=== PATIENT | male | born 1965 | race Two or more races ===

== ENCOUNTER 2020-06-02 21:41 | Emergency (ER) | payer OTHER, SELFPAY ==
[2020-06-02 22:48] VITALS: PULSE 91; RESP 20; TEMP 37.2; O2SAT 95; BMI 34.9
--- NOTE | 2020-06-02 23:38 | ED_ITS ---
HPI - Back Pain/Injury General Chief Complaint: Back Pain/Injury Stated Complaint: BACK PAIN Time Seen by Provider: 06/02/20 23:07 Source: patient Mode of arrival: ambulatory Limitations: no limitations History of Present Illness HPI Narrative: This is a 55-year-old male who presents with right lumbar back discomfort that radiates into the posterior lower extremity and he states that this started on Monday. This is not been associated with any bowel or bladder dysfunction, or urinary pain /burning / frequency. In addition, there are no associated fevers, chills, nausea, or vomiting. Patient states that he has suffered from this before and feels it is related to his job. Related Data Previous Rx's Medication Instructions Recorded cyclobenzaprine 10 mg PO BEDTIME PRN #5 tab 06/02/20 ketorolac 10 mg PO Q6H PRN 5 Days #20 tab 06/02/20 Allergies Allergy/AdvReac Type Severity Reaction Status Date / Time No Known Allergies Allergy Verified 06/02/20 23:38 Review of Systems Review of Systems: Pertinent positives and negatives as stated in the HPI. GEN: no fevers, chills, fatigue HEENT: no nasal congestion, sore throat, ear pain NEURO: no headache, dizziness, focal weakness PULM: no cough, shortness of breath CV: no chest pain, palpitations, LE edema ABD: no abdominal pain, nausea, vomiting, diarrhea : no dysuria, urgency, frequency SKIN: no rash ROS otherwise negative x 10 PMFSH Past Medical History Source: nursing notes reviewed Medical History Diabetes Hypertension Kidney stones Sciatica Social History Social History Smoking Status: Current every day smoker Use of substances other than those prescribed or required for medical reasons: No Advance Directives: No Advance Directives Information Provided: No Physical Exam Vital Signs and I&O and Narrative: Vital Signs and I&O: Vital Signs Temp 98.9 F 06/02/20 22:48 Pulse 97 06/03/20 00:19 Resp 16 06/03/20 00:19 BP 142/85 H 06/03/20 00:19 Pulse Ox 97 06/03/20 00:19 Intake & Output 06/02/20 06/02/20 06/03/20 06:59 18:59 06:59 Weight 101.151 kg Body Mass Index 34.9 VITAL SIGNS: Reviewed. GENERAL: Well developed, well nourished, in no acute distress. HEAD: Normocephalic/atraumatic, EYES: PERRLA, EOMI intact without pain, no nystagmus/pallor/icterus noted EARS: Ext canals without abnormality, TMs non-bulging and non-erythematous NOSE: Nares patent bilateral OROPHARYNX: no oral lesions noted, posterior pharynx clear and non-erythematous without noted tonsillar enlargement/erythema/exudates NECK: Supple, no adenopathy LUNGS: Normal breath sounds. No adventitious sounds or accessory muscle use. SpO2<97%> CARDIOVASCULAR: Regular rate and rhythm without noted murmurs, no JVD or lower extremity edema. ABDOMEN: Soft, non-tender, non-distended with bowel sounds. No rigidity. No guarding. No palpable masses or hernias noted BACK: no CVA tenderness and noted muscle spasm to right, lower lumbar area MUSCULOSKELETAL: No tenderness, deformities, or effusions noted on gross inspection. EXTREMITIES: No cyanosis, clubbing or edema and neurovascularly intact distally.. SKIN: Inspection of the skin reveals no rashes, ulcerations, jaundice, pallor, or petechiae. NEUROLOGIC: Alert and oriented x 4. Strength and sensation to light touch were grossly intact x 4. Course Course Course Narrative: This is a 55-year-old male with history and clinical presentation most consistent with sciatica and doubt any evidence to support pyelonephritis, UTI, renal colic. Patient was provided with a combination analgesics to include a Lidoderm patch with significant improvement in his di scomfort on re-evaluation. He was discharged to home with an analgesics combination regimen. Discharge Plan Discharge Clinical Impression: Sciatica Qualifiers: Laterality: right Qualified Code(s): M54.31 - Sciatica, right side Patient Disposition: Home, Self-Care Instructions: Sciatica (ED), Lumbar Radiculopathy (ED), Lower Back Exercises (ED) Additional Instructions: 1. Tylenol 1000 mg, orally, every 6 hours as needed for pain control. Do not exceed 4000 mg within 24 hours. 2. continue with lidocaine patches apply to area of maximal tenderness as directed on the outside packaging. 3. review the information for back exercises. 4. please follow-up with your primary care provider for further outpatient management and treatment. The patient and/or family acknowledge understanding of results (as applicable), diagnosis, treatment plan, need for follow up, and symptoms that should prompt a return to the emergency room. Prescriptions: New ketorolac 10 mg tablet 10 mg PO Q6H PRN (Reason: pain) 5 Days Qty: 20 RF: 0 cyclobenzaprine 10 mg tablet 10 mg PO BEDTIME PRN (Reason: muscle spasm) Qty: 5 RF: 0 Referrals: Fred Gonsales PA-C [Primary Care Provider] - 2 days ( for further management of your sciatica) Stand Alone Forms: Work/School Release Interventions: ED Discharge Assessment Last Done: 06/03/20 00:26 Discharge Date/Time: 06/03/20 00:27
[2020-06-03] MEDS: Ketorolac Tromethamine 15 MG/ML VIAL IM (00:14)
[2020-06-03] MEDS: Acetaminophen 325 MG TABLET 975 MG PO (00:14)
[2020-06-03] MEDS: Lidocaine 4 % Patch ADH..PATCH 1 PATCH TRANSDERMA (00:15)
[2020-06-03 00:19] VITALS: BP 142/85; PULSE 97; RESP 16; O2SAT 97
--- NOTE | 2020-06-03 00:25 | PC.NURSE ---
Pt medicated per EMAR, pt reporting 5/10 pain to lower back. VSS. Pt requesting a work note. Pt provided with DC paperwork.
== END 2020-06-03 00:27 | disposition home or self-care (01) ==
PROVIDERS: Emergency Provider Student in an Organized Health Care Education/Training Program; PCP Physician Assistant
DX: M54.41 Lumbago with sciatica, right side (principal); I10 Essential (primary) hypertension; E11.9 Type 2 diabetes mellitus without complications; F17.200 Nicotine dependence, unspecified, uncomplicated; Z71.6 Tobacco abuse counseling; Z79.899 Other long term (current) drug therapy
CPT/HCPCS: 96372; 99284; J1885

== ENCOUNTER 2020-06-06 08:56 | Outpatient (REF) | payer OTHER, SELFPAY ==
[2020-06-06 10:59] LABS: MANUAL DIFF FLAG NO
[2020-06-06 11:06] LABS: Basophils Percent Auto 0.4 % (0-2); Eosinophils Absolute Auto 0.3 X10*3/uL (0.0-0.4); Eosinophils Percent Auto 2.7 % (0-4); Hematocrit 44.4 % (42-52); Hemoglobin 14.8 g/dl (14.0-18.0); Imm Gran Abs Auto 0.04 X10*3/uL (0.00-0.03); Imm Gran Pct Auto 0.4 % (0.0-0.4); Lymphocytes Absolute Auto 3.3 X10*3/uL (1.2-4.9); Lymphocytes Percent Auto 30.7 % (20-40); Mean Corpuscular HGB Conc 33.3 g/dl (31.0-36.0); Mean Corpuscular Hemoglobin 29.8 pg (27.0-33.0); Mean Corpuscular Volume 89.5 fL (80-98); Mean Platelet Volume 11.1 fL (9.4-12.4); Monocytes Percent Auto 8.9 % (2-11); Neutrophils Absolute Auto 6.1 X10*3/uL (2.0-8.3); Neutrophils Percent Auto 56.9 % (45-73); Platelet Count 218 X10*3/uL (160-400); Red Blood Count 4.96 X10*6/uL (4.60-5.80); Red Cell Distribution Width 12.8 % (11.0-16.0); White Blood Count 10.7 X10*3/uL (4.8-10.8)
[2020-06-06 11:18] LABS: Estimated Average Glucose 137 mg/dL; Hemoglobin A1c % 6.4 %
[2020-06-06 11:35] LABS: Alanine Aminotransferase 20 U/L (0-40); Albumin Level 4.2 g/dL (3.5-5.0); Alkaline Phosphatase 91 U/L (39-117); Anion Gap 12 (12-20); Aspartate Amino Transferase 22 U/L (5-37); Bilirubin Total 0.8 mg/dL (0.0-1.0); Blood Urea Nitrogen 13 mg/dL (9-16); Calcium 9.1 mg/dL (8.4-10.2); Carbon Dioxide 27 mmol/L (22-29); Chloride 103 mmol/L (96-108); Cholesterol 203 mg/dL; Estimated Glomerular Filt Rate > 60; Glucose Fasting 110 mg/dL (60-99); HDL Cholesterol 43 mg/dL; LDL Cholesterol Calculated 137 mg/dl; Potassium 4.4 mmol/l (3.3-5.1); Sodium 138 mmol/L (135-145); Total Protein 7.4 g/dL (6.5-8.0); Triglycerides 118 mg/dL
[2020-06-06 11:44] LABS: Creatinine Urine 164.19 mg/dL; Microalbum/Creatinine Ratio Ur 58.4 ug/mg cr
[2020-06-06 11:58] LABS: Thyroid Stimulating Hormone 0.91 mIU/mL (0.32-4.0)
== END 2020-06-06 08:57 | disposition home or self-care (01) ==
LOC: HO.LAB 08:56
PROVIDERS: PCP Physician Assistant; Visit Provider Physician Assistant
DX: I10 Essential (primary) hypertension (principal); E11.9 Type 2 diabetes mellitus without complications
CPT/HCPCS: 36415; 80053; 80061; 82043; 83036; 84443; 85025

== ENCOUNTER 2020-06-20 14:53 | Emergency (ER) | payer OTHER, SELFPAY ==
--- NOTE | 2020-06-20 16:07 | ED_ITS ---
HPI - General Adult General Chief complaint: General Medical Stated complaint: RIGHT SIDE PAIN Time Seen by Provider: 06/20/20 16:07 Source: patient Mode of arrival: ambulatory Limitations: no limitations History of Present Illness Onset (ago): day(s) (7) Location: abdomen Radiation: non-radiation Severity: moderate Quality: aching Pain Consistency: constant Relieving factors: none Exacerbating factors: movement Associated symptoms: fever/chills, loss of appetite and nausea/vomiting Treatments prior to arrival: none Related Data Previous Rx's Medication Instructions Recorded cyclobenzaprine 10 mg PO BEDTIME PRN #5 tab 06/02/20 ketorolac 10 mg PO Q6H PRN 5 Days #20 tab 06/02/20 oxycodone 5 mg PO Q6H PRN #14 tab 06/20/20 Allergies Allergy/AdvReac Type Severity Reaction Status Date / Time No Known Allergies Allergy Verified 06/02/20 23:38 Review of Systems Review of Systems: Constitutional : No Weight loss, No Fever, No Chills ENT/Mouth : No sore throat, No Rhinorrhea Eyes: No Swelling, No Redness Cardiovascular : No Chest Pain, No SOB, NoEdema Respiratory : No Cough, No Sputum, No Wheezing Gastrointestinal : Positive Nausea, no Vomiting, no Diarrhea, positive abdominal Pain, No Hematochezia, No Melena Genitourinary : No Dysuria, No Urinary Frequency, No Hematuria, No Urgency Musculoskeletal : No joint pain, No Myalgias, No Joint Swelling Skin : No Skin Lesions, No rash Neuro : No Weakness, No Numbness, No Dizziness, No Headache Psych : No Anxiety/Panic, No Depression Heme/Lymph: No Bruising, No Lymphadenopathy Endocrine : No Polyuria, No Polydipsia All other systems reviewed and are negative. [facility] Past Medical History Attestation statement: The following information was validated with the patient. Medical History (Updated 06/20/20 @ 18:57 by Lyubov Osborn DO) Diabetes Hypertension Kidney stones Sciatica Surgical History (Updated 06/20/20 @ 16:09 by Lyubov Osborn DO) Hx of cholecystectomy Social History Social History Alcohol intake: unknown Smoking Status: Current some day smoker Use of substances other than those prescribed or required for medical reasons: No Advance Directives: No Advance Directives Information Provided: Yes Physical Exam Vital Signs: Vital Signs: Vital Signs Temp Pulse Resp BP Pulse Ox 06/20/20 16:38 19 06/20/20 16:27 98.6 F 75 17 149/91 H 95 Appearance: Alert. Oriented X3. No acute distress. Eyes: Pupils equal, round and reactive to light. ENT: Pharynx normal. Neck: Normal inspection. Neck supple. CVS: Normal heart rate and rhythm. Pulses normal. Respiratory: No respiratory distress. Breath sounds normal. Abdomen: Soft and moderate ttp, R sided abdominal pain Skin: Skin warm and dry. Normal skin color. Normal skin turgor. Extremities: No lower extremity edema. No calf ttp Neuro: Oriented X 3. No motor deficit. No sensory deficit. Course Course Course Narrative: given results of CXR added on CT chest to evaluate mass patient aware of findings of CT scan - will DC home with referral to oncology Medical Decision Making [facility] Narrative Medical decision making narrative: 55 yo male with sweats, R sided abdominal pa in for several days c/o some nausea, recently treated for back pain at this time will need labs, CXR for pneumonia, CT scan for appendicitis/mass, IV morphine for pain, dispo per results and findings. Lab Data Result diagrams: 06/20/20 16:21 06/20/20 16:22 Labs: Lab Results 06/20/20 06/20/20 06/20/20 Range/Units 16:21 16:22 16:22 WBC 10.7 (4.8-10.8) X10*3/uL RBC 5.11 (4.60-5.80) X10*6/uL Hgb 15.2 (14.0-18.0) g/dl Hct 45.4 (42-52) % MCV 88.8 (80-98) fL MCH 29.7 (27.0-33.0) pg MCHC 33.5 (31.0-36.0) g/dl RDW 12.7 (11.0-16.0) % Plt Count 207 (160-400) X10*3/uL MPV 11.0 (9.4-12.4) fL Immature Gran % (Auto) 0.4 (0.0-0.4) % Neut % (Auto) 55.0 (45-73) % Lymph % (Auto) 31.3 (20-40) % Sheridan % (Auto) 10.0 (2-11) % Eos % (Auto) 2.8 (0-4) % Baso % (Auto) 0.5 (0-2) % Lymph # (Auto) 3.3 (1.2-4.9) X10*3/uL Sheridan # (Auto) 1.1 (0.1-1.2) X10*3/uL Eos # (Auto) 0.3 (0.0-0.4) X10*3/uL Baso # (Auto) 0.1 (0.0-0.2) X10*3/uL Abs Immat Gran (auto) 0.04 H (0.00-0.03) X10*3/uL Absolute Neuts (auto) 5.9 (2.0-8.3) X10*3/uL Absolute Nucleated RBC 0.000 (0.0-0.012) X10*3/uL Nucleated RBC % (auto) 0.0 (0.0-0.2) /100WBC Hold Blue Top SEE NOTE Sodium 137 (135-145) mmol/L Potassium 4.3 (3.3-5.1) mmol/l Chloride 104 (96-108) mmol/L Carbon Dioxide 23 (22-29) mmol/L Anion Gap 14 (12-20) BUN 12 (9-16) mg/dL Creatinine 0.69 (0.5-1.4) mg/dL Estim Creat Clear Calc TNP Estimated GFR > 60 Random Glucose 117 H (60-115) mg/dL Calcium 8.9 (8.4-10.2) mg/dL Magnesium 2.1 (1.6-2.6) mg/dL Total Bilirubin 0.3 (0.0-1.0) mg/dL Direct Bilirubin 0.2 (0.0-0.5) mg/dL AST 26 (5-37) U/L ALT 23 (0-40) U/L Alkaline Phosphatase 97 (39-117) U/L Troponin I High Sens (<3.5-35.0) ng/L Total Protein 7.6 (6.5-8.0) g/dL Albumin 4.1 (3.5-5.0) g/dL Lipase 6 L (8-78) U/L Urine Color Urine Appearance Urine pH (5.0-8.0) Ur Specific Vaughn (1.005-1.025) Urine Protein (NEG-TRACE) MG/DL Urine Glucose (UA) (NEG) MG/DL Urine Ketones (NEG) MG/DL Urine Blood (NEG) Urine Nitrite (NEG) Ur Leukocyte Esterase (NEG) Urine RBC (0) /HPF Urine WBC (0-4) /HPF Ur Squamous Epith Cells /LPF Urine Bacteria /LPF Urine Mucus /LPF 06/20/20 06/20/20 Range/Units 16:22 16:25 WBC (4.8-10.8) X10*3/uL RBC (4.60-5.80) X10*6/uL Hgb (14.0-18.0) g/dl Hct (42-52) % MCV (80-98) fL MCH (27.0-33.0) pg MCHC (31.0-36.0) g/dl RDW (11.0-16.0) % Plt Count (160-400) X10*3/uL MPV (9.4-12.4) fL Immature Gran % (Auto) (0.0-0.4) % Neut % (Auto) (45-73) % Lymph % (Auto) (20-40) % Sheridan % (Auto) (2-11) % Eos % (Auto) (0-4) % Baso % (Auto) (0-2) % Lymph # (Auto) (1.2-4.9) X10*3/uL Sheridan # (Auto) (0.1-1.2) X10*3/uL Eos # (Auto) (0.0-0.4) X10*3/uL Baso # (Auto) (0.0-0.2) X10*3/uL Abs Immat Gran (auto) (0.00-0.03) X10*3/uL Absolute Neuts (auto) (2.0-8.3) X10*3/uL Absolute Nucleated RBC (0.0-0.012) X10*3/uL Nucleated RBC % (auto) (0.0-0.2) /100WBC Hold Blue Top Sodium (135-145) mmol/L Potassium (3.3-5.1) mmol/l Chloride (96-108) mmol/L Carbon Dioxide (22-29) mmol/L Anion Gap (12-20) BUN (9-16) mg/dL Creatinine (0.5-1.4) mg/dL Estim Creat Clear Calc Estimated GFR Random Glucose (60-115) mg/dL Calcium (8.4-10.2) mg/dL Magnesium (1.6-2.6) mg/dL Total Bilirubin (0.0-1.0) mg/dL Direct Bilirubin (0.0-0.5) mg/dL AST (5-37) U/L ALT (0-40) U/L Alkaline Phosphatase (39-117) U/L Troponin I High Sens 4.5 (<3.5-35.0) ng/L Total Protein (6.5-8.0) g/dL Albumin (3.5-5.0) g/dL Lipase (8-78) U/L Urine Color YELLOW Urine Appearance CLEAR Urine pH 5.5 (5.0-8.0) Ur Specific Vaughn >= 1.030 H (1.005-1.025) Urine Protein TRACE (NEG-TRACE) MG/DL Urine Glucose (UA) NEG (NEG) MG/DL Urine Ketones NEG (NEG) MG/DL Urine Blood NEG (NEG) Urine Nitrite NEG (NEG) Ur Leukocyte Esterase NEG (NEG) Urine RBC 0-2 (0) /HPF Urine WBC 0 (0-4) /HPF Ur Squamous Epith Cells TRACE /LPF Urine Bacteria NONE /LPF Urine Mucus 2+ /LPF ECG Data Attestation: I personally reviewed and interpreted this ECG as follows: Interpretation: Rate: 77 Rhythm: NSR Enid: left Normal P waves. Normal ASCENCION. Normal QRS complex. ST T wave : normal qTC: normal prior studies: no acute ischemia The study has been interpreted contemporaneously by me. . Discharge Plan Discharge Clinical Impression: Acute flank pain, Lung mass Patient Disposition: Home, Self-Care Instructions: Flank Pain (ED) Prescriptions: New oxycodone 5 mg tablet 5 mg PO Q6H PRN (Reason: pain) Qty: 14 RF: 0 No Action ketorolac 10 mg tablet 10 mg PO Q6H PRN (Reason: pain) 5 Days Qty: 20 RF: 0 cyclobenzaprine 10 mg tablet 10 mg PO BEDTIME PRN (Reason: muscle spasm) Qty: 5 RF: 0 Referrals: Fred Gonsales PA-C [Primary Care Provider] - 1 day Javier Isidro MD [Physician] - 2 days Stand Alone Forms: Work/School Release
--- NOTE | 2020-06-20 16:07 | CT_ITS ---
EXAMINATION: CT ABDOMEN AND PELVIS WITH CONTRAST CLINICAL INFORMATION: Right-sided pain COMPARISON: None TECHNIQUE: Multidetector volumetric images were obtained from the superior aspect of the liver through the pubic symphysis following administration 85 mL of Omnipaque 350 intravenous contrast. Sagittal and coronal reformatted images were obtained on the technologist's workstation. Oral contrast: No This CT examination was performed using dose optimization techniques as appropriate, variously including the following: *Automated exposure control *Adjustment of mA and/or kV according to patient size (this includes techniques or standardized protocols for targeted exams where dose is matched to indication/reason for exam; i.e. 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 This will be reported upon separately LUNG BASES: No suspicious abnormality in the visualized lower chest. The remainder of the chest will be reported separately LIVER, GALLBLADDER, AND BILIARY TREE: There is no suspicious focal liver lesion. Liver contour is minimally irregular. No intrahepatic ductal dilation. There are surgical clips in the expected region of the gallbladder. No significant biliary dilation. PANCREAS: No suspicious abnormality. SPLEEN: The spleen is not enlarged. No suspicious abnormality ADRENAL GLANDS: No adrenal mass demonstrated KIDNEYS AND URETERS: There are low attenuating structures in the central aspect of each kidney. No convincing dilation of the renal pelvis or ureter on either side. This is of uncertain significance. There is a probable small cyst in the mid left kidney. The nephrograms are symmetric. BLADDER: The bladder is not well-distended. No suspicious abnormality. GASTROINTESTINAL TRACT: No localized colonic wall thickening or pericolonic fat stranding. The appendix is normal. No suspicious abnormality the stomach. ABDOMINAL WALL: No significant hernia is appreciated. LYMPH NODES: There are mildly prominent periportal and peripancreatic lymph nodes. There is a probable lymph node between the colon and pancreatic head which measures 1.1 cm (series 8, image 37). There are some celiac region lymph nodes as well. These are prominent. VASCULAR: There is no abdominal aortic aneurysm. The portal vein enhances. There is no free peritoneal fluid PELVIC VISCERA: Unremarkable. OSSEOUS STRUCTURES: There are extensive hypertrophic changes in the spine including dorsal osteophytes and ossification of the posterior longitudinal ligament which encroach upon the spinal canal. There is some foraminal narrowing bilaterally greatest at L5/S1. CT/CT abdomen pelvis w con IMPRESSION: There is no evidence of hepatic or adrenal metastasis. Slight irregularity of the liver and some nonspecific upper abdominal lymph nodes. In abnormality in the right upper lung will be reported upon separately. If there is subsequent diagnosis of malignancy further evaluation may be warranted for the upper abdominal lymph nodes. This could be related to chronic liver disease. The appendix is normal. There is no obstructing urinary calculus on the right. Previous cholecystectomy.
--- NOTE | 2020-06-20 16:07 | ECG_ITS ---
Test Reason : FLANK PAIN Blood Pressure : / mmHG Vent. Rate : 077 BPM Atrial Rate : 077 BPM P-R Int : 142 ms QRS Dur : 086 ms QT Int : 392 ms P-R-T Axes : 013 -01 016 degrees QTc Int : 443 ms Normal sinus rhythm Voltage criteria for left ventricular hypertrophy RSR' or QR pattern in V1 suggests right ventricular conduction delay Abnormal ECG No previous ECGs available Referred By: Lyubov Osborn Electronically Signed By:CHERRY HERNANDEZ MD
--- NOTE | 2020-06-20 16:08 | XR_ITS ---
EXAMINATION: XR chest 1V CLINICAL INFORMATION: Reason for Exam R sided pain COMPARISON: No prior chest x-ray available in our system for comparison at the time of this dictation. TECHNIQUE: Portable chest x-ray Lungs and Kaylee: There is age forming rounded opacity concerning for a mass in the right upper lobe 3.8 cm, concerning for lung mass. Left lung is clear. Pleura: Normal. Costophrenic angles are sharp. No pneumothorax. Heart: The heart is normal in size. Mediastinum: The mediastinum is within normal limits.. Bones: Skeletal structures included are normal for patient's age. XR/XR chest 1V IMPRESSION: Edge forming oval opacity projecting over the right upper lobe concerning for a lung mass pathologic lesion. Further investigation warranted. Consider correlation with follow-up contrast enhanced CT can. (Referring physician staff is being called, to be alerted of the above findings and recommendations.) MS
[2020-06-20 16:27] VITALS: BP 149/91; PULSE 75; RESP 17; TEMP 37; O2SAT 95
[2020-06-20 16:31] LABS: MANUAL DIFF FLAG NO
[2020-06-20 16:34] LABS: Basophils Absolute Auto 0.1 X10*3/uL (0.0-0.2); Basophils Percent Auto 0.5 % (0-2); Eosinophils Absolute Auto 0.3 X10*3/uL (0.0-0.4); Eosinophils Percent Auto 2.8 % (0-4); Hematocrit 45.4 % (42-52); Hemoglobin 15.2 g/dl (14.0-18.0); Imm Gran Abs Auto 0.04 X10*3/uL (0.00-0.03); Imm Gran Pct Auto 0.4 % (0.0-0.4); Lymphocytes Absolute Auto 3.3 X10*3/uL (1.2-4.9); Lymphocytes Percent Auto 31.3 % (20-40); Mean Corpuscular HGB Conc 33.5 g/dl (31.0-36.0); Mean Corpuscular Hemoglobin 29.7 pg (27.0-33.0); Mean Corpuscular Volume 88.8 fL (80-98); Monocytes Absolute Auto 1.1 X10*3/uL (0.1-1.2); Neutrophils Absolute Auto 5.9 X10*3/uL (2.0-8.3); Platelet Count 207 X10*3/uL (160-400); Red Blood Count 5.11 X10*6/uL (4.60-5.80); Red Cell Distribution Width 12.7 % (11.0-16.0); White Blood Count 10.7 X10*3/uL (4.8-10.8)
[2020-06-20 16:36] LABS: Glucose Urine UA NEG (NEG); Leukocyte Esterase Urine NEG (NEG); Nitrite Urine NEG (NEG); PH 5.5 (5.0-8.0); Specific Gravity - Urine >= 1.030 (1.005-1.025); Urine Blood NEG (NEG); Urine Ketones NEG (NEG); Urine Protein TRACE MG/DL (NEG-TRACE)
[2020-06-20 16:38] VITALS: RESP 19
[2020-06-20 16:38] LABS: Appearance Urine CLEAR; Color Urine YELLOW
[2020-06-20] MEDS: ondansetron HCL 4 MG/2 ML VIAL IVPUSH (16:38)
[2020-06-20] MEDS: Morphine Sulfate 4 MG/ML CARTRIDGE IVPUSH (16:38)
--- NOTE | 2020-06-20 16:52 | CT_ITS ---
EXAMINATION: CT CHEST WITH CONTRAST CLINICAL INFORMATION: Lung mass COMPARISON: None TECHNIQUE: Multidetector volumetric CT imaging of the chest was obtained after the administration of 85 mL of Omnipaque 350 intravenous contrast without immediate adverse reactions. Axial MIP volume rendering provided. Sagittal and coronal reformatted images were obtained. This CT examination was performed using dose optimization techniques as appropriate, variously including the following: *Automated exposure control *Adjustment of mA and/or kV according to patient size (this includes techniques or standardized protocols for targeted exams where dose is matched to indication/reason for exam; i.e. 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 There are surgical clips in the right upper quadrant. There are osteophytes in the spine. The cardiac silhouette appears prominent. LUNGS: There is a heterogeneous irregular 4.1 x 3.3 x 3.1 cm peripheral mass in the apical right upper lobe. There is a broad common surface with the parietal pleura. There is no convincing underlying bone destruction. There is no convincing evidence of chest wall invasion although this is by no means excluded. The mass has acute and obtuse margins with the chest wall. There is a suggestion of some adjacent pleural reaction. There is no central calcification or cavitation. There are a few nonspecific juxtapleural reticular opacities. There is no evidence of significant emphysema or honeycomb formation. MEDIASTINUM: There is mediastinal and right hilar adenopathy highly suspicious for metastatic disease. Retrocaval paratracheal lymph node 06/20/20, series 6, image 140-2.7 cm Right paratracheal lymphadenopathy 06/20/20, series 6, image 103-1.3 cm Prevascular lymph node at the groove between the SVC and aorta 06/20/20, series 6, image 139-1.0 cm Right hilar adenopathy which may be partially necrotic 06/20/20, series 6, image 165-1.3 cm Nonspecific lymph nodes on the left side of the mediastinum between the maryuri and left pulmonary artery and in the aorticopulmonary window. These are not definitely pathologic. No abnormality of the esophagus. PLEURA: As described the mass abuts the pleura and chest wall. No significant pleural fluid. AXILLA: There are some bilateral axillary lymph nodes which are nonspecific. UPPER ABDOMEN: The abdomen is reported separately. OSSEOUS STRUCTURES: No convincing direct invasion into the adjacent ribs in the right upper chest. Hypertrophic changes in the spine with some narrowing of the canal. Flowing osteophytes or syndesmophytes. CT/CT chest w con IMPRESSION: There is a 4.1 cm peripheral irregular mass in the apical right upper lobe with a broad common surface with the parietal pleura/chest wall highly suspicious for non-small cell carcinoma. Highly suspicious adenopathy in the right hilum and mediastinum No significant pleural fluid. Technique appropriate action
[2020-06-20 16:57] LABS: Alanine Aminotransferase 23 U/L (0-40); Albumin Level 4.1 g/dL (3.5-5.0); Alkaline Phosphatase 97 U/L (39-117); Anion Gap 14 (12-20); Aspartate Amino Transferase 26 U/L (5-37); Bilirubin Direct 0.2 mg/dL (0.0-0.5); Bilirubin Total 0.3 mg/dL (0.0-1.0); Blood Urea Nitrogen 12 mg/dL (9-16); Calcium 8.9 mg/dL (8.4-10.2); Carbon Dioxide 23 mmol/L (22-29); Chloride 104 mmol/L (96-108); Estimated Glomerular Filt Rate > 60; Glucose Random 117 mg/dL (60-115); Lipase 6 U/L (8-78); Magnesium 2.1 mg/dL (1.6-2.6); Potassium 4.3 mmol/l (3.3-5.1); Sodium 137 mmol/L (135-145); Total Protein 7.6 g/dL (6.5-8.0)
[2020-06-20 17:00] LABS: Troponin-I High Sensitivity 4.5 ng/L (<3.5-35.0)
[2020-06-20 17:25] LABS: Mucus Urine 2+ /LPF; RBC Urine 0-2 /HPF (0); Squamous Epithelial Cell Urine TRACE /LPF; WBC Urine 0 /HPF (0-4)
[2020-06-20] MEDS: iohexoL 350 MG/ML 100 ML INFUS..BTL IV (17:25)
[2020-06-20 19:17] VITALS: BP 156/95; PULSE 70; RESP 17; TEMP 37; O2SAT 96
== END 2020-06-20 19:26 | disposition home or self-care (01) ==
PROVIDERS: Emergency Provider Emergency Medicine; PCP Physician Assistant
DX: R10.9 Unspecified abdominal pain (principal); R91.8 Other nonspecific abnormal finding of lung field; I10 Essential (primary) hypertension; F17.200 Nicotine dependence, unspecified, uncomplicated; Z71.6 Tobacco abuse counseling; Z79.899 Other long term (current) drug therapy
CPT/HCPCS: 36415; 71045; 71260; 74177; 80048; 80076; 81001; 81003; 83690; 83735; 84484; 85025; 93005; 99284; J2270; J2405

== ENCOUNTER 2020-07-02 14:54 | Outpatient (REF) | payer OTHER, SELFPAY ==
--- NOTE | 2020-07-02 14:53 | MR_ITS ---
EXAMINATION: MR BRAIN WITHOUT AND WITH CONTRAST CLINICAL INFORMATION: Balance problems. Lung mass. COMPARISON: None. TECHNIQUE: Multiplanar, multisequence MRI of the brain was obtained before and after the intravenous administration of 10 mL Gadavist. FINDINGS: No diffusion abnormalities are identified to suggest an acute or subacute infarct. No mass effect or midline shift is seen. The ventricles and sulci are commensurately prominent consistent with mild diffuse volume loss. There are scattered areas of increased T2 and FLAIR signal in the periventricular and subcortical white matter, most consistent with chronic microvascular ischemic changes. No extra-axial fluid collections are seen. The brainstem and cerebellum are normal. On postcontrast imaging, there is no abnormal parenchymal or leptomeningeal enhancement. No pathologic magnetic susceptibility artifact is identified on the gradient refocused acquisition. The craniovertebral junction, marrow signal, and midline structures are normal. The major intracranial flow-voids at the level of the [place] are preserved. The dural venous sinus flow-voids are maintained. There is trace fluid in the left mastoid air cells. The paranasal sinuses are well aerated. MR/MR head/brain wo/w con IMPRESSION: 1. There are no acute bleeds or territorial infarcts. No masses are demonstrated. There is no abnormal enhancement. 2. There are chronic microvascular ischemic changes and there is diffuse volume loss.
== END 2020-07-02 14:55 | disposition home or self-care (01) ==
LOC: HO.MRI 14:54
PROVIDERS: Visit Provider Internal Medicine
DX: R26.81 Unsteadiness on feet (principal); R91.8 Other nonspecific abnormal finding of lung field
CPT/HCPCS: 70553; A9585

== ENCOUNTER → 2020-07-03 09:43 | Outpatient (BNVA) | payer OTHER, SELFPAY | PROVIDERS: PCP Physician Assistant; Referring Provider Physician Assistant; Visit Provider Surgery | DX: Z76.89 Persons encountering health services in other specified circumstances (principal) ==

== ENCOUNTER 2020-07-09 07:46 | Day surgery (SDC) | payer OTHER, SELFPAY ==
--- NOTE | 2020-07-08 09:51 | HO.ANESPROP2 ---
Documented by User: Alexia Kaur 07/08/20 09:55 HPI - Anesthesia Eval Consult details Narrative: 55yo M for EBUS, possible CME RUL mass found at ED visit with R flank pain PMFSH Past Medical History Medical History Diabetes Hypertension Kidney stones Sciatica Family History Family History Father Heart attack Maternal Aunt Diabetes Paternal Uncle Diabetes Surgical History Surgical History Hx of cholecystectomy Social History Social History Alcohol intake: former Smoking Status: Former smoker Tobacco Type: Cigarette Packs Per Day: 0.5 Years Smoked: 38 Smoked in Last 30 Days: Yes Smoking Quit Date: 06/28/20 Use of substances other than those prescribed or required for medical reasons: No Advance Directives: No Meds Allergies Allergy/AdvReac Type Severity Reaction Status Date / Time No Known Allergies Allergy Verified 06/23/20 10:24 Home Medications Medication Instructions Recorded Confirmed Type blood sugar diagnostic #10 ea 06/23/20 07/03/20 History metformin 500 mg tablet,extended 500 mg PO DAILY 06/23/20 07/03/20 History release 24 hr metoprolol succinate 1 tab PO DAILY 06/29/20 07/03/20 History flu vac qs 2019(4 yr up)CD(PF) ml IM 07/03/20 07/03/20 History Exam Exam Date and Time: July 08, 2020 0951 Pertinent Lab Results Pertinent Lab Results: Laboratory Tests 06/20/20 06/20/20 16:21 16:22 WBC 10.7 Hgb 15.2 Hct 45.4 Plt Count 207 Sodium 137 Potassium 4.3 Chloride 104 BUN 12 Creatinine 0.69 Narrative Narrative: EKG 05/2020: Normal sinus rhythm Voltage criteria for left ventricular hypertrophy RSR' or QR pattern in V1 suggests right ventricular conduction delay Assessment and Plan Assessment Anesthesia Assessment: Chart Reviewed Documented by User: Harman Ford MD 07/09/20 15:21 PMFSH Past Medical History Medical History Diabetes Hypertension Kidney stones Sciatica Family History Family History Father Heart attack Maternal Aunt Diabetes Paternal Uncle Diabetes Surgical History Surgical History Hx of cholecystectomy Social History Social History Alcohol intake: former Smoking Status: Former smoker Tobacco Type: Cigarette Packs Per Day: 0.5 Years Smoked: 38 Smoked in Last 30 Days: Yes Smoking Quit Date: 06/28/20 Use of substances other than those prescribed or required for medical reasons: No Advance Directives: No Meds Allergies Allergy/AdvReac Type Severity Reaction Status Date / Time No Known Allergies Allergy Verified 06/23/20 10:24 Home Medications Medication Instructions Recorded Confirmed Type blood sugar diagnostic #10 ea 06/23/20 07/03/20 History metformin 500 mg tablet,extended 500 mg PO DAILY 06/23/20 07/03/20 History release 24 hr metoprolol succinate 1 tab PO DAILY 06/29/20 07/03/20 History flu vac qs 2020(4 yr up)CD(PF) ml IM 07/03/20 07/03/20 History Exam Airway Mallampati Class: II TM Dist: >3cm Neck ROM: Full Loose/Missing/Broken Teeth: No Heart: rrr Lungs: nl Other: ao Assessment and Plan Assessment Anesthesia Assessment: Anesthesia Plan Discussed and Chart Reviewed Final Anesthetic Review NPO: Yes ASA Class: III Final Preanesthetic Review: No Changes in Pt Med Stat, Meds/Allgs Chart Reviewed and Anes Risks/Benef Reviewed Patient Risk: Intermediate Procedure Risk: Intermediate Anesthetic Plan Anesthetic Plan: GA Disposition: Standard PACU
[2020-07-09] VITALS (7 sets, daily range): BP systolic 122–148; BP diastolic 73–84; PULSE 65–85; RESP 16–18; TEMP 36.2–37; O2SAT 97–100; BMI 36.5
[2020-07-09 13:04] LABS: Glucose, Whole Blood 105 mg/dL (60-115)
[2020-07-09] MEDS: Lactated Ringers 1,000 ML 100 ML IVCONT (13:20)
--- NOTE | 2020-07-09 15:24 | MHC.SHP ---
Pre-Procedural Eval Section B Chief Complaint: lung mass Allergies: Allergies Allergy/AdvReac Type Severity Reaction Status Date / Time No Known Allergies Allergy Verified 06/23/20 10:24 Plan Patient has been examined and remains a candidate for the planned procedure
--- NOTE | 2020-07-09 17:06 | PM.OP ---
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
--- NOTE | 2020-07-09 19:39 | OP_ITS ---
SURGEON: Nehemias London MD PREOPERATIVE DIAGNOSIS: Right upper lobe lung mass and mediastinal lymphadenopathy. POSTOPERATIVE DIAGNOSIS: Lung cancer, right upper lobe metastatic to mediastinal lymph nodes. PROCEDURE PERFORMED: Endobronchial ultrasound with biopsy of multiple lymph node stations. ESTIMATED BLOOD LOSS: Minimal. COMPLICATIONS: ANESTHESIA: General. ASSISTANTS: SPECIMENS: R4 lymph nodes x2. Subcarinal lymph nodes and L4 lymph nodes. INDICATIONS FOR OPERATION: This is a 55-year-old gentleman, long-time smoker, who presents to the emergency department with some right-sided flank/chest pain, who ultimately had a CT scan of the chest showing a relatively large lung mass in the right upper lobe spiculated base suspicious for lung cancer and bulky mediastinal lymphadenopathy. Given these findings, I arranged for him to get a brain MRI and a PET scan. PET scan is still pending for diagnostic and staging purposes. We discussed endobronchial ultrasound, possible mediastinoscopy for again diagnostic and staging purposes. He understood the risks, benefits, alternatives, and agreed to proceed. OPERATION IN DETAIL: On the day of operation, the patient was brought to the operating room, placed supine on operating table. Anesthesia monitoring devices were placed. The patient was intubated without difficulty. A time-out was performed confirming the correct patient, site, and procedure. The Olympus endobronchial ultrasound scope was then inserted through the endotracheal tube, and the airways were visualized out to the segmental level without any endobronchial lesions and no secretions. We then switched on the endobronchial ultrasound load and the scanning endobronchial ultrasound. There was a bulky right paratracheal lymphadenopathy, right hilar lymphadenopathy, and subcarinal lymphadenopathy, and the lymph node in the L4 area that was accessible, was not enlarged, but did appear abnormal. We then positioned ourselves over the first right paratracheal lymph node which again was quite enlarged more than 2 cm with an amorphous-type appearance. We then using a 19-gauge Olympus endobronchial ultrasound needle, did 3 passes in this lymph node. On-site pathology showed 2/3 passes malignant cells. We then accessed a separate right paratracheal lymph node, which also had malignant cells, and the remainder of our passes were placed in for cell block. Three passes were done on this 2nd right paratracheal lymph node. We then did 3 passes with a new needle in the subcarinal lymph node and finally 3 passes on an L4 lymph node. Hemostasis was quite good. The patient tolerated the procedure well, was extubated in the operating room, brought to recovery room in stable condition. MD SARA Aguilar/JOEL / [id number]
[2020-08-11 17:58] LABS: PD-L1 CB Primary Site NOT GIVEN
== END 2020-07-09 18:00 | disposition home or self-care (01) ==
PROVIDERS: PCP Physician Assistant; Visit Provider Surgery
PROC: (CPT 31653; principal; 2020-07-09 14:30)
DX: C34.11 Malignant neoplasm of upper lobe, right bronchus or lung (principal); C77.1 Secondary and unspecified malignant neoplasm of intrathoracic lymph nodes; J41.0 Simple chronic bronchitis; R59.0 Localized enlarged lymph nodes; R51.9 Headache, unspecified; R27.9 Unspecified lack of coordination; F17.210 Nicotine dependence, cigarettes, uncomplicated; I10 Essential (primary) hypertension; E11.9 Type 2 diabetes mellitus without complications; M54.30 Sciatica, unspecified side; Z79.84 Long term (current) use of oral hypoglycemic drugs; Z79.899 Other long term (current) drug therapy; Z87.442 Personal history of urinary calculi; Z90.49 Acquired absence of other specified parts of digestive tract
CPT/HCPCS: 31653; 82947; 88172; 88173; 88177; 88305; 88341; 88342; 88360; J0690; J1100; J2250; J2405; J3010

== ENCOUNTER 2020-07-28 12:16 | Outpatient (REF) | payer OTHER, SELFPAY ==
--- NOTE | 2020-07-28 08:00 | PE_ITS ---
EXAMINATION: Fluorine-18 FDG PET/CT Scan CLINICAL INDICATION: Initial treatment management. Squamous cell right lung cancer. PROCEDURE: 59 minutes following the intravenous administration of 16.4 mCi of fluorine 18 FDG, images from the base of the skull to the mid thighs were obtained using a combined PET/CT scanner with CT scan based attenuation correction. No oral contrast was administered. No intravenous contrast was administered. Transverse, coronal, sagittal, and volume reconstruction projections were obtained. The patient's blood glucose as determined by a finger stick, was 128 mg/dl immediately prior to injection. Total CT exam dose-length product 1111.65 mGy-cm COMPARISON: No previous PET/CT scan is available for comparison. The diagnostic CT scan of the chest, abdomen, and pelvis, dated 06/20/2020, is available for comparison. FINDINGS: (Slice numbers described in this report are numbered superiorly to inferiorly with slice #1 in the head) NECK AND VISUALIZED HEAD: No foci of abnormal FDG activity are noted. The distribution of FDG activity is physiological. There is no cervical lymphadenopathy. THORAX: There is an intensely FDG avid lateral pleural-based pulmonary mass which is intensely FDG avid. This shows SUVmax 16.6, slice 71/267 and measures 3.8 x 3.3 cm in largest transverse dimensions, and approximately 3.6 cm cephalocaudad. There is an intensely FDG avid lower right paratracheal lymph node, SUVmax 14.5, slice 80/267. This measures 4.3 x 3.0 cm in largest transverse dimensions. There is an additional FDG avid proximal right peribronchial lymph node that shows SUVmax 6.8, slice 81/267. There are 2 subcentimeter right supraclavicular lymph nodes present, the more medial showing SUVmax 5.1 and lateral and superior to this showing SUVmax 4.0. No additional foci of abnormal FDG activity are present in the chest. There is a 0.4 cm posterior left upper lobe pulmonary nodule, slice 73/267, too small to be characterized on the FDG PET images. No additional pulmonary nodules are present. There is no additional mediastinal, supraclavicular, or axillary lymphadenopathy. There is no pleural or pericardial fluid, or pneumothorax. ABDOMEN AND PELVIS: No foci of abnormal FDG activity are present in the abdomen or pelvis. There is mild FDG activity throughout the gastrointestinal tract without a suspicious focal component, likely physiological. There is diverticulosis without evidence of diverticulitis. The hollow viscera are otherwise unremarkable. The liver and spleen are unremarkable. The gallbladder has been resected and there are metallic surgical clips in the gallbladder bed. There is a hypodense cyst laterally in the upper pole of the left kidney, better delineated on the recent diagnostic CT scan dated 06/20/2020, and there is also a hyperdense focus measuring 1.6 x 0.9 cm in the upper pole of the right kidney 06/20/2020 CT scan was performed with intravenous contrast. The kidneys are otherwise, not visualized on the 06/20/2020 CT scan which was performed with intravenous contrast, and an additional hypodense focus on that CT scan slightly inferior in the mid right kidney is not delineated on these CT images performed without intravenous contrast. No foci of suspiciously increased FDG activity are present in the kidneys. The adrenal glands and pancreas are unremarkable. There is no retroperitoneal, mesenteric, pelvic or inguinal lymphadenopathy. A lymph node lying between the right colon and pancreatic head visualized on the 06/20/2020 CT scan is again visualized, measuring 0.9 x 0.[address] images and showing no abnormal FDG activity. MUSCULOSKELETAL: No foci of abnormal FDG activity are present in the osseous structures. There are diffuse degenerative changes in the spine, most severely in the lumbar spine, but there are no suspicious sclerotic or lytic lesions present. VASCULAR: No significant abnormalities are present. PET/PET CT fusion skull to thigh IMPRESSION: 1. An intensely FDG avid right upper lobe pulmonary mass is present, consistent with the known diagnosis of squamous cell carcinoma. 2. Intensely FDG avid right lower paratracheal lymphadenopathy and additional FDG avid proximal right peribronchial and small right subcentimeter supraclavicular lymph nodes are likely metastatic lesions. 3. No additional abnormalities suspicious for other metastatic or malignant lesions are noted.
== END 2020-07-28 12:17 | disposition home or self-care (01) ==
LOC: HO.PET 12:16
PROVIDERS: Visit Provider Internal Medicine
DX: Z13.89 Encounter for screening for other disorder (principal)

== ENCOUNTER → 2020-07-31 11:00 | Outpatient (BNVA) | payer OTHER, SELFPAY | PROVIDERS: PCP Physician Assistant; Visit Provider Surgery | DX: C34.90 Malignant neoplasm of unspecified part of unspecified bronchus or lung (principal); R59.0 Localized enlarged lymph nodes | CPT/HCPCS: 99213 ==

== ENCOUNTER 2020-10-09 13:38 | Emergency (ER) | payer OTHER, SELFPAY ==
--- NOTE | ~2020-10-09 | XR_ITS ---
EXAMINATION: XR CHEST CLINICAL INFORMATION: Cough COMPARISON: Previous chest x-ray May 2020 TECHNIQUE: Frontal view of the chest was obtained. FINDINGS: The cardiac silhouette does not appear enlarged. There may be increased right suprahilar lung markings. There is interval decrease in the peripheral right upper lobe from May 2020. This measures approximately 2 cm compared to approximately 4 cm on previous exam. There is adjacent pleural thickening. The lungs are otherwise clear. There is no pleural effusion or pneumothorax. There are degenerative changes of the spine. XR/XR chest 1V IMPRESSION: Interval decrease in right upper lobe nodule from May 2020. There is a adjacent right pleural thickening. Increased suprahilar markings in the right upper lung. This may represent airways disease. Post radiation change also be considered.
--- NOTE | ~2020-10-09 | CT_ITS ---
EXAMINATION: CT ANGIOGRAM OF THE CHEST WITH AND WITHOUT CONTRAST (CT PULMONARY ANGIOGRAM FOR PE) CLINICAL INFORMATION: Reason for Exam tachycardia, lung cancer, SOB COMPARISON: Previous chest x-ray from earlier the same day and chest CT May 2020 TECHNIQUE: Prior to contrast administration, noncontrast localization images were obtained. Subsequently, multidetector volumetric imaging was performed from the thoracic inlet to below the diaphragms following the administration of 65 mL Omnipaque 350 intravenous contrast. No contrast reaction reported Sagittal, coronal, and MIP oblique sagittal reformatted images were obtained on the CT workstation, uploaded to PACS, and reviewed. This CT examination was performed using dose optimization techniques as appropriate, variously including the following: *Automated exposure control *Adjustment of mA and/or kV according to patient size (this includes techniques or standardized protocols for targeted exams where dose is matched to indication/reason for exam; i.e. extremities or head) *Use of iterative reconstruction technique Total exam dose-length product 334 mGy-cm FINDINGS: QUALITY OF STUDY/CONTRAST BOLUS: Satisfactory. PULMONARY ARTERIES: No central or segmental pulmonary emboli. THORACIC AORTA: No aneurysm or dissection. LUNG: There is a 2.4 x 2.3 cm cavitary peripheral right upper lobe nodule this appears decreased in size from approximately 3.8 x 2.7 cm on May 2020 exam and areas of cavitation are new. There is new central right upper lobe volume loss and some consolidation and bronchiectasis. Appearances questionable for post radiation change. There is a new air collection in the medial right upper lobe measuring 1 x 2 x 2 cm. This may communicate with a bronchus. There is a 4 mm calcified left upper lobe nodule that is stable. PLEURA: No pleural effusion or pneumothorax. MEDIASTINUM: There are enlarged mediastinal lymph nodes. Largest lymph node is a right paratracheal lymph node that measures 2 x 2.7 cm axial image 19 series 5. This does not appear appreciably changed from previous exam. There is an enlarged 1 x 1.5 cm subcarinal lymph node. This appears unchanged. There are other smaller mediastinal lymph nodes that are unchanged. There are are small right hilar lymph nodes. The heart does not appear enlarged. There is no pericardial effusion. The thoracic aorta is normal in caliber. CHEST WALL/AXILLA: No axillary or internal mammary lymphadenopathy. OSSEOUS STRUCTURES: No acute or suspicious osseous abnormality. UPPER ABDOMEN: The gallbladder has been removed. There is a small lymph node adjacent to the pancreatic head measuring 8 mm axial image 65 series 5. No reflux of contrast into the hepatic veins to suggest elevated right heart pressures. CT/CT angio chest PE protocol IMPRESSION: No evidence of pulmonary embolism. Interval decrease in size in the peripheral right upper lobe nodule. There is new cavity formation. New central or suprahilar right upper lobe consolidation and bronchiectasis or cavity formation. This may represent post radiation change. Infectious process should be considered. Stable enlarged mediastinal lymph nodes. VTE: negative
[2020-10-09 13:53] VITALS: BP 119/81; PULSE 104; RESP 18; TEMP 37.3; O2SAT 98; BMI 31.3
--- NOTE | 2020-10-09 13:59 | ED.GENADULT ---
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 He denies fever, chills, N/V, abdominal pain, myalgias. He admits to intermittent headaches as well as RODRIGUEZ which has been present since he started treatment in July. He just finished radiation 2 days ago. He has been receiving weekly paclitaxel/carboplatin from Dr. Jack. Tumor volume has decreased and his cough has improved over his treatment course per Oncology notes. MD complaint: COVID symptoms Onset (ago): day(s) (4) Location: chest Radiation: non-radiation Severity: moderate Quality: burning (pain to right upper chest 2/2 radiation burn) Pain Consistency: constant Relieving factors: medication and rest Exacerbating factors: movement Associated symptoms: chest pain, cough, headaches and shortness of breath Treatments prior to arrival: none Related Data Home Medications Medication Instructions Recorded Confirmed blood sugar diagnostic #10 ea 06/23/20 10/02/20 metformin 500 mg tablet,extended 500 mg PO DAILY 06/23/20 10/02/20 release 24 hr Previous Rx's Medication Instructions Recorded ketorolac 10 mg PO Q6H PRN 5 Days #20 tab 06/02/20 oxycodone 5 mg PO Q6H PRN #14 tab 06/20/20 alprazolam [Xanax] 0.25 mg PO BEDTIME PRN #30 tab 08/04/20 escitalopram oxalate [Lexapro] 5 mg PO DAILY #30 tab 08/04/20 codeine 10 mg-guaifenesin 100 mg/5 5 ml PO Q6H #200 ml 08/25/20 mL oral liquid lisinopril 20 mg tablet 20 mg PO DAILY 90 Days #90 tab 08/25/20 sennosides-docusate sodium [Senna 1 tab-cap PO BEDTIME #30 tab 09/04/20 with Docusate Sodium] hydrocodone-homatropine [Hycodan] 5 ml PO Q4-6H PRN #60 ml 10/09/20 Allergies Allergy/AdvReac Type Severity Reaction Status Date / Time No Known Allergies Allergy Verified 08/25/20 17:19 Review of Systems Review of Systems: Constitutional: No Fever, No Chills, ENT/Mouth: + sore throat (hx esophagitis related to XRT), No Rhinorrhea, No Swallowing Difficulty, +Painful swallowing Cardiovascular: + Chest Pain, + SOB, No Orthopnea, No Edema Respiratory: + Cough, No Sputum, No Wheezing, + dyspnea Gastrointestinal: No Nausea, No Vomiting, No Diarrhea, No abdominal Pain, No Hematochezia, No Melena Genitourinary: No Dysuria, No Urinary Frequency, No Hematuria Musculoskeletal: No joint pain, No Myalgias Skin: + Skin Lesions (right upper chest), No rash Neuro: No Weakness, No Numbness, No Dizziness, + Headache Psych: No Anxiety/Panic, No Depression Heme/Lymph: No Bruising, No Lymphadenopathy Endocrine: No Polyuria, No Polydipsia PMFSH Past Medical History Attestation statement: The following information was validated with the patient. Medical History Diabetes Hypertension Kidney stones Lung cancer Sciatica Surgical History Hx of cholecystectomy Family History Family History Father Heart attack Maternal Aunt Diabetes Paternal Uncle Diabetes Mother No problems noted. Social History Social History Alcohol intake: never Smoking Status: Former smoker Tobacco Type: Cigarette Packs Per Day: 0.5 Years Smoked: 38 Smoked in Last 30 Days: No Use of substances other than those prescribed or required for medical reasons: No Advance Directives: No Advance Directives Information Provided: No Physical Exam Vital Signs: Vital Signs: Last Vital Signs Temp 99.1 F 10/09/20 13:53 Pulse 102 H 10/09/20 17:20 Resp 16 10/09/20 17:20 BP 102/72 10/09/20 17:20 Pulse Ox 96 10/09/20 17:20 Body Mass Index 31.3 Appearance: Alert. Oriented X3. No acute distress. Eyes: Pupils equal, round and reactive to light. ENT: Pharynx normal. Neck: Normal inspection. Neck supple. CVS: tachycardic, regular rhythm. Pulses normal. Respiratory: No respiratory distress. Breath sounds normal. Abdomen: Soft and nontender. +BS x4 Skin: Skin warm and dry. Normal skin color. Normal skin turgor. right upper chest wall with 6cm 2nd degree burn, tender to touch Extremities: No lower extremity edema. Negative Jessica's sign Neuro: Oriented X 3. No motor deficit. No sensory deficit. Course Course Course Narrative: 55 y/o male with hx lung cancer on chemo, just finished XRT who presents with COVID symptoms of loss of sense of taste and smell. He is tachycardic, admits to RODRIGUEZ and chest pain. Concern for PE - will get COVID workup and CTA chest to further evaluate. He is hemodynamically stable and afebrile, low suspicion for sepsis. Reevaluation(s) Reevaluation #1: Labs show pancytopenia which is slightly worse than baseline. No neutropenia. No signs of bleeding. Likely chemotherapy related. CTA is negative for PE. There are new post-radiation changes. Procalcitonin is low, doubt infection. His COVID is negative. HR 104. He is in no distress. SpO2 98%. Results were discussed with the patient. Comfortable with discharge. Patient will follow up with Dr. Jack in 1 week. Medical Decision Making Lab Data Result diagrams: 10/09/20 15:12 10/09/20 15:12 Labs: Lab Results 10/09/20 10/09/20 10/09/20 Range/Units 15:12 15:12 15:12 WBC 3.1 L (4.8-10.8) X10*3/uL RBC 3.20 L (4.60-5.80) X10*6/uL Hgb 9.5 L (14.0-18.0) g/dl Hct 28.8 L (42-52) % MCV 90.0 (80-98) fL MCH 29.7 (27.0-33.0) pg MCHC 33.0 (31.0-36.0) g/dl RDW 15.1 (11.0-16.0) % Plt Count 130 L (160-400) X10*3/uL MPV 9.6 (9.4-12.4) fL Immature Gran % (Auto) 1.3 H (0.0-0.4) % Neut % (Auto) 73.8 H (45-73) % Lymph % (Auto) 12.8 L (20-40) % [place] % (Auto) 11.2 H (2-11) % Eos % (Auto) 0.6 (0-4) % Baso % (Auto) 0.3 (0-2) % Lymph # (Auto) 0.4 L (1.2-4.9) X10*3/uL [place] # (Auto) 0.4 (0.1-1.2) X10*3/uL Eos # (Auto) 0.0 (0.0-0.4) X10*3/uL Baso # (Auto) 0.0 (0.0-0.2) X10*3/uL Abs Immat Gran (auto) 0.04 H (0.00-0.03) X10*3/uL Absolute Neuts (auto) 2.3 (2.0-8.3) X10*3/uL Absolute Nucleated RBC 0.000 (0.0-0.012) X10*3/uL Nucleated RBC % (auto) 0.0 (0.0-0.2) /100WBC Smear Tech's Comments VERIFIED Hold Blue Top Sodium 142 (135-145) mmol/L Potassium 4.4 (3.3-5.1) mmol/L Chloride 107 (96-108) mmol/L Carbon Dioxide 30 H (22-29) mmol/L Anion Gap 9 L (12-20) BUN 14 (9-16) mg/dL Creatinine 0.63 (0.5-1.4) mg/dL Estim Creat Clear Calc 138.9 Estimated GFR > 60 Random Glucose 107 (60-115) mg/dL Calcium 8.5 (8.4-10.2) mg/dL Magnesium 1.8 (1.6-2.6) mg/dL Total Bilirubin 0.4 (0.0-1.0) mg/dL Direct Bilirubin 0.2 (0.0-0.5) mg/dL AST 24 (5-37) U/L ALT 21 (0-40) U/L Alkaline Phosphatase 88 (39-117) U/L C-Reactive Protein 3.43 H (< or = 0.50) mg/dL Total Protein 6.4 L (6.5-8.0) g/dL Albumin 3.6 (3.5-5.0) g/dL Procalcitonin ng/mL Coronavirus (PCR) NEGATIVE (Negative) Influenza Type A (PCR) NEGATIVE (Negative) Influenza Type B (PCR) NEGATIVE (Negative) RSV RNA Qual (PCR) NEGATIVE (Negative) 10/09/20 10/09/20 Range/Units 15:12 15:12 WBC (4.8-10.8) X10*3/uL RBC (4.60-5.80) X10*6/uL Hgb (14.0-18.0) g/dl Hct (42-52) % MCV (80-98) fL MCH (27.0-33.0) pg MCHC (31.0-36.0) g/dl RDW (11.0-16.0) % Plt Count (160-400) X10*3/uL MPV (9.4-12.4) fL Immature Gran % (Auto) (0.0-0.4) % Neut % (Auto) (45-73) % Lymph % (Auto) (20-40) % [place] % (Auto) (2-11) % Eos % (Auto) (0-4) % Baso % (Auto) (0-2) % Lymph # (Auto) (1.2-4.9) X10*3/uL [place] # (Auto) (0.1-1.2) X10*3/uL Eos # (Auto) (0.0-0.4) X10*3/uL Baso # (Auto) (0.0-0.2) X10*3/uL Abs Immat Gran (auto) (0.00-0.03) X10*3/uL Absolute Neuts (auto) (2.0-8.3) X10*3/uL Absolute Nucleated RBC (0.0-0.012) X10*3/uL Nucleated RBC % (auto) (0.0-0.2) /100WBC Smear Tech's Comments Hold Blue Top SEE NOTE Sodium (135-145) mmol/L Potassium (3.3-5.1) mmol/L Chloride (96-108) mmol/L Carbon Dioxide (22-29) mmol/L Anion Gap (12-20) BUN (9-16) mg/dL Creatinine (0.5-1.4) mg/dL Estim Creat Clear Calc Estimated GFR Random Glucose (60-115) mg/dL Calcium (8.4-10.2) mg/dL Magnesium (1.6-2.6) mg/dL Total Bilirubin (0.0-1.0) mg/dL Direct Bilirubin (0.0-0.5) mg/dL AST (5-37) U/L ALT (0-40) U/L Alkaline Phosphatase (39-117) U/L C-Reactive Protein (< or = 0.50) mg/dL Total Protein (6.5-8.0) g/dL Albumin (3.5-5.0) g/dL Procalcitonin 0.02 ng/mL Coronavirus (PCR) (Negative) Influenza Type A (PCR) (Negative) Influenza Type B (PCR) (Negative) RSV RNA Qual (PCR) (Negative) Scores [place] PE Heart rate > 100 p/min: 1.5 Malignancy: 1 Score: 2.5 2-tier Risk: likely risk (17-53%) Critical Care Time Critical Care Time Critical Care Time: No Discharge Plan Discharge Clinical Impression: Cough, Esophagitis Patient Disposition: Home, Self-Care Instructions: Esophagitis (ED), Non-Small Cell Lung Cancer (ED) Additional Instructions: Your COVID test was negative today. If you loss of sense of taste persists, you may want to get another COVID test done in a few days to re-evaluate. Follow up with Dr. Jack as scheduled. Recommend continuing omeprazole, miracle mouthwash, carafate for your esophagitis. Recommend trial of Maalox which can be found over the counter. Recommend using Bacitracin on your radiation burn on your chest. Keep covered. If you develop worsening shortness of breath or difficultly breathing come back to the ER for further evaluation. Prescriptions: New hydrocodone-homatropine [Hycodan] 5-1.5 mg/5 mL (5 mL) syrup 5 ml PO Q4-6H PRN (Reason: cough) Qty: 60 RF: 0 No Action ketorolac 10 mg tablet 10 mg PO Q6H PRN (Reason: pain) 5 Days Qty: 20 RF: 0 oxycodone 5 mg tablet 5 mg PO Q6H PRN (Reason: pain) Qty: 14 RF: 0 alprazolam [Xanax] 0.25 mg Tablet 0.25 mg PO BEDTIME PRN (Reason: Insomnia) Qty: 30 RF: 0 escitalopram oxalate [Lexapro] 5 mg Tablet 5 mg PO DAILY Qty: 30 RF: 3 sennosides-docusate sodium [Senna with Docusate Sodium] 8.6-50 mg Tablet 1 tab-cap PO BEDTIME Qty: 30 RF: 0 codeine-guaifenesin [Virtussin AC] 10-100 mg/5 mL liquid 5 ml PO Q6H Qty: 200 RF: 1 lisinopril 20 mg tablet 20 mg PO DAILY 90 Days Qty: 90 RF: 1 (DME) blood sugar diagnostic Strip See Rx Instructions strip .ROUTE .MEDSUPPLY Qty: 10 RF: 0 metformin 500 mg tablet extended release 24 hr 500 mg PO DAILY RF: 0 Referrals: Chana Jack MD [Physician] - 1 week
[2020-10-09 15:29] LABS: Basophils Percent Auto 0.3 % (0-2); Eosinophils Percent Auto 0.6 % (0-4); Hematocrit 28.8 % (42-52); Hemoglobin 9.5 g/dl (14.0-18.0); Imm Gran Abs Auto 0.04 X10*3/uL (0.00-0.03); Imm Gran Pct Auto 1.3 % (0.0-0.4); Lymphocytes Absolute Auto 0.4 X10*3/uL (1.2-4.9); Lymphocytes Percent Auto 12.8 % (20-40); MANUAL DIFF FLAG SCAN; Mean Corpuscular Hemoglobin 29.7 pg (27.0-33.0); Mean Platelet Volume 9.6 fL (9.4-12.4); Monocytes Absolute Auto 0.4 X10*3/uL (0.1-1.2); Monocytes Percent Auto 11.2 % (2-11); Neutrophils Absolute Auto 2.3 X10*3/uL (2.0-8.3); Neutrophils Percent Auto 73.8 % (45-73); Platelet Count 130 X10*3/uL (160-400); Red Cell Distribution Width 15.1 % (11.0-16.0); SCAN SMEAR FLAG 1; White Blood Count 3.1 X10*3/uL (4.8-10.8)
[2020-10-09 15:45] LABS: SLIDE REVIEW VERIFIED
[2020-10-09 15:53] LABS: Alanine Aminotransferase 21 U/L (0-40); Albumin Level 3.6 g/dL (3.5-5.0); Alkaline Phosphatase 88 U/L (39-117); Anion Gap 9 (12-20); Aspartate Amino Transferase 24 U/L (5-37); Bilirubin Direct 0.2 mg/dL (0.0-0.5); Bilirubin Total 0.4 mg/dL (0.0-1.0); Blood Urea Nitrogen 14 mg/dL (9-16); C Reactive Protein 3.43 mg/dL (< or = 0.50); Calcium 8.5 mg/dL (8.4-10.2); Carbon Dioxide 30 mmol/L (22-29); Chloride 107 mmol/L (96-108); Creatinine Clr Calc Pharmacy 138.9; Estimated Glomerular Filt Rate > 60; Glucose Random 107 mg/dL (60-115); Magnesium 1.8 mg/dL (1.6-2.6); Potassium 4.4 mmol/L (3.3-5.1); Sodium 142 mmol/L (135-145); Total Protein 6.4 g/dL (6.5-8.0)
[2020-10-09 16:00] LABS: Influenza A PCR NEGATIVE (Negative); Influenza B PCR NEGATIVE (Negative); Resp Syncy Virus RNA Qual PCR NEGATIVE (Negative); SARS COV2 PCR INHOUSE NEGATIVE (Negative)
[2020-10-09 16:10] LABS: Procalcitonin 0.02 ng/mL
[2020-10-09] MEDS: iohexoL 350 MG/ML 100 ML INFUS..BTL 65 ML IV (16:26)
[2020-10-09 17:20] VITALS: BP 102/72; PULSE 102; RESP 16; O2SAT 96
== END 2020-10-09 17:51 | disposition home or self-care (01) ==
PROVIDERS: Physician Assistant; Emergency Provider Emergency Medicine Emergency Medical Services; PCP Physician Assistant
DX: R05 Cough (principal); Z20.822 Contact with and (suspected) exposure to COVID-19; K20.90 Esophagitis, unspecified without bleeding; D61.810 Antineoplastic chemotherapy induced pancytopenia; C34.90 Malignant neoplasm of unspecified part of unspecified bronchus or lung; E11.9 Type 2 diabetes mellitus without complications; I10 Essential (primary) hypertension; Z87.442 Personal history of urinary calculi; Z87.891 Personal history of nicotine dependence; Z92.21 Personal history of antineoplastic chemotherapy
CPT/HCPCS: 0241U; 36415; 71045; 71275; 80048; 80076; 83735; 84145; 85025; 86140; 99284; Q9967

== ENCOUNTER 2020-10-29 09:04 | Inpatient (IN) | payer OTHER, SELFPAY ==
[2020-10-29] VITALS (10 sets, daily range): BP systolic 90–120; BP diastolic 56–77; PULSE 76–108; RESP 12–25; TEMP 36–37.5; O2SAT 85–97; BMI 29.7
--- NOTE | ~2020-10-29 | XR_ITS ---
EXAMINATION: XR CHEST CLINICAL INFORMATION: Cough. History squamous cell cancer right lung. COMPARISON: Chest radiographs 10/09/2020, 06/20/2020, CTA chest 10/09/2020 TECHNIQUE: Portable upright AP view of the chest was obtained. FINDINGS: There is interval scattered airspace opacity upper and mid right hemithorax is prior study 10/09/2020. The left lung is clear. The costophrenic sulci are well-defined. Mild right paratracheal soft tissue thickening again seen. There is some rightward bowing of the tracheal air column on current study which may suggest interval scarring right medial apex with mild volume loss. There is no acute bony abnormality. Heart is within limits of normal size. XR/XR chest 1V IMPRESSION: Interval scattered airspace opacity right upper and mid zone when compared with prior chest 10/09/2020. No effusion. No definite airspace opacity on left.
--- NOTE | ~2020-10-29 | CT_ITS ---
EXAMINATION: CT ANGIOGRAM OF THE CHEST WITH AND WITHOUT CONTRAST (CT PULMONARY ANGIOGRAM FOR PE) CLINICAL INFORMATION: Reason for Exam dyspnea hx of cancer, hypoxia 85% COMPARISON: Chest x-ray 11/08/2020 TECHNIQUE: Prior to contrast administration, noncontrast localization images were obtained. Subsequently, multidetector volumetric imaging was performed from the thoracic inlet to below the diaphragms following the administration of 70 mL Omnipaque 350 intravenous contrast. No contrast reaction reported Sagittal, coronal, and MIP oblique sagittal reformatted images were obtained on the CT workstation, uploaded to PACS, and reviewed. This CT examination was performed using dose optimization techniques as appropriate, variously including the following: *Automated exposure control *Adjustment of mA and/or kV according to patient size (this includes techniques or standardized protocols for targeted exams where dose is matched to indication/reason for exam; i.e. extremities or head) *Use of iterative reconstruction technique Total exam dose-length product 374 mGy-cm FINDINGS: QUALITY OF STUDY/CONTRAST BOLUS: Satisfactory. PULMONARY ARTERIES: No central or segmental pulmonary emboli. THORACIC AORTA: No aneurysm or dissection. LUNG: The lungs are expanded with extensive groundglass attenuation seen involving the entire right upper lobe, right middle lobe and right lobe and scattered involvement involving left upper lobe likely 1 9 inflammatory infectious etiology. No focal consolidation or mass identified. PLEURA: No pleural effusion or pneumothorax. MEDIASTINUM: The heart size is normal. No pericardial effusion seen. There is small infracarinal lymph nodes. The largest lymph node measuring 2.1 cm on axial image 27/6. Reactive abnormal lymph nodes are seen in the aortic window and right paratracheal space. No evidence of septal bowing or right heart strain. CHEST WALL/AXILLA: No axillary or internal mammary lymphadenopathy. OSSEOUS STRUCTURES: There is no lytic or sclerotic process seen. There is mild ventral spondylosis and calcification of anterior longitudinal ligament. UPPER ABDOMEN: Visualized liver, spleen, pancreas and bilateral adrenal glands are unremarkable. The gallbladder has been surgically removed. No reflux of contrast into the hepatic veins to suggest elevated right heart pressures. CT/CT angio chest PE protocol IMPRESSION: No evidence of the aortic aneurysm. Extensive groundglass attenuation right lung and left upper lobe consistent with pneumonitis. No consolidation seen. There are reactive abnormal lymph nodes in the mediastinum. No pleural effusion or thickening seen. VTE: negative
--- NOTE | ~2020-10-29 | XR_ITS ---
EXAMINATION: XR CHEST CLINICAL INFORMATION: Dyspnea COMPARISON: 10/31/2020 TECHNIQUE: 2 views of the chest were obtained. FINDINGS: Elevated right hemidiaphragm, similar to prior. Increased hazy opacity of the right lung. Bronchial wall thickening. No pneumothorax. No pleural effusion. The cardiomediastinal silhouette is unchanged. XR/XR chest 2V IMPRESSION: Increased opacity throughout the right lung with associated bronchial wall thickening, likely infectious or inflammatory.
--- NOTE | ~2020-10-29 | XR_ITS ---
EXAMINATION: XR CHEST CLINICAL INFORMATION: Hypoxia. COMPARISON: Chest radiographs and chest CT angiogram dated 10/09/2020 and 10/29/2020. TECHNIQUE: 2 views of the chest were obtained. FINDINGS: Bilateral patchy infiltrates are seen most pronounced in the right upper lobe without significant change. There are no pleural effusions. The heart and mediastinal structures are unremarkable. XR/XR chest 2V IMPRESSION: Bilateral patchy infiltrates, right greater than left without significant change consistent with an infectious/inflammatory process.
--- NOTE | 2020-10-29 09:08 | ED.WEAKNESS ---
HPI - Weakness General Chief complaint: Dyspnea Stated complaint: NOT FEELING WELL - ON CHEMO Time Seen by Provider: 10/29/20 09:05 Source: patient and old records reviewed Mode of arrival: ambulatory Limitations: no limitations History of Present Illness HPI Narrative: 55 yo male with HTN, DM, NSLC s/p radiation and weekly chemo (last chemo 3 weeks ago) comes in with c/o overall weakness as well as he cannot walk for any distance even to the bathroom without dyspnea, worsening cough - RA sat 85% on arrival MD Complaint: generalized weakness, lack of energy and difficulty walking Onset (ago): week(s) (1) Duration: intermittent Location: generalized Migration: none Severity: severe Quality: dull Relieving factors: movement and exertion Exacerbating factors: rest Context: recent illness Associated symptoms: chest pain, loss of appetite and shortness of breath Related Data Home Medications Medication Instructions Recorded Confirmed blood sugar diagnostic #10 ea 06/23/20 10/27/20 azithromycin 1 mg PO DAILY 10/29/20 10/29/20 omeprazole 40 mg PO DAILY 10/29/20 10/29/20 silver sulfadiazine 1 appl TOPICAL BID 10/29/20 10/29/20 sucralfate 10 ml PO QID 10/29/20 10/29/20 Previous Rx's Medication Instructions Recorded albuterol sulfate 90 mcg/actuation 2 puff INHALATION Q6H PRN 30 Days 10/27/20 aerosol inhaler #8.5 g metformin 500 mg tablet,extended 500 mg PO DAILY 90 Days #90 tab 10/27/20 release 24 hr Allergies Allergy/AdvReac Type Severity Reaction Status Date / Time No Known Allergies Allergy Verified 10/27/20 13:50 Review of Systems Review of Systems: Constitutional : No Fever, pos Chills ENT/Mouth : No sore throat, No Rhinorrhea, No Swallowing Difficulty Eyes: No Eye Pain, No Swelling, No Redness Cardiovascular : No Chest Pain, positive SOB, No Orthopnea, no Edema Respiratory : pos Cough, pos Sputum, No Wheezing, positive dyspnea Gastrointestinal : No Nausea, No Vomiting, No Diarrhea, No abdominal Pain, No Hematochezia, No Melena Genitourinary : No Dysuria, No Urinary Frequency, No Hematuria Musculoskeletal : No joint pain, No Myalgias Skin : No Skin Lesions, No rash Neuro : No Weakness, No Numbness, No Dizziness, No Headache Psych : No Anxiety/Panic, No Depression Heme/Lymph: No Bruising, No Lymphadenopathy Endocrine : No Polyuria, No Polydipsia All other systems reviewed and are negative [facility] Past Medical History Attestation statement: The following information was validated with the patient. Medical History Diabetes Hypertension Kidney stones Lung cancer Sciatica Surgical History Hx of cholecystectomy Family History Family History Father Heart attack Maternal Aunt Diabetes Paternal Uncle Diabetes Mother No problems noted. Social History Social History Alcohol intake: never Smoking Status: Former smoker Tobacco Type: Cigarette Packs Per Day: 0.5 Years Smoked: 38 Use of substances other than those prescribed or required for medical reasons: No Advance Directives: No Advance Directives Information Provided: No Physical Exam Vital Signs: Vital Signs: Last Vital Signs Temp 99.4 F 10/29/20 13:22 Pulse 89 10/29/20 13:22 Resp 24 H 10/29/20 13:22 BP 120/71 10/29/20 13:22 Pulse Ox 95 10/29/20 13:22 Body Mass Index 29.7 Appearance: Alert. Oriented X3. No acute distress. Eyes: Pupils equal, round and reactive to light. ENT: Pharynx normal. Neck: Normal inspection. Neck supple. CVS: Normal heart rate and rhythm. Pulses normal. Respiratory: No respiratory distress. Breath sounds decreased throughout, notably short of breath on exertion Abdomen: Soft and non-tender. Skin: Skin warm and dry. Normal skin color. Normal skin turgor. Extremities: No lower extremity edema. No calf ttp Neuro: Oriented X 3. No motor deficit. No sensory deficit. Course Course Course Narrative: plan is to admit, doing well 95% on 2L NC added on dexamethasone for possible pneumonitis MDM - Weakness MDM Narrative Medical decision making narrative: 55 yo male with HTN, DM, NSLC s/p radiation and weekly chemo (last chemo 3 weeks ago) comes in with worsening cough, dyspnea on exertion, fatigue he does note he is eating better - at this time given low O2 sats concern for PE, COVID, post obstructive pneumonia - labs, COVID swab, cultures, IV zosyn, CTA:PE, responding well to 2L NC supplementation, planned admit at this time. Lab Data Result diagrams: 10/29/20 09:45 10/29/20 09:45 Labs: Lab Results 10/29/20 10/29/20 10/29/20 Range/Units 09:45 09:45 09:45 WBC 8.3 (4.8-10.8) X10*3/uL RBC 3.42 L (4.60-5.80) X10*6/uL Hgb 10.3 L (14.0-18.0) g/dl Hct 31.5 L (42-52) % MCV 92.1 (80-98) fL MCH 30.1 (27.0-33.0) pg MCHC 32.7 (31.0-36.0) g/dl RDW 16.7 H (11.0-16.0) % Plt Count 307 D (160-400) X10*3/uL MPV 9.5 (9.4-12.4) fL Immature Gran % (Auto) 1.0 H (0.0-0.4) % Neut % (Auto) 84.4 H (45-73) % Lymph % (Auto) 8.2 L (20-40) % Nuckolls % (Auto) 5.2 (2-11) % Eos % (Auto) 1.1 (0-4) % Baso % (Auto) 0.1 (0-2) % Lymph # (Auto) 0.7 L (1.2-4.9) X10*3/uL Nuckolls # (Auto) 0.4 (0.1-1.2) X10*3/uL Eos # (Auto) 0.1 (0.0-0.4) X10*3/uL Baso # (Auto) 0.0 (0.0-0.2) X10*3/uL Abs Immat Gran (auto) 0.08 H (0.00-0.03) X10*3/uL Absolute Neuts (auto) 7.0 (2.0-8.3) X10*3/uL Absolute Nucleated RBC 0.000 (0.0-0.012) X10*3/uL Nucleated RBC % (auto) 0.0 (0.0-0.2) /100WBC Smear Tech's Comments VERIFIED PT 17.7 H D (10.8-13.0) SEC INR 1.5 H (0.9-1.1) APTT 34.0 (24.1-38.0) SEC D-Dimer 893 NG/ML Sodium 136 (135-145) mmol/L Potassium 3.7 (3.3-5.1) mmol/L Chloride 103 (96-108) mmol/L Carbon Dioxide 24 (22-29) mmol/L Anion Gap 13 (12-20) BUN 14 (9-16) mg/dL Creatinine 0.60 (0.5-1.4) mg/dL Estim Creat Clear Calc 142.4 Estimated GFR > 60 Random Glucose 169 H D (60-115) mg/dL Lactic Acid (0.5-2.0) mmol/L Calcium 8.0 L (8.4-10.2) mg/dL Magnesium 1.8 (1.6-2.6) mg/dL Ferritin 1453 H (20-250) ng/mL Total Bilirubin 0.8 (0.0-1.0) mg/dL Direct Bilirubin 0.5 (0.0-0.5) mg/dL AST 51 H (5-37) U/L ALT 30 (0-40) U/L Alkaline Phosphatase 141 H D (39-117) U/L Lactate Dehydrogenase 304 H (118-273) U/L Troponin I High Sens (<3.5-35.0) ng/L B-Natriuretic Peptide (<100) pg/mL Total Protein 6.3 L (6.5-8.0) g/dL Albumin 2.9 L (3.5-5.0) g/dL Lipase < 4 L (8-78) U/L Procalcitonin ng/mL Coronavirus (PCR) (Negative) Influenza Type A (PCR) (Negative) Influenza Type B (PCR) (Negative) RSV RNA Qual (PCR) (Negative) 10/29/20 10/29/20 10/29/20 Range/Units 09:45 09:45 09:45 WBC (4.8-10.8) X10*3/uL RBC (4.60-5.80) X10*6/uL Hgb (14.0-18.0) g/dl Hct (42-52) % MCV (80-98) fL MCH (27.0-33.0) pg MCHC (31.0-36.0) g/dl RDW (11.0-16.0) % Plt Count (160-400) X10*3/uL MPV (9.4-12.4) fL Immature Gran % (Auto) (0.0-0.4) % Neut % (Auto) (45-73) % Lymph % (Auto) (20-40) % Nuckolls % (Auto) (2-11) % Eos % (Auto) (0-4) % Baso % (Auto) (0-2) % Lymph # (Auto) (1.2-4.9) X10*3/uL Nuckolls # (Auto) (0.1-1.2) X10*3/uL Eos # (Auto) (0.0-0.4) X10*3/uL Baso # (Auto) (0.0-0.2) X10*3/uL Abs Immat Gran (auto) (0.00-0.03) X10*3/uL Absolute Neuts (auto) (2.0-8.3) X10*3/uL Absolute Nucleated RBC (0.0-0.012) X10*3/uL Nucleated RBC % (auto) (0.0-0.2) /100WBC Smear Tech's Comments PT (10.8-13.0) SEC INR (0.9-1.1) APTT (24.1-38.0) SEC D-Dimer NG/ML Sodium (135-145) mmol/L Potassium (3.3-5.1) mmol/L Chloride (96-108) mmol/L Carbon Dioxide (22-29) mmol/L Anion Gap (12-20) BUN (9-16) mg/dL Creatinine (0.5-1.4) mg/dL Estim Creat Clear Calc Estimated GFR Random Glucose (60-115) mg/dL Lactic Acid 2.0 (0.5-2.0) mmol/L Calcium (8.4-10.2) mg/dL Magnesium (1.6-2.6) mg/dL Ferritin (20-250) ng/mL Total Bilirubin (0.0-1.0) mg/dL Direct Bilirubin (0.0-0.5) mg/dL AST (5-37) U/L ALT (0-40) U/L Alkaline Phosphatase (39-117) U/L Lactate Dehydrogenase (118-273) U/L Troponin I High Sens 13.9 D (<3.5-35.0) ng/L B-Natriuretic Peptide < 10 (<100) pg/mL Total Protein (6.5-8.0) g/dL Albumin (3.5-5.0) g/dL Lipase (8-78) U/L Procalcitonin 0.12 ng/mL Coronavirus (PCR) (Negative) Influenza Type A (PCR) (Negative) Influenza Type B (PCR) (Negative) RSV RNA Qual (PCR) (Negative) 10/29/20 10/29/20 Range/Units 09:45 09:45 WBC (4.8-10.8) X10*3/uL RBC (4.60-5.80) X10*6/uL Hgb (14.0-18.0) g/dl Hct (42-52) % MCV (80-98) fL MCH (27.0-33.0) pg MCHC (31.0-36.0) g/dl RDW (11.0-16.0) % Plt Count (160-400) X10*3/uL MPV (9.4-12.4) fL Immature Gran % (Auto) (0.0-0.4) % Neut % (Auto) (45-73) % Lymph % (Auto) (20-40) % Nuckolls % (Auto) (2-11) % Eos % (Auto) (0-4) % Baso % (Auto) (0-2) % Lymph # (Auto) (1.2-4.9) X10*3/uL Nuckolls # (Auto) (0.1-1.2) X10*3/uL Eos # (Auto) (0.0-0.4) X10*3/uL Baso # (Auto) (0.0-0.2) X10*3/uL Abs Immat Gran (auto) (0.00-0.03) X10*3/uL Absolute Neuts (auto) (2.0-8.3) X10*3/uL Absolute Nucleated RBC (0.0-0.012) X10*3/uL Nucleated RBC % (auto) (0.0-0.2) /100WBC Smear Tech's Comments PT (10.8-13.0) SEC INR (0.9-1.1) APTT (24.1-38.0) SEC D-Dimer NG/ML Sodium (135-145) mmol/L Potassium (3.3-5.1) mmol/L Chloride (96-108) mmol/L Carbon Dioxide (22-29) mmol/L Anion Gap (12-20) BUN (9-16) mg/dL Creatinine (0.5-1.4) mg/dL Estim Creat Clear Calc Estimated GFR Random Glucose (60-115) mg/dL Lactic Acid (0.5-2.0) mmol/L Calcium (8.4-10.2) mg/dL Magnesium (1.6-2.6) mg/dL Ferritin (20-250) ng/mL Total Bilirubin (0.0-1.0) mg/dL Direct Bilirubin (0.0-0.5) mg/dL AST (5-37) U/L ALT (0-40) U/L Alkaline Phosphatase (39-117) U/L Lactate Dehydrogenase (118-273) U/L Troponin I High Sens (<3.5-35.0) ng/L B-Natriuretic Peptide Cancelled (<100) pg/mL Total Protein (6.5-8.0) g/dL Albumin (3.5-5.0) g/dL Lipase (8-78) U/L Procalcitonin ng/mL Coronavirus (PCR) NEGATIVE (Negative) Influenza Type A (PCR) NEGATIVE (Negative) Influenza Type B (PCR) NEGATIVE (Negative) RSV RNA Qual (PCR) NEGATIVE (Negative) ECG Data Attestation: I personally reviewed and interpreted this ECG as follows: ECG interpretation date: 10/29/20 ECG interpretation time: 10:03 Interpretation: Rate: 98 Rhythm: NSR Dewitt: left, LVH Normal P waves. Normal ASCENCION. Normal QRS complex. ST T wave : normal ,no BRIGETTE qTC: normal prior studies: no acute ischemia The study has been interpreted contemporaneously by me. . Discharge Plan Discharge Clinical Impression: Hypoxia, Pneumonitis Patient Disposition: Admitted As Inpatient
--- NOTE | 2020-10-29 09:45 | ECG_ITS ---
Test Reason : SOB Blood Pressure : / mmHG Vent. Rate : 098 BPM Atrial Rate : 098 BPM P-R Int : 142 ms QRS Dur : 090 ms QT Int : 374 ms P-R-T Axes : 039 007 022 degrees QTc Int : 477 ms Normal sinus rhythm Voltage criteria for left ventricular hypertrophy Abnormal ECG When compared with ECG of 07-OCT-2020 12:59, Premature atrial complexes are no longer Present Referred By: Lyubov Osborn Electronically Signed By:SONY MCALLISTER
[2020-10-29] MEDS: Piperacillin Sodium/Tazobactam 3.375 GM in 0.9 % Sodium Chloride 50 ML IV (09:49)
[2020-10-29 09:57] LABS: Basophils Percent Auto 0.1 % (0-2); Eosinophils Absolute Auto 0.1 X10*3/uL (0.0-0.4); Eosinophils Percent Auto 1.1 % (0-4); Hematocrit 31.5 % (42-52); Hemoglobin 10.3 g/dl (14.0-18.0); Imm Gran Abs Auto 0.08 X10*3/uL (0.00-0.03); Lymphocytes Absolute Auto 0.7 X10*3/uL (1.2-4.9); Lymphocytes Percent Auto 8.2 % (20-40); MANUAL DIFF FLAG SCAN; Mean Corpuscular HGB Conc 32.7 g/dl (31.0-36.0); Mean Corpuscular Hemoglobin 30.1 pg (27.0-33.0); Mean Corpuscular Volume 92.1 fL (80-98); Mean Platelet Volume 9.5 fL (9.4-12.4); Monocytes Absolute Auto 0.4 X10*3/uL (0.1-1.2); Monocytes Percent Auto 5.2 % (2-11); Neutrophils Percent Auto 84.4 % (45-73); Platelet Count 307 X10*3/uL (160-400); Red Blood Count 3.42 X10*6/uL (4.60-5.80); Red Cell Distribution Width 16.7 % (11.0-16.0); SCAN SMEAR FLAG 1; White Blood Count 8.3 X10*3/uL (4.8-10.8)
[2020-10-29 10:04] LABS: INTERNATIONAL NORM RATIO 1.5 (0.9-1.1); Prothrombin Time 17.7 SEC (10.8-13.0)
[2020-10-29 10:16] LABS: D Dimer 893 NG/ML; SLIDE REVIEW VERIFIED
[2020-10-29 10:34] LABS: B Type Natriuretic Peptide < 10 pg/mL (<100); Troponin-I High Sensitivity 13.9 ng/L (<3.5-35.0)
[2020-10-29 10:42] LABS: Alanine Aminotransferase 30 U/L (0-40); Albumin Level 2.9 g/dL (3.5-5.0); Alkaline Phosphatase 141 U/L (39-117); Anion Gap 13 (12-20); Aspartate Amino Transferase 51 U/L (5-37); Bilirubin Direct 0.5 mg/dL (0.0-0.5); Bilirubin Total 0.8 mg/dL (0.0-1.0); Blood Urea Nitrogen 14 mg/dL (9-16); Carbon Dioxide 24 mmol/L (22-29); Chloride 103 mmol/L (96-108); Creatinine Clr Calc Pharmacy 142.4; Estimated Glomerular Filt Rate > 60; Glucose Random 169 mg/dL (60-115); Lactate Dehydrogenase 304 U/L (118-273); Lipase < 4 U/L (8-78); Magnesium 1.8 mg/dL (1.6-2.6); Potassium 3.7 mmol/L (3.3-5.1); Sodium 136 mmol/L (135-145); Total Protein 6.3 g/dL (6.5-8.0)
[2020-10-29] MEDS: 0.9 % Sodium Chloride 500 ML IV (10:44)
[2020-10-29 10:50] LABS: Ferritin 1453 ng/mL (20-250); Influenza A PCR NEGATIVE (Negative); Influenza B PCR NEGATIVE (Negative); Resp Syncy Virus RNA Qual PCR NEGATIVE (Negative); SARS COV2 PCR INHOUSE NEGATIVE (Negative)
[2020-10-29] MEDS: iohexoL 350 MG/ML 75 ML INFUS..BTL IV (11:28)
[2020-10-29] MEDS: dexAMETHasone sod phosphate 4 MG/ML VIAL 6 MG IVPUSH (11:53)
[2020-10-29 12:02] LABS: Procalcitonin 0.12 ng/mL
[2020-10-29] MEDS: Doxycycline Hyclate 100 MG in 0.9 % Sodium Chloride 250 ML 166.67 MG IV (13:25)
--- NOTE | 2020-10-29 14:43 | HP_ITS ---
DATE OF SERVICE: 10/29/2020 ONCOLOGIST: Dr. Chana Jack. HISTORY OF PRESENTING ILLNESS: This is a 55-year-old gentleman, who was diagnosed to have non-small cell lung carcinoma in July of 2020. The patient finished radiation therapy 3 to 4 weeks ago at [facility]. He presented to [facility] with 3 weeks history of shortness of breath associated with dry cough that has been going for several weeks. The patient also complaining of associated chills. He also complained of nausea with coughing. He denies any chest discomfort other than chest pain with coughing. He denies any sick contacts. No recent history of travel. The patient has been using cough medication with no significant improvement. The patient was seen by his primary care physician couple of days ago with similar symptoms and was placed on azithromycin and p.r.n. albuterol. The patient developed diarrhea likely due to use of azithromycin, but since his symptoms persisted, he came to the emergency room for further evaluation and treatment. In the ER, the patient tested negative for COVID. A CTA chest showed extensive ground glass attenuation right lung and left upper lobe consistent with pneumonitis. No consolidation was seen. There were reactive abnormal lymph nodes seen in the mediastinum with no pleural effusion or thickening. LABORATORY DATA: Showed a normal WBC count. Two set of blood cultures are sent. The patient on arrival was noted to be hypoxic with finger oximetry 85% on room air. He is tachypneic with respiratory rate between 20 to 25. The patient is now being admitted to [facility] with acute hypoxic respiratory failure with associated tachypnea and bilateral pneumonitis. PAST MEDICAL HISTORY: Significant for: 1. Type 2 diabetes mellitus. 2. History of hypertension. 3. Recently diagnosed non-small cell lung carcinoma, status post radiation. 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 4. History of kidney stones. 5. History of right sciatica. PAST SURGICAL HISTORY: The patient is status post cholecystectomy. FAMILY HISTORY: The patient's parents are . There is a history of esophageal carcinoma in paternal grandmother. No history of premature coronary artery disease. SOCIAL HISTORY: The patient quit smoking soon after diagnosis of cancer. No history of alcohol abuse. The patient lives at home with his girlfriend. 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 No dizziness. CVS: Chest pain with coughing. GASTROINTESTINAL: Complains of nausea with cough, also 2 loose stools in the last couple of days. : No urinary symptoms of urgency or frequency. Rest of all other systems are reviewed and are negative. PHYSICAL EXAMINATION: GENERAL: The patient is resting comfortably, does not appear to be in acute distress. NECK: Supple. No increased JVD. HEART: Regular rate and rhythm. No added sound noted. LUNGS: No respiratory distress noted. Diminished breath sounds bilaterally. No rhonchi or wheeze appreciated. ABDOMEN: Soft, nontender. Bowel sounds are audible. SKIN: Warm and dry. Discoloration of skin at the upper back and in the supraclavicular region. EXTREMITIES: Without clubbing, cyanosis, or edema. NEURO EXAMINATION: Nonfocal. Speech is clear. LABORATORY DATA: Two sets of blood cultures are pending. WBC 8.3, hematocrit 31.5, hemoglobin 10.3, platelet of 307. Sodium 136, potassium 3.7, chloride 103, bicarb of 24, blood glucose 169, magnesium 1.8, elevated ferritin 1453, alkaline phosphatase 141, LDH 304, albumin low at 2.9. Daily PCR is negative. ASSESSMENT AND PLAN: This is a 55-year-old gentleman with past medical history of hypertension, diabetes, non-small cell lung cancer, status post radiation treatment that ended roughly 3 to 4 weeks ago, currently receiving chemotherapy, came into [facility] due to symptoms of shortness of breath, worse with exertion and cough associated with chills, but no fever. The patient is now being admitted due to acute hypoxic respiratory failure. 1. Acute hypoxic respiratory failure due to bilateral pneumonitis. Likely related to radiation pneumonitis, cannot rule out infection. The patient will be treated with IV steroids, doxycycline empirically to cover infection. Continue supportive care with inhalers, cough medication, and oxygen. The patient is not on home O2, which gradually wean oxygen. We will obtain a pulmonary consultation. 2. Diabetes mellitus. The patient at home takes metformin that will be held. The patient will be placed on insulin sliding scale. Follow blood sugar q.i.d. and a.c. 3. History of recent radiation esophagitis. We will continue omeprazole and sucralfate. 4. History of radiation dermatitis, seems to have improved with Silvadene. 5. History of hypertension. The patient currently is not on antihypertensive medication. Blood pressure is stable. We will continue to follow. 6. Deep venous thrombosis prophylaxis. The patient will be placed on Lovenox. MD MOOSE De Souza/JOEL / [phone]
[2020-10-29] MEDS: Enoxaparin Sodium 40 MG/0.4 ML SYRINGE SUBCUT (15:02)
[2020-10-29] MEDS: guaiFENesin DM 200/20/10 ML 10 ML SYRUP PO ×2 (15:02→21:02)
[2020-10-29 16:18] LABS: Glucose, Whole Blood 189 mg/dL (60-115)
[2020-10-29] MEDS: Sucralfate Oral Suspension 1 GM/10 ML ORAL.SUSP PO ×2 (16:28→21:02)
[2020-10-29 20:20] LABS: Glucose, Whole Blood 180 mg/dL (60-115)
[2020-10-29] MEDS: Insulin Lispro 100 UNIT/ML 3 ML VIAL SUBCUT (21:04)
[2020-10-30] MEDS: Doxycycline Hyclate 100 MG in 0.9 % Sodium Chloride 250 ML 166.67 MG IV ×2 (01:26→14:02)
[2020-10-30 04:00] VITALS: BP 99/79; PULSE 73; RESP 18; TEMP 36; O2SAT 93
[2020-10-30 07:13] VITALS: BP 106/73; PULSE 81; RESP 17; TEMP 36.4; O2SAT 93
[2020-10-30 07:18] LABS: Glucose, Whole Blood 190 mg/dL (60-115)
[2020-10-30] MEDS: Omeprazole 40 MG CAPSULE.DR PO (07:53)
[2020-10-30] MEDS: guaiFENesin DM 200/20/10 ML 10 ML SYRUP PO ×3 (07:53→21:10)
[2020-10-30] MEDS: Sucralfate Oral Suspension 1 GM/10 ML ORAL.SUSP PO ×4 (07:53→21:10)
[2020-10-30] MEDS: Insulin Lispro 100 UNIT/ML 3 ML VIAL SUBCUT ×4 (07:54→21:10)
--- NOTE | 2020-10-30 10:50 | MHC.CM.PN ---
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 HE REPORTED THAT HE IS INDEPENDENT IN AL ADLS AND MBILITY WITH OUT THE USE OF ANY DEVICE, HE HAS NO VNA ,NO DME SERVICES IN THE HOME. DISCHARGE PLAN HOME WITH NO SERVICES VS HOME WITH [facility] FOR NURSING DIAGNOSIS ASSESSMENT,M SIGN SYMPTOM MANAGEMENT, DETAILED ACTION PLAN, MEDICATION REINFORCEMENT TEACHING AND MEDICATION RECONCILATION. PCP TESSA NOVOA ONCOLOGIST DR ALEJANDRO TRANSP FAMILY (HIS SON MAGYORTS HIM FOR HIS CHEMO HERE AT THE [facility] [place]
[2020-10-30 11:08] LABS: Erythrocyte Sedimentation Rate 102 MM/HR (0-15)
[2020-10-30 11:43] VITALS: BP 103/68; PULSE 89; RESP 16; TEMP 36.3; O2SAT 94
[2020-10-30 11:51] LABS: Glucose, Whole Blood 224 mg/dL (60-115)
[2020-10-30] MEDS: Acetaminophen 325 MG TABLET 650 MG PO (12:10)
--- NOTE | 2020-10-30 12:20 | CONS_ITS ---
DATE OF SERVICE: 10/30/2020 INDICATION: Shortness of breath. HISTORY OF PRESENT ILLNESS: Mr. Lewis is a 55-year-old gentleman with known history of right upper lobe squamous cell carcinoma diagnosed back in June 2020, subsequently completed radiation therapy 3 to [address] [facility]. He has been on paclitaxel concomitant radiotherapy. Apparently, he was in his usual state of health until about 3 weeks ago when he started developing worsening shortness of breath and nonproductive cough. Also, complained of chills and the workup he was tested for COVID-19 which was negative. Subsequently, followed up his primary care doctor, placed on antibiotics without any significant relief. However, developed diarrhea. He could not tolerate the symptoms any longer, decided to come into the ER for further evaluation. Upon arrival to the ER, he was found to be hypoxic down to 85% on room air. CT scan of the chest demonstrated extensive ground-glass opacities and airspace disease bilaterally, right more than left, patchy diffuse. Therefore, the patient was admitted to the hospital. He was started on Solu-Medrol and oxygen. Currently, feeling a little better. Although, he went to the bathroom, took off his oxygen and started feeling significantly worse. PAST MEDICAL HISTORY: Type 2 diabetes, hypertension, history of squamous cell carcinoma, status post radiation and concomitant chemotherapy with paclitaxel complicated by esophagitis and radiation dermatitis, history of kidney stones, sciatica. PAST SURGICAL HISTORY: Cholecystectomy. FAMILY HISTORY: Positive for esophageal carcinoma. SOCIAL HISTORY: He is a former smoker. Lives with his girlfriend. REVIEW OF SYSTEMS: Ten systems reviewed. 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 Denies any HEENT symptoms. Complains of GI symptoms as stated above. Complains of the respiratory symptoms as stated above. Denies any cardiac symptoms. Complains of the GI symptoms as stated above. Denies any symptoms. Denies any musculoskeletal symptoms. Did have a rash from the radiation. The rest of the 10-organ system is negative. ALLERGIES: NO KNOWN DRUG ALLERGIES. MEDICATIONS: Please refer to the [facility] for the full list of his medications. Albuterol p.r.n., doxycycline, Lovenox, guaifenesin DM, lispro, sucralfate, Solu-Medrol 60 mg b.i.d., omeprazole 40. PHYSICAL EXAMINATION: VITAL SIGNS: Stable. Saturating 92% on 2 L. GENERAL: Pleasant gentleman, in no acute distress. HEENT: Pupils are equal and reactive to light. OROPHARYNX: Clear. NECK: Supple. LUNGS: With some crackles, right more than left. ABDOMEN: Positive bowel sounds. Soft. CARDIAC: Regular rhythm, regular rate. EXTREMITIES: No clubbing or cyanosis. No edema. LABORATORY DATA: His white count is increased to 8.3 from 3.1, hemoglobin 10.3 and platelet count of 307. Serology negative for influenza and COVID. D-dimer 893. IMAGING STUDIES: Perceived by me. CT scan of the chest, PE protocol and also compared to his previous CAT scan from October 09, 2020 demonstrating extensive airspace disease, ground-glass opacities, patchy diffuse right more than left. The cavitary mass is also appreciated in the right upper lobe, although less visible based on the ground-glass opacities. ASSESSMENT: Mr. Ramesh Lewis is a 55-year-old gentleman with a known history of squamous cell carcinoma stage IIIB, currently on concomitant chemoradiation and Thoracic Surgery has been following, now with worsening respiratory status. IMPRESSION: Acute hypoxic respiratory failure secondary to pneumonitis due to the concomitant radiation and chemotherapy. He is only 3 to 4 weeks from his radiation, so typically the radiation pneumonitis occurs later on, but with concomitant paclitaxel medication, which is infamous for pulmonary toxicity. The combination likely has precipitated more overwhelming inflammatory process. The patient has not received immune therapy as of yet. In addition to the possibility of pneumonitis from his cancer therapy, also the risk of smoldering infections is also in differential. The patient is at risk for PCP. Therefore, first treat the patient with steroids for the weekend. If the patient is no better, additional testing will be necessary. RECOMMENDATIONS: 1. Continue Solu-Medrol. We will increase to q.8. 2. Continue with oxygen supplementation to maintain a pulse ox above 90%. 3. We will assess with x-rays over the weekend and Monday. If the patient is no better, consider bronchoscopy for further evaluation for opportunistic infections. In the meantime, blood work will be requested. Further recommendations based on forthcoming data. MD VIKASH Swain/JOEL / [phone]
[2020-10-30 13:43] VITALS: BMI 29.7
--- NOTE | 2020-10-30 13:46 | MHC.CLN ---
RE: CONSULT PT WITH SIG WT LOSS X 30DAYS R/T RAD/CHEMO TX RECOMMEND ADDING GLUCERNA TID TO INCREASE KCALS MONITOR WT CLOSELY FOLLOWING
--- NOTE | 2020-10-30 14:00 | HO.PM.IMPN ---
Subjective Subjective Date of Service: 10/30/20 Interval History: Patient feels better this morning with less shortness of breath and cough, no acute issues overnight, no fever, no chills. 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 CVS no chest pain, no palpitation GI no nausea ,no vomiting ,no diarrhea Skin no rash Physical Exam Vital Signs: Vital Signs: Last Vital Signs Temp 97.4 F 10/30/20 11:43 Pulse 89 10/30/20 11:43 Resp 16 10/30/20 11:43 BP 103/68 10/30/20 11:43 Pulse Ox 94 10/30/20 11:43 Body Mass Index 29.7 Objective Data Current Medications Generic Name Dose Route Start Last Admin Trade Name Freq PRN Reason Stop Dose Admin Acetaminophen 650 mg 10/29/20 13:09 10/30/20 12:10 Acetaminophen 325 Mg Tablet PO 650 mg Q6H PRN Administration PAIN Albuterol Sulfate 2 puff 10/29/20 13:09 Albuterol Sulfate 90 Mcg 8 Gm Inhaler INHALE Q6H PRN shortness of breath or wheezing Enoxaparin Sodium 40 mg 10/29/20 13:15 10/29/20 15:02 Enoxaparin Sodium 40 Mg/0.4 Ml Syringe SUBCUT 40 mg Q24H FLORIDALMA Administration Guaifenesin/Dextromethorphan 10 ml 10/29/20 15:00 10/30/20 07:53 Guaifenesin Dm 200/20/10 Ml 10 Ml Syrup PO 10 ml TID FLORIDALMA Administration Doxycycline Hyclate 100 mg/ 250 mls @ 166.67 mls/hr 10/29/20 13:15 10/30/20 03:05 Sodium Chloride IV Infused Q12H FLORIDALMA Infusion Insulin Human Lispro 0 unit 10/29/20 16:30 10/30/20 12:07 Insulin Lispro 100 Unit/Ml 3 Ml Vial SUBCUT 6 unit QIDACHS FLORIDALMA Administration Protocol Methylprednisolone Sodium Succinate 60 mg 10/29/20 21:00 10/30/20 07:53 Methylprednisolone Sod Succ/Pf 40 Mg/Ml Vial IVPUSH 60 mg BID FLORIDALMA Administration Omeprazole 40 mg 10/30/20 09:00 10/30/20 07:53 Omeprazole 40 Mg Capsule.Dr PO 40 mg DAILY FLORIDALMA Administration Ondansetron HCl 4 mg 10/29/20 13:09 Ondansetron Hcl 4 Mg/2 Ml Vial IVPUSH Q8H PRN Nausea Pharmacy Consult 1 each 10/29/20 09:17 Consult Rx Perform Med Rec MISCELLANE ONCE PRN Consult order Sucralfate 1 gm 10/29/20 17:00 10/30/20 12:07 Sucralfate Oral Suspension 1 Gm/10 Ml Oral.Susp PO 1 gm QID FLORIDALMA Administration Labs CBC & Chem 7: 10/29/20 09:45 10/29/20 09:45 Microbiology Microbiology Results: Microbiology 10/29/20 09:49 Blood - Venous Blood Culture - Preliminary No growth after 24 hours. 10/29/20 09:45 Blood - Venous Blood Culture - Preliminary No growth after 24 hours. Assessment and Plan (1) Hypoxia: Status: Acute (2) Pneumonitis: Status: Acute (3) DMII (diabetes mellitus, type 2): Status: Acute (4) HTN (hypertension): Status: Acute (5) Squamous cell lung cancer: Status: Acute (6) Cough: Status: Acute Assessment and Plan: 55-year-old gentleman with past medical history of hypertension,diabetes, non-small cell lung cancer, status post radiation treatment thatended roughly 3 to 4 weeks ago, currently receiving chemotherapy, came [facility] due to symptoms of shortness of breath, worse with exertionand cough associated with chills, but no fever. The patient is now being admitted due to acute hypoxic respiratory failure. 1. Acute hypoxic respiratory failure due to bilateral pneumonitis. Symptoms of shortness of breath and cough are improving, no fever, chills, requiring 2 L of oxygen with finger oximetry 94% not on home oxygen. Patient seen by Dr. Ibarra from pulmonology he agrees with the diagnosis of pneumonitis, but feels it is related to a combination of radiation and concomitant use of paclitaxel, but cannot rule out infection. Will continue IV steroids, continue IV doxycycline follow clinical course if patient shows no improvement will need further testing as per pulmonology, with repeat x-rays and blood work Will gradually wean oxygen continue cough medication, and incentive spirometry 2. Diabetes mellitus. Elevated blood sugars likely due to steroids, patient at home takes metformin that is held. Continue insulin sliding scale. Follow blood sugar q.i.d.and a.c. 3. History of recent radiation esophagitis. will continue omeprazole and sucralfate. 4. History of radiation dermatitis, seems to have improved with Silvadene. 5. History of hypertension. not on antihypertensive BP soft follow BP closely . 6. Deep venous thrombosis prophylaxis. on Lovenox.
[2020-10-30] MEDS: Enoxaparin Sodium 40 MG/0.4 ML SYRINGE SUBCUT (14:02)
[2020-10-30 15:14] VITALS: BP 95/62; PULSE 84; RESP 15; TEMP 36.9; O2SAT 97
[2020-10-30 16:38] LABS: Glucose, Whole Blood 182 mg/dL (60-115)
[2020-10-30 19:45] VITALS: BP 100/61; PULSE 83; RESP 14; TEMP 36.3; O2SAT 98
[2020-10-30 20:44] LABS: Glucose, Whole Blood 198 mg/dL (60-115)
[2020-10-30 23:36] VITALS: BP 108/74; PULSE 74; RESP 16; TEMP 36; O2SAT 94
[2020-10-31] MEDS: Doxycycline Hyclate 100 MG in 0.9 % Sodium Chloride 250 ML 166.67 MG IV ×2 (00:27→12:20)
[2020-10-31 04:00] VITALS: BP 116/73; PULSE 86; RESP 16; TEMP 35.8; O2SAT 94
[2020-10-31 07:23] VITALS: BP 115/62; PULSE 98; RESP 18; TEMP 36.2; O2SAT 93
[2020-10-31 07:46] LABS: Immunoglobulin E 561 kU/L (<OR=114)
[2020-10-31 08:12] LABS: Glucose, Whole Blood 221 mg/dL (60-115)
[2020-10-31] MEDS: Sucralfate Oral Suspension 1 GM/10 ML ORAL.SUSP PO ×4 (08:18→20:05)
[2020-10-31] MEDS: guaiFENesin DM 200/20/10 ML 10 ML SYRUP PO ×3 (08:18→20:05)
[2020-10-31] MEDS: Insulin Lispro 100 UNIT/ML 3 ML VIAL SUBCUT ×4 (08:19→20:51)
[2020-10-31] MEDS: Omeprazole 40 MG CAPSULE.DR PO (08:19)
[2020-10-31 11:23] VITALS: BP 111/68; PULSE 87; RESP 18; TEMP 36.3; O2SAT 96
[2020-10-31 11:51] LABS: Glucose, Whole Blood 236 mg/dL (60-115)
[2020-10-31] MEDS: Enoxaparin Sodium 40 MG/0.4 ML SYRINGE SUBCUT (12:13)
--- NOTE | 2020-10-31 12:42 | HO.PM.IMPN ---
Subjective Subjective Date of Service: 10/31/20 Interval History: seen and examined this AM still feels the same reports RODRIGUEZ with exertion to bathroom ROS General - no fevers or chills Cardiovascular - no chest pain Respiratory - no shortness of breath or cough Abdominal- no abdominal pain, nausea, vomiting, diarrhea Physical Exam Vital Signs: Vital Signs: Last Vital Signs Temp 97.3 F 10/31/20 11:23 Pulse 87 10/31/20 11:23 Resp 18 10/31/20 11:23 BP 111/68 10/31/20 11:23 Pulse Ox 96 10/31/20 11:23 Body Mass Index 29.7 Const: Other: General - no acute distress, appears comfortable Cardiovascular - regular rate and rhythm, S1-S2 Lungs - dim, sats 96 with 2L Abdomen - soft, nontender, no rebound or guarding Extremities - no edema bilaterally Neuro - awake and alert, no focal deficits Objective Data Current Medications Generic Name Dose Route Start Last Admin Trade Name Freq PRN Reason Stop Dose Admin Acetaminophen 650 mg 10/29/20 13:09 10/30/20 12:10 Acetaminophen 325 Mg Tablet PO 650 mg Q6H PRN Administration PAIN Albuterol Sulfate 2 puff 10/29/20 13:09 Albuterol Sulfate 90 Mcg 8 Gm Inhaler INHALE Q6H PRN shortness of breath or wheezing Enoxaparin Sodium 40 mg 10/29/20 13:15 10/31/20 12:13 Enoxaparin Sodium 40 Mg/0.4 Ml Syringe SUBCUT 40 mg Q24H FLORIDALMA Administration Guaifenesin/Dextromethorphan 10 ml 10/29/20 15:00 10/31/20 08:18 Guaifenesin Dm 200/20/10 Ml 10 Ml Syrup PO 10 ml TID FLORIDALMA Administration Doxycycline Hyclate 100 mg/ 250 mls @ 166.67 mls/hr 10/29/20 13:15 10/31/20 12:20 Sodium Chloride IV 166.67 mls/hr Q12H FLORIDALMA Administration Insulin Human Lispro 0 unit 10/29/20 16:30 10/31/20 12:13 Insulin Lispro 100 Unit/Ml 3 Ml Vial SUBCUT 6 unit QIDACHS FLORIDALMA Administration Protocol Methylprednisolone Sodium Succinate 60 mg 10/29/20 21:00 10/31/20 08:19 Methylprednisolone Sod Succ/Pf 40 Mg/Ml Vial IVPUSH 60 mg BID FLORIDALMA Administration Omeprazole 40 mg 10/30/20 09:00 10/31/20 08:19 Omeprazole 40 Mg Capsule. PO 40 mg DAILY FLORIDALMA Administration Ondansetron HCl 4 mg 10/29/20 13:09 Ondansetron Hcl 4 Mg/2 Ml Vial IVPUSH Q8H PRN Nausea Pharmacy Consult 1 each 10/29/20 09:17 Consult Rx Perform Med Rec MISCELLANE ONCE PRN Consult order Sucralfate 1 gm 10/29/20 17:00 10/31/20 12:13 Sucralfate Oral Suspension 1 Gm/10 Ml Oral.Susp PO 1 gm QID FLORIDALMA Administration Labs CBC & Chem 7: 10/29/20 09:45 10/29/20 09:45 Microbiology Microbiology Results: Microbiology 10/29/20 09:49 Blood - Venous Blood Culture - Preliminary No growth after 48 hours. 10/29/20 09:45 Blood - Venous Blood Culture - Preliminary No growth after 48 hours. Assessment and Plan (1) Hypoxia: Status: Acute (2) Pneumonitis: Status: Acute (3) DMII (diabetes mellitus, type 2): Status: Acute (4) HTN (hypertension): Status: Acute (5) Squamous cell lung cancer: Status: Acute (6) Cough: Status: Acute Assessment and Plan: 55-year-old gentleman with past medical history of hypertension,diabetes, non-small cell lung cancer, status post radiation treatment thatended roughly 3 to 4 weeks ago, currently receiving chemotherapy, came [facility] due to symptoms of shortness of breath, worse with exertionand cough associated with chills, but no fever. The patient is now being admitted due to acute hypoxic respiratory failure. 1. Acute hypoxic respiratory failure due to bilateral pneumonitis. slow to improve, still with RODRIGUEZ with minimal exertion continue high dose steriods continue empiric IV antibiotics Pulmonary on board -- may need bronchscopic evaluation if does not improve Still on 2LPM -- wean to RA as tolerated 2. Uncontrolled DM hyperglycemia likely worsened by steroids home metformin on hold continue sliding scale + diabetic diet 3. History of recent radiation Esophagitis PPI + carafate 4. History of radiation dermatitis seems to have improved with Silvadene. 5. History of hypertension ? not on any antihypertesnives currently bp soft, continue to monitor . Full Code DVT pptx, Lovenox
--- NOTE | 2020-10-31 14:05 | PM.PNPUL ---
Subjective Subjective Date of Service: 10/31/20 Interval history: Patient was seen on exam. He is feeling a little better. Still getting shortness of breath when he takes off his oxygen and walks to the bathroom. Moderate severity. He knows that he is not supposed to take his oxygen off. His sedimentation rate was greater than 100 which is concerning. I will increase Solu-Medrol. His oxygen requirements have decreased which is reassuring. Again we will continue the cortical steroid therapy. If the patient is no better consider bronchoscopy to rule out infectious processes such as PCP. Objective Data Labs CBC & Chem 7: 10/29/20 09:45 10/29/20 09:45 Labs: Laboratory Results - last 24 hr 10/30/20 10/30/20 10/30/20 15:07 16:34 20:26 POC Glucose 182 H 198 H IgE 561 H 10/31/20 10/31/20 08:07 11:22 POC Glucose 221 H 236 H IgE Microbiology Microbiology Results: Microbiology 10/29/20 09:49 Blood - Venous Blood Culture - Preliminary No growth after 48 hours. 10/29/20 09:45 Blood - Venous Blood Culture - Preliminary No growth after 48 hours. Review of Systems Constitutional: Denies night sweats Denies change in voice, Denies lip swelling, Denies mouth pain, Reports nasal congestion, Reports nasal discharge and Denies tongue swelling Cardiovascular: Denies chest pain and Reports dyspnea on exertion Respiratory: Reports cough and Reports dyspnea on exertion Gastrointestinal: Denies abdominal pain Musculoskeletal: Denies no additional musculoskeletal complaints Denies Neuro-related abnormal movements Psychiatric: Denies no additional psychiatric complaints Hematologic/Lymphatic: Denies easy bleeding and Denies lymphadenopathy Allergic/Immunologic: Denies lip swelling and Denies tongue swelling Physical Exam Vital Signs: Vital Signs: Last Vital Signs Temp 97.3 F 10/31/20 11:23 Pulse 87 10/31/20 11:23 Resp 18 10/31/20 11:23 BP 111/68 10/31/20 11:23 Pulse Ox 96 10/31/20 11:23 Body Mass Index 29.7 Const: General: alert HENMT: General nose exam: Abnormal external nose present and Nasal discharge present Neck: Neck: Yes normal visual inspection, Yes full ROM and Yes no lymphadenopathy Chest: Chest palpation & inspection: normal inspection of the chest Resp: Auscultation: crackles and diminished lung sounds Cardio: Rate: regular rate Rhythm: regular rhythm Heart sounds: S1 normal heart sound present and S2 normal heart sound present GI: Palpation (GI): Soft to palpation and nontender Auscultation: normal bowel sounds : General: Yes no CVA tenderness Back/Spine/Pelvis: Back: no CVA tenderness Skin: General skin exam: rashes and/or lesions noted Procedures Date of Service Date of Service: 10/31/20 Assessment and Plan Assessment and plan (1) Pneumonitis: Status: Acute (2) Squamous cell lung cancer: Status: Acute (3) Acute respiratory failure with hypoxemia: Status: Acute Assessment and Plan: Increase Solumedrol 60mg TID Continue oxygen supplementation Repeat CXR Monday If no better, consider bronchoscopy Time Spent With Patient Time: Total time spent is greater than 50% in coordination of care (as documented) at patient's floor/unit and/or counseling patient: Time with patient: 15 - 24 minutes
[2020-10-31] MEDS: methylPREDNISolone Sod Succ/PF 125 MG/2 ML VIAL 60 MG IVPUSH ×2 (15:46→20:06)
[2020-10-31 15:50] VITALS: BP 108/70; PULSE 91; RESP 18; TEMP 36.1; O2SAT 88
[2020-10-31 16:29] LABS: Glucose, Whole Blood 204 mg/dL (60-115)
[2020-10-31 19:16] VITALS: BP 107/63; PULSE 83; RESP 20; TEMP 36.1; O2SAT 95
[2020-10-31 20:43] LABS: Glucose, Whole Blood 249 mg/dL (60-115)
[2020-10-31 23:19] VITALS: BP 112/75; PULSE 78; RESP 18; TEMP 36; O2SAT 96
[2020-11-01] VITALS (8 sets, daily range): BP systolic 105–128; BP diastolic 63–79; PULSE 70–98; RESP 16–18; TEMP 35.6–36.1; O2SAT 90–97
[2020-11-01] MEDS: Doxycycline Hyclate 100 MG in 0.9 % Sodium Chloride 250 ML 166.67 MG IV ×2 (00:28→13:38)
[2020-11-01 07:32] LABS: Glucose, Whole Blood 174 mg/dL (60-115)
[2020-11-01] MEDS: Insulin Lispro 100 UNIT/ML 3 ML VIAL SUBCUT ×4 (07:41→20:40)
[2020-11-01] MEDS: methylPREDNISolone Sod Succ/PF 125 MG/2 ML VIAL 60 MG IVPUSH ×3 (07:42→19:54)
[2020-11-01] MEDS: Omeprazole 40 MG CAPSULE.DR PO (07:42)
[2020-11-01] MEDS: Sucralfate Oral Suspension 1 GM/10 ML ORAL.SUSP PO ×4 (07:42→19:53)
[2020-11-01] MEDS: guaiFENesin DM 200/20/10 ML 10 ML SYRUP PO ×3 (07:42→19:53)
[2020-11-01 11:36] LABS: Glucose, Whole Blood 238 mg/dL (60-115)
--- NOTE | 2020-11-01 12:46 | HO.PM.IMPN ---
Subjective Subjective Date of Service: 11/01/20 Interval History: seen and examined this PM feeling better compared to yesterday able to walk to the bathroom with less RODRIGUEZ ROS General - no fevers or chills Cardiovascular - no chest pain Respiratory - no shortness of breath or cough Abdominal- no abdominal pain, nausea, vomiting, diarrhea Physical Exam Vital Signs: Vital Signs: Last Vital Signs Temp 96.7 F L 11/01/20 11:29 Pulse 80 11/01/20 11:29 Resp 18 11/01/20 11:29 BP 106/63 11/01/20 11:29 Pulse Ox 93 11/01/20 11:29 Body Mass Index 29.7 Const: Other: General - no acute distress, appears comfortable Cardiovascular - regular rate and rhythm, S1-S2 Lungs - improving air entry Abdomen - soft, nontender, no rebound or guarding Extremities - no edema bilaterally Neuro - awake and alert, no focal deficits Objective Data Current Medications Generic Name Dose Route Start Last Admin Trade Name Freq PRN Reason Stop Dose Admin Acetaminophen 650 mg 10/29/20 13:09 10/30/20 12:10 Acetaminophen 325 Mg Tablet PO 650 mg Q6H PRN Administration PAIN Albuterol Sulfate 2 puff 10/29/20 13:09 Albuterol Sulfate 90 Mcg 8 Gm Inhaler INHALE Q6H PRN shortness of breath or wheezing Enoxaparin Sodium 40 mg 10/29/20 13:15 10/31/20 12:13 Enoxaparin Sodium 40 Mg/0.4 Ml Syringe SUBCUT 40 mg Q24H FLORIDALMA Administration Guaifenesin/Dextromethorphan 10 ml 10/29/20 15:00 11/01/20 07:42 Guaifenesin Dm 200/20/10 Ml 10 Ml Syrup PO 10 ml TID FLORIDALMA Administration Doxycycline Hyclate 100 mg/ 250 mls @ 166.67 mls/hr 10/29/20 13:15 11/01/20 02:10 Sodium Chloride IV Infused Q12H FLORIDALMA Infusion Insulin Human Lispro 0 unit 10/29/20 16:30 11/01/20 11:47 Insulin Lispro 100 Unit/Ml 3 Ml Vial SUBCUT 6 unit QIDACHS FLORIDALMA Administration Protocol Methylprednisolone Sodium Succinate 60 mg 10/31/20 15:00 11/01/20 07:42 Methylprednisolone Sod Succ/Pf 125 Mg/2 Ml Vial IVPUSH 60 mg TID FLORIDALMA Administration Omeprazole 40 mg 10/30/20 09:00 11/01/20 07:42 Omeprazole 40 Mg Capsule. PO 40 mg DAILY FLORIDALMA Administration Ondansetron HCl 4 mg 10/29/20 13:09 Ondansetron Hcl 4 Mg/2 Ml Vial IVPUSH Q8H PRN Nausea Pharmacy Consult 1 each 10/29/20 09:17 Consult Rx Perform Med Rec MISCELLANE ONCE PRN Consult order Sucralfate 1 gm 10/29/20 17:00 11/01/20 07:42 Sucralfate Oral Suspension 1 Gm/10 Ml Oral.Susp PO 1 gm QID FLORIDALMA Administration Labs CBC & Chem 7: 10/29/20 09:45 10/29/20 09:45 Microbiology Microbiology Results: Microbiology 10/29/20 09:49 Blood - Venous Blood Culture - Preliminary No growth after 48 hours. 10/29/20 09:45 Blood - Venous Blood Culture - Preliminary No growth after 48 hours. Assessment and Plan (1) Hypoxia: Status: Acute (2) Pneumonitis: Status: Acute (3) DMII (diabetes mellitus, type 2): Status: Acute (4) HTN (hypertension): Status: Acute (5) Squamous cell lung cancer: Status: Acute (6) Cough: Status: Acute Assessment and Plan: 55-year-old gentleman with past medical history of hypertension,diabetes, non-small cell lung cancer, status post radiation treatment thatended roughly 3 to 4 weeks ago, currently receiving chemotherapy, came [facility] due to symptoms of shortness of breath, worse with exertionand cough associated with chills, but no fever. The patient is now being admitted due to acute hypoxic respiratory failure. 1. Acute hypoxic respiratory failure due to bilateral pneumonitis. slowly improving on high dose IV solu-medrol will continue the same for an additional 24 hours tolerating RA at rest currently, but does desaturate -- will observe off oxygen for 24 hours and reassess the need for home o2 testing continue IV doxy - day 3, change to PO if stable tomorrow Pulmonary on board -- may need bronchscopic evaluation if does not improve 2. Uncontrolled DM hyperglycemia likely worsened by steroids home metformin on hold continue sliding scale + diabetic diet 3. History of recent radiation Esophagitis PPI + carafate 4. History of radiation dermatitis seems to have improved with Silvadene. 5. History of hypertension ? not on any antihypertesnives currently bp soft, continue to monitor . Full Code DVT pptx, Lovenox dispo: home next 24-48 hours if O2 requirements stable stable.
[2020-11-01] MEDS: Enoxaparin Sodium 40 MG/0.4 ML SYRINGE SUBCUT (13:38)
[2020-11-01 16:29] LABS: Glucose, Whole Blood 203 mg/dL (60-115)
[2020-11-01 20:28] LABS: Glucose, Whole Blood 210 mg/dL (60-115)
[2020-11-02] MEDS: Doxycycline Hyclate 100 MG in 0.9 % Sodium Chloride 250 ML 166.67 MG IV (01:12)
[2020-11-02 04:00] VITALS: BP 121/80; PULSE 70; RESP 16; TEMP 36.9; O2SAT 98
[2020-11-02 07:28] VITALS: BP 120/74; PULSE 80; RESP 19; TEMP 36.1; O2SAT 92
[2020-11-02 07:46] LABS: Glucose, Whole Blood 171 mg/dL (60-115)
[2020-11-02] MEDS: Insulin Lispro 100 UNIT/ML 3 ML VIAL SUBCUT ×2 (07:46→12:03)
[2020-11-02] MEDS: guaiFENesin DM 200/20/10 ML 10 ML SYRUP PO (09:17)
[2020-11-02] MEDS: Sucralfate Oral Suspension 1 GM/10 ML ORAL.SUSP PO ×2 (09:17→13:07)
[2020-11-02] MEDS: methylPREDNISolone Sod Succ/PF 125 MG/2 ML VIAL 60 MG IVPUSH (09:17)
[2020-11-02] MEDS: Omeprazole 40 MG CAPSULE.DR PO (09:17)
[2020-11-02 11:19] VITALS: BP 132/88; PULSE 75; RESP 19; TEMP 36.3; O2SAT 92
--- NOTE | 2020-11-02 11:46 | MHC.CM.PN ---
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 DISCUSSED WITH HOSPITLAIST AND NO VNA ORDERED.DISCHARGE PLAN HOME WITH HIS TRANSPORTATION FAMILY PCP TESSA CLEMENT SELF RESUMPTION OF HIS CHEMOTHEARPY WITH [facility] ONCLOGY DR ALEJANDRO
[2020-11-02 11:53] LABS: Glucose, Whole Blood 209 mg/dL (60-115)
[2020-11-02] MEDS: Enoxaparin Sodium 40 MG/0.4 ML SYRINGE SUBCUT (13:07)
[2020-11-02] MEDS: Doxycycline Hyclate 100 MG in 0.9 % Sodium Chloride 250 ML 166.7 MG IV (13:07)
[2020-11-02 14:27] VITALS: PULSE 114; PULSE 120; PULSE 84; PULSE 85; PULSE 94; O2SAT 86; O2SAT 88; O2SAT 92; O2SAT 94; O2SAT 95
--- NOTE | 2020-11-02 15:12 | PM.DS ---
DS: Providers Provider Date of Service: 11/02/20 Date of admission: 10/29/20 13:09 Primary care physician: Fred Gonsales PA-C Consults: 10/29/20 13:10 Consult to Pulmonology Routine Consulting Provider: Rainer Ibarra Reason for consultation: Bilateral pneumonitis DS: Diagnosis Discharge Diagnosis (1) Pneumonitis: Status: Acute (2) DMII (diabetes mellitus, type 2): Status: Acute (3) HTN (hypertension): Status: Acute (4) Squamous cell lung cancer: Status: Acute (5) Cough: Status: Acute (6) Acute respiratory failure with hypoxemia: Status: Acute DS: Medications Discharge Medications Home Medications: Home Medications Medication Instructions Recorded Confirmed blood sugar diagnostic #10 ea 06/23/20 10/27/20 omeprazole 40 mg PO DAILY 10/29/20 10/29/20 silver sulfadiazine 1 appl TOPICAL BID 10/29/20 10/29/20 sucralfate 10 ml PO QID 10/29/20 10/29/20 Previous Rx's Medication Instructions Recorded albuterol sulfate 90 mcg/actuation 2 puff INHALATION Q6H PRN 30 Days 10/27/20 aerosol inhaler #8.5 g metformin 500 mg tablet,extended 500 mg PO DAILY 90 Days #90 tab 10/27/20 release 24 hr dextromethorphan-guaifenesin 10 ml PO TID 7 Days #210 ml 11/02/20 doxycycline monohydrate 100 mg PO BID #14 cap 11/02/20 prednisone 40 mg PO DAILY #30 tab 11/02/20 DS: Summary Hospital Course Hospital Course: Admission note HPI This is a 55-year-old gentleman, who was diagnosed to have non-small cell lung carcinoma in July of 2020. The patient finished radiation therapy 3 to 4 weeks ago at [facility]. He presented to [facility] with 3 weeks history of shortness of breath associated with dry cough that has been going for several weeks. The patient also complaining of associated chills. He also complained of nausea with coughing. He denies any chest discomfort other than chest pain with coughing. He denies any sick contacts. No recent history of travel. The patient has been using cough medication with no significant improvement. The patient was seen by his primary care physician couple of days ago with similar symptoms and was placed on azithromycin and p.r.n. albuterol. The patient developed diarrhea likely due to use of azithromycin, but since his symptoms persisted, he came to the emergency room for further evaluation and treatment. In the ER, the patient tested negative for COVID. A CTA chest showed extensive ground glass attenuation right lung and left upper lobe consistent with pneumonitis. No consolidation was seen. There were reactive abnormal lymph nodes seen in the mediastinum with no pleural effusion or thickening. Hospital course The patient was admitted to the hospital for treatment of acute hypoxic respiratory failure secondary to pneumonitis after receiving radiation therapy for the esophagus area recently. CTA of the chest consistent with extensive ground-glass consolidation is in in lower lobes bilaterally suggestive of pneumonitis. He was evaluated by pulmonology and treated with IV steroids and doxycycline with oxygen supplement. His oxygen requirement decreased and he was weaned off the oxygen to room air. He was noticed to drop his oxygen level to 80s with ambulation and he was evaluated for home oxygen. Blood cultures remain negative. IgE came back elevated. 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 next week Time Spent with Patient Time attestation: Total time spent providing and/or coordinating discharge services: Discharge coordination time: Greater than 30 minutes Physical Exam Vital Signs: Vital Signs: Last Vital Signs Temp 97.3 F 11/02/20 11:19 Pulse 75 11/02/20 11:19 Resp 19 11/02/20 11:19 BP 132/88 11/02/20 11:19 Pulse Ox 92 11/02/20 11:19 Body Mass Index 29.7 Const: Other: Constitutional : Alert, oriented, not in distress Neck : Normal inspection, Supple Cardiovascular : RRR, S1 S2, no lower extremity edema Respiratory : Good bilateral air entry, no crackles, wheezes or rhonchi, on room air Gastrointestinal: soft, lax, Normal bowel sounds, Non tender Skin : Warm/Dry, No rash Neurological : Alert & oriented x3, No focal deficit DS: Data Data Completed and Pending Labs on day of discharge: Laboratory Results - last 24 hr 11/01/20 11/01/20 11/02/20 16:21 20:18 07:27 POC Glucose 203 H 210 H 171 H 11/02/20 11:20 POC Glucose 209 H Preliminary micro results at discharge 10/29/20 09:49 Blood Culture - Preliminary Blood - Venous No growth after 48 hours. 10/29/20 09:45 Blood Culture - Preliminary Blood - Venous No growth after 48 hours. Discharge Plan Discharge Patient Disposition: Home, Self-Care Referrals: Balbina Faust, BUS ANALYST [Nurse Practitioner] - 1 Week (Balbina Faust 11/06/2020 11:30) Discharge Medications: New dextromethorphan-guaifenesin 10-100 mg/5 mL Syrup 10 ml PO TID 7 Days Qty: 210 RF: 1 prednisone 20 mg tablet 40 mg PO DAILY Qty: 30 RF: 0 doxycycline monohydrate 100 mg capsule 100 mg PO BID Qty: 14 RF: 0 Continued silver sulfadiazine 1 % Cream 1 appl TOPICAL BID RF: 0 sucralfate 100 mg/mL Suspension 10 ml PO QID RF: 0 omeprazole 40 mg Capsule,Delayed Release(Dr/Ec) 40 mg PO DAILY RF: 0 metformin 500 mg tablet extended release 24 hr 500 mg PO DAILY 90 Days Qty: 90 RF: 1 albuterol sulfate 90 mcg/actuation HFA aerosol inhaler 2 puff inhalation Q6H PRN (Reason: shortness of breath or wheezing) 30 Days Qty: 8.5 RF: 1 (DME) blood sugar diagnostic Strip See Rx Instructions strip .ROUTE .MEDSUPPLY Qty: 10 RF: 0 Discontinued azithromycin 250 mg tablet 1 mg PO DAILY RF: 0 Discharge Orders: Discharge Order (Routine); Ordered 11/02/20 Ordered By: Paola Lux Diet: advance to usual diet Activity on Discharge: As tolerated Stand Alone Forms: Patient Portal Discharge page Care Plan Goals: Read below Health Concerns: Read below Plan of Treatment: You were admitted to the hospital for evaluation of shortness of breath and worsening cough. Noticed to have low oxygen level with ambulation. Images were concerning for inflammatory reaction in the lungs. Treated with IV steroids and antibiotic after having any evaluation by well service pump equipment operator with good response over the course of hospital stay as you were weaned off the oxygen. You were noticed to require oxygen on exertion. Continue prednisone 40 mg daily until you see your well service pump equipment operator Continue doxycycline for 1 more week To follow-up with well service pump equipment operator Dr. Morgan naidu in the office next week MondayNovember 10 on 15:00 Oxygen concentrator will be delivered to your place
--- NOTE | 2020-11-02 16:13 | PC.NURSE ---
Home o2 arranged by RT for activity. pt verbalizes understanding to call company when arrives at home. Denies pain.
== END 2020-11-02 16:13 | disposition home or self-care (01) | DRG 143 ==
LOC: HO.ED 11:52 → HO.EDOVER 13:20 → HO.S3 13:22
PROVIDERS: Family Medicine; Hospitalist; Admitting Provider Hospitalist; Emergency Provider Emergency Medicine; PCP Physician Assistant; Visit Provider Student in an Organized Health Care Education/Training Program
DX: J70.0 Acute pulmonary manifestations due to radiation (principal); J96.01 Acute respiratory failure with hypoxia; C34.90 Malignant neoplasm of unspecified part of unspecified bronchus or lung; L59.8 Other specified disorders of the skin and subcutaneous tissue related to radiation; K20.80 Other esophagitis without bleeding; Z20.822 Contact with and (suspected) exposure to COVID-19; E11.65 Type 2 diabetes mellitus with hyperglycemia; I10 Essential (primary) hypertension; Z87.891 Personal history of nicotine dependence; Z79.52 Long term (current) use of systemic steroids; Z79.899 Other long term (current) drug therapy
CPT/HCPCS: 0241U; 36415; 71045; 71046; 71275; 80048; 80076; 82728; 82785; 82947; 83605; 83615; 83690; 83735; 83880; 84145; 84484; 85025; 85379; 85610; 85652; 85730; 87040; 93005; 96365; 96375; 99285; J1100; J1650; J2543; J2920; J2930; Q9967

== ENCOUNTER → 2020-11-10 14:34 | Outpatient (BNVA) | payer OTHER, SELFPAY | PROVIDERS: PCP Physician Assistant; Visit Provider Internal Medicine | DX: C34.11 Malignant neoplasm of upper lobe, right bronchus or lung (principal); J18.9 Pneumonia, unspecified organism; R06.02 Shortness of breath; Z87.891 Personal history of nicotine dependence | CPT/HCPCS: 99212 ==

== ENCOUNTER 2020-11-30 14:39 | Inpatient (IN) | payer OTHER, SELFPAY ==
[2020-11-30] VITALS (7 sets, daily range): BP systolic 94–135; BP diastolic 7–86; PULSE 94–137; RESP 13–26; TEMP 36.6–38.3; O2SAT 96–98; BMI 31.8
--- NOTE | ~2020-11-30 | XR_ITS ---
EXAMINATION: XR CHEST CLINICAL INFORMATION: Pneumonitis, follow-up COMPARISON: Chest radiographs 11/30/2020, 11/02/2020, 10/31/2020; CTA chest 10/29/2020 TECHNIQUE: 2 views of the chest were obtained. FINDINGS: There are stable airspace opacities similar severity and distribution to prior exam 11/30/2020. Involvement is greatest right upper lobe with some lesser subtle opacities bibasilar regions. Mild elevation right diaphragm is chronic. There is no visible effusion. The vascularity is normal. The cardiac and hilar and mediastinal contours and bony structures are similar to prior studies. XR/XR chest 2V IMPRESSION: Stable airspace opacities when compared with prior study 11/30/2020, involvement greatest right upper lobe. No effusion.
--- NOTE | ~2020-11-30 | XR_ITS ---
EXAMINATION: XR CHEST CLINICAL INFORMATION: Shortness of breath COMPARISON: Chest x-ray 11/02/2020 TECHNIQUE: Frontal view of the chest was obtained. FINDINGS: Cardiac silhouette is normal in size. The lungs are adequately aerated. Similar asymmetrical elevation right hemidiaphragm. Persistent right upper lobe patchy opacity with mildly improved aeration of the right lower lung. No pleural effusion or pneumothorax. XR/XR chest 1V IMPRESSION: Persistent right upper lobe patchy opacity with mildly improved aeration of the right lower lung.
--- NOTE | 2020-11-30 19:10 | ED_ITS ---
HPI - SOB/Dyspnea General Chief Complaint: Dyspnea Stated Complaint: diff breathing Time Seen by Provider: 11/30/20 19:10 Source: patient Mode of arrival: ambulatory Limitations: no limitations History of Present Illness HPI Narrative: Patient with history of squamous cell carcinoma right lung status post radiation treatment was admitted here on 10/29 for hypoxia secondary to radiation pneumonitis treated with steroids and doxycycline which he finished 2 weeks ago since then mom started complaining of increased shortness of breath now requiring 3 L of oxygen most of the time increasing cough chills subjective fever on arrival patient temperature was 100.6 degrees. Patient denies any chest pain no leg pain or leg swelling Related Data Home Medications Medication Instructions Recorded Confirmed blood sugar diagnostic #10 ea 06/23/20 10/27/20 lisinopril 1 tab PO DAILY 11/30/20 11/30/20 omeprazole 1 cap PO DAILY 11/30/20 11/30/20 Previous Rx's Medication Instructions Recorded albuterol sulfate 90 mcg/actuation 2 puff INHALATION Q6H PRN 30 Days 10/27/20 aerosol inhaler #8.5 g metformin 500 mg tablet,extended 500 mg PO DAILY 90 Days #90 tab 10/27/20 release 24 hr Allergies Allergy/AdvReac Type Severity Reaction Status Date / Time No Known Allergies Allergy Verified 11/30/20 14:42 Review of Systems Review of Systems: Constitutional : No Weight loss, No Fever, No Chills ENT/Mouth : No sore throat, No Rhinorrhea Eyes: No Eye Pain, No Swelling Cardiovascular : No Chest Pain, no palpitations Respiratory : ++ Cough, No Sputum, ++ shortness of breath Gastrointestinal : no Nausea, No Vomiting, No Diarrhea, No abdominal Pain, no black stools Genitourinary : No Dysuria, No Urinary Frequency Musculoskeletal : No joint pain, No Myalgias, No Joint Swelling Skin : No Skin Lesions, No rash Neuro : No Weakness, No Numbness, No Dizziness, No Headache Psych : No Anxiety/Panic, No Depression Heme/Lymph: No Bruising, No Lymphadenopathy Endocrine : No Polyuria, No Polydipsia All other systems reviewed and are negative [facility] Past Medical History Medical History Diabetes DMII (diabetes mellitus, type 2) Ex-smoker Exercise hypoxemia Hospital discharge follow-up HTN (hypertension) Hypertension Hypoxia Kidney stones Lung cancer Pneumonitis Sciatica 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 Social History Social History Household Members: Spouse Housing: House Alcohol intake: never Smoking Status: Former smoker Tobacco Type: Cigarette Packs Per Day: 0.5 Years Smoked: 38 Use of substances other than those prescribed or required for medical reasons: No Advance Directives: No Advance Directives Information Provided: Yes service: No Current occupational status: employed Physical Exam Vital Signs: Vital Signs: Last Vital Signs Temp 99.8 F 11/30/20 21:11 Pulse 117 H 11/30/20 20:43 Resp 13 11/30/20 20:43 BP 96/66 11/30/20 20:43 Pulse Ox 97 11/30/20 20:43 Body Mass Index 31.8 Appearance: Alert. Oriented X3. In mild distress. On 3 L of oxygen saturating 96% temperature 100.7 degrees Eyes: Pupils equal, round and reactive to light. ENT: Pharynx normal. Neck: Normal inspection. Neck supple. CVS: Normal heart rate and rhythm. Pulses normal. Respiratory: Moderate respiratory distress. Decreased air entry right lower lobe expiratory wheezing ++ rales ++ crackles Abdomen: Soft and nontender. Bowel sounds are present, no mass palpable, no CVA tenderness Skin: Skin warm and dry. Normal skin color. Normal skin turgor. Extremities: No lower extremity edema. No calf tenderness Neuro: Oriented X 3. No motor deficit. No sensory deficit. MDM - SOB/Dyspnea Differential Diagnosis Differential diagnosis: Likely pneumonia and pleural effusion Medical Records Attestation: I reviewed the patient's medical records. Lab Data Attestation: I reviewed the patient's lab results. Result diagrams: 11/30/20 19:53 11/30/20 19:53 Labs: Lab Results 11/30/20 11/30/20 11/30/20 Range/Units 19:53 19:53 19:53 WBC 8.9 (4.8-10.8) X10*3/uL RBC 4.20 L (4.60-5.80) X10*6/uL Hgb 13.0 L (14.0-18.0) g/dl Hct 40.8 L (42-52) % MCV 97.1 (80-98) fL MCH 31.0 (27.0-33.0) pg MCHC 31.9 (31.0-36.0) g/dl RDW 16.5 H (11.0-16.0) % Plt Count 110 L D (160-400) X10*3/uL MPV 9.8 (9.4-12.4) fL Immature Gran % (Auto) 1.7 H (0.0-0.4) % Neut % (Auto) 66.6 (45-73) % Lymph % (Auto) 19.8 L (20-40) % [place] % (Auto) 10.6 (2-11) % Eos % (Auto) 1.1 (0-4) % Baso % (Auto) 0.2 (0-2) % Lymph # (Auto) 1.8 (1.2-4.9) X10*3/uL [place] # (Auto) 0.9 (0.1-1.2) X10*3/uL Eos # (Auto) 0.1 (0.0-0.4) X10*3/uL Baso # (Auto) 0.0 (0.0-0.2) X10*3/uL Abs Immat Gran (auto) 0.15 H (0.00-0.03) X10*3/uL Absolute Neuts (auto) 5.9 (2.0-8.3) X10*3/uL Absolute Nucleated RBC 0.000 (0.0-0.012) X10*3/uL Nucleated RBC % (auto) 0.0 (0.0-0.2) /100WBC Smear Tech's Comments VERIFIED PT 13.7 H D (10.8-13.0) SEC INR 1.2 H (0.9-1.1) APTT 32.8 (24.1-38.0) SEC Sodium 137 (135-145) mmol/L Potassium 4.3 (3.3-5.1) mmol/L Chloride 101 (96-108) mmol/L Carbon Dioxide 26 (22-29) mmol/L Anion Gap 14 (12-20) BUN 12 (9-16) mg/dL Creatinine 0.66 (0.5-1.4) mg/dL Estim Creat Clear Calc 133.6 Estimated GFR > 60 POC Glucose (60-115) mg/dL Random Glucose 118 H (60-115) mg/dL Lactic Acid (0.5-2.0) mmol/L Calcium 8.3 L D (8.4-10.2) mg/dL Total Bilirubin 1.0 (0.0-1.0) mg/dL Direct Bilirubin 0.5 (0.0-0.5) mg/dL AST 34 (5-37) U/L ALT 45 H (0-40) U/L Alkaline Phosphatase 99 (39-117) U/L Troponin I High Sens (<3.5-35.0) ng/L B-Natriuretic Peptide (<100) pg/mL Total Protein 6.5 (6.5-8.0) g/dL Albumin 3.8 (3.5-5.0) g/dL Coronavirus (PCR) (Negative) Influenza Type A (PCR) (Negative) Influenza Type B (PCR) (Negative) RSV RNA Qual (PCR) (Negative) 11/30/20 11/30/20 11/30/20 Range/Units 19:53 19:53 19:53 WBC (4.8-10.8) X10*3/uL RBC (4.60-5.80) X10*6/uL Hgb (14.0-18.0) g/dl Hct (42-52) % MCV (80-98) fL MCH (27.0-33.0) pg MCHC (31.0-36.0) g/dl RDW (11.0-16.0) % Plt Count (160-400) X10*3/uL MPV (9.4-12.4) fL Immature Gran % (Auto) (0.0-0.4) % Neut % (Auto) (45-73) % Lymph % (Auto) (20-40) % [place] % (Auto) (2-11) % Eos % (Auto) (0-4) % Baso % (Auto) (0-2) % Lymph # (Auto) (1.2-4.9) X10*3/uL [place] # (Auto) (0.1-1.2) X10*3/uL Eos # (Auto) (0.0-0.4) X10*3/uL Baso # (Auto) (0.0-0.2) X10*3/uL Abs Immat Gran (auto) (0.00-0.03) X10*3/uL Absolute Neuts (auto) (2.0-8.3) X10*3/uL Absolute Nucleated RBC (0.0-0.012) X10*3/uL Nucleated RBC % (auto) (0.0-0.2) /100WBC Smear Tech's Comments PT (10.8-13.0) SEC INR (0.9-1.1) APTT (24.1-38.0) SEC Sodium (135-145) mmol/L Potassium (3.3-5.1) mmol/L Chloride (96-108) mmol/L Carbon Dioxide (22-29) mmol/L Anion Gap (12-20) BUN (9-16) mg/dL Creatinine (0.5-1.4) mg/dL Estim Creat Clear Calc Estimated GFR POC Glucose (60-115) mg/dL Random Glucose (60-115) mg/dL Lactic Acid 2.4 H* (0.5-2.0) mmol/L Calcium (8.4-10.2) mg/dL Total Bilirubin (0.0-1.0) mg/dL Direct Bilirubin (0.0-0.5) mg/dL AST (5-37) U/L ALT (0-40) U/L Alkaline Phosphatase (39-117) U/L Troponin I High Sens 9.6 (<3.5-35.0) ng/L B-Natriuretic Peptide < 10 (<100) pg/mL Total Protein (6.5-8.0) g/dL Albumin (3.5-5.0) g/dL Coronavirus (PCR) NEGATIVE (Negative) Influenza Type A (PCR) NEGATIVE (Negative) Influenza Type B (PCR) NEGATIVE (Negative) RSV RNA Qual (PCR) NEGATIVE (Negative) 11/30/20 Range/Units 20:19 WBC (4.8-10.8) X10*3/uL RBC (4.60-5.80) X10*6/uL Hgb (14.0-18.0) g/dl Hct (42-52) % MCV (80-98) fL MCH (27.0-33.0) pg MCHC (31.0-36.0) g/dl RDW (11.0-16.0) % Plt Count (160-400) X10*3/uL MPV (9.4-12.4) fL Immature Gran % (Auto) (0.0-0.4) % Neut % (Auto) (45-73) % Lymph % (Auto) (20-40) % [place] % (Auto) (2-11) % Eos % (Auto) (0-4) % Baso % (Auto) (0-2) % Lymph # (Auto) (1.2-4.9) X10*3/uL [place] # (Auto) (0.1-1.2) X10*3/uL Eos # (Auto) (0.0-0.4) X10*3/uL Baso # (Auto) (0.0-0.2) X10*3/uL Abs Immat Gran (auto) (0.00-0.03) X10*3/uL Absolute Neuts (auto) (2.0-8.3) X10*3/uL Absolute Nucleated RBC (0.0-0.012) X10*3/uL Nucleated RBC % (auto) (0.0-0.2) /100WBC Smear Tech's Comments PT (10.8-13.0) SEC INR (0.9-1.1) APTT (24.1-38.0) SEC Sodium (135-145) mmol/L Potassium (3.3-5.1) mmol/L Chloride (96-108) mmol/L Carbon Dioxide (22-29) mmol/L Anion Gap (12-20) BUN (9-16) mg/dL Creatinine (0.5-1.4) mg/dL Estim Creat Clear Calc Estimated GFR POC Glucose 129 H (60-115) mg/dL Random Glucose (60-115) mg/dL Lactic Acid (0.5-2.0) mmol/L Calcium (8.4-10.2) mg/dL Total Bilirubin (0.0-1.0) mg/dL Direct Bilirubin (0.0-0.5) mg/dL AST (5-37) U/L ALT (0-40) U/L Alkaline Phosphatase (39-117) U/L Troponin I High Sens (<3.5-35.0) ng/L B-Natriuretic Peptide (<100) pg/mL Total Protein (6.5-8.0) g/dL Albumin (3.5-5.0) g/dL Coronavirus (PCR) (Negative) Influenza Type A (PCR) (Negative) Influenza Type B (PCR) (Negative) RSV RNA Qual (PCR) (Negative) ECG Data Attestation: I personally reviewed and interpreted this ECG as follows: Interpretation: Sinus tachycardia with heart rate 118 beats per minute left ventricular hypertrophy no acute ST T wave changes no acute ischemia Discharge Plan Discharge Prescriptions: No Action lisinopril 20 mg tablet 1 tab PO DAILY RF: 0 omeprazole 40 mg capsule,delayed release(DR/EC) 1 cap PO DAILY RF: 0 metformin 500 mg tablet extended release 24 hr 500 mg PO DAILY 90 Days Qty: 90 RF: 1 albuterol sulfate 90 mcg/actuation HFA aerosol inhaler 2 puff inhalation Q6H PRN (Reason: shortness of breath or wheezing) 30 Days Qty: 8.5 RF: 1 (DME) blood sugar diagnostic Strip See Rx Instructions strip .ROUTE .MEDSUPPLY Qty: 10 RF: 0
--- NOTE | 2020-11-30 19:19 | ECG_ITS ---
Test Reason : SOB Blood Pressure : / mmHG Vent. Rate : 118 BPM Atrial Rate : 118 BPM P-R Int : 138 ms QRS Dur : 078 ms QT Int : 318 ms P-R-T Axes : 037 015 026 degrees QTc Int : 445 ms Sinus tachycardia Possible Left atrial enlargement Left ventricular hypertrophy Nonspecific T wave abnormality Abnormal ECG When compared with ECG of 29-OCT-2020 09:58, No significant change was found Referred By: Miguelito Osuna Electronically Signed By:ELLIE MAHER MD
[2020-11-30] MEDS: 0.9 % Sodium Chloride 1,000 ML 999 ML IVCONT (19:57)
[2020-11-30 20:09] LABS: Basophils Percent Auto 0.2 % (0-2); Eosinophils Absolute Auto 0.1 X10*3/uL (0.0-0.4); Eosinophils Percent Auto 1.1 % (0-4); Imm Gran Abs Auto 0.15 X10*3/uL (0.00-0.03); Imm Gran Pct Auto 1.7 % (0.0-0.4); MANUAL DIFF FLAG SCAN; PLT CLUMP 1; SCAN SMEAR FLAG 1
[2020-11-30 20:11] LABS: Hematocrit 40.8 % (42-52); Lymphocytes Absolute Auto 1.8 X10*3/uL (1.2-4.9); Lymphocytes Percent Auto 19.8 % (20-40); Mean Corpuscular HGB Conc 31.9 g/dl (31.0-36.0); Mean Corpuscular Volume 97.1 fL (80-98); Mean Platelet Volume 9.8 fL (9.4-12.4); Monocytes Absolute Auto 0.9 X10*3/uL (0.1-1.2); Monocytes Percent Auto 10.6 % (2-11); Neutrophils Absolute Auto 5.9 X10*3/uL (2.0-8.3); Neutrophils Percent Auto 66.6 % (45-73); Red Cell Distribution Width 16.5 % (11.0-16.0); White Blood Count 8.9 X10*3/uL (4.8-10.8)
[2020-11-30] MEDS: Albuterol/Iprat 2.5/0.5MG 3 ML AMPUL.NEB INHALE (20:16)
[2020-11-30 20:25] LABS: INTERNATIONAL NORM RATIO 1.2 (0.9-1.1); Prothrombin Time 13.7 SEC (10.8-13.0)
[2020-11-30 20:25] LABS: Glucose, Whole Blood 129 mg/dL (60-115)
[2020-11-30 20:28] LABS: Partial Thromboplastin Time 32.8 SEC (24.1-38.0)
[2020-11-30 20:38] LABS: Platelet Count 110 X10*3/uL (160-400)
[2020-11-30 20:39] LABS: Lactic Acid 2.4 mmol/L (0.5-2.0); SLIDE REVIEW VERIFIED
[2020-11-30] MEDS: Acetaminophen 325 MG TABLET 650 MG PO (20:40)
[2020-11-30 20:41] LABS: Alanine Aminotransferase 45 U/L (0-40); Albumin Level 3.8 g/dL (3.5-5.0); Alkaline Phosphatase 99 U/L (39-117); Anion Gap 14 (12-20); Aspartate Amino Transferase 34 U/L (5-37); Bilirubin Direct 0.5 mg/dL (0.0-0.5); Blood Urea Nitrogen 12 mg/dL (9-16); Calcium 8.3 mg/dL (8.4-10.2); Carbon Dioxide 26 mmol/L (22-29); Chloride 101 mmol/L (96-108); Creatinine Clr Calc Pharmacy 133.6; Estimated Glomerular Filt Rate > 60; Glucose Random 118 mg/dL (60-115); Potassium 4.3 mmol/L (3.3-5.1); Sodium 137 mmol/L (135-145); Total Protein 6.5 g/dL (6.5-8.0)
[2020-11-30] MEDS: dexAMETHasone sod phosphate 4 MG/ML VIAL 6 MG IVPUSH (20:41)
[2020-11-30 20:43] LABS: B Type Natriuretic Peptide < 10 pg/mL (<100); Troponin-I High Sensitivity 9.6 ng/L (<3.5-35.0)
[2020-11-30 20:50] LABS: Influenza A PCR NEGATIVE (Negative); Influenza B PCR NEGATIVE (Negative); Resp Syncy Virus RNA Qual PCR NEGATIVE (Negative); SARS COV2 PCR INHOUSE NEGATIVE (Negative)
[2020-11-30 22:05] LABS: Reflex Lactate? Lactic Acid Added
[2020-11-30] MEDS: Piperacillin Sodium/Tazobactam 3.375 GM in 0.9 % Sodium Chloride 50 ML IV (22:16)
--- NOTE | 2020-11-30 23:02 | PM.IMHP ---
History of Present Illness Date of Service: 11/30/20 Chief Complaint: SOB, cough Past medical history of diabetes, hypertension, squamous cell lung cancer, radiation induced pneumonitis who presents to the hospital with complaints of worsening shortness of breath, cough, and sputum production. Patient was hospitalized in October secondary to radiation induced pneumonitis and at that time was treated with doxycycline and course of steroids and sent home. Patient reports that on going home he was feeling better but about a 1-2 weeks ago started feeling progressively worsening shortness of breath. He was never on oxygen but now is on stable 3 L of oxygen. He reports that he has shortness of breath with minimal activity, he denies fever, no chills, no abdominal pain nausea or vomiting, no chest pain, no urinary symptoms, no lower extremity edema. She no headache or change in vision. On arrival to the ED vitals are significant for a temp of a 100.7?, heart rate of 137, respiratory rate of 26, blood pressure of 135/86, satting 96% on 3 L. On discharge from the hospital 8th patient was weaned off oxygen completely at rest. But was found to need oxygen on ambulation but patient currently reports that he uses oxygen at rest and even while sleeping because he is short of breath all the time. Labs were found to be significant for WBC count of 5.2, hemoglobin of 12, platelet count of 101, PT of 13.7, INR of 1.2, sodium of 137, potassium 4.3, lactic acid of 2.4 which resolved, COVID negative, RSV and influenza negative, Chest x-ray shows persistent right upper lobe patchy opacity with mildly improved aeration of the right lower lung. 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 Surgical History Hx of cholecystectomy Social History Household Members: Significant Other Housing: House Do you presently have visiting nurse or other home services: No Alcohol intake: never Smoking Status: Former smoker Tobacco Type: Cigarette Packs Per Day: 0.5 Years Smoked: 38 Smoked in Last 30 Days: No Smoking Quit Date: 06/28/20 Patient Interested in Nicotine Replacement: No Use of substances other than those prescribed or required for medical reasons: No Have you been hit, kicked, punched, or otherwise hurt by someone within the past year? If so, by whom?: No Do you feel safe in your current relationship?: No Is there a partner from a previous relationship who is making you feel unsafe now?: No [employer] Healthcare Practices: taoism Advance Directives: No Advance Directives Information Provided: Yes Do you have thoughts of harming others: None Do you have a plan to hurt others: No Plan Recently lost weight without trying: Yes service: No Current occupational status: employed Meds Allergies Allergy/AdvReac Type Severity Reaction Status Date / Time No Known Allergies Allergy Verified 11/30/20 14:42 Home Medications Medication Instructions Recorded Confirmed Last Taken Type blood sugar diagnostic #10 ea 06/23/20 10/27/20 Unknown History lisinopril 1 tab PO DAILY 11/30/20 11/30/20 Unknown History omeprazole 1 cap PO DAILY 11/30/20 11/30/20 Unknown History Physical Exam Vital Signs and Narrative: Vital Signs: Last Vital Signs Temp 99 F 11/30/20 22:00 Pulse 109 H 11/30/20 22:00 Resp 25 H 11/30/20 22:00 BP 94/61 11/30/20 22:00 Pulse Ox 97 11/30/20 22:00 Body Mass Index 31.8 Const: General: cooperative and no acute distress Orientation/consciousness: patient oriented x3 Eyes: General: appearance normal, both eyes and all related structures Resp: Effort & Inspection: normal respiratory effort and able to speak in complete sentences Auscultation: clear to auscultation bilaterally Cardio: Rate: regular rate Rhythm: regular rhythm GI: Palpation (GI): Soft to palpation Auscultation: normal bowel sounds Skin: General skin exam: no rashes or lesions noted Neuro: General: patient oriented x3 Cognition (Neuro): normal cognition Extrem: General: Yes normal to inspection and Yes no pedal edema Results Labs CBC and Chem 7: 12/01/20 04:13 12/01/20 04:13 Labs: Laboratory Results - last 24 hr 11/30/20 11/30/20 11/30/20 19:53 19:53 19:53 MCV 97.1 MCH 31.0 MCHC 31.9 RDW 16.5 H Plt Count 110 L D MPV 9.8 Immature Gran % (Auto) 1.7 H Neut % (Auto) 66.6 Lymph % (Auto) 19.8 L [place] % (Auto) 10.6 Eos % (Auto) 1.1 Baso % (Auto) 0.2 Lymph # (Auto) 1.8 [place] # (Auto) 0.9 Eos # (Auto) 0.1 Baso # (Auto) 0.0 Abs Immat Gran (auto) 0.15 H Absolute Neuts (auto) 5.9 Absolute Nucleated RBC 0.000 Nucleated RBC % (auto) 0.0 Smear Tech's Comments VERIFIED PT 13.7 H D INR 1.2 H APTT 32.8 Anion Gap 14 Estim Creat Clear Calc 133.6 Estimated GFR > 60 POC Glucose Random Glucose 118 H Lactic Acid Calcium 8.3 L D Total Bilirubin 1.0 Direct Bilirubin 0.5 AST 34 ALT 45 H Alkaline Phosphatase 99 Troponin I High Sens B-Natriuretic Peptide Total Protein 6.5 Albumin 3.8 Coronavirus (PCR) Influenza Type A (PCR) Influenza Type B (PCR) RSV RNA Qual (PCR) 11/30/20 11/30/20 11/30/20 19:53 19:53 19:53 MCV MCH MCHC RDW Plt Count MPV Immature Gran % (Auto) Neut % (Auto) Lymph % (Auto) [place] % (Auto) Eos % (Auto) Baso % (Auto) Lymph # (Auto) [place] # (Auto) Eos # (Auto) Baso # (Auto) Abs Immat Gran (auto) Absolute Neuts (auto) Absolute Nucleated RBC Nucleated RBC % (auto) Smear Tech's Comments PT INR APTT Anion Gap Estim Creat Clear Calc Estimated GFR POC Glucose Random Glucose Lactic Acid 2.4 H* Calcium Total Bilirubin Direct Bilirubin AST ALT Alkaline Phosphatase Troponin I High Sens 9.6 B-Natriuretic Peptide < 10 Total Protein Albumin Coronavirus (PCR) NEGATIVE Influenza Type A (PCR) NEGATIVE Influenza Type B (PCR) NEGATIVE RSV RNA Qual (PCR) NEGATIVE 11/30/20 20:19 MCV MCH MCHC RDW Plt Count MPV Immature Gran % (Auto) Neut % (Auto) Lymph % (Auto) [place] % (Auto) Eos % (Auto) Baso % (Auto) Lymph # (Auto) [place] # (Auto) Eos # (Auto) Baso # (Auto) Abs Immat Gran (auto) Absolute Neuts (auto) Absolute Nucleated RBC Nucleated RBC % (auto) Smear Tech's Comments PT INR APTT Anion Gap Estim Creat Clear Calc Estimated GFR POC Glucose 129 H Random Glucose Lactic Acid Calcium Total Bilirubin Direct Bilirubin AST ALT Alkaline Phosphatase Troponin I High Sens B-Natriuretic Peptide Total Protein Albumin Coronavirus (PCR) Influenza Type A (PCR) Influenza Type B (PCR) RSV RNA Qual (PCR) Imaging Radiologist's Impressions: Impressions Chest X-Ray 11/30/20 19:19 IMPRESSION: Persistent right upper lobe patchy opacity with mildly improved aeration of the right lower lung. Assessment and Plan (1) Pneumonia: Qualifiers: Laterality: right Lung location: upper lobe of lung Pneumonia type: due to unspecified organism Qualified Code(s): J18.9 - Pneumonia, unspecified organism Status: Acute (2) Sepsis with acute hypoxic respiratory failure: Status: Acute (3) Lung cancer: Qualifiers: Laterality: right Lung location: upper lobe of lung Qualified Code(s): C34.11 - Malignant neoplasm of upper lobe, right bronchus or lung Status: Acute This is a 55-year-old male who was diagnosed with squamous lung cancer in , developing radiation pneumonitis in early October presents to the hospital with complaints of persistent and worsening shortness of breath. # sepsis with acute hypoxic respiratory failure - when discharge in the beginning of October patient was weaned off oxygen at rest but currently uses 3 L of oxygen - most likely secondary to persistent pneumonitis/pneumonia - has an infiltrate on chest x-ray that is persistent from previous - was treated with steroids as well as antibiotics on previous admission - has tachycardia, fever meeting sepsis criteria Plan: - continue antibiotics with ceftriaxone and doxycycline - blood culture - steroids - consult pulmonology # pneumonia - pneumonitis versus community-acquired pneumonia - will start patient on doxycycline and ceftriaxone - follow cultures - pulmonology consult # lung cancer - follow-up with Hematology-Oncology of patient # diabetes mellitus - hold metformin - start low-dose sliding scale insulin - diabetic diet # HTN - continue lisinopril DVT prophylaxis: Heparin subQ
[2020-12-01] VITALS (8 sets, daily range): BP systolic 92–127; BP diastolic 52–90; PULSE 78–100; RESP 14–20; TEMP 36–36.4; O2SAT 90–98; BMI 31.8
[2020-12-01] MEDS: cefTRIAXone sodium 1 GM in 0.9 % Sodium Chloride 50 ML IV ×2 (00:04→23:34)
[2020-12-01] MEDS: Heparin Sodium,Porcine 5,000 UNIT/ML VIAL 5000 UNIT SUBCUT ×3 (00:04→23:34)
[2020-12-01] MEDS: 0.9 % Sodium Chloride Flush 3 ML SYRINGE IVFLUSH ×3 (00:05→15:51)
[2020-12-01 00:06] LABS: ~Lactic Acid-LAB USE ONLY 1.5 mmol/L (0.5-2.0)
[2020-12-01] MEDS: Doxycycline Hyclate 100 MG in 0.9 % Sodium Chloride 250 ML 166.67 MG IV ×2 (00:55→12:41)
[2020-12-01 01:12] LABS: Glucose, Whole Blood 262 mg/dL (60-115)
[2020-12-01 04:20] LABS: Basophils Percent Auto 0.2 % (0-2); Imm Gran Abs Auto 0.06 X10*3/uL (0.00-0.03); Imm Gran Pct Auto 1.2 % (0.0-0.4); Lymphocytes Absolute Auto 0.7 X10*3/uL (1.2-4.9); Neutrophils Percent Auto 82.2 % (45-73); PLT CLUMP 1; Red Blood Count 3.88 X10*6/uL (4.60-5.80); SCAN SMEAR FLAG 1
[2020-12-01 04:22] LABS: Lymphocytes Percent Auto 13.7 % (20-40); Mean Corpuscular HGB Conc 32.4 g/dl (31.0-36.0); Mean Corpuscular Hemoglobin 30.9 pg (27.0-33.0); Mean Corpuscular Volume 95.4 fL (80-98); Monocytes Absolute Auto 0.1 X10*3/uL (0.1-1.2); Monocytes Percent Auto 2.7 % (2-11); Neutrophils Absolute Auto 4.3 X10*3/uL (2.0-8.3); Platelet Count 101 X10*3/uL (160-400); White Blood Count 5.2 X10*3/uL (4.8-10.8)
[2020-12-01 04:30] LABS: MANUAL DIFF FLAG NO
[2020-12-01 04:58] LABS: Anion Gap 12 (12-20); Blood Urea Nitrogen 12 mg/dL (9-16); Calcium 8.2 mg/dL (8.4-10.2); Carbon Dioxide 24 mmol/L (22-29); Chloride 104 mmol/L (96-108); Creatinine Clr Calc Pharmacy 129.6; Estimated Glomerular Filt Rate > 60; Glucose Random 332 mg/dL (60-115); Potassium 4.4 mmol/L (3.3-5.1); Sodium 136 mmol/L (135-145)
[2020-12-01 07:11] LABS: Glucose, Whole Blood 249 mg/dL (60-115)
[2020-12-01] MEDS: predniSONE 20 MG TABLET 40 MG PO (08:08)
[2020-12-01] MEDS: lisinopriL 20 MG TABLET PO (08:08)
[2020-12-01] MEDS: Omeprazole 40 MG CAPSULE.DR PO (08:08)
[2020-12-01] MEDS: Insulin Lispro 100 UNIT/ML 3 ML VIAL SUBCUT ×4 (08:11→20:59)
[2020-12-01 11:14] LABS: Glucose, Whole Blood 283 mg/dL (60-115)
--- NOTE | 2020-12-01 11:46 | MHC.CM.PN ---
CM met with patient at the bedside who reports he is independent, lives with S.O./HCP Liana Simpson [phone] CM helped patient with completing a HCP, copy is on file. Discussed discharge plan, home no services. S.oSandra Gaines will provide transportation. CM will continue to follow patient for discharge needs.
--- NOTE | 2020-12-01 13:47 | MHC.CLN ---
RE: CONSULT PT CURRENTLY NOT TRIGGERING FOR SIGNIFICANT WT LOSS WT DOWN 8# X 90DAYS, 4% LOSS, HOWEVER WT UP 11# X 30 DAYS OVERALL. NO EDEMA NOTED DIET RX: 1800-RECOMMEND INCREASING DIET TO 2200DM TO MEET NEEDS MONITOR PO INTAKE CLOSELY SEE CLINICAL NUTRITION ASSESSMENT FOR PREVIOUS WT HX
--- NOTE | 2020-12-01 15:37 | PC.NURSE ---
Dr Terry notified of low BP at noon and now. Noon 95/57 (lying down and asymptomatic) and now 92/52 taken manually and also asymptomatic. Patient awake, alert and very chatty. will continue to monitor. Suggested maybe holding am lisinopril
[2020-12-01 16:32] LABS: Glucose, Whole Blood 269 mg/dL (60-115)
--- NOTE | 2020-12-01 17:06 | PM.EVENT ---
Event Note Date of Service: 12/01/20 Event Note: THIS 55 YEARS OLD GENTLEMAN IS KNOWN FROM BEFORE. I HAVE SEEN HIM FOR PULMONARY CONSULT THIS MORNING. COMPLETE NOTE IS DICTATED. A: CASE OF SQUAMOUS CELL CARCINOMA RIGHT UPPER LOBE DIAGNOSED IN JUNE 2020. HAS RECEIVED RADIATION THERAPY TO RIGHT UPPER LOBE, AND DEVELOPED TO RADIATION PNEUMONITIS. PATCHY PNEUMONITIS RIGHT UPPER LOBE, MOST LIKELY RESIDUAL RADIATION PNEUMONITIS. SUPER ADDED ACUTE BACTERIAL PNEUMONIA CANNOT BE RULED OUT, BUT LESS LIKELY. P: CONTINUE PREDNISONE 40 MG DAILY. TREATMENT WITH THE ANTIBIOTICS,( DOXY AND ROCEPHIN) OXYGEN SUPPLEMENTATION NEEDED TO KEEP O2 SAT ABOVE 90%.
--- NOTE | 2020-12-01 17:21 | HO.PM.IMPN ---
Subjective Subjective Date of Service: 12/01/20 Interval History: f/u on sob, pna, radiation pneumonitis. He feels better, BP on lower side but assymtpomatic. Review of Systems Gen: no fever Resp: no sob, no cough CV: no chest, no RODRIGUEZ, no leg edema GI: No n/v, no abd pain Neuro: No confusion Physical Exam Vital Signs: Vital Signs: Last Vital Signs Temp 97.0 F 12/01/20 15:27 Pulse 100 12/01/20 15:27 Resp 14 12/01/20 15:27 BP 92/52 L 12/01/20 15:27 Pulse Ox 96 12/01/20 15:27 Body Mass Index 31.8 General: AO X 3, no acute distress Resp: Rhonchi willow, no wheezes, normal resp effort, CVS: S1,S2,RRR GI: +BS, NT, no distention Skin: No rash Neuro: motor grossly intact Psych: appropriate affect Objective Data Current Medications Generic Name Dose Route Start Last Admin Trade Name Bryanq PRN Reason Stop Dose Admin Acetaminophen 650 mg 11/30/20 23:08 Acetaminophen 325 Mg Tablet PO Q6H PRN Pain, Mild (Pain Scale 1-3) Albuterol Sulfate 2 puff 11/30/20 23:08 Albuterol Sulfate 90 Mcg 8 Gm Inhaler INHALE Q6H PRN shortness of breath or wheezing Docusate Sodium 100 mg 11/30/20 23:08 Docusate Sodium 100 Mg Capsule PO DAILY PRN Constipation Heparin Sodium (Porcine) 5,000 unit 11/30/20 23:08 12/01/20 12:30 Heparin Sodium,Porcine 5,000 Unit/Ml Vial SUBCUT 5,000 unit Q12H FLORIDALMA Administration Ceftriaxone Sodium 1 gm/ 50 mls @ 100 mls/hr 11/30/20 23:30 12/01/20 00:35 Sodium Chloride IV Infused Q24H FLORIDALMA Infusion Doxycycline Hyclate 100 mg/ 250 mls @ 166.67 mls/hr 12/01/20 00:00 12/01/20 15:52 Sodium Chloride IV Infused Q12H FLORIDALMA Infusion Insulin Human Lispro 0 unit 12/01/20 07:30 12/01/20 16:49 Insulin Lispro 100 Unit/Ml 3 Ml Vial SUBCUT 6 unit QIDACHS FLORIDALMA Administration Protocol Lisinopril 20 mg 12/01/20 09:00 12/01/20 08:08 Lisinopril 20 Mg Tablet PO 20 mg DAILY FLORIDALMA Administration Protocol Omeprazole 40 mg 12/01/20 09:00 12/01/20 08:08 Omeprazole 40 Mg Capsule. PO 40 mg DAILY FLORIDALMA Administration Ondansetron HCl 4 mg 11/30/20 23:08 Ondansetron Hcl 4 Mg/2 Ml Vial IVPUSH Q8H PRN Nausea and Vomiting Prednisone 40 mg 12/01/20 09:00 12/01/20 08:08 Prednisone 20 Mg Tablet PO 40 mg DAILY FLORIDALMA Administration Sodium Chloride 3 ml 12/01/20 00:00 12/01/20 15:51 0.9 % Sodium Chloride Flush 3 Ml Syringe IVFLUSH 3 ml QSHIFT FLORIDALMA Administration Labs CBC & Chem 7: 12/01/20 04:13 12/01/20 04:13 Assessment and Plan (1) Pneumonia: Status: Acute (2) Sepsis with acute hypoxic respiratory failure: Status: Acute (3) Lung cancer: Status: Acute Assessment and Plan: 55-year-old male who was diagnosed with squamous lung cancer in -07/2020, developing radiation pneumonitis in early October presents to the hospital with complaints of persistent and worsening shortness of breath and is being treated for sepsis d/t PNA with underlying immunocompromise satate # sepsis d/t PNA with acute hypoxic respiratory failure--sepsis resolved # pneumonia--clincally feels better per his report -continue Doxy and Ceftriaxone. -continue Prednisone for underlying radiation pneumonitis # lung cancer - follow-up with Hematology-Oncology of patient # diabetes mellitus - hold metformin SSI - diabetic diet # HTN--BP borderline, so hold now DVT prophylaxis: Heparin subQ
[2020-12-01 20:29] LABS: Glucose, Whole Blood 194 mg/dL (60-115)
[2020-12-02] VITALS (7 sets, daily range): BP systolic 90–123; BP diastolic 55–77; PULSE 79–92; RESP 18–20; TEMP 36.1–37.1; O2SAT 92–97
[2020-12-02] MEDS: Doxycycline Hyclate 100 MG in 0.9 % Sodium Chloride 250 ML 166.67 MG IV (00:42)
[2020-12-02 07:13] LABS: Glucose, Whole Blood 173 mg/dL (60-115)
[2020-12-02] MEDS: Insulin Lispro 100 UNIT/ML 3 ML VIAL SUBCUT ×4 (08:20→21:13)
[2020-12-02] MEDS: 0.9 % Sodium Chloride Flush 3 ML SYRINGE IVFLUSH ×2 (10:03→17:01)
[2020-12-02] MEDS: predniSONE 20 MG TABLET 40 MG PO (10:06)
[2020-12-02] MEDS: Omeprazole 40 MG CAPSULE.DR PO (10:07)
[2020-12-02 11:18] LABS: Glucose, Whole Blood 286 mg/dL (60-115)
[2020-12-02] MEDS: Heparin Sodium,Porcine 5,000 UNIT/ML VIAL 5000 UNIT SUBCUT (12:45)
[2020-12-02] MEDS: Doxycycline Hyclate 100 MG in 0.9 % Sodium Chloride 250 ML 166.7 MG IV (12:46)
--- NOTE | 2020-12-02 14:03 | HO.PM.IMPN ---
Subjective Subjective Date of Service: 12/02/20 Interval History: f/u on sob, pna, radiation pneumonitis. He is coughing a lot and still sob with activity Review of Systems Gen: no fever Resp: no sob, no cough CV: no chest, no RODRIGUEZ, no leg edema GI: No n/v, no abd pain Neuro: No confusion Physical Exam Vital Signs: Vital Signs: Last Vital Signs Temp 97.3 F 12/02/20 11:50 Pulse 87 12/02/20 11:50 Resp 20 12/02/20 11:50 BP 102/61 12/02/20 11:50 Pulse Ox 95 12/02/20 11:50 Body Mass Index 31.8 General: AO X 3, no acute distress Resp: Jose Carlos rhonchi CVS: S1,S2,RRR GI: +BS, NT, no distention Skin: No rash Neuro: motor grossly intact Psych: appropriate affect Objective Data Current Medications Generic Name Dose Route Start Last Admin Trade Name Freq PRN Reason Stop Dose Admin Acetaminophen 650 mg 11/30/20 23:08 Acetaminophen 325 Mg Tablet PO Q6H PRN Pain, Mild (Pain Scale 1-3) Albuterol Sulfate 2 puff 11/30/20 23:08 Albuterol Sulfate 90 Mcg 8 Gm Inhaler INHALE Q6H PRN shortness of breath or wheezing Docusate Sodium 100 mg 11/30/20 23:08 Docusate Sodium 100 Mg Capsule PO DAILY PRN Constipation Heparin Sodium (Porcine) 5,000 unit 11/30/20 23:08 12/02/20 12:45 Heparin Sodium,Porcine 5,000 Unit/Ml Vial SUBCUT 5,000 unit Q12H FLORIDALMA Administration Ceftriaxone Sodium 1 gm/ 50 mls @ 100 mls/hr 11/30/20 23:30 12/02/20 00:52 Sodium Chloride IV Infused Q24H FLORIDALMA Infusion Doxycycline Hyclate 100 mg/ 250 mls @ 166.67 mls/hr 12/01/20 00:00 12/02/20 12:46 Sodium Chloride IV 166.7 mls/hr Q12H FLORIDALMA Administration Insulin Human Lispro 0 unit 12/01/20 07:30 12/02/20 12:30 Insulin Lispro 100 Unit/Ml 3 Ml Vial SUBCUT 6 unit QIDACHS FLORIDALMA Administration Protocol Lisinopril 20 mg 12/01/20 09:00 12/02/20 10:06 Lisinopril 20 Mg Tablet PO Not Given DAILY [facility] Protocol Omeprazole 40 mg 12/01/20 09:00 12/02/20 10:07 Omeprazole 40 Mg Capsule. PO 40 mg DAILY FLORIDALMA Administration Ondansetron HCl 4 mg 11/30/20 23:08 Ondansetron Hcl 4 Mg/2 Ml Vial IVPUSH Q8H PRN Nausea and Vomiting Prednisone 40 mg 12/01/20 09:00 12/02/20 10:06 Prednisone 20 Mg Tablet PO 40 mg DAILY FLORIDALMA Administration Sodium Chloride 3 ml 12/01/20 00:00 12/02/20 10:03 0.9 % Sodium Chloride Flush 3 Ml Syringe IVFLUSH 3 ml QSHIFT FLORIDALMA Administration Labs CBC & Chem 7: 12/01/20 04:13 12/01/20 04:13 Microbiology Microbiology Results: Microbiology 11/30/20 19:53 Blood - Venous Blood Culture - Preliminary No growth after 24 hours. 11/30/20 19:53 Blood - Venous Blood Culture - Preliminary No growth after 24 hours. Assessment and Plan (1) Pneumonia: Status: Acute (2) Sepsis with acute hypoxic respiratory failure: Status: Acute (3) Lung cancer: Status: Acute Assessment and Plan: 55-year-old male who was diagnosed with squamous lung cancer in -07/2020, developing radiation pneumonitis in early October presents to the hospital with complaints of persistent and worsening shortness of breath and is being treated for sepsis d/t PNA with underlying immunocompromise satate # sepsis d/t PNA with acute hypoxic respiratory failure--sepsis resolved # pneumonia--clincally feels better per his report -continue Doxy and Ceftriaxone.--Change to Ceftin and Doxy tomorrow -continue Prednisone for underlying radiation pneumonitis -He is on home O2 at 3 l # lung cancer - follow-up with Hematology-Oncology of patient # diabetes mellitus - hold metformin SSI - diabetic diet # HTN--BP borderline, so hold now DVT prophylaxis: Heparin subQ
--- NOTE | 2020-12-02 14:11 | MHC.CM.PN ---
Patient is requiring 3 liters O2 via NC. Patient is also on IV Ceftriaxone and IV Doxycycline for PNA. Discharge plan is home no services. CM will continue to follow patient for discharge needs.
--- NOTE | 2020-12-02 14:56 | P.PNPL_ITS ---
Subjective Subjective Date of Service: 12/02/20 Principal diagnosis: Pneumonitis Rt lung Interval history: This 55 years old gentleman feels a little bit better today, Denies chest pain fever or chills. Has very little cough or expectoration. Still needs oxygen supplementation at 2-3 L/minute. In general remains somewhat weak. Objective Data Labs CBC & Chem 7: 12/01/20 04:13 12/01/20 04:13 Labs: Laboratory Results - last 24 hr 12/01/20 12/01/20 12/02/20 16:28 20:25 07:09 POC Glucose 269 H 194 H 173 H 12/02/20 11:14 POC Glucose 286 H Microbiology Microbiology Results: Microbiology 11/30/20 19:53 Blood - Venous Blood Culture - Preliminary No growth after 24 hours. 11/30/20 19:53 Blood - Venous Blood Culture - Preliminary No growth after 24 hours. Review of Systems Review of Systems Yes all other systems are reviewed and are negative Constitutional: Denies fever(s) and Reports weakness Denies nasal congestion and Denies nasal discharge Cardiovascular: Denies chest pain, Denies irregular heart rhythm, Denies leg edema and Denies dyspnea Respiratory: Reports cough (mild), Denies dyspnea and Denies wheezing Gastrointestinal: Reports no additional gastrointestinal complaints Musculoskeletal: Reports no additional musculoskeletal complaints Reports system reviewed and no additional complaints, except as documented, Re ports Abnormal speech present and Reports weakness Endocrine: Reports no additional endocrine complaints Allergic/Immunologic: Denies wheezing Physical Exam Vital Signs: Vital Signs: Last Vital Signs Temp 97.3 F 12/02/20 11:50 Pulse 87 12/02/20 11:50 Resp 20 12/02/20 11:50 BP 102/61 12/02/20 11:50 Pulse Ox 95 12/02/20 11:50 Body Mass Index 31.8 Const: General: comfortable, no acute distress, alert and awake Orientation/consciousness: patient oriented x3 HENMT: Head: Yes normal to inspection General nose exam: No nasal polyps present and No nasal discharge present Face and sinus: Yes sinuses nontender Mouth: oropharynx normal Throat: Yes posterior oropharynx normal Eyes: General: appearance normal, both eyes and all related structures Neck: Neck: Yes normal visual inspection, Yes no lymphadenopathy, Yes trachea midline and Yes no JVD Thyroid: Thyroid normal Chest: Chest palpation & inspection: normal inspection of the chest and normal palpation of entire chest wall Resp: Effort & Inspection: normal respiratory effort Auscultation: no crackles and no wheezes Cardio: Palpation: normal PMI Rate: regular rate Rhythm: regular rhythm Heart sounds: no gallops and no murmurs GI: Palpation (GI): Soft to palpation, nontender, No hepatosplenomegaly present and no masses Auscultation: normal bowel sounds Back/Spine/Pelvis: Thoracic/Lumbar Spine: thoracic and lumbar spine normal to inspection Skin: General skin exam: no rashes or lesions noted Neuro: General: patient oriented x3 and no focal motor deficits Speech: Abnormal speech present Extrem: General: Yes normal to inspection, Yes no clubbing, cyanosis or edema, Yes no calf tenderness and Yes venous stasis dermatitis Psych: Appearance: grossly normal and well kempt Speech and movement: Normal speech and movement present Assessment and Plan Assessment and plan (1) Hypoxia: Problem details: Hypoxemia is related to pneumonitis, and V-Q abnormalities. He would probably continue to need oxygen supplementation. May try to wean down to 1 or 2 liters/minute, as long as his O2 sat remains above 90% Status: Acute (2) Lung cancer: Problem details: Case of squamous cell carcinoma right upper lobe, diagnosed in July 2020. Status post treatment with full dose radiation therapy Status: Acute (3) Pneumonitis: Problem details: Post radiation pneumonitis, had improved with use of prednisone. Now he has relapse of pneumonitis in right upper lobe, due to abrupt stoppage of prednisone last week. He is placed back on prednisone 40 mg a day and he may need this to be continued for several weeks. Status: Acute Time Spent With Patient Time: Total time spent is greater than 50% in coordination of care (as documented) at patient's floor/unit and/or counseling patient: Time with patient: 15 - 24 minutes
--- NOTE | 2020-12-02 16:04 | CONS_ITS ---
DATE OF SERVICE: 12/01/2020 HISTORY OF PRESENT ILLNESS: This 55-year-old gentleman is admitted because of increased shortness of breath and cough. 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 He has been treated with radiation therapy and now to be considered for adjuvant chemotherapy. The patient ended up in the hospital in mid October with acute respiratory distress, and the findings showed that he had extensive pneumonitis in the whole right lung, but the left upper lobe mass had decreased in size. The patient at that time was treated with IV Solu-Medrol followed by prednisone 40 mg daily. At that time, he had required oxygen and he was sent home on oxygen supplement. Subsequently, he felt better and did not use oxygen except for once in a while. He was seen by me in the office on 11/10/2020. Lungs were fairly clear at that time. He just had mild intermittent cough. He was advised to continue using prednisone 40 mg daily and use ProAir 2 puffs q.4 to 6 hours only p.r.n. Currently, this patient complains of increased shortness of breath and is requiring to use oxygen most of the time. He also developed low-grade fever up to 100.6. The patient denied any chest pain. Cough, mostly dry. He had no swelling of the feet or legs. The patient is admitted for further care. REVIEW OF SYSTEMS: Has been mainly indicative of his shortness of breath and need for oxygen with low-grade fever. PAST MEDICAL HISTORY: Well documented in his medical records. PHYSICAL EXAMINATION: GENERAL: A 55-year-old gentleman, alert and orientated, and currently he looks quite stable. VITAL SIGNS: His temperature is 97 degrees Fahrenheit, heart rate 100, respiratory rate 14. He is on oxygen 3 L/minute. EARS, NOSE, THROAT: Is not remarkable. NECK: No jugular venous distention. Trachea in midline. CHEST: Percussion note is resonant. Breath sounds are equal on both sides. Has few crepitations over the right upper lobe, especially in the back. No wheezes. CARDIAC EXAMINATION: Within normal limits. EXTREMITIES: No edema or varicosities. Peripheral pulses are normal. DIAGNOSTIC DATA: Chest x-ray; this patient does have patchy opacity in the right upper lobe. The right middle and lower lobes are relatively clear, but he has tenting of the right diaphragm may be due to fibrotic changes. LABORATORY DATA: White cell count 5.2, hemoglobin 12. CLINICAL IMPRESSION: Patchy pneumonitis, right upper lobe. Most likely residual from radiation pneumonitis, but superadded bacterial infection cannot be ruled out. Respiratory distress secondary to VQ abnormalities resulting from radiation therapy. History of squamous cell carcinoma, diagnosed in July 2020, status post radiation therapy. RECOMMENDATIONS: Continue prednisone 40 mg daily. Oxygen supplements to keep O2 saturation above 90% to 92%. Continue treatment with doxycycline and Rocephin for possibility of bacterial pneumonitis. Thank you very much for asking me to see this patient. MD MATTI Pozo/JOEL / [phone]
[2020-12-02 16:15] LABS: Glucose, Whole Blood 185 mg/dL (60-115)
[2020-12-02 20:47] LABS: Glucose, Whole Blood 249 mg/dL (60-115)
[2020-12-03] MEDS: cefTRIAXone sodium 1 GM in 0.9 % Sodium Chloride 50 ML IV ×2 (00:09→22:11)
[2020-12-03] MEDS: Doxycycline Hyclate 100 MG in 0.9 % Sodium Chloride 250 ML 166.7 MG IV ×2 (00:09→11:53)
[2020-12-03] MEDS: Heparin Sodium,Porcine 5,000 UNIT/ML VIAL 5000 UNIT SUBCUT ×3 (00:10→22:10)
[2020-12-03 03:43] VITALS: BP 146/92; PULSE 84; RESP 18; TEMP 36.9; O2SAT 96
[2020-12-03 07:17] LABS: Glucose, Whole Blood 118 mg/dL (60-115)
[2020-12-03 07:33] VITALS: BP 134/80; PULSE 80; RESP 18; TEMP 36.7; O2SAT 92
[2020-12-03 07:48] VITALS: BP 124/68
[2020-12-03] MEDS: lisinopriL 20 MG TABLET PO (07:48)
[2020-12-03] MEDS: Omeprazole 40 MG CAPSULE.DR PO (07:48)
[2020-12-03] MEDS: 0.9 % Sodium Chloride Flush 3 ML SYRINGE IVFLUSH ×2 (07:50→16:13)
[2020-12-03] MEDS: predniSONE 20 MG TABLET 40 MG PO (07:51)
--- NOTE | 2020-12-03 10:26 | P.PNPL_ITS ---
Subjective Subjective Date of Service: 12/03/20 Principal diagnosis: Pneumonitis Rt lung Interval history: Patient feels better, no cough or expectoration, no chest p ain,. Stays on oxygen but down to 2 L/minute, shows no distress. Has been afebrile. Objective Data Labs CBC & Chem 7: 12/01/20 04:13 12/01/20 04:13 Labs: Laboratory Results - last 24 hr 12/02/20 12/02/20 12/02/20 11:14 16:09 20:42 POC Glucose 286 H 185 H 249 H 12/03/20 07:10 POC Glucose 118 H Microbiology Microbiology Results: Microbiology 11/30/20 19:53 Blood - Venous Blood Culture - Preliminary No growth after 48 hours. 11/30/20 19:53 Blood - Venous Blood Culture - Preliminary No growth after 48 hours. Review of Systems Review of Systems Yes all other systems are reviewed and are negative Denies nasal congestion and Denies sore throat Cardiovascular: Reports no additional cardiovascular complaints Respiratory: Reports as per HPI Gastrointestinal: Reports no additional gastrointestinal complaints Musculoskeletal: Reports no additional musculoskeletal complaints Reports system reviewed and no additional complaints, except as documented and Reports Abnormal speech present Physical Exam Vital Signs: Vital Signs: Last Vital Signs Temp 98.0 F 12/03/20 07:33 Pulse 80 12/03/20 07:33 Resp 18 12/03/20 07:33 BP 124/68 12/03/20 07:48 Pulse Ox 92 12/03/20 07:33 Body Mass Index 31.8 Const: General: healthy appearing, comfortable, no acute distress, alert and awake Orientation/consciousness: patient oriented x3 HENMT: Head: Yes normal to inspection General nose exam: No nasal polyps present and No nasal discharge present Face and sinus: Yes sinuses nontender Mouth: oropharynx normal Throat: Yes posterior oropharynx normal Eyes: General: appearance normal, both eyes and all related structures Neck: Neck: Yes normal visual inspection, Yes no lymphadenopathy, Yes trachea midline and Yes no JVD Thyroid: Thyroid normal Chest: Chest palpation & inspection: normal inspection of the chest and normal palpation of entire chest wall Resp: Other: Percussion note is resonant Has good breath sounds on both sides. Only a few inspiratory crackles over the right upper lobe in the back area Cardio: Palpation: normal PMI Rate: regular rate Rhythm: regular rhythm Heart sounds: Gallop heart sound present and Murmur heart sound present Peripheral pulses: Peripheral pulses 2+ throughout GI: Palpation (GI): Soft to palpation, Tenderness to palpation present (GI), No hepatosplenomegaly present and Palpable mass present Auscultation: normal bowel sounds Back/Spine/Pelvis: Thoracic/Lumbar Spine: thoracic and lumbar spine normal to inspection Skin: General skin exam: no rashes or lesions noted Neuro: General: patient oriented x3 and no focal motor deficits Cranial nerves: Yes CN's II-XII intact bilaterally Speech: Abnormal speech present Extrem: General: Yes normal to inspection, Yes no clubbing, cyanosis or edema, Yes no calf tenderness and Yes venous stasis dermatitis Psych: Speech and movement: Normal speech and movement present Assessment and Plan Assessment and plan (1) Pneumonitis: Problem details: Post radiation pneumonitis, had improved with use of prednisone. Now he has relapse of pneumonitis in right upper lobe, due to abrupt stoppage of prednisone last week. He is placed back on prednisone 40 mg a day and he may need this to be continued for several weeks. I THINK WE CAN DC THE ANTIBIOTICS AT THIS TIME. CHEST X-RAY ORDERED FOR TODAY, IF THE PNEUMONITIS IS IMPROVED, HE MAY BE DISCHARGED HOME. Status: Acute (2) Hypoxia: Problem details: Hypoxemia is related to pneumonitis, and V-Q abnormalities. He would probably continue to need oxygen supplementation. May try to wean down to 1 or 2 liters/minute, as long as his O2 sat remains above 90% Status: Acute (3) Squamous cell carcinoma of bronchus in right upper lobe: Problem details: STATUS POST RADIATION THERAPY,, MASS RIGHT UPPER LOBE RESOLVED. Status: Acute Time Spent With Patient Time: Total time spent is greater than 50% in coordination of care (as documented) at patient's floor/unit and/or counseling patient: Time with patient: 15 - 24 minutes
--- NOTE | 2020-12-03 10:42 | MHC.CLN ---
F/U PT WITH GOOD PO INTAKE DIET RX: 2200DM-APPROPRIATE MONITOR PO CLOSELY FOLLOWING
[2020-12-03 11:38] VITALS: BP 120/75; PULSE 83; RESP 18; TEMP 36.2; O2SAT 96
[2020-12-03 11:44] LABS: Glucose, Whole Blood 235 mg/dL (60-115)
[2020-12-03] MEDS: Benzonatate 100 MG CAPSULE PO ×3 (11:52→20:47)
[2020-12-03] MEDS: Insulin Lispro 100 UNIT/ML 3 ML VIAL SUBCUT ×3 (11:53→20:47)
[2020-12-03 15:07] VITALS: BP 109/69; PULSE 85; RESP 20; TEMP 36.2; O2SAT 96
--- NOTE | 2020-12-03 15:56 | HO.PM.IMPN ---
Subjective Subjective Date of Service: 12/04/20 Interval History: Patient complaining of persistent shortness of breath, dry cough , feeling cold and chilly has a headache this morning use 2-3 L of oxygen at home General no headache no dizziness no fever chills. CVS no chest pain, no palpitation. Respiratory dry cough and shortness of breath worse with activity. Gastrointestinal no nausea no vomiting, no abdominal pain Physical Exam Vital Signs: Vital Signs: Last Vital Signs Temp 97.1 F 12/03/20 15:07 Pulse 85 12/03/20 15:07 Resp 20 12/03/20 15:07 BP 109/69 12/03/20 15:07 Pulse Ox 96 12/03/20 15:07 Body Mass Index 31.8 General patient resting comfortably no acute distress, afebrile. Neck supple no JVD. CVS regular rate rhythm, Respiratory lungs fine crackles right base,no respiratory distress, no use of accessory muscles Gastrointestinal abdomen soft, nontender, bowel sounds audible, no guarding , no rigidity. Extremities no clubbing cyanosis or edema. Neuro nonfocal , speech clear. Skin no rash Objective Data Current Medications Generic Name Dose Route Start Last Admin Trade Name Freq PRN Reason Stop Dose Admin Acetaminophen 650 mg 11/30/20 23:08 Acetaminophen 325 Mg Tablet PO Q6H PRN Pain, Mild (Pain Scale 1-3) Albuterol Sulfate 2 puff 11/30/20 23:08 Albuterol Sulfate 90 Mcg 8 Gm Inhaler INHALE Q6H PRN shortness of breath or wheezing Benzonatate 100 mg 12/03/20 10:00 12/03/20 11:52 Benzonatate 100 Mg Capsule PO 100 mg TID FLORIDALMA Administration Docusate Sodium 100 mg 11/30/20 23:08 Docusate Sodium 100 Mg Capsule PO DAILY PRN Constipation Heparin Sodium (Porcine) 5,000 unit 11/30/20 23:08 12/03/20 11:52 Heparin Sodium,Porcine 5,000 Unit/Ml Vial SUBCUT 5,000 unit Q12H FLORIDALMA Administration Ceftriaxone Sodium 1 gm/ 50 mls @ 100 mls/hr 11/30/20 23:30 12/03/20 00:41 Sodium Chloride IV Infused Q24H FLORIDALMA Infusion Doxycycline Hyclate 100 mg/ 250 mls @ 166.67 mls/hr 12/01/20 00:00 12/03/20 13:25 Sodium Chloride IV Infused Q12H FLORIDALMA Infusion Insulin Human Lispro 0 unit 12/01/20 07:30 12/03/20 11:53 Insulin Lispro 100 Unit/Ml 3 Ml Vial SUBCUT 4 unit QIDACHS FLORIDALMA Administration Protocol Lisinopril 20 mg 12/01/20 09:00 12/03/20 07:48 Lisinopril 20 Mg Tablet PO 20 mg DAILY FLORIDALMA Administration Protocol Omeprazole 40 mg 12/01/20 09:00 12/03/20 07:48 Omeprazole 40 Mg Capsule. PO 40 mg DAILY FLORIDALMA Administration Ondansetron HCl 4 mg 11/30/20 23:08 Ondansetron Hcl 4 Mg/2 Ml Vial IVPUSH Q8H PRN Nausea and Vomiting Prednisone 40 mg 12/01/20 09:00 12/03/20 07:51 Prednisone 20 Mg Tablet PO 40 mg DAILY FLORIDALMA Administration Sodium Chloride 3 ml 12/01/20 00:00 12/03/20 07:50 0.9 % Sodium Chloride Flush 3 Ml Syringe IVFLUSH 3 ml QSHIFT [facility] Administration Labs CBC & Chem 7: 12/01/20 04:13 12/01/20 04:13 Microbiology Microbiology Results: Microbiology 11/30/20 19:53 Blood - Venous Blood Culture - Preliminary No growth after 48 hours. 11/30/20 19:53 Blood - Venous Blood Culture - Preliminary No growth after 48 hours. Assessment and Plan (1) Sepsis with acute hypoxic respiratory failure: Status: Acute (2) Pneumonitis: Status: Acute (3) Lung cancer: Status: Acute Assessment and Plan: 55-year-old male who was diagnosed with squamous lung cancer in /radiation pneumonitis in early October presents to the hospital with complaints of persistent and worsening shortness of breath and is being treated for sepsis d/t PNA with underlying immunocompromise state # sepsis d/t PNA with acute hypoxic respiratory failure--sepsis resolved, will gradually wean oxygen on IV ceftriaxone and doxycycline day [address] Mora and he feels symptoms related to radiation pneumonitis, and due to abruptly stopping prednisone repeat chest x-ray is pending if it shows improvement and patient oxygenation remains stable he will be discharged home on prednisone 40 mg daily with recommendation for outpatient pulmonary follow will discontinue antibiotic after 2 more days to cover for super added bacterial infection # lung cancer - follow-up with Hematology-Oncology of patient # diabetes mellitus bs - blood sugars elevated likely due to steroid, continue SSI and diabetic diet, will resume metformin # HTN--BP is stable continue lisinopril 20 mg daily DVT prophylaxis: Heparin subQ
[2020-12-03 16:05] LABS: Glucose, Whole Blood 171 mg/dL (60-115)
[2020-12-03 19:23] VITALS: BP 123/72; PULSE 89; RESP 20; TEMP 36.8; O2SAT 95
[2020-12-03 20:06] LABS: Glucose, Whole Blood 186 mg/dL (60-115)
[2020-12-04] VITALS: BP 127/77; PULSE 93; RESP 18; TEMP 36.6; O2SAT 93
[2020-12-04] MEDS: 0.9 % Sodium Chloride Flush 3 ML SYRINGE IVFLUSH ×3 (00:59→15:18)
[2020-12-04] MEDS: Doxycycline Hyclate 100 MG in 0.9 % Sodium Chloride 250 ML 166.67 MG IV ×2 (00:59→12:27)
[2020-12-04 03:57] VITALS: BP 136/79; PULSE 75; RESP 18; TEMP 36.4; O2SAT 95
[2020-12-04 07:01] VITALS: BP 145/79; PULSE 93; RESP 18; TEMP 36.6; O2SAT 91
[2020-12-04 07:19] LABS: Glucose, Whole Blood 86 mg/dL (60-115)
[2020-12-04] MEDS: Omeprazole 40 MG CAPSULE.DR PO (08:18)
[2020-12-04] MEDS: lisinopriL 20 MG TABLET PO (08:18)
[2020-12-04] MEDS: Benzonatate 100 MG CAPSULE PO ×3 (08:19→20:31)
[2020-12-04] MEDS: predniSONE 20 MG TABLET 40 MG PO (08:19)
[2020-12-04 10:53] VITALS: BP 133/89; PULSE 83; RESP 20; TEMP 36.6; O2SAT 97
[2020-12-04] MEDS: Heparin Sodium,Porcine 5,000 UNIT/ML VIAL 5000 UNIT SUBCUT ×2 (11:03→22:36)
[2020-12-04 11:20] LABS: Glucose, Whole Blood 170 mg/dL (60-115)
--- NOTE | 2020-12-04 11:47 | HO.PM.IMPN ---
Subjective Subjective Date of Service: 12/05/20 Interval History: Patient complaining of persistent cough and shortness of breath worse with ambulation, currently on 3 L around 97% but noted to have significant drop in oxygenation and tachycardia with ambulation. ROS General no headache no dizziness no fever chills. CVS no chest pain, no palpitation. Respiratory dry cough and shortness of breath worse with activity. Gastrointestinal no nausea no vomiting, no abdominal pain Physical Exam Vital Signs: Vital Signs: Last Vital Signs Temp 97.8 F 12/04/20 10:53 Pulse 83 12/04/20 10:53 Resp 20 12/04/20 10:53 BP 133/89 12/04/20 10:53 Pulse Ox 97 12/04/20 10:53 Body Mass Index 31.8 General patient resting comfortably no acute distress, afebrile. Neck supple no JVD. CVS regular rate rhythm, Respiratory lungs clear to auscultation but diminished,no respiratory distress, no use of accessory muscles Gastrointestinal abdomen soft, nontender, bowel sounds audible, no guarding , no rigidity. Extremities no clubbing cyanosis or edema. Neuro nonfocal , speech clear. Skin no rash Objective Data Current Medications Generic Name Dose Route Start Last Admin Trade Name Freq PRN Reason Stop Dose Admin Acetaminophen 650 mg 11/30/20 23:08 Acetaminophen 325 Mg Tablet PO Q6H PRN Pain, Mild (Pain Scale 1-3) Albuterol Sulfate 2 puff 11/30/20 23:08 Albuterol Sulfate 90 Mcg 8 Gm Inhaler INHALE Q6H PRN shortness of breath or wheezing Benzonatate 100 mg 12/03/20 10:00 12/04/20 08:19 Benzonatate 100 Mg Capsule PO 100 mg TID FLORIDALMA Administration Docusate Sodium 100 mg 11/30/20 23:08 Docusate Sodium 100 Mg Capsule PO DAILY PRN Constipation Heparin Sodium (Porcine) 5,000 unit 11/30/20 23:08 12/04/20 11:03 Heparin Sodium,Porcine 5,000 Unit/Ml Vial SUBCUT 5,000 unit Q12H FLORIDALMA Administration Ceftriaxone Sodium 1 gm/ 50 mls @ 100 mls/hr 11/30/20 23:30 12/03/20 22:45 Sodium Chloride IV Infused Q24H FLORIDALMA Infusion Doxycycline Hyclate 100 mg/ 250 mls @ 166.67 mls/hr 12/01/20 00:00 12/04/20 03:30 Sodium Chloride IV Infused Q12H FLORIDALMA Infusion Insulin Human Lispro 0 unit 12/01/20 07:30 12/04/20 08:20 Insulin Lispro 100 Unit/Ml 3 Ml Vial SUBCUT Not Given QIDACHS [facility] Protocol Lisinopril 20 mg 12/01/20 09:00 12/04/20 08:18 Lisinopril 20 Mg Tablet PO 20 mg DAILY FLORIDALMA Administration Protocol Omeprazole 40 mg 12/01/20 09:00 12/04/20 08:18 Omeprazole 40 Mg Capsule. PO 40 mg DAILY FLORIDALMA Administration Ondansetron HCl 4 mg 11/30/20 23:08 Ondansetron Hcl 4 Mg/2 Ml Vial IVPUSH Q8H PRN Nausea and Vomiting Prednisone 40 mg 12/01/20 09:00 12/04/20 08:19 Prednisone 20 Mg Tablet PO 40 mg DAILY FLORIDALMA Administration Sodium Chloride 3 ml 12/01/20 00:00 12/04/20 08:19 0.9 % Sodium Chloride Flush 3 Ml Syringe IVFLUSH 3 ml QSHIFT FLORIDALMA Administration Labs CBC & Chem 7: 12/01/20 04:13 12/01/20 04:13 Microbiology Microbiology Results: Microbiology 11/30/20 19:53 Blood - Venous Blood Culture - Preliminary No growth after 48 hours. 11/30/20 19:53 Blood - Venous Blood Culture - Preliminary No growth after 48 hours. Assessment and Plan (1) Pneumonitis: Status: Acute (2) Pneumonia: Status: Acute (3) Sepsis with acute hypoxic respiratory failure: Status: Acute (4) Lung cancer: Status: Acute (5) Hypertension: Status: Acute (6) Diabetes: Problem details: NIDDM Status: Acute Assessment and Plan: 55-year-old male who was diagnosed with squamous lung cancer in -07/2020 /radiation pneumonitis in early October presents to the hospital with complaints of persistent and worsening shortness of breath and is being treated for sepsis d/t PNA with underlying immunocompromise state # sepsis d/t PNA with acute hypoxic respiratory failure--sepsis resolved, on IV ceftriaxone and doxycycline day 04 repeat chest x-ray showed stable right upper lung opacity Patient noted to have significant hypoxia finger oximetry dropped down to 75% and heart rate went up to 130 with ambulation, will give IV steroid today, case discussed with he recommend high-dose prednisone 40 mg daily for several weeks for treatment of radiation pneumonitis. Will obtain home O2 evaluation to increase oxygen with ambulation. will continue antibiotic to cover for super added bacterial infection. # lung cancer - follow-up with Hematology-Oncology # diabetes mellitus bs - blood sugars elevated likely due to steroid, continue SSI and diabetic diet, will resume metformin # HTN--BP is stable continue lisinopril 20 mg daily DVT prophylaxis: Heparin subQ
--- NOTE | 2020-12-04 11:59 | MHC.CM.PN ---
Patient is now on room air. Also on IV Ceftriaxone and IV Doxycycline for PNA. On PO prednisone for pneumonitis. Discharge plan is home no services. [facility] will provide transportation. CM will continue to follow patient for discharge needs.
[2020-12-04] MEDS: Insulin Lispro 100 UNIT/ML 3 ML VIAL SUBCUT ×3 (12:26→20:31)
[2020-12-04] MEDS: methylPREDNISolone Sod Succ 40 MG/ML VIAL IVPUSH ×2 (12:32→20:31)
--- NOTE | 2020-12-04 15:19 | PC.NURSE ---
on ambulation on room air, patient desat to 75%, placed on 2l, o2 sat 93% at rest
[2020-12-04 15:41] VITALS: BP 127/80; PULSE 82; RESP 20; TEMP 36.6; O2SAT 98
[2020-12-04 16:03] LABS: Glucose, Whole Blood 283 mg/dL (60-115)
[2020-12-04 19:18] VITALS: BP 127/74; PULSE 92; RESP 18; TEMP 36.6; O2SAT 97
[2020-12-04 19:39] LABS: Glucose, Whole Blood 289 mg/dL (60-115)
[2020-12-04] MEDS: cefTRIAXone sodium 1 GM in 0.9 % Sodium Chloride 50 ML IV (22:36)
[2020-12-05] VITALS: BP 149/89; PULSE 67; RESP 16; TEMP 36.8; O2SAT 91
[2020-12-05] MEDS: Doxycycline Hyclate 100 MG in 0.9 % Sodium Chloride 250 ML 166.67 MG IV ×2 (01:00→11:33)
[2020-12-05] MEDS: 0.9 % Sodium Chloride Flush 3 ML SYRINGE IVFLUSH ×2 (01:01→08:12)
[2020-12-05 03:19] VITALS: BP 133/90; PULSE 76; RESP 16; TEMP 36.3; O2SAT 97
[2020-12-05] MEDS: methylPREDNISolone Sod Succ 40 MG/ML VIAL IVPUSH ×2 (04:34→11:34)
[2020-12-05 07:04] VITALS: BP 148/96; PULSE 73; RESP 20; TEMP 36.6; O2SAT 95
[2020-12-05 07:09] LABS: Glucose, Whole Blood 205 mg/dL (60-115)
[2020-12-05 08:12] VITALS: BP 148/96; PULSE 73
[2020-12-05] MEDS: Omeprazole 40 MG CAPSULE.DR PO (08:12)
[2020-12-05] MEDS: Benzonatate 100 MG CAPSULE PO (08:12)
[2020-12-05] MEDS: Insulin Lispro 100 UNIT/ML 3 ML VIAL SUBCUT ×2 (08:12→11:33)
[2020-12-05] MEDS: lisinopriL 20 MG TABLET PO (08:12)
[2020-12-05 10:56] VITALS: BP 136/70; PULSE 96; RESP 18; TEMP 36.4; O2SAT 95
[2020-12-05 11:12] LABS: Glucose, Whole Blood 377 mg/dL (60-115)
[2020-12-05] MEDS: Heparin Sodium,Porcine 5,000 UNIT/ML VIAL 5000 UNIT SUBCUT (11:33)
--- NOTE | 2020-12-05 13:25 | PM.DS ---
DS: Providers Provider Date of Service: 12/05/20 Date of admission: 11/30/20 22:54 Primary care physician: Fred Gonsales PA-C Consults: 11/30/20 23:08 Consult to Pulmonology Routine Consulting Provider: Chaitanya Mora Reason for consultation: pneumonia, hx of radiation Has provider been notified: No DS: Diagnosis Discharge Diagnosis (1) Pneumonitis: Status: Acute (2) Pneumonia: Status: Acute (3) Sepsis with acute hypoxic respiratory failure: Status: Acute (4) Lung cancer: Status: Acute (5) Hypertension: Status: Acute (6) Diabetes: Status: Acute Problem details: NIDDM DS: Medications Discharge Medications Home Medications: Home Medications Medication Instructions Recorded Confirmed blood sugar diagnostic #10 ea 06/23/20 10/27/20 lisinopril 1 tab PO DAILY 11/30/20 11/30/20 omeprazole 1 cap PO DAILY 11/30/20 11/30/20 Previous Rx's Medication Instructions Recorded albuterol sulfate 90 mcg/actuation 2 puff INHALATION Q6H PRN 30 Days 10/27/20 aerosol inhaler #8.5 g metformin 500 mg tablet,extended 500 mg PO DAILY 90 Days #90 tab 10/27/20 release 24 hr benzonatate 100 mg PO TID #21 cap 12/05/20 prednisone 40 mg PO DAILY #60 tab 12/05/20 DS: Summary Hospital Course Hospital Course: History of presenting illness Chief Complaint: SOB, cough Past medical history of diabetes, hypertension, squamous cell lung cancer, radiation induced pneumonitis who presents to the hospital with complaints of worsening shortness of breath, cough, and sputum production. Patient was hospitalized in October secondary to radiation induced pneumonitis and at that time was treated with doxycycline and course of steroids and sent home. Patient reports that on going home he was feeling better but about a 1-2 weeks ago started feeling progressively worsening shortness of breath. He was never on oxygen but now is on stable 3 L of oxygen. He reports that he has shortness of breath with minimal activity, he denies fever, no chills, no abdominal pain nausea or vomiting, no chest pain, no urinary symptoms, no lower extremity edema. She no headache or change in vision. On arrival to the ED vitals are significant for a temp of a 100.7?, heart rate of 137, respiratory rate of 26, blood pressure of 135/86, satting 96% on 3 L. On discharge from the hospital 8th patient was weaned off oxygen completely at rest. But was found to need oxygen on ambulation but patient currently reports that he uses oxygen at rest and even while sleeping because he is short of breath all the time. Labs were found to be significant for WBC count of 5.2, hemoglobin of 12, platelet count of 101, PT of 13.7, INR of 1.2, sodium of 137, potassium 4.3, lactic acid of 2.4 which resolved, COVID negative, RSV and influenza negative, Chest x-ray shows persistent right upper lobe patchy opacity with mildly improved aeration of the right lower lung. Hospital course 55-year-old male who was diagnosed with squamous lung cancer in -07/2020 /radiation pneumonitis in early October presents to the hospital with complaints of persistent and worsening shortness of breath and is being treated for sepsis d/t PNA with underlying immunocompromise state # sepsis d/t PNA with acute hypoxic respiratory failure--sepsis resolved, patient treated with IV ceftriaxone and doxycycline and has finished 5 day course of antibiotic, repeat chest x-ray showed stable right upper lung opacity, patient seen by Dr. Mora from pulmonology he feels patient has component of radiation pneumonitis therefore he recommend 40 mg of prednisone daily for next several weeks, patient was on prednisone 40 mg before but he stopped it to soon, patient is on home oxygen 2-3 L with ambulation he noted to have drop in oxygenation therefore recommend to use 4 L of oxygen with ambulation, he he has been recommended to follow up with Dr. Mora in next 1-2 weeks # lung cancer recommend to follow-up with Hematology-Oncology # diabetes mellitus bs blood sugars elevated likely due to steroid, recommend to continue home medication and follow diabetic diet # HTN--BP is stable continue lisinopril 20 mg daily. Time Spent with Patient Time attestation: Total time spent providing and/or coordinating discharge services: Discharge coordination time: Greater than 30 minutes Physical Exam Vital Signs: Vital Signs: Last Vital Signs Temp 97.6 F 12/05/20 10:56 Pulse 96 12/05/20 10:56 Resp 18 12/05/20 10:56 BP 136/70 12/05/20 10:56 Pulse Ox 95 12/05/20 10:56 Body Mass Index 31.8 General patient resting comfortably no acute distress, afebrile. Neck supple no JVD. CVS regular rate rhythm, Respiratory lungs clear to auscultation but diminished,no respiratory distress, no use of accessory muscles Gastrointestinal abdomen soft, nontender, bowel sounds audible, no guarding , no rigidity. Extremities no clubbing cyanosis or edema. Neuro nonfocal , speech clear. Skin no rash DS: Data Data Completed and Pending Labs on day of discharge: Laboratory Results - last 24 hr 12/04/20 12/04/20 12/05/20 15:57 19:36 07:04 POC Glucose 283 H 289 H 205 H 12/05/20 10:56 POC Glucose 377 H* Preliminary micro results at discharge 11/30/20 19:53 Blood Culture - Preliminary Blood - Venous No growth after 48 hours. 11/30/20 19:53 Blood Culture - Preliminary Blood - Venous No growth after 48 hours. Discharge Plan Discharge Patient Disposition: Home, Self-Care Referrals: Rod Sal MD [Physician] - 1 Week (12/14/2020 8) Discharge Medications: New prednisone 20 mg tablet 40 mg PO DAILY Qty: 60 RF: 0 benzonatate 100 mg Capsule 100 mg PO TID Qty: 21 RF: 0 Continued lisinopril 20 mg tablet 1 tab PO DAILY RF: 0 omeprazole 40 mg capsule,delayed release(DR/EC) 1 cap PO DAILY RF: 0 metformin 500 mg tablet extended release 24 hr 500 mg PO DAILY 90 Days Qty: 90 RF: 1 albuterol sulfate 90 mcg/actuation HFA aerosol inhaler 2 puff inhalation Q6H PRN (Reason: shortness of breath or wheezing) 30 Days Qty: 8.5 RF: 1 No Action (DME) blood sugar diagnostic Strip See Rx Instructions strip .ROUTE .MEDSUPPLY Qty: 10 RF: 0 Discharge Orders: Discharge Order (Routine); Ordered 12/05/20 Ordered By: Siva Machuca Diet: diabetic diet Activity on Discharge: As tolerated Stand Alone Forms: Patient Portal Discharge page Care Plan Goals: As above Health Concerns: Pneumonia/radiation pneumonitis recommend to continue prednisone 40 mg daily and outpatient follow-up with Dr. Mora in next 2 weeks, use oxygen 2 L at rest and increased to 4 L with ambulation, use cough medication as needed. You finished course of antibiotic. Plan of Treatment: Outpatient follow-up with primary care physician and Dr. Mora Assessment: See discharge summary
--- NOTE | 2020-12-05 13:39 | MHC.CM.PN ---
PT CLEARED TO [facility] TODAY WITH NO NEW SERVICES. PTS W/O TO TRANSPORT
== END 2020-12-05 15:15 | disposition home or self-care (01) | DRG 720 ==
LOC: HO.ED 21:54 → HO.EDOVER 23:00 → HO.IMC 12-01 02:18
PROVIDERS: Internal Medicine; Admitting Provider Internal Medicine; Emergency Provider Internal Medicine; PCP Physician Assistant; Visit Provider Hospitalist
DX: A41.9 Sepsis, unspecified organism (principal); J96.01 Acute respiratory failure with hypoxia; J70.4 Drug-induced interstitial lung disorders, unspecified; R65.20 Severe sepsis without septic shock; C34.11 Malignant neoplasm of upper lobe, right bronchus or lung; T50.8X5A Adverse effect of diagnostic agents, initial encounter; Y92.9 Unspecified place or not applicable; Z20.822 Contact with and (suspected) exposure to COVID-19; E11.65 Type 2 diabetes mellitus with hyperglycemia; I10 Essential (primary) hypertension; Z87.891 Personal history of nicotine dependence; Z79.899 Other long term (current) drug therapy
CPT/HCPCS: 0241U; 36415; 71045; 71046; 80048; 80076; 82947; 83605; 83880; 84484; 85025; 85610; 85730; 87040; 93005; 94640; 96365; 99285; J0696; J1100; J2543; J2920

== ENCOUNTER 2020-12-10 13:34 | Outpatient (REF) | payer OTHER, SELFPAY ==
--- NOTE | 2020-12-10 16:57 | PFT_ITS ---
INDICATION: Lung cancer. SPIROMETRY: The FEV1 to FVC of 80% with an FEV1 of 1.85 L, which is 56% predicted, and an FVC of 2.33 L, which is 54% predicted. No significant response to bronchodilators noted. Maximum voluntary ventilation 72% predicted. LUNG VOLUMES: Total lung capacity 52% predicted. DIFFUSION CAPACITY: DLCO 42% predicted. COMPARISONS: None. INTERPRETATION: No obstructive ventilatory defect. No significant response to bronchodilators noted. However, the patient does have a moderate restrictive ventilatory defect consistent with restrictive lung disease. In addition to that, the patient does have a moderate to severe diffusion impairment. Clinical correlation warranted. MD VIKASH Swain/MODRolando / [id number]
== END 2020-12-10 13:35 | disposition home or self-care (01) ==
LOC: HO.RESP 13:34
PROVIDERS: PCP Physician Assistant; Visit Provider Internal Medicine
DX: C34.11 Malignant neoplasm of upper lobe, right bronchus or lung (principal); J70.0 Acute pulmonary manifestations due to radiation; R09.02 Hypoxemia; Z79.52 Long term (current) use of systemic steroids; Z99.81 Dependence on supplemental oxygen; Z92.3 Personal history of irradiation
CPT/HCPCS: 94060; 94727; 94729; 99212

== ENCOUNTER 2021-01-12 15:45 | Outpatient (REF) | payer OTHER, SELFPAY ==
--- NOTE | ~2021-01-12 | XR_ITS ---
EXAMINATION: XR CHEST CLINICAL INFORMATION: Acute pulmonary manifestations. COMPARISON: Chest 12/03/2020 TECHNIQUE: 2 views of the chest were obtained. FINDINGS: There is loss of right lung volume with dense airspace opacity in the right upper lobe unchanged to 12/03/2020 likely chronic. Visualized rest the right and left lung there is expanded and clear. Heart size and pulmonary vascularity is normal. No gross bony abnormality seen. XR/XR chest 2V IMPRESSION: Right upper lobe airspace opacity is stable. Loss of right lung volume with elevated right hemidiaphragm is stable.
== END 2021-01-12 15:46 | disposition home or self-care (01) ==
LOC: HO.XRAY 15:45
PROVIDERS: PCP Physician Assistant; Visit Provider Internal Medicine
DX: J70.0 Acute pulmonary manifestations due to radiation (principal); R09.02 Hypoxemia; C34.11 Malignant neoplasm of upper lobe, right bronchus or lung; E11.9 Type 2 diabetes mellitus without complications; I10 Essential (primary) hypertension; R05 Cough; R06.00 Dyspnea, unspecified; M62.81 Muscle weakness (generalized); R58 Hemorrhage, not elsewhere classified; Z87.891 Personal history of nicotine dependence; Z92.3 Personal history of irradiation; Z79.84 Long term (current) use of oral hypoglycemic drugs; Z79.52 Long term (current) use of systemic steroids; Z79.899 Other long term (current) drug therapy
CPT/HCPCS: 71046; 99212

== ENCOUNTER 2021-02-09 13:43 | Outpatient (REF) | payer OTHER, SELFPAY ==
--- NOTE | ~2021-02-09 | PE_ITS ---
EXAMINATION: PET/CT FUSION SKULL TO THIGH CLINICAL INFORMATION: Right lung cancer for restaging. COMPARISON: Chest x-ray 01/12/2021. CT chest 10/29/2020. PET/CT fusion skull to thigh 07/28/2020. TECHNIQUE: Following intravenous administration of 17.3 mCi of F-18 FDG in the left antecubital vein, a whole-body PET emission scan was obtained from the skull base to the proximal thighs approximately 60 minutes post injection. 3.[address] transmission scan was obtained for correlative imaging without oral or IV contrast. Baseline glucose is 126 mg/dL. DLP: 801.49 mGy-cm FINDINGS: SKULL BASE AND NECK: There is no abnormal metabolic activity seen in the skull base, visualized brain parenchyma or the neck. Normal metabolic activity is seen along the anterior mylohyoid muscles. On CT imaging, there is no abnormality seen in the visualized intracranial brain parenchyma. Bilateral submandibular and parotid glands are symmetric and normal. No abnormal-sized neck mass or lymphadenopathy is seen. There are dental amalgam-related artifacts. The paranasal sinuses and right mastoid sinus are clear. CHEST: There is significant metabolic activity seen in the right upper lobe consolidation/atelectasis/post radiation changes. SUV measurement is 8.75. On CT, there is a solid round mass centrally located within this right upper lobe airspace consolidation/radiation changes measuring 3.0 x 3.2 cm on axial image 193/2. There is a focal metabolic activity seen medially within this right upper lobe with an SUV measurement of 7.8, likely an additional nodule measuring 1.3 x 1.3 cm on axial image 187/2. There are 2 metabolically active lymph nodes in the right mediastinum. The larger lymph node with an SUV of 6.53 is in the right pretracheal space and measures approximately 1.4 x 1.6 cm on axial image 190/2. A slightly smaller lymph node anteriorly measures 1.11 x 1.11 and SUV of 6.7 on axial image 189/2. No additional metabolic lymph nodes are seen which are metabolically active. On CT, there is a right upper lobe airspace consolidation with a well-described, round mass laterally in this segment. A left upper lobe calcified nodule on axial image 192/2 is not metabolically active. No additional lung nodules or mass is seen. There is small to moderate right pleural effusion. Heart size is normal. ABDOMEN AND PELVIS: No abnormal metabolic activity is seen in the liver, spleen, pancreas and adrenal glands. Normal metabolic activity is seen in the kidneys and the bladder. The gallbladder has been removed surgically. There is extensive abnormal metabolic activity seen in the colon with an SUV measurement corresponding to 5.6. On CT, there is no mural thickening or pericolic fat stranding seen. There are scattered diverticula seen throughout the colon. The small bowel loops are normal caliber. The urinary bladder is mildly thickened but nondistended. No abnormal retroperitoneal, mesenteric or pelvic lymph nodes are seen. MUSCULOSKELETAL: No abnormal metabolic activity is seen. Mild degenerative disc changes and spondylosis are seen in the mid and lower cervical, dorsal spine and lower lumbar spine. No lytic process or fracture is visualized. There are degenerative disc changes at the L5-S1 disc level. PET/PET CT fusion skull to thigh IMPRESSION: Moderate metabolically active nodule in the right upper lobe where there is airspace consolidation and postradiation changes. There is a second nodule more medially placed toward the mediastinum, much smaller. There are additional pulmonary nodules which are not metabolically active as described above. 2 abnormal metabolically active right mediastinal lymph nodes as described above. No additional metabolic activity is seen in the skull base, chest, neck, abdomen or pelvis. There is a small right pleural effusion. There is a calcified 5 mm nodule in the left upper lobe. Diffuse metabolically active colon, likely inflammatory colitis. However, there is no CT evidence of mural thickening or pericolic fat stranding. There are diffuse colonic diverticula which appear normal.
== END 2021-02-09 13:44 | disposition home or self-care (01) ==
LOC: HO.PET 13:43
PROVIDERS: Visit Provider Internal Medicine
DX: Z13.89 Encounter for screening for other disorder (principal)

== ENCOUNTER → 2021-02-15 13:36 | Outpatient (BNVA) | payer OTHER, SELFPAY | PROVIDERS: PCP Physician Assistant; Visit Provider Hospitalist | DX: C34.11 Malignant neoplasm of upper lobe, right bronchus or lung (principal); J18.9 Pneumonia, unspecified organism; R59.0 Localized enlarged lymph nodes; R05 Cough | CPT/HCPCS: 99212 ==

== ENCOUNTER → 2021-03-08 15:47 | Outpatient (BNVA) | payer OTHER, SELFPAY | PROVIDERS: PCP Physician Assistant; Visit Provider Internal Medicine | DX: R05 Cough (principal); C34.11 Malignant neoplasm of upper lobe, right bronchus or lung; J70.0 Acute pulmonary manifestations due to radiation; Z87.891 Personal history of nicotine dependence; Z79.84 Long term (current) use of oral hypoglycemic drugs; Z79.52 Long term (current) use of systemic steroids; Z79.899 Other long term (current) drug therapy | CPT/HCPCS: 99212 ==

== ENCOUNTER 2021-03-22 10:21 | Emergency (ER) | payer OTHER, SELFPAY ==
--- NOTE | ~2021-03-22 | CT_ITS ---
EXAMINATION: CT CHEST WITH CONTRAST CLINICAL INFORMATION: Right upper lobe mass and consolidation with history of lung cancer. Cough. COMPARISON: Previous chest CTA October 2020 and PET/CT scan January 2021 TECHNIQUE: Multidetector volumetric CT imaging of the chest was obtained after the administration of 65 mL of Omnipaque 350 intravenous contrast without immediate adverse reactions. Axial MIP volume rendering provided. Sagittal and coronal reformatted images were obtained. This CT examination was performed using dose optimization techniques as appropriate, variously including the following: *Automated exposure control *Adjustment of mA and/or kV according to patient size (this includes techniques or standardized protocols for targeted exams where dose is matched to indication/reason for exam; i.e. extremities or head) *Use of iterative reconstruction technique DLP: 346 mGy-cm FINDINGS: LUNGS: There is right apical pleural thickening. There is airspace disease/consolidation and cicatrization bronchiectasis in the right upper lobe and superior segment of the right lower lobe likely representing post radiation change. This is increased from October 2020 and similar to January 2021. There is question of airspace disease with necrosis versus necrotic mass in the right upper lobe. This measures 3.4 x 3.9 cm axial image 15 series 2 compared to 2.6 x 3 cm axial image 193 series [address] scan January 2021. There is a small 2 x 4 mm calcified left upper lobe nodule axial image 18 series 2 that is stable. The lungs are otherwise clear. MEDIASTINUM: There are enlarged mediastinal lymph nodes. Largest lymph node is a right pretracheal and paratracheal lymph node measuring 1.8 x 3.4 cm axial image 18 series 2. These appear unchanged from most recent PET/CT scan January 2021 the heart is slightly enlarged. There is a small pericardial effusion that is increased from previous exams. PLEURA: There is right apical pleural thickening. There is a small right pleural effusion. This is decreased from January 2021 PET/CT scan. There is no left pleural effusion. AXILLA: No lymphadenopathy. UPPER ABDOMEN: There is question of mild cirrhotic changes of the liver with hypertrophy of the left lobe and caudate lobe and slightly irregular contour. No focal liver lesion is seen. The gallbladder has been removed. OSSEOUS STRUCTURES: There are degenerative changes of the spine. No fracture or bone lesion is seen. CT/CT chest w con IMPRESSION: Airspace disease/consolidation and cicatrization bronchiectasis in the right upper lobe and superior segment of the right lower lobe likely representing post radiation change. There is a peripheral rounded low-attenuation area in the right upper lobe questionable necrotic airspace disease versus a mass measuring 3.4 x 3.9 cm. This is increased in size from previous exams. Stable mediastinal lymphadenopathy. Increasing small pericardial effusion. Right apical pleural thickening and small right pleural effusion.
--- NOTE | ~2021-03-22 | XR_ITS ---
EXAMINATION: XR CHEST CLINICAL INFORMATION: Cough. History of lung cancer. COMPARISON: Previous chest x-ray December 2020 and PET/CT scan January 2021 TECHNIQUE: 2 views of the chest were obtained. FINDINGS: There is volume loss to the right hemithorax with shift of the central mediastinal structures to the right and elevation of the right hemidiaphragm. There is consolidation and air bronchograms seen in the right upper lobe. This is increased from previous chest x-ray December 2020 and similar to PET CT scan January 2021. The lungs are otherwise clear. There is no pleural effusion or pneumothorax. The cardiac and mediastinal contours are stable. There are degenerative changes of the spine. XR/XR chest 2V IMPRESSION: Volume loss to the right hemithorax. Right apical pleural thickening and right upper lobe consolidation with central air bronchograms similar to previous PET/CT scan January 2021.
[2021-03-22 10:47] VITALS: BP 131/86; PULSE 102; RESP 18; TEMP 36.6; O2SAT 99; BMI 33.6
[2021-03-22 11:36] VITALS: BP 137/88; PULSE 98; RESP 18; TEMP 36.8; O2SAT 95
--- NOTE | 2021-03-22 11:37 | ED_ITS ---
HPI - URI/Sore Throat General Chief Complaint: Upper Respiratory Symptoms Stated Complaint: cough Time Seen by Provider: 03/22/21 11:37 Source: patient Mode of arrival: ambulatory Limitations: no limitations History of Present Illness HPI Narrative: coughing for the past 4 days. Patient is fully vaccinated had his 2 vaccines. No history of lung problems. Patient used to be a smoker and has wheezed in the past. Denies fever. Patient has active lung cancer. He has developed pneumonitis from radiation. MD elicited complaint: cough Onset (ago): day(s) Consistency: intermittent Severity: mild Able to tolerate fluids by mouth: Yes Exacerbating factors: nothing Relieving factors: nothing Associated symptoms: denies other symptoms Related Data Home Medications Medication Instructions Recorded Confirmed blood sugar diagnostic #10 ea 06/23/20 03/09/21 Previous Rx's Medication Instructions Recorded metformin 500 mg tablet,extended 1,000 mg PO BID 30 Days #120 tab 01/04/21 release 24 hr terbinafine HCl 1 % topical cream 1 appl TOPICAL BID 15 Days #30 g 01/04/21 prednisone 5 mg tablet 5 mg PO BID 15 Days #30 tab 02/05/21 triamcinolone acetonide 0.1 % 1 appl TOPICAL BID #453.6 g 02/05/21 topical cream azithromycin 250 mg tablet 250 mg PO 3XW 28 Days #12 tab 02/15/21 benzonatate 200 mg capsule 200 mg PO BID PRN 30 Days #60 cap 02/15/21 budesonide 0.5 mg/2 mL suspension 0.5 mg INHALATION BID 30 Days #120 02/15/21 for nebulization ml ipratropium 0.5 mg-albuterol 3 mg 3 ml INHALATION QID 30 Days #360 ml 02/15/21 (2.5 mg base)/3 mL nebulization soln cetirizine-pseudoephedrine 1 tab PO Q12H #60 tab 03/08/21 [Zyrtec-D] losartan 100 mg tablet 100 mg PO DAILY 30 Days #30 tab 03/08/21 prednisone 5 mg tablet 15 mg PO DAILY 30 Days #90 tab MDD 03/08/21 PNEUMONITIS codeine 10 mg-guaifenesin 200 mg/5 5 ml PO Q6H PRN 15 Days #473 ml 03/09/21 mL oral liquid benzonatate [Tessalon Perles] 100 mg PO BID PRN #20 cap 03/22/21 prednisone 20 mg PO DAILY #30 tab 03/22/21 Allergies Allergy/AdvReac Type Severity Reaction Status Date / Time No Known Allergies Allergy Verified 03/09/21 11:35 Review of Systems Constitutional: Constitutional: Reports no additional constitutional complaints Eyes: Eyes: Reports no additional eye complaints ENT: Denies dizziness Cardiovascular: Cardiovascular: Reports no additional cardiovascular complaints Respiratory: Respiratory: Reports as per HPI Gastrointestinal: Gastrointestinal: Reports no additional gastrointestinal complaints Musculoskeletal: Musculoskeletal: Reports no additional musculoskeletal complaints Integumentary/Breasts: Skin/Breast: Denies rash Neurologic: Reports system reviewed and no additional complaints, except as documented, Denies dizziness and Denies Sensory deficit (Neuro) Psychiatric: Psychiatric: Denies anxiety PMFSH Past Medical History Medical History Diabetes DMII (diabetes mellitus, type 2) Ex-smoker Exercise hypoxemia Hospital discharge follow-up HTN (hypertension) Hypertension Hypoxia Kidney stones Lung cancer Pneumonitis Pneumonitis Radiation pneumonitis Sciatica 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 Social History Social History Household Members: Significant Other Housing: House Are you a primary multi care technician to a significant other at home: No Do you presently have visiting nurse or other home services: No Alcohol intake: never Patient Tobacco Use Status: Former Tobacco user Tobacco use type: Cigarette Years Smoked: 38 Second Hand Smoke Exposure: Yes Use of substances other than those prescribed or required for medical reasons: No Advance Directives: Yes Advance Directives on File: Yes Advance Directives Date on File: 12/07/20 service: No Current occupational status: employed Physical Exam Vital Signs: Vital Signs: Last Vital Signs Temp 98.2 F 03/22/21 11:36 Pulse 98 03/22/21 11:36 Resp 18 03/22/21 11:36 BP 137/88 03/22/21 11:36 Pulse Ox 95 03/22/21 11:36 Oxygen Flow Rate 3 03/22/21 10:47 Body Mass Index 33.6 Const: General: healthy appearing Nutritional Appearance: average body habitus Orientation/consciousness: oriented to person and patient oriented x3 Limitations: no limitations HENMT: Head: Yes normal to inspection Ears: external ears normal General nose exam: Normal external nose present Mouth: Normal oral and palatal mucosa present and oropharynx normal Throat: Yes posterior oropharynx normal Eyes: General: appearance normal, both eyes and all related structures Neck: Other: supple Neck: Yes normal visual inspection Chest: Chest palpation & inspection: normal inspection of the chest Resp: Other: wheezing on right Cardio: Jugular venous distension: no JVD Rate: regular rate Rhythm: r egular rhythm Heart sounds: S1 normal heart sound present and S2 normal heart sound present GI: Inspection: Yes normal to inspection Palpation (GI): Soft to palpation, nontender and No hepatosplenomegaly present Auscultation: normal bowel sounds : General: Yes no CVA tenderness Back/Spine/Pelvis: Back: no CVA tenderness Skin: General skin exam: no rashes or lesions noted Neuro: General: oriented to person and patient oriented x3 Cranial nerves: Yes CN's II-XII intact bilaterally Motor exam (neuro): 5/5 motor strength present throughout Sensory Exam: No Sensory deficit (Neuro) Extrem: General: Yes normal to inspection Psych: Appearance: grossly normal Course Reevaluation(s) Reevaluation #1: Patient appearing stable, vitals remain normal, CT scan showed chronic radiation changes no pneumonia, discussed with Dr. Miramontes. She would like me to increase his prednisone to 20mg daily and I will start tessalon pearles for his cough. He will be discharged home Time: 15:33 MDM - URI/Sore Throat Lab Data Result diagrams: 03/22/21 12:04 03/22/21 12:04 Labs: Lab Results 03/22/21 03/22/21 Range/Units 12:04 12:04 WBC 9.1 (4.8-10.8) X10*3/uL RBC 4.01 L (4.60-5.80) X10*6/uL Hgb 12.4 L (14.0-18.0) g/dl Hct 36.8 L (42-52) % MCV 91.8 (80-98) fL MCH 30.9 (27.0-33.0) pg MCHC 33.7 (31.0-36.0) g/dl RDW 12.8 (11.0-16.0) % Plt Count 159 L (160-400) X10*3/uL MPV 9.9 (9.4-12.4) fL Immature Gran % (Auto) 1.1 H (0.0-0.4) % Neut % (Auto) 70.9 (45-73) % Lymph % (Auto) 16.7 L (20-40) % Bartholomew % (Auto) 9.7 (2-11) % Eos % (Auto) 1.4 (0-4) % Baso % (Auto) 0.2 (0-2) % Lymph # (Auto) 1.5 (1.2-4.9) X10*3/uL Bartholomew # (Auto) 0.9 (0.1-1.2) X10*3/uL Eos # (Auto) 0.1 (0.0-0.4) X10*3/uL Baso # (Auto) 0.0 (0.0-0.2) X10*3/uL Abs Immat Gran (auto) 0.10 H (0.00-0.03) X10*3/uL Absolute Neuts (auto) 6.4 (2.0-8.3) X10*3/uL Absolute Nucleated RBC 0.000 (0.0-0.012) X10*3/uL Nucleated RBC % (auto) 0.0 (0.0-0.2) /100WBC Sodium 139 (135-145) mmol/L Potassium 3.5 (3.3-5.1) mmol/L Chloride 103 (96-108) mmol/L Carbon Dioxide 28 (22-29) mmol/L Anion Gap 12 (12-20) BUN 14 (9-16) mg/dL Creatinine 0.58 (0.5-1.4) mg/dL Estim Creat Clear Calc 154.4 Estimated GFR > 60 Random Glucose 119 H D (60-115) mg/dL Calcium 9.0 (8.4-10.2) mg/dL Discharge Plan Discharge Clinical Impression: Lung mass, Radiation pneumonitis Lung cancer Qualifiers: Laterality: right Lung location: upper lobe of lung Qualified Code(s): C34.11 - Malignant neoplasm of upper lobe, right bronchus or lung Patient Disposition: Home, Self-Care Instructions: Pneumonitis (ED), Lung Cancer (DC) Prescriptions: New prednisone 20 mg tablet 20 mg PO DAILY Qty: 30 RF: 0 benzonatate [Tessalon Perles] 100 mg capsule 100 mg PO BID PRN (Reason: cough) Qty: 20 RF: 0 No Action prednisone 5 mg tablet 5 mg PO BID 15 Days Qty: 30 RF: 1 cetirizine-pseudoephedrine [Zyrtec-D] 5-120 mg Tablet Extended Release 12 Hr 1 tab PO Q12H Qty: 60 RF: 0 (DME) blood sugar diagnostic Strip See Rx Instructions strip .ROUTE .MEDSUPPLY Qty: 10 RF: 0 codeine-guaifenesin 10-200 mg/5 mL liquid 5 ml PO Q6H PRN (Reason: cough) 15 Days Qty: 473 RF: 0 metformin 500 mg tablet extended release 24 hr 1,000 mg PO BID 30 Days Qty: 120 RF: 2 terbinafine HCl [Athlete's Foot (terbinafine)] 1 % cream 1 appl topical BID 15 Days Qty: 30 RF: 1 triamcinolone acetonide 0.1 % cream 1 appl topical BID Qty: 453.6 RF: 0 prednisone 5 mg tablet 15 mg PO DAILY MDD PNEUMONITIS 30 Days Qty: 90 RF: 2 losartan 100 mg tablet 100 mg PO DAILY 30 Days Qty: 30 RF: 3 azithromycin 250 mg tablet 250 mg PO 3XW 28 Days Qty: 12 RF: 6 budesonide 0.5 mg/2 mL suspension for nebulization 0.5 mg inhalation BID 30 Days Qty: 120 RF: 11 ipratropium-albuterol 0.5 mg-3 mg(2.5 mg base)/3 mL solution for nebulization 3 ml inhalation QID 30 Days Qty: 360 RF: 11 benzonatate 200 mg capsule 200 mg PO BID PRN (Reason: cough) 30 Days Qty: 60 RF: 11 Referrals: Fred Gonsales PA-C [Primary Care Provider] - 1 week Chana Jack MD [Physician] - 2 days
--- NOTE | 2021-03-22 11:45 | PC.NURSE ---
pt to xray for ct scan
[2021-03-22 12:10] LABS: MANUAL DIFF FLAG NO
[2021-03-22 12:12] LABS: Basophils Percent Auto 0.2 % (0-2); Eosinophils Absolute Auto 0.1 X10*3/uL (0.0-0.4); Eosinophils Percent Auto 1.4 % (0-4); Hematocrit 36.8 % (42-52); Hemoglobin 12.4 g/dl (14.0-18.0); Imm Gran Pct Auto 1.1 % (0.0-0.4); Lymphocytes Absolute Auto 1.5 X10*3/uL (1.2-4.9); Lymphocytes Percent Auto 16.7 % (20-40); Mean Corpuscular HGB Conc 33.7 g/dl (31.0-36.0); Mean Corpuscular Hemoglobin 30.9 pg (27.0-33.0); Mean Corpuscular Volume 91.8 fL (80-98); Mean Platelet Volume 9.9 fL (9.4-12.4); Monocytes Absolute Auto 0.9 X10*3/uL (0.1-1.2); Monocytes Percent Auto 9.7 % (2-11); Neutrophils Absolute Auto 6.4 X10*3/uL (2.0-8.3); Neutrophils Percent Auto 70.9 % (45-73); Platelet Count 159 X10*3/uL (160-400); Red Blood Count 4.01 X10*6/uL (4.60-5.80); Red Cell Distribution Width 12.8 % (11.0-16.0); White Blood Count 9.1 X10*3/uL (4.8-10.8)
--- NOTE | 2021-03-22 12:17 | PC.NURSE ---
iv inserted, labs drawn, vss, will continue to monitor.
[2021-03-22 12:35] LABS: Anion Gap 12 (12-20); Blood Urea Nitrogen 14 mg/dL (9-16); Carbon Dioxide 28 mmol/L (22-29); Chloride 103 mmol/L (96-108); Creatinine Clr Calc Pharmacy 154.4; Estimated Glomerular Filt Rate > 60; Glucose Random 119 mg/dL (60-115); Potassium 3.5 mmol/L (3.3-5.1); Sodium 139 mmol/L (135-145)
[2021-03-22] MEDS: iohexoL 350 MG/ML 100 ML INFUS..BTL IV (12:54)
--- NOTE | 2021-03-22 13:45 | PC.NURSE ---
pt moved to family room, awaiting results
[2021-03-22 15:56] VITALS: BP 128/88; PULSE 96; RESP 18; TEMP 36.7; O2SAT 98
== END 2021-03-22 16:01 | disposition home or self-care (01) ==
PROVIDERS: Emergency Provider Emergency Medicine; PCP Physician Assistant
DX: J70.0 Acute pulmonary manifestations due to radiation (principal); C34.11 Malignant neoplasm of upper lobe, right bronchus or lung; E11.9 Type 2 diabetes mellitus without complications; I10 Essential (primary) hypertension; R91.8 Other nonspecific abnormal finding of lung field; R59.0 Localized enlarged lymph nodes; Z87.891 Personal history of nicotine dependence
CPT/HCPCS: 36415; 71046; 71260; 80048; 85025; 87040; 99284; Q9967

== ENCOUNTER 2021-03-31 09:45 | Outpatient (REF) | payer OTHER, SELFPAY ==
[2021-03-31 13:55] LABS: Hematocrit 43.3 % (42-52); Mean Corpuscular HGB Conc 32.3 g/dl (31.0-36.0); Mean Corpuscular Hemoglobin 29.8 pg (27.0-33.0); Mean Corpuscular Volume 92.1 fL (80-98); Mean Platelet Volume 10.8 fL (9.4-12.4); Platelet Count 221 X10*3/uL (160-400); White Blood Count 12.4 X10*3/uL (4.8-10.8)
[2021-03-31 14:39] LABS: Cholesterol 204 mg/dL; HDL Cholesterol 63 mg/dL; LDL Cholesterol Calculated 114 mg/dl; Triglycerides 135 mg/dL
[2021-03-31 14:45] LABS: TSH reflex Free T4 1.03 uIU/mL (0.32-4.0)
== END 2021-03-31 09:46 | disposition home or self-care (01) ==
LOC: HO.10HDL 09:45
PROVIDERS: PCP Physician Assistant; Visit Provider Nurse Practitioner Gerontology
DX: E11.65 Type 2 diabetes mellitus with hyperglycemia (principal); B35.9 Dermatophytosis, unspecified; I10 Essential (primary) hypertension
CPT/HCPCS: 36415; 80061; 82947; 84443; 85027

== ENCOUNTER 2021-04-02 11:10 | Outpatient (REF) | payer OTHER, SELFPAY ==
--- NOTE | ~2021-04-02 | XR_ITS ---
EXAMINATION: XR MANDIBLE CLINICAL INFORMATION: Jaw pain COMPARISON: None TECHNIQUE: 4 views of the mandible were obtained. FINDINGS: There are no fractures or dislocations. No bone, joint or soft tissue abnormality is demonstrated. Normal TMJ joints bilateral. XR/XR mandible <4V IMPRESSION: Normal mandible.
== END 2021-04-02 11:11 | disposition home or self-care (01) ==
LOC: HO.XRAY 11:10
PROVIDERS: PCP Physician Assistant; Visit Provider Physician Assistant
DX: R68.84 Jaw pain (principal)
CPT/HCPCS: 70100

== ENCOUNTER 2021-04-08 09:46 | Day surgery (SDC) | payer OTHER, SELFPAY ==
[2021-04-01 09:59] VITALS: BMI 33.3
--- NOTE | 2021-04-05 14:38 | HO.ANESPROP2 ---
Documented by User: Alexia Kaur NP 04/12/21 08:40 HPI - Anesthesia Eval Consult details Narrative: 56yo M for Endoscopic Bronchial Ultrasound s/p Endoscopic Bronchial Ultrasound 06/2020 with GA-ETT 8.5 found metastatic squamous cell lung ca. s/p chemo and rad 07/2020 - 09/2020. 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 Surgical History Surgical History (Updated 03/25/21 @ 10:59 by Mari Ramesh PA-C) History of arthroscopy of left knee (~1993) History of bronchoscopy (~2019) History of cholecystectomy (~1994) Social History Social History Household Members: Significant Other Housing: House Are you a primary intensive care unit registered nurse to a significant other at home: No Do you presently have visiting nurse or other home services: No Alcohol intake: never Patient Tobacco Use Status: Former Tobacco user Tobacco use type: Cigarette Years Smoked: 38 Second Hand Smoke Exposure: No Advance Directives Date on File: 12/07/20 service: No Current occupational status: employed Meds Allergies Allergy/AdvReac Type Severity Reaction Status Date / Time No Known Allergies Allergy Verified 03/31/21 10:28 Home Medications Medication Instructions Recorded Confirmed Last Taken Type blood sugar diagnostic #10 ea 06/23/20 03/31/21 Unknown History Exam Exam Date and Time: April 05, 2021 1438 Height,Weight and Vital Signs: Height 5 ft 7 in Weight 96.615 kg Pertinent Lab Results Pertinent Lab Results: Laboratory Tests 03/22/21 03/31/21 12:04 11:12 WBC 12.4 H Hgb 14.0 Hct 43.3 Plt Count 221 D Sodium 139 Potassium 3.5 Chloride 103 Carbon Dioxide 28 BUN 14 Creatinine 0.58 Narrative Narrative: EKG 11/2020 Vent. Rate : 118 BPM ? ? Atrial Rate : 118 BPM ?? P-R Int : 138 ms? QRS Dur : 078 ms ? ? QT Int : 318 ms ? ? ? P-R-T Axes : 037 015 026 degrees ?? QTc Int : 445 ms ? Sinus tachycardia Possible Left atrial enlargement Left ventricular hypertrophy Nonspecific T wave abnormality Abnormal ECG When compared with ECG of 29-OCT-2020 09:58, No significant change was found Assessment and Plan Assessment Anesthesia Assessment: Chart Reviewed Documented by User: Harman Ford MD 04/12/21 15:05 [facility] Past Medical History Medical History (Updated 04/01/21 @ 13:16 by Fred Gonsales PA-C) DMII (diabetes mellitus, type 2) Exercise hypoxemia Hypertension Hypoxia Kidney stones Personal history of nicotine dependence Pneumonitis Radiation pneumonitis Sciatica 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 Family history of problems with anesthesia: No Surgical History Surgical History (Updated 03/25/21 @ 10:59 by Mari Ramesh PA-C) History of arthroscopy of left knee (~1993) History of bronchoscopy (~2019) History of cholecystectomy (~1994) History of Problems with Anesthesia: No Social History Social History Household Members: Significant Other Housing: House Are you a primary intensive care unit registered nurse to a significant other at home: No Do you presently have visiting nurse or other home services: No Alcohol intake: never Patient Tobacco Use Status: Former Tobacco user Tobacco use type: Cigarette Years Smoked: 38 Second Hand Smoke Exposure: No Advance Directives Date on File: 12/07/20 service: No Current occupational status: employed Meds Allergies Allergy/AdvReac Type Severity Reaction Status Date / Time No Known Allergies Allergy Verified 03/31/21 10:28 Home Medications Medication Instructions Recorded Confirmed Last Taken Type blood sugar diagnostic #10 ea 06/23/20 03/31/21 Unknown History Assessment and Plan Assessment Anesthesia Assessment: Anesthesia Plan Discussed Final Anesthetic Review Family History of Problems with Anesthesia: No History of Problems with Anesthesia: No ASA Class: III Final Preanesthetic Review: No Changes in Pt Med Stat, Meds/Allgs Chart Reviewed, Consent Obtained/Reviewed and Anes Risks/Benef Reviewed Patient Risk: High Procedure Risk: Low Anesthetic Plan Anesthetic Plan: GA Disposition: Standard PACU
[2021-04-08] VITALS (9 sets, daily range): BP systolic 92–134; BP diastolic 55–88; PULSE 99–110; RESP 16–22; TEMP 36.6–36.8; O2SAT 93–100
--- NOTE | ~2021-04-08 | XR_ITS ---
EXAMINATION: XR CHEST CLINICAL INFORMATION: Status post right upper lobe biopsy COMPARISON: Chest radiographs 03/22/2021, 01/12/2021, CT chest with contrast 03/22/2021 TECHNIQUE: Portable upright AP view of the chest was obtained. FINDINGS: Cardiopulmonary appearance is similar to prior exam. There is stable airspace opacity right upper lobe with air bronchograms and bronchiectasis. There is no pneumothorax or pneumomediastinum. Elevation right hemidiaphragm is similar to prior studies. No effusion. The vascularity is normal. The left lung is clear. The hilar and mediastinal contours and bony structures are similar to prior exam. XR/XR chest 1V IMPRESSION: Cardiopulmonary appearance stable from prior study. No pneumothorax, pneumomediastinum, or effusion.
[2021-04-08 10:42] LABS: Glucose, Whole Blood 144 mg/dL (60-115)
[2021-04-08] MEDS: Lactated Ringers 1,000 ML 100 ML IVCONT (10:45)
--- NOTE | 2021-04-08 12:05 | P.HPSUR_ITS ---
Pre-Procedural Eval Section A Date of Service: 04/08/21 The patient is an INPATIENT: No Changes since office visit: Yes Cold of Flu in the past 2 weeks The History & Physical has been completed within 30 days and I have reviewed it.: No Section B Chief Complaint: malignant neoplasm of upper lobe Details of Present Illness: The patient has a history of lung cancer now with a new mediastinal mass Relevant Family History (Specify if Yes): No Relevant Social History: None Present Medications: see Short Stay Collaborative assessment Medical History: Significant History Allergies: Allergies Allergy/AdvReac Type Severity Reaction Status Date / Time No Known Allergies Allergy Verified 03/31/21 10:28 Review of Systems Sugical H&P ROS: Negative: Neurological, Psychiatric, Hem-Onc, Allerg ic/Immunologic, Gastrointestinal, Genitourinary, Musculoskeletal, Integumentary, Endocrine and Eyes/Ears/Nose/Throat and Yes, Specify: Constitution, Cardiovascular and Respiratory Exam Surgical H&P Exam: Normal: HEENT, Normal: Heart, Normal: Lungs, Normal: Extremities, Normal: Abdomen, Normal: Skin and Normal: Neurological Plan Diagnosis/Plan: Change (mediastianal mass will plan to perform endobronchial us bronchoscopy) I have reviewed the history and physical and performed a pertinent physical examination on my patient. No changes have occurred unless specified.
--- NOTE | 2021-04-08 13:48 | PM.OP ---
Brief Operative Note Date of Service: 04/08/21 Pre-op diagnosis: lung cancer, lung mass Post-op diagnosis: same Procedure: EBUS TBNA 4R, bronchoscopy with RUL transbronchial bx and brushings Surgeon: Rainer Ibarra MD Anesthesia: GLMA Was an Director Process Improvement used for this Procedure?: No Estimated blood loss (mL): 0 Pathology: other (4R TBNA, RUL TBBx) Condition: stable Disposition: same day
[2021-04-08] MEDS: Albuterol Sulfate (0.083%) 2.5 MG/3 ML VIAL.NEB INHALE (14:07)
--- NOTE | 2021-04-09 20:31 | OP_ITS ---
SURGEON: Rainer Ibarra MD PREOPERATIVE DIAGNOSIS: POSTOPERATIVE DIAGNOSIS: PROCEDURE PERFORMED: Endobronchial ultrasound bronchoscopy with transbronchial needle aspiration of 4R in addition to bronchoscopy with right upper lobe transbronchial biopsies and brushings. ESTIMATED BLOOD LOSS: COMPLICATIONS: ANESTHESIA: LMA. ASSISTANTS: None. SPECIMENS: ASA CLASSIFICATION: 3. PREOPERATIVE DIAGNOSES: Lung cancer and lung mass. POSTOPERATIVE DIAGNOSES: Lung cancer and lung mass. DESCRIPTION OF PROCEDURE: After the patient was adequately sedated, the flexible digital bronchoscope with endobronchial ultrasound bronchoscopy (EBUS) was introduced via the LMA to the level of the vocal cords. The vocal cords moved symmetrically to the midline. After instilling additional lidocaine, the bronchoscope was then navigated, past the vocal cords to the level of the trachea. Using the ultrasound guidance, there was no significant lymphadenopathy noted in station 11R. No significant lymphadenopathy in station 10R. However, the patient did have a lymph node measuring a little more than 2 cm in station 4R. Using the ultrasound guidance in real-time, transbronchial needle aspirations were collected at 4R station. The specimens were provided to the onsite high voltage electrician. Subsequently after that, the EBUS was removed and replaced with regular bronchoscopy. The digital bronchoscope was introduced again through the LMA to the level of the vocal cords. Subsequently, examining the airways up to the subsegmental level, no evidence of any endobronchial lesions or masses. The patient did have some edematous looking airways in the right upper lobe with narrowing of the openings, but no obvious malignancy noted. No significant secretions or mucus noted. The bronchoscope again navigated to the right upper lobe, where a cytologic brush was introduced into the both the apical and the anterior segment of the right upper lobe and sent to cytology. Next, using forceps, transbronchial biopsies were collected from the right upper lobe. Minimal bleeding noted. The specimens were placed in formalin and sent to pathology. The patient did have a chest x-ray postop demonstrating no pneumothorax. The bronchoscope was then removed. The total endoscopic time approximately 45 minutes. The patient tolerated the procedure well. Vital signs were stable. The patient was discharged home afterwards. INTERPRETATION: 1. Successful endobronchial ultrasound bronchoscopy with transbronchial needle aspiration as station 4R. 2. Bronchoscopy with right upper lobe transbronchial biopsies and also washings from the right upper lobe. Rainer Ibarra MD MR/MODL / [id number]
== END 2021-04-08 15:20 | disposition home or self-care (01) ==
PROVIDERS: PCP Physician Assistant; Visit Provider Hospitalist
PROC: (CPT 31652; principal; 2021-04-08 12:00)
DX: C34.11 Malignant neoplasm of upper lobe, right bronchus or lung (principal); R59.1 Generalized enlarged lymph nodes; J70.0 Acute pulmonary manifestations due to radiation; E11.9 Type 2 diabetes mellitus without complications; I10 Essential (primary) hypertension; Z92.21 Personal history of antineoplastic chemotherapy; Z92.3 Personal history of irradiation; Z87.891 Personal history of nicotine dependence
CPT/HCPCS: 31652; 31628; 31623; 71045; 82947; 87071; 87102; 87106; 87205; 88112; 88172; 88173; 88177; 88305; 88341; 88342; 94640; J0171; J3010

== ENCOUNTER → 2021-04-14 15:22 | Outpatient (BNVA) | payer OTHER, SELFPAY | PROVIDERS: PCP Physician Assistant; Visit Provider Internal Medicine | DX: C34.11 Malignant neoplasm of upper lobe, right bronchus or lung (principal); C77.1 Secondary and unspecified malignant neoplasm of intrathoracic lymph nodes; J70.0 Acute pulmonary manifestations due to radiation; E11.9 Type 2 diabetes mellitus without complications; R09.02 Hypoxemia; R68.84 Jaw pain; Z87.891 Personal history of nicotine dependence; Z92.21 Personal history of antineoplastic chemotherapy; Z92.3 Personal history of irradiation; Z79.52 Long term (current) use of systemic steroids; Z99.81 Dependence on supplemental oxygen; Z79.899 Other long term (current) drug therapy | CPT/HCPCS: 99212 ==

== ENCOUNTER → 2021-04-27 12:06 | Outpatient (BNVA) | payer OTHER, SELFPAY | PROVIDERS: PCP Physician Assistant; Visit Provider Dietitian, Registered | DX: E11.9 Type 2 diabetes mellitus without complications (principal); Z79.84 Long term (current) use of oral hypoglycemic drugs | CPT/HCPCS: 97802 ==

== ENCOUNTER → 2021-05-19 15:26 | Outpatient (BNVA) | payer OTHER, SELFPAY | PROVIDERS: PCP Physician Assistant; Visit Provider Internal Medicine | DX: C34.11 Malignant neoplasm of upper lobe, right bronchus or lung (principal); J70.0 Acute pulmonary manifestations due to radiation; R59.0 Localized enlarged lymph nodes; R09.02 Hypoxemia; R05 Cough | CPT/HCPCS: 99212 ==

== ENCOUNTER 2021-06-08 06:55 | Inpatient (IN) | payer OTHER, SELFPAY ==
--- NOTE | ~2021-06-08 | CT_ITS ---
EXAMINATION: CT ANGIOGRAM OF THE CHEST WITH AND WITHOUT CONTRAST (CT PULMONARY ANGIOGRAM FOR PE) CLINICAL INFORMATION: Reason for Exam dyspnea, cough tachycardia r/o PE hx of cancer COMPARISON: None TECHNIQUE: Prior to contrast administration, noncontrast localization images were obtained. Subsequently, multidetector volumetric imaging was performed from the thoracic inlet to below the diaphragms following the administration of 80 mL Omnipaque 350 intravenous contrast. No contrast reaction reported Sagittal, coronal, and MIP oblique sagittal reformatted images were obtained on the CT workstation, uploaded to PACS, and reviewed. This CT examination was performed using dose optimization techniques as appropriate, variously including the following: *Automated exposure control *Adjustment of mA and/or kV according to patient size (this includes techniques or standardized protocols for targeted exams where dose is matched to indication/reason for exam; i.e. extremities or head) *Use of iterative reconstruction technique Total exam dose-length product 583 mGy-cm FINDINGS: QUALITY OF STUDY/CONTRAST BOLUS: Satisfactory. PULMONARY ARTERIES: No central or segmental pulmonary emboli. THORACIC AORTA: No aneurysm or dissection. LUNG: The lungs are expanded. There is a dense right upper lobe consolidation with air bronchogram mild bronchiectasis. This findings are stable compared to previous study 03/22/2021. There is right upper lobe soft tissue mass mediastinum base extending into the mediastinum suspicious for a mass with adjacent lymphadenopathy. The right mediastinal mass measures 40 Hounsfield units and does not represent any fluid. Previously visualized right lower lobe mediastinal base consolidation with air bronchograms is now shifted anteriorly secondary to moderate pleural effusion. No new pulmonary nodules are consolidation seen. PLEURA: Moderate right pleural effusion seen increased since 03/22/2021. No pleural thickening or calcification seen. There is no left-sided pleural effusion. MEDIASTINUM: The heart size is normal. There is a right pretracheal paratracheal and superior mediastinal soft tissue mass/lymphadenopathy. No evidence of septal bowing or right heart strain. CHEST WALL/AXILLA: No axillary or internal mammary lymphadenopathy. OSSEOUS STRUCTURES: No acute or suspicious osseous abnormality. UPPER ABDOMEN: Visualized liver, spleen, pancreas and bilateral adrenal glands unremarkable. No reflux of contrast into the hepatic veins to suggest elevated right heart pressures. CT/CT angio chest PE protocol IMPRESSION: No evidence of PE. No evidence aortic dissection. Right upper lobe consolidation/mass with extension the right mediastinum and the pretracheal and paratracheal space suggestive of worsening of mass or underlying inflammatory changes since the last exam. There is now new moderate pleural effusion. There are findings suggestive of worsening of lung cancer or recurrence of lung cancer. Correlate with clinical history. Right upper lobe airspace disease, consolidation and bronchiectasis appears stable. The right lower lobe superior segment mediastinum base consolidation/atelectasis is now pushed anteriorly secondary to pleural effusion. VTE: Negative
--- NOTE | 2021-06-08 07:23 | ED_ITS ---
HPI - URI/Sore Throat General Chief Complaint: General Medical Stated Complaint: loss of taste, body ache, cough Time Seen by Provider: 06/08/21 07:23 Source: patient Mode of arrival: ambulatory Limitations: no limitations History of Present Illness MD elicited complaint: cough and other (dyspnea loss of taste) Pertinent past history: other (squamous cell carcinoma - chemo 1 month ago) Onset (ago): week(s) (2) Consistency: constant Severity: moderate Description of mucous: clear Able to tolerate fluids by mouth: Yes Exacerbating factors: other (coughing) Relieving factors: nothing Associated symptoms: cough and shortness of breath Treatments prior to arrival: none Related Data Home Medications Medication Instructions Recorded Confirmed blood sugar diagnostic #10 ea 06/23/20 05/14/21 azithromycin 250 mg tablet 250 mg PO 3XW 05/19/21 05/25/21 prednisone 20 mg tablet 10 mg PO DAILY tab 05/19/21 05/25/21 Previous Rx's Medication Instructions Recorded triamcinolone acetonide 0.1 % 1 appl TOPICAL BID #453.6 g 02/05/21 topical cream budesonide 0.5 mg/2 mL suspension 0.5 mg INHALATION BID 30 Days #120 02/15/21 for nebulization ml losartan 100 mg tablet 100 mg PO DAILY 30 Days #30 tab 03/08/21 metformin 500 mg tablet,extended 1,000 mg PO BID 30 Days #120 tab 03/29/21 release 24 hr empagliflozin 10 mg tablet 10 mg PO QAM #30 tab 03/31/21 (Jardiance) terbinafine HCl 1 % topical cream 1 appl TOPICAL BID #15 g 03/31/21 (Athlete's Foot (terbinafine)) benzonatate 200 mg capsule 200 mg PO BID PRN 30 Days #60 cap 04/13/21 dexamethasone 2 mg tablet 2 mg PO BID #30 tab 04/30/21 ondansetron HCl 4 mg tablet 4 mg PO Q6H PRN #30 tab 04/30/21 (Zofran) oxycodone 5 mg capsule 5 mg PO BID PRN #60 cap 04/30/21 pegfilgrastim-cbqv 6 mg/0.6 mL 6 mg SUBCUT Q7D #1 ml 05/05/21 subcutaneous syringe (Udenyca) loperamide 2 mg capsule (Imodium 2 mg PO Q4H PRN #30 cap 05/14/21 A-D) fluconazole 100 mg tablet 100 mg PO DAILY #10 tab 06/03/21 (Diflucan) Allergies Allergy/AdvReac Type Severity Reaction Status Date / Time No Known Allergies Allergy Verified 05/19/21 15:38 Review of Systems Review of Systems: Constitutional : No Fever, No Chills, loss of taste ENT/Mouth : No sore throat, No Rhinorrhea, No Swallowing Difficulty Eyes: No Eye Pain, No Swelling, No Redness Cardiovascular : No Chest Pain, positive SOB, No Orthopnea, no Edema Respiratory : pos Cough, pos Sputum, No Wheezing, positive dyspnea Gastrointestinal : No Nausea, No Vomiting, No Diarrhea, No abdominal Pain, No Hematochezia, No Melena Genitourinary : No Dysuria, No Urinary Frequency, No Hematuria Musculoskeletal : No joint pain, No Myalgias Skin : No Skin Lesions, No rash Neuro : No Weakness, No Numbness, No Dizziness, No Headache Psych : No Anxiety/Panic, No Depression Heme/Lymph: No Bruising, No Lymphadenopathy Endocrine : No Polyuria, No Polydipsia All other systems reviewed and are negative [facility], [facility] Past Medical History Attestation statement: The following information was validated with the patient. 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 Father No problems noted. Mother No problems noted. Social History Social History Household Members: Significant Other Housing: House Are you a primary director of home care hospice to a significant other at home: No Do you presently have visiting nurse or other home services: No Alcohol intake: never Patient Tobacco Use Status: Former Tobacco user Tobacco use type: Cigarette Years Smoked: 38 Second Hand Smoke Exposure: No Use of substances other than those prescribed or required for medical reasons: No Advance Directives: Yes Advance Directives on File: Yes Advance Directives Date on File: 12/07/20 service: No Current occupational status: employed Physical Exam Vital Signs: Vital Signs: Last Vital Signs Temp 97.8 F 06/08/21 07:25 Pulse 104 H 06/08/21 07:59 Resp 20 06/08/21 07:25 BP 120/90 H 06/08/21 07:25 Pulse Ox 96 06/08/21 07:25 Oxygen Flow Rate 2 06/08/21 07:25 Body Mass Index 32.8 Appearance: Alert. Oriented X3. No acute distress. Eyes: Pupils equal, round and reactive to light. ENT: Pharynx normal. Neck: Normal inspection. Neck supple. CVS: tacycardic heart rate and rhythm. Pulses normal. Respiratory: No respiratory distress. Breath sounds diffuse end exp wheezes , R sided more diminished than left Abdomen: Soft and non-tender. Skin: Skin warm and dry. Normal skin color. Normal skin turgor. Extremities: No lower extremity edema. No calf ttp Neuro: Oriented X 3. No motor deficit. No sensory deficit. Course Course Course Narrative: 953AM infection suspected at this time will start on antibiotics worsening masses new effusion, tachcyardic, productive cough, dyspnea on home O2 will admit for further management MDM - URI/Sore Throat MDM Narrative Medical decision making narrative: 56 yo male with hx of DM, pneumonia, squamous cell lung cancer underoing chemo reports he was treated 1 month ago, O2 dependent comes in with c/o cough and sputum production/dsypnea and loss of taste x 2 weeks. He is vaccinated and denies sick contacts. At this time labs, CTA for PE and pneumonia ordered, EKG, neb treatment. Dispo per results and findings. Lab Data Result diagrams: 06/08/21 07:56 06/08/21 07:56 Labs: Lab Results 06/08/21 06/08/21 06/08/21 Range/Units 07:30 07:56 07:56 WBC 12.2 H (4.8-10.8) X10*3/uL RBC 3.99 L (4.60-5.80) X10*6/uL Hgb 11.6 L (14.0-18.0) g/dl Hct 36.0 L (42-52) % MCV 90.2 (80-98) fL MCH 29.1 (27.0-33.0) pg MCHC 32.2 (31.0-36.0) g/dl RDW 16.0 (11.0-16.0) % Plt Count 129 L D (160-400) X10*3/uL MPV 10.4 (9.4-12.4) fL Immature Gran % (Auto) 1.1 H (0.0-0.4) % Neut % (Auto) 82.1 H (45-73) % Lymph % (Auto) 9.7 L (20-40) % [place] % (Auto) 6.8 (2-11) % Eos % (Auto) 0.1 (0-4) % Baso % (Auto) 0.2 (0-2) % Lymph # (Auto) 1.2 (1.2-4.9) X10*3/uL [place] # (Auto) 0.8 (0.1-1.2) X10*3/uL Eos # (Auto) 0.0 (0.0-0.4) X10*3/uL Baso # (Auto) 0.0 (0.0-0.2) X10*3/uL Abs Immat Gran (auto) 0.13 H (0.00-0.03) X10*3/uL Absolute Neuts (auto) 10.1 H (2.0-8.3) X10*3/uL Absolute Nucleated RBC 0.050 H (0.0-0.012) X10*3/uL Nucleated RBC % (auto) 0.4 H (0.0-0.2) /100WBC Sodium 139 (135-145) mmol/L Potassium 3.4 (3.3-5.1) mmol/L Chloride 104 (96-108) mmol/L Carbon Dioxide 25 (22-29) mmol/L Anion Gap 13 (12-20) BUN 9 (9-16) mg/dL Creatinine 0.59 (0.5-1.4) mg/dL Estim Creat Clear Calc 150.1 Estimated GFR > 60 Random Glucose 136 H D (60-115) mg/dL Lactic Acid (0.5-2.0) mmol/L Calcium 8.8 D (8.4-10.2) mg/dL Magnesium 1.9 (1.6-2.6) mg/dL Total Bilirubin 0.6 (0.0-1.0) mg/dL Direct Bilirubin 0.3 (0.0-0.5) mg/dL AST 21 (5-37) U/L ALT 28 (0-40) U/L Alkaline Phosphatase 172 H D (39-117) U/L Troponin I High Sens (<3.5-35.0) ng/L Total Protein 6.1 L (6.5-8.0) g/dL Albumin 3.7 (3.5-5.0) g/dL COVID-19 (CINDY) Negative (Negative) COVID-19 Clin Com See Note 06/08/21 06/08/21 Range/Units 07:56 07:56 WBC (4.8-10.8) X10*3/uL RBC (4.60-5.80) X10*6/uL Hgb (14.0-18.0) g/dl Hct (42-52) % MCV (80-98) fL MCH (27.0-33.0) pg MCHC (31.0-36.0) g/dl RDW (11.0-16.0) % Plt Count (160-400) X10*3/uL MPV (9.4-12.4) fL Immature Gran % (Auto) (0.0-0.4) % Neut % (Auto) (45-73) % Lymph % (Auto) (20-40) % [place] % (Auto) (2-11) % Eos % (Auto) (0-4) % Baso % (Auto) (0-2) % Lymph # (Auto) (1.2-4.9) X10*3/uL [place] # (Auto) (0.1-1.2) X10*3/uL Eos # (Auto) (0.0-0.4) X10*3/uL Baso # (Auto) (0.0-0.2) X10*3/uL Abs Immat Gran (auto) (0.00-0.03) X10*3/uL Absolute Neuts (auto) (2.0-8.3) X10*3/uL Absolute Nucleated RBC (0.0-0.012) X10*3/uL Nucleated RBC % (auto) (0.0-0.2) /100WBC Sodium (135-145) mmol/L Potassium (3.3-5.1) mmol/L Chloride (96-108) mmol/L Carbon Dioxide (22-29) mmol/L Anion Gap (12-20) BUN (9-16) mg/dL Creatinine (0.5-1.4) mg/dL Estim Creat Clear Calc Estimated GFR Random Glucose (60-115) mg/dL Lactic Acid 1.3 (0.5-2.0) mmol/L Calcium (8.4-10.2) mg/dL Magnesium (1.6-2.6) mg/dL Total Bilirubin (0.0-1.0) mg/dL Direct Bilirubin (0.0-0.5) mg/dL AST (5-37) U/L ALT (0-40) U/L Alkaline Phosphatase (39-117) U/L Troponin I High Sens < 3.5 (<3.5-35.0) ng/L Total Protein (6.5-8.0) g/dL Albumin (3.5-5.0) g/dL COVID-19 (CINDY) (Negative) COVID-19 Clin Com ECG Data Attestation: I personally reviewed and interpreted this ECG as follows: ECG interpretation date: 06/08/21 ECG interpretation time: 08:07 Interpretation: Rate: 107 Rhythm: sinus tachycardia [place]: poly Normal P waves. Normal ASCENCION. Normal QRS complex. ST T wave : normal no BRIGETTE qTC: normal prior studies: no acute ischemia The study has been interpreted contemporaneously by me. . Discharge Plan Discharge Clinical Impression: Pleural effusion Lung cancer Qualifiers: Laterality: unspecified laterality Lung location: unspecified part of lung Qualified Code(s): C34.90 - Malignant neoplasm of unspecified part of unspecified bronchus or lung Pneumonia Qualifiers: Pneumonia type: due to unspecified organism Laterality: right Lung location: upper lobe of lung Qualified Code(s): J18.9 - Pneumonia, unspecified organism Patient Disposition: Admitted As Inpatient
[2021-06-08 07:25] VITALS: BP 120/90; PULSE 114; RESP 20; TEMP 36.6; O2SAT 96; BMI 32.8
--- NOTE | 2021-06-08 07:41 | ECG_ITS ---
Test Reason : SOB Blood Pressure : / mmHG Vent. Rate : 107 BPM Atrial Rate : 107 BPM P-R Int : 140 ms QRS Dur : 082 ms QT Int : 342 ms P-R-T Axes : 046 009 017 degrees QTc Int : 456 ms Sinus tachycardia Nonspecific T wave abnormality Inferior leads Borderline ECG When compared with ECG of 30-NOV-2020 20:05, No significant change was found Referred By: Lyubov Osborn Electronically Signed By:CHERRY HERNANDEZ MD
[2021-06-08] MEDS: Albuterol Sulfate (0.083%) 2.5 MG/3 ML VIAL.NEB INHALE (07:58)
[2021-06-08 07:59] VITALS: PULSE 104; O2SAT 97
[2021-06-08 08:01] LABS: MANUAL DIFF FLAG NO
[2021-06-08 08:01] LABS: COVID-19 Test Negative (Negative)
[2021-06-08 08:02] LABS: Basophils Percent Auto 0.2 % (0-2); Eosinophils Percent Auto 0.1 % (0-4); Hemoglobin 11.6 g/dl (14.0-18.0); Imm Gran Abs Auto 0.13 X10*3/uL (0.00-0.03); Imm Gran Pct Auto 1.1 % (0.0-0.4); Lymphocytes Absolute Auto 1.2 X10*3/uL (1.2-4.9); Lymphocytes Percent Auto 9.7 % (20-40); Mean Corpuscular HGB Conc 32.2 g/dl (31.0-36.0); Mean Corpuscular Hemoglobin 29.1 pg (27.0-33.0); Mean Corpuscular Volume 90.2 fL (80-98); Mean Platelet Volume 10.4 fL (9.4-12.4); Monocytes Absolute Auto 0.8 X10*3/uL (0.1-1.2); Monocytes Percent Auto 6.8 % (2-11); NRBC Pct Auto 0.4 /100WBC (0.0-0.2); Neutrophils Absolute Auto 10.1 X10*3/uL (2.0-8.3); Neutrophils Percent Auto 82.1 % (45-73); Platelet Count 129 X10*3/uL (160-400); Red Blood Count 3.99 X10*6/uL (4.60-5.80); White Blood Count 12.2 X10*3/uL (4.8-10.8)
[2021-06-08 08:20] LABS: Lactic Acid 1.3 mmol/L (0.5-2.0)
[2021-06-08 08:23] LABS: Troponin-I High Sensitivity < 3.5 ng/L (<3.5-35.0)
[2021-06-08 08:31] LABS: Alanine Aminotransferase 28 U/L (0-40); Albumin Level 3.7 g/dL (3.5-5.0); Alkaline Phosphatase 172 U/L (39-117); Anion Gap 13 (12-20); Aspartate Amino Transferase 21 U/L (5-37); Bilirubin Direct 0.3 mg/dL (0.0-0.5); Bilirubin Total 0.6 mg/dL (0.0-1.0); Blood Urea Nitrogen 9 mg/dL (9-16); Calcium 8.8 mg/dL (8.4-10.2); Carbon Dioxide 25 mmol/L (22-29); Chloride 104 mmol/L (96-108); Creatinine Clr Calc Pharmacy 150.1; Estimated Glomerular Filt Rate > 60; Glucose Random 136 mg/dL (60-115); Magnesium 1.9 mg/dL (1.6-2.6); Potassium 3.4 mmol/L (3.3-5.1); Sodium 139 mmol/L (135-145); Total Protein 6.1 g/dL (6.5-8.0)
[2021-06-08] MEDS: iohexoL 350 MG/ML 100 ML INFUS..BTL IV (09:02)
[2021-06-08] MEDS: cefEPime HCl 2 GM in 0.9 % Sodium Chloride 50 ML IV (10:08)
--- NOTE | 2021-06-08 11:33 | PM.IMHP ---
History of Present Illness Date of Service: 06/08/21 Chief Complaint: shortness of breath, cough This is a 56-year-old male with a past medical history of stage III squamous cell carcinoma of the lung, diabetes mellitus, chronic respiratory failure with hypoxia, radiation pneumonitis who presents to the hospital with complaints of progressive shortness of breath with associated productive cough (yellow sputum) and generalize weakness for about 2 weeks duration. Patient endorses chills but denies any fevers. He denies any sick contacts at home. He reports that his SOB was primarily with exertion when his symptoms started but for the last several days, he reports significant RODRIGUEZ even with minimal exertion. He reports that he has a diagnosis of lung cancer. He reports that he has undergone radiation (which resulted in radiation pneumonitis, for which he is on prednisone). He reports that he is now on a new chemo regime which he gets about once monthly, next one due several weeks from now. In the ED, his work up which included a CTA of the chest showed worsening of his known cancer. There were also air space disease, consolidation, bronchiatasis. Based upon his clinical presentation, a diagnosis of pneumonia was made and he will be admitted for further treatment. Review of Systems Review of Systems: General - +chills, no fevers, +ganeralized malaise HEENT -denies blurred vision, denies headache, denies sore throat Cardiovascular - denies chest pain or palpitations, denies edema Respiratory - +sob, +cough, + pleuritic cp with coughing Gastrointestinal - denies abdominal pain, nausea, vomiting, diarrhea - denies flank pain, denies dysuria, denies frequency or urgency Musculoskeletal - denies back pain, denies hip pain, denies knee pain, denies shoulder pain Neurological - denies any focal weakness or numbness Skin, denies any bruising or redness Psychiatric - denies any suicidal ideation, hallucinations, homicidal ideation Endocrinology - denies intolerance to hot / cold temperatures [facility] Medical History DMII (diabetes mellitus, type 2) Exercise hypoxemia Hypertension Hypoxia Kidney stones Personal history of nicotine dependence Pneumonitis Radiation pneumonitis Sciatica Squamous cell carcinoma of bronchus in right upper lobe Squamous cell lung cancer Family History Father Heart attack Maternal Aunt Diabetes Paternal Uncle Diabetes Mother No problems noted. Father No problems noted. Mother No problems noted. Pertinent family history: . Surgical History History of arthroscopy of left knee (~1993) History of bronchoscopy (~2019) History of cholecystectomy (~1994) History of cholecystectomy Social History Household Members: Significant Other Housing: House Are you a primary inspector health care facilities to a significant other at home: No Do you presently have visiting nurse or other home services: No Alcohol intake: never Patient Tobacco Use Status: Former Tobacco user Tobacco use type: Cigarette Years Smoked: 38 Second Hand Smoke Exposure: No Use of substances other than those prescribed or required for medical reasons: No Advance Directives: Yes Advance Directives on File: Yes Advance Directives Date on File: 12/07/20 service: No Current occupational status: employed Meds Allergies Allergy/AdvReac Type Severity Reaction Status Date / Time No Known Allergies Allergy Verified 05/19/21 15:38 Active Medications: Current Medications Acetaminophen (Acetaminophen 325 Mg Tablet) 650 mg PO Q6H PRN PRN Reason: Pain, Mild (Pain Scale 1-3) Enoxaparin Sodium (Enoxaparin Sodium 40 Mg/0.4 Ml Syringe) 40 mg SUBCUT Q24H [facility] Vancomycin HCl 2,000 mg/ (Sodium Chloride) 540 mls @ 270 mls/hr IV ONCE ONE Stop: 06/08/21 12:02 Last Admin: 06/08/21 11:09 Dose: 270 mls/hr Documented by: Piperacillin Sod/Tazobactam (Sod 3.375 gm/ Sodium Chloride) 50 mls @ 100 mls/hr IV Q6H [facility] Doxycycline Hyclate 100 mg/ (Sodium Chloride) 250 mls @ 166.67 mls/hr IV BID [facility] Pharmacy Consult (Consult Rx Vancomycin Dosing) 1 each MISCELLANE DAILY PRN PRN Reason: Consult order Pharmacy Consult (Consult Rx Perform Med Rec) 1 each MISCELLANE ONCE PRN PRN Reason: Consult order Sodium Chloride (0.9 % Sodium Chloride Flush 3 Ml Syringe) 3 ml IVFLUSH QSHIFT [facility] Home Medications Medication Instructions Recorded Confirmed Last Taken Type blood sugar diagnostic #10 ea 06/23/20 05/14/21 Unknown History azithromycin 250 mg tablet 250 mg PO MOWEFR 05/19/21 06/08/21 06/07/21 History prednisone 5 mg tablet 10 cap PO DAILY 06/08/21 06/08/21 Unknown History Physical Exam Vital Signs and Narrative: Vital Signs: Last Vital Signs Temp 97.8 F 06/08/21 07:25 Pulse 104 H 06/08/21 07:59 Resp 20 06/08/21 07:25 BP 120/90 H 06/08/21 07:25 Pulse Ox 96 06/08/21 07:25 Oxygen Flow Rate 2 06/08/21 07:25 Body Mass Index 32.8 Const: Other: Constitutional - Awake and Alert, ill apearing Eyes - PERRLA, EOMI Cardiovascular - S1S2, RRR, No edema Respiratory - +resp distress with minimal exertion, comfortable at rest but does get tachypneic with conversation Gastrointestinal - NT / ND; +BS; No rebound or guarding - No CVA tenderness Extremities - no calf tenderness bilaterally, no swelling Musculoskeletal - Normal inspection, normal ROM Skin - Warm/Dry Neurological - Alert & oriented x3, No focal deficit Psychological - Appropriate affect Results Labs CBC and Chem 7: 06/08/21 07:56 06/08/21 07:56 Labs: Laboratory Results - last 24 hr 06/08/21 06/08/21 06/08/21 07:30 07:56 07:56 MCV 90.2 MCH 29.1 MCHC 32.2 RDW 16.0 Plt Count 129 L D MPV 10.4 Immature Gran % (Auto) 1.1 H Neut % (Auto) 82.1 H Lymph % (Auto) 9.[address] [place] % (Auto) 6.8 Eos % (Auto) 0.1 Baso % (Auto) 0.2 Lymph # (Auto) 1.2 [place] # (Auto) 0.8 Eos # (Auto) 0.0 Baso # (Auto) 0.0 Abs Immat Gran (auto) 0.13 H Absolute Neuts (auto) 10.1 H Absolute Nucleated RBC 0.050 H Nucleated RBC % (auto) 0.4 H Anion Gap 13 Estim Creat Clear Calc 150.1 Estimated GFR > 60 Random Glucose 136 H D Lactic Acid Calcium 8.8 D Magnesium 1.9 Total Bilirubin 0.6 Direct Bilirubin 0.3 AST 21 ALT 28 Alkaline Phosphatase 172 H D Troponin I High Sens Total Protein 6.1 L Albumin 3.7 COVID-19 (CINDY) Negative COVID-19 Clin Com See Note 06/08/21 06/08/21 07:56 07:56 MCV MCH MCHC RDW Plt Count MPV Immature Gran % (Auto) Neut % (Auto) Lymph % (Auto) [place] % (Auto) Eos % (Auto) Baso % (Auto) Lymph # (Auto) [place] # (Auto) Eos # (Auto) Baso # (Auto) Abs Immat Gran (auto) Absolute Neuts (auto) Absolute Nucleated RBC Nucleated RBC % (auto) Anion Gap Estim Creat Clear Calc Estimated GFR Random Glucose Lactic Acid 1.3 Calcium Magnesium Total Bilirubin Direct Bilirubin AST ALT Alkaline Phosphatase Troponin I High Sens < 3.5 Total Protein Albumin COVID-19 (CINDY) COVID-19 Clin Com Imaging Radiologist's Impressions: Impressions Chest CTA 06/08/21 07:41 IMPRESSION: No evidence of PE. No evidence aortic dissection. Right upper lobe consolidation/mass with extension the right mediastinum and the pretracheal and paratracheal space suggestive of worsening of mass or underlying inflammatory changes since the last exam. There is now new moderate pleural effusion. There are findings suggestive of worsening of lung cancer or recurrence of lung cancer. Correlate with clinical history. Right upper lobe airspace disease, consolidation and bronchiectasis appears stable. The right lower lobe superior segment mediastinum base consolidation/atelectasis is now pushed anteriorly secondary to pleural effusion. VTE: Negative Assessment and Plan (1) Pneumonia: Qualifiers: Laterality: right Lung location: upper lobe of lung Pneumonia type: due to unspecified organism Qualified Code(s): J18.9 - Pneumonia, unspecified organism Status: Acute This is a 56 yo M with a history of Stage 3 Sq. cell lung Ca - s/p radiation/chemo, radiation pneumonitis, DM, HTN, who presents to the hospital with complaints of progressive SOB, cough, chills and generalized malaise. His presentation is worrisome of progression of his cancer along with superimposed pneumonia. He will be admitted for further treatment. 1. Pneumonia has risk factors for resistant orgasims -- will use zosyn + doxy for now sputum if able f/u cultures pulm consult 2. Radiation pneumonitis on prednisone 10-15mg at home will give IV solu-medrol for now 3. DM hold orals use sliding scale 4. Chronic resp. failure with hypoxia continue 3L by [place] 5. HTN continue his baseline meds Full Code DVT pptx, Luciano Endorses his at [facility] Med rec. pending -- will continue base line meds as appropriate. Quality Stroke Does the patient have a stroke diagnosis?: No VTE Prior VTE?: No VTE Risk Level:: Medical - moderate - high VTE Device Contraindication: Treatment Not Indicated VTE Drug Contraindication: N/A - Med Ordered
[2021-06-08] MEDS: Enoxaparin Sodium 40 MG/0.4 ML SYRINGE SUBCUT (12:09)
--- NOTE | 2021-06-08 12:09 | PHA.MEDREC ---
Pharmacy Consult ? Medication Reconciliation Pharmacy has completed the medication reconciliation. There are no remarkable issues for provider's attention. Farnaz Abdullahi, ShreyasD
[2021-06-08] MEDS: Piperacillin Sodium/Tazobactam 3.375 GM in 0.9 % Sodium Chloride 50 ML IV ×2 (13:10→17:42)
[2021-06-08] MEDS: methylPREDNISolone Sod Succ 40 MG/ML VIAL IVPUSH ×2 (13:11→20:56)
[2021-06-08 15:10] VITALS: BP 133/81; PULSE 107; RESP 18; TEMP 36.6; O2SAT 93
[2021-06-08 15:27] LABS: Glucose, Whole Blood 188 mg/dL (60-115)
[2021-06-08] MEDS: 0.9 % Sodium Chloride Flush 3 ML SYRINGE IVFLUSH ×2 (17:41→20:57)
[2021-06-08] MEDS: Insulin Lispro 100 UNIT/ML 3 ML VIAL SUBCUT (18:54)
[2021-06-08 19:35] VITALS: BP 136/88; PULSE 111; RESP 20; TEMP 37.3; O2SAT 98
--- NOTE | 2021-06-08 20:03 | PC.NURSE ---
Pt alert and oriented x4, clam and cooperative. Pt states generalize body aches. Pt states SOB at times states it has improved since coming to ER. Pt remais on 3 liters O2 at this time O2 sat at 98%. IV intact and flushes without issues. Pt independently moving in bed. Vitals stable. Report given to DAUNE Majano. Pt resting in stretcher without issues at this time.
[2021-06-08 20:40] VITALS: BP 140/78; PULSE 89; RESP 18; TEMP 37.1; O2SAT 98
[2021-06-08 20:50] LABS: Glucose, Whole Blood 124 mg/dL (60-115)
[2021-06-08] MEDS: Doxycycline Hyclate 100 MG in 0.9 % Sodium Chloride 250 ML 166.67 MG IV (20:56)
[2021-06-08] MEDS: oxyCODONE HCl Immed Release 5 MG TABLET 10 MG PO (21:02)
[2021-06-08 22:15] VITALS: BMI 32.7
[2021-06-09] VITALS: BP 138/64; PULSE 78; RESP 18; TEMP 36.8; O2SAT 96
[2021-06-09] MEDS: Piperacillin Sodium/Tazobactam 3.375 GM in 0.9 % Sodium Chloride 50 ML IV ×4 (00:55→17:45)
[2021-06-09 06:57] LABS: Basophils Percent Auto 0.1 % (0-2); Hematocrit 35.3 % (42-52); Hemoglobin 11.4 g/dl (14.0-18.0); Imm Gran Abs Auto 0.11 X10*3/uL (0.00-0.03); Imm Gran Pct Auto 0.8 % (0.0-0.4); Lymphocytes Absolute Auto 0.7 X10*3/uL (1.2-4.9); Lymphocytes Percent Auto 5.4 % (20-40); MANUAL DIFF FLAG SCAN; Mean Corpuscular HGB Conc 32.3 g/dl (31.0-36.0); Mean Corpuscular Hemoglobin 29.2 pg (27.0-33.0); Mean Corpuscular Volume 90.3 fL (80-98); Mean Platelet Volume 10.6 fL (9.4-12.4); Monocytes Absolute Auto 0.1 X10*3/uL (0.1-1.2); Neutrophils Absolute Auto 12.5 X10*3/uL (2.0-8.3); Neutrophils Percent Auto 92.7 % (45-73); Platelet Count 149 X10*3/uL (160-400); Red Blood Count 3.91 X10*6/uL (4.60-5.80); Red Cell Distribution Width 15.9 % (11.0-16.0); SCAN SMEAR FLAG 1; White Blood Count 13.5 X10*3/uL (4.8-10.8)
[2021-06-09 07:11] VITALS: BP 131/101; PULSE 98; RESP 18; TEMP 36.7; O2SAT 94
[2021-06-09 07:21] LABS: Blood Urea Nitrogen 10 mg/dL (9-16); Calcium 8.9 mg/dL (8.4-10.2); Creatinine Clr Calc Pharmacy 154.9; Estimated Glomerular Filt Rate > 60; Glucose Random 174 mg/dL (60-115)
[2021-06-09 07:35] LABS: SLIDE REVIEW VERIFIED
[2021-06-09 07:39] LABS: Anion Gap 13 (12-20); Carbon Dioxide 26 mmol/L (22-29); Chloride 104 mmol/L (96-108); Potassium 4.5 mmol/L (3.3-5.1); Sodium 138 mmol/L (135-145)
[2021-06-09 07:43] LABS: Glucose, Whole Blood 155 mg/dL (60-115)
[2021-06-09] MEDS: Insulin Lispro 100 UNIT/ML 3 ML VIAL SUBCUT ×3 (08:13→17:44)
[2021-06-09 08:14] VITALS: BP 131/101; PULSE 98
[2021-06-09] MEDS: methylPREDNISolone Sod Succ 40 MG/ML VIAL IVPUSH ×2 (08:14→22:15)
[2021-06-09] MEDS: Losartan Potassium 50 MG TABLET 100 MG PO (08:14)
[2021-06-09] MEDS: Doxycycline Hyclate 100 MG in 0.9 % Sodium Chloride 250 ML 166.67 MG IV ×2 (08:16→22:15)
[2021-06-09] MEDS: 0.9 % Sodium Chloride Flush 3 ML SYRINGE IVFLUSH ×3 (08:17→22:16)
--- NOTE | 2021-06-09 09:30 | HO.PM.IMPN ---
Subjective Subjective Date of Service: 06/09/21 Interval History: seen and examined this AM reports coughing and wheezing reports he was able to sleep okay denies pain currently Review of Systems General - no fevers or chills Cardiovascular - no chest pain Respiratory - +cough / wheezing Abdominal- no abdominal pain, nausea, vomiting, diarrhea Physical Exam Vital Signs: Vital Signs: Last Vital Signs Temp 98.0 F 06/09/21 07:11 Pulse 98 06/09/21 08:14 Resp 18 06/09/21 07:11 BP 131/101 H 06/09/21 08:14 Pulse Ox 94 06/09/21 07:11 Oxygen Flow Rate 2 06/08/21 07:25 Body Mass Index 32.7 Const: Other: General - no acute distress, appears comfortable Cardiovascular - regular rate and rhythm, S1-S2 Lungs - scattered wheezing Abdomen - soft, nontender, no rebound or guarding Extremities - no edema bilaterally Neuro - awake and alert, no focal deficits Objective Data Active Medications Acetaminophen (Acetaminophen 325 Mg Tablet) 650 mg PO Q6H PRN PRN Reason: Pain, Mild (Pain Scale 1-3) Albuterol/Ipratropium (Albuterol/Iprat 2.5/0.5mg 3 Ml Ampul.Neb) 3 ml INHALE RQ4H PRN PRN Reason: Shortness of Breath Benzonatate (Benzonatate 100 Mg Capsule) 200 mg PO BID PRN PRN Reason: cough Enoxaparin Sodium (Enoxaparin Sodium 40 Mg/0.4 Ml Syringe) 40 mg SUBCUT Q24H [facility] Last Admin: 06/08/21 12:09 Dose: 40 mg Documented by: SHELL Piperacillin Sod/Tazobactam (Sod 3.375 gm/ Sodium Chloride) 50 mls @ 100 mls/hr IV Q6H [facility] Last Infusion: 06/09/21 08:24 Dose: 0 mls/hr Documented by: REENA Doxycycline Hyclate 100 mg/ (Sodium Chloride) 250 mls @ 166.67 mls/hr IV BID [facility] Last Admin: 06/09/21 08:16 Dose: 166.67 mls/hr Documented by: REENA Influenza Virus Vaccine (Flu Vacc [id number](6mos Up)/Pf 0.5 Ml Syringe) 0.5 ml IM .ONCE ONE Stop: 06/09/21 10:01 Insulin Human Lispro (Insulin Lispro 100 Unit/Ml 3 Ml Vial) 0 unit SUBCUT QIDACHS [facility]; Protocol Last Admin: 06/09/21 08:13 Dose: 2 unit Documented by: REENA Losartan Potassium (Losartan Potassium 50 Mg Tablet) 100 mg PO DAILY [facility]; Protocol Last Admin: 06/09/21 08:14 Dose: 100 mg Documented by: REENA Methylprednisolone Sodium Succinate (Methylprednisolone Sod Succ 40 Mg/Ml Vial) 40 mg IVPUSH BID [facility] Last Admin: 06/09/21 08:14 Dose: 40 mg Documented by: REENA Oxycodone HCl (Oxycodone Hcl Immed Release 5 Mg Tablet) 10 mg PO Q4H PRN PRN Reason: Pain, Severe (Pain Scale 7-10) Last Admin: 06/08/21 21:02 Dose: 10 mg Documented by: MAURICIO Pharmacy Consult (Consult Rx Vancomycin Dosing) 1 each MISCELLANE DAILY PRN PRN Reason: Consult order Pharmacy Consult (Consult Rx Perform Med Rec) 1 each MISCELLANE ONCE PRN PRN Reason: Consult order Sodium Chloride (0.9 % Sodium Chloride Flush 3 Ml Syringe) 3 ml IVFLUSH QSHIFT [facility] Last Admin: 06/09/21 08:17 Dose: 3 ml Documented by: REENA Labs CBC & Chem 7: 06/09/21 06:02 06/09/21 06:02 Labs: Laboratory Results - last 24 hr 06/08/21 06/08/21 06/09/21 15:20 20:45 06:02 MCV 90.3 MCH 29.2 MCHC 32.3 RDW 15.9 Plt Count 149 L MPV 10.6 Immature Gran % (Auto) 0.8 H Neut % (Auto) 92.7 H Lymph % (Auto) 5.4 L [place] % (Auto) 1.0 L Eos % (Auto) 0.0 Baso % (Auto) 0.1 Lymph # (Auto) 0.7 L [place] # (Auto) 0.1 Eos # (Auto) 0.0 Baso # (Auto) 0.0 Abs Immat Gran (auto) 0.11 H Absolute Neuts (auto) 12.5 H Absolute Nucleated RBC 0.000 Nucleated RBC % (auto) 0.0 Smear Tech's Comments VERIFIED Anion Gap Estim Creat Clear Calc Estimated GFR POC Glucose 188 H 124 H Random Glucose Calcium 06/09/21 06/09/21 06:02 07:13 MCV MCH MCHC RDW Plt Count MPV Immature Gran % (Auto) Neut % (Auto) Lymph % (Auto) [place] % (Auto) Eos % (Auto) Baso % (Auto) Lymph # (Auto) [place] # (Auto) Eos # (Auto) Baso # (Auto) Abs Immat Gran (auto) Absolute Neuts (auto) Absolute Nucleated RBC Nucleated RBC % (auto) Smear Tech's Comments Anion Gap 13 Estim Creat Clear Calc 154.9 Estimated GFR > 60 POC Glucose 155 H Random Glucose 174 H Calcium 8.9 Assessment and Plan (1) Pneumonia: Status: Acute Assessment and Plan: This is a 56 yo M with a history of Stage 3 Sq. cell lung Ca - s/p radiation/chemo, radiation pneumonitis, DM, HTN, who presents to the hospital with complaints of progressive SOB, cough, chills and generalized malaise. His presentation is worrisome of progression of his cancer along with superimposed pneumonia. He will be admitted for further treatment. 1. Pneumonia has risk factors for resistant organism zosyn +doxy - day #2 sputum if able f/u cultures pulm consult 2. Radiation pneumonitis IV solu-medrol for a day or two, then down to his baseline prednisone (10mg daily) 3. DM hold orals use sliding scale 4. Chronic resp. failure with hypoxia continue 3L by [place] 5. HTN continue his baseline meds Full Code DVT pptx, Lovenox Endorses his at [facility] Quality Stroke Does the patient have a stroke diagnosis?: No VTE Prior VTE?: No VTE Risk Level:: Medical - moderate - high VTE Device Contraindication: Treatment Not Indicated VTE Drug Contraindication: N/A - Med Ordered
--- NOTE | 2021-06-09 09:34 | P.CONPL_ITS ---
History of Present Illness History of Present Illness Consult date: 06/09/21 Chief complaint: Shortness of Breath Narrative: THIS 56 YEARS OLD GENTLEMAN, IS ADMITTED TO THE HOSPITAL WITH ABOUT 2 WEEKS HISTORY OF INCREASED COUGH AND SHORTNESS OF BREATH. HE DENIES CHEST PAIN FEVER, BUT HAD NONSPECIFIC CHILLS. ALSO DENIES ANY WHEEZING, BUT JUST GOT SHORT OF BREATH ON MINIMAL EXERTION. S THE CT SCAN OF THE CHEST SHOWS INCREASED DISEASE IN THE RIGHT SIDE OF THE MEDIASTINUM AND RIGHT UPPER LOBE. 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 HE WAS TREATED WITH A COMPLETE COURSE OF THE CHEMO RADIATION THERAPY, COMPLETED IN SEPTEMBER OF 2020. SUBSEQUENTLY HAS BEEN ADMITTED A FEW TIMES WITH A PNEUMONITIS OF THE RIGHT UPPER LOBE WHICH WAS CONSIDERED TO BE SECONDARY TO RADIATION THERAPY. HE HAS BEEN TREATED WITH STEROIDS, AND RELATIVELY LARGE DOSE OF PREDNISONE, INITIALLY 40 MG OF DAY THEN SLOWLY HAS BEEN REDUCED TO 10 MG A DAY. IN 03/29/2021, HE UNERWENT BRONCHOSCOPY BY DR. TARIQ. HAD BIOPSY OF THE CONSOLIDATIVE MASS IN RIGHT UPPER LOBE AND ALSO OF THE PRETRACHEAL LYMPH NODE. THE LYMPH NODE BIOPSY WAS POSITIVE FOR SQUAMOUS CELL CARCINOMA, INDICATING THAT HIS THE NEOPLASTIC PROCESS IS GETTING WORSE. SINCE 2020 HE HAS BEEN STARTED ON TAXOTERE, UNFORTUNATELY THE PATIENT CONTINUES TO GET WORSE SLOWLY. HE IS HAVING INCREASED SWELLING OF HIS FACE AND NECK. STILL CONTINUES TO HAVE FREQUENT COUGH FOR WHICH HE REQUIRES COUGH SUPPRESSANTS. HE CONTINUES TO REQUIRE OXYGEN 3-4 L/MINUTE, USUALLY O2 SAT GETS WORSE WHEN HE MOVES AROUND. HE HAS PUT ON LOT OF WEIGHT, I THINK SECONDARY TO STEROIDS. Review of Systems Review of Systems: Yes all other systems are reviewed and are negative Constitutional: Constitutional: Reports chills, Reports fatigue and Reports lethargy Eyes: Eyes: Reports no additional eye complaints ENT: Reports system reviewed and no additional complaints, except as documented Cardiovascular: Cardiovascular: Denies chest pain, Denies irregular heart rhythm and Denies leg edema Respiratory: Respiratory: Reports as per HPI Gastrointestinal: Gastrointestinal: Reports no additional gastrointestinal complaints Genitourinary: Genitourinary: Reports no additional male genitourinary complaints Musculoskeletal: Musculoskeletal: Reports myalgias Integumentary/Breasts: Skin/Breast: Reports system reviewed and no additional complaints, except as docu Neurologic: Reports system reviewed and no additional complaints, except as documented Endocrine: Endocrine: Reports fatigue PMFSH Past Medical History Medical History DMII (diabetes mellitus, type 2) Exercise hypoxemia Hypertension Hypoxia Kidney stones Personal history of nicotine dependence Pneumonitis Radiation pneumonitis Sciatica 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 Father No problems noted. Mother No problems noted. Surgical History Surgical History History of arthroscopy of left knee (~1993) History of bronchoscopy (~2019) History of cholecystectomy (~1994) History of cholecystectomy Social History Social History Household Members: Spouse Housing: Apartment Are you a primary health care attorney to a significant other at home: No Do you presently have visiting nurse or other home services: No Alcohol intake: never Patient Tobacco Use Status: Former Tobacco user Tobacco use type: Cigarette Years Smoked: 38 Second Hand Smoke Exposure: No Advance Directives Date on File: 12/07/20 service: No Current occupational status: employed Meds Allergies Allergy/AdvReac Type Severity Reaction Status Date / Time No Known Allergies Allergy Verified 05/19/21 15:38 Active Medications: Current Medications Acetaminophen (Acetaminophen 325 Mg Tablet) 650 mg PO Q6H PRN PRN Reason: Pain, Mild (Pain Scale 1-3) Albuterol/Ipratropium (Albuterol/Iprat 2.5/0.5mg 3 Ml Ampul.Neb) 3 ml INHALE RQ4H PRN PRN Reason: Shortness of Breath Benzonatate (Benzonatate 100 Mg Capsule) 200 mg PO BID PRN PRN Reason: cough Enoxaparin Sodium (Enoxaparin Sodium 40 Mg/0.4 Ml Syringe) 40 mg SUBCUT Q24H [facility] Last Admin: 06/08/21 12:09 Dose: 40 mg Documented by: Piperacillin Sod/Tazobactam (Sod 3.375 gm/ Sodium Chloride) 50 mls @ 100 mls/hr IV Q6H [facility] Last Infusion: 06/09/21 08:24 Dose: Infused Documented by: Doxycycline Hyclate 100 mg/ (Sodium Chloride) 250 mls @ 166.67 mls/hr IV BID [facility] Last Admin: 06/09/21 08:16 Dose: 166.67 mls/hr Documented by: Influenza Virus Vaccine (Flu Vacc Si2207-06(6mos Up)/Pf 0.5 Ml Syringe) 0.5 ml IM .ONCE ONE Stop: 06/09/21 10:01 Insulin Human Lispro (Insulin Lispro 100 Unit/Ml 3 Ml Vial) 0 unit SUBCUT QIDACHS [facility]; Protocol Last Admin: 06/09/21 08:13 Dose: 2 unit Documented by: Losartan Potassium (Losartan Potassium 50 Mg Tablet) 100 mg PO DAILY [facility]; Protocol Last Admin: 06/09/21 08:14 Dose: 100 mg Documented by: Methylprednisolone Sodium Succinate (Methylprednisolone Sod Succ 40 Mg/Ml Vial) 40 mg IVPUSH BID [facility] Last Admin: 06/09/21 08:14 Dose: 40 mg Documented by: Oxycodone HCl (Oxycodone Hcl Immed Release 5 Mg Tablet) 10 mg PO Q4H PRN PRN Reason: Pain, Severe (Pain Scale 7-10) Last Admin: 06/08/21 21:02 Dose: 10 mg Documented by: Pharmacy Consult (Consult Rx Vancomycin Dosing) 1 each MISCELLANE DAILY PRN PRN Reason: Consult order Pharmacy Consult (Consult Rx Perform Med Rec) 1 each MISCELLANE ONCE PRN PRN Reason: Consult order Sodium Chloride (0.9 % Sodium Chloride Flush 3 Ml Syringe) 3 ml IVFLUSH QSHIFT [facility] Last Admin: 06/09/21 08:17 Dose: 3 ml Documented by: Home Medications Medication Instructions Recorded Confirmed Last Taken Type blood sugar diagnostic #10 ea 06/23/20 05/14/21 Unknown History azithromycin 250 mg tablet 250 mg PO MOWEFR 05/19/21 06/08/21 06/07/21 History prednisone 5 mg tablet 10 cap PO DAILY 06/08/21 06/08/21 Unknown History Physical Exam Vital Signs: Vital Signs: Last Vital Signs Temp 98.0 F 06/09/21 07:11 Pulse 98 06/09/21 08:14 Resp 18 06/09/21 07:11 BP 131/101 H 06/09/21 08:14 Pulse Ox 94 06/09/21 07:11 Oxygen Flow Rate 2 06/08/21 07:25 Body Mass Index 32.7 Const: General: comfortable, no acute distress, alert and awake Orientation/consciousness: patient oriented x3 HENMT: Head: Yes normal to inspection General nose exam: No nasal polyps present and No nasal discharge present Face and sinus: Yes sinuses nontender Mouth: oropharynx normal Throat: Yes posterior oropharynx normal Eyes: General: appearance normal, both eyes and all related structures Neck: Neck: Yes trachea midline, Yes no JVD and Yes other (THE NECK IS QUITE OBESE, BUT THERE IS NO PALPABLE LYMPHADENOPATHY) Thyroid: Thyroid normal Chest: Chest palpation & inspection: normal inspection of the chest, normal p alpation of entire chest wall and no tenderness Resp: Other: BREATH SOUNDS ARE SLIGHTLY DECREASED OVER THE RIGHT UPPER LOBE WITH A FEW INSPIRATORY CREPITATIONS. BREATH SOUNDS ARE GENERALLY DIMINISHED TO WITH PROLONGED EXPIRATORY PHASE, NO EXPIRATORY WHEEZES. IF YOU CREPS OVER THE RIGHT LOWER LOBE ARE ALSO HEARD. Cardio: Palpation: normal PMI Rate: regular rate Rhythm: regular rhythm Heart sounds: no gallops and no murmurs GI: Palpation (GI): Soft to palpation, nontender, No hepatosplenomegaly present and no masses Auscultation: normal bowel sounds Back/Spine/Pelvis: Thoracic/Lumbar Spine: thoracic and lumbar spine normal to inspection Skin: General skin exam: no rashes or lesions noted Neuro: General: patient oriented x3 and no focal motor deficits Cranial nerves: Yes CN's II-XII intact bilaterally Extrem: General: Yes normal to inspection, Yes no clubbing, cyanosis or edema and Yes no calf tenderness Right upper extremity: No abnormal to inspection (SEEMS SLIGHTLY SWOLLEN AND PUFFY, NO PITTING EDEMA.) Psych: Appearance: grossly normal Speech and movement: Normal speech and movement present Results Laboratory Findings CBC and BMP: 06/09/21 06:02 06/09/21 06:02 Abnormal lab findings: Abnormal Labs 06/08/21 06/08/21 06/08/21 07:56 07:56 15:20 WBC 12.2 H RBC 3.99 L Hgb 11.6 L Hct 36.0 L Plt Count 129 L D Immature Gran % (Auto) 1.1 H Neut % (Auto) 82.1 H Lymph % (Auto) 9.7 L [place] % (Auto) Lymph # (Auto) Abs Immat Gran (auto) 0.13 H Absolute Neuts (auto) 10.1 H Absolute Nucleated RBC 0.050 H Nucleated RBC % (auto) 0.4 H POC Glucose 188 H Random Glucose 136 H D Alkaline Phosphatase 172 H D Total Protein 6.1 L 06/08/21 06/09/21 06/09/21 20:45 06:02 06:02 WBC 13.5 H RBC 3.91 L Hgb 11.4 L Hct 35.3 L Plt Count 149 L Immature Gran % (Auto) 0.8 H Neut % (Auto) 92.7 H Lymph % (Auto) 5.4 L [place] % (Auto) 1.0 L Lymph # (Auto) 0.7 L Abs Immat Gran (auto) 0.11 H Absolute Neuts (auto) 12.5 H Absolute Nucleated RBC Nucleated RBC % (auto) POC Glucose 124 H Random Glucose 174 H Alkaline Phosphatase Total Protein 06/09/21 07:13 WBC RBC Hgb Hct Plt Count Immature Gran % (Auto) Neut % (Auto) Lymph % (Auto) [place] % (Auto) Lymph # (Auto) Abs Immat Gran (auto) Absolute Neuts (auto) Absolute Nucleated RBC Nucleated RBC % (auto) POC Glucose 155 H Random Glucose Alkaline Phosphatase Total Protein Diagnostic Findings CT scan - chest: report reviewed and image reviewed Assessment and Plan (1) 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 UNFORTUNATELY, PROGNOSIS IS POOR, SO FOR HE IS NOT SHOWING MUCH RESPONSE TO THE NEW CHEMOTHERAPY TAXOTERE, (2) Mediastinal lymphadenopathy: Status: Acute NOTED ABOVE IN THE HISTORY HE HAS DEVELOPED THE POSITIVE LYMPH NODES IN THE RIGHT SIDE OF THE MEDIASTINUM, PATIENT MAY BE AT RISK OF DEVELOPING SPIRIVA VENA CAVAL SYNDROME, WILL NEED TO BE WATCHED FOR THAT . (3) Hypoxia: Status: Acute HE HAS DEVELOPED THE INITIALLY EXERCISE INDUCED BUT LATER ON AT REST HYPOXEMIA, HE IS DOING WELL WITH OXYGEN 3-4 L/MINUTE, WHEN AT REST HE USES IT ONLY P.R.N. (4) Pneumonia: Qualifiers: Laterality: right Lung location: upper lobe of lung Pneumonia type: due to unspecified organism Qualified Code(s): J18.9 - Pneumonia, unspecified organism Status: Acute PATIENT HAS DEVELOPED TO RADIATION PNEUMONITIS IN THE RIGHT UPPER LOBE AND NOW INCREASED INFILTRATES IN RIGHT UPPER LOBE WELL , RIGHT LOWER LOBE WITH SMALL EFFUSION. MOST LIKELY THIS IS EXTENSION OF HIS NEOPLASTIC DISEASE. LEUKOCYTOSIS IS MOST LIKELY DUE TO USE OF STEROIDS. HE IS EMPIRICALLY STARTED ON ZOSYN AND DOXYCYCLINE. I THINK WE CAN CONTINUE THE ANTIBIOTICS FOR 1 OR 2 MORE DAYS AND THEN, MAY DISCONTINUE. Procedures Date of Service Date of Service: 06/09/21
--- NOTE | 2021-06-09 10:17 | MHC.CM.PN ---
met with pt whoi is indepedent pt had no servceis prior to admisison he does not feel he needs servceiss at thsi time ,pt lives with his s/o pt has own transportaion home
[2021-06-09 11:24] LABS: Glucose, Whole Blood 174 mg/dL (60-115)
[2021-06-09] MEDS: Enoxaparin Sodium 40 MG/0.4 ML SYRINGE SUBCUT (12:04)
[2021-06-09 14:55] VITALS: BP 115/71; PULSE 114; RESP 18; TEMP 36.6; O2SAT 95
[2021-06-09 16:29] LABS: Glucose, Whole Blood 173 mg/dL (60-115)
[2021-06-09] MEDS: oxyCODONE HCl Immed Release 5 MG TABLET 10 MG PO (17:47)
[2021-06-09 20:10] VITALS: BP 126/78; PULSE 105; RESP 18; TEMP 36.6; O2SAT 96
[2021-06-09 20:12] LABS: Glucose, Whole Blood 126 mg/dL (60-115)
[2021-06-09 23:36] VITALS: BP 136/82; PULSE 89; RESP 18; TEMP 36.1; O2SAT 100
[2021-06-10] MEDS: Piperacillin Sodium/Tazobactam 3.375 GM in 0.9 % Sodium Chloride 50 ML IV ×2 (00:27→05:08)
[2021-06-10 04:18] VITALS: BP 115/67; PULSE 88; RESP 18; TEMP 36.8; O2SAT 99
[2021-06-10 07:51] LABS: Glucose, Whole Blood 200 mg/dL (60-115)
[2021-06-10 08:00] VITALS: BP 112/82; PULSE 86; RESP 18; TEMP 35.9; O2SAT 98
[2021-06-10] MEDS: 0.9 % Sodium Chloride Flush 3 ML SYRINGE IVFLUSH (08:44)
[2021-06-10] MEDS: Insulin Lispro 100 UNIT/ML 3 ML VIAL SUBCUT ×2 (08:44→12:05)
[2021-06-10 08:45] VITALS: BP 112/82; PULSE 86
[2021-06-10] MEDS: Losartan Potassium 50 MG TABLET 100 MG PO (08:45)
[2021-06-10] MEDS: methylPREDNISolone Sod Succ 40 MG/ML VIAL IVPUSH (08:46)
[2021-06-10] MEDS: Doxycycline Hyclate 100 MG in 0.9 % Sodium Chloride 250 ML 166.67 MG IV (08:46)
--- NOTE | 2021-06-10 10:48 | PM.DS ---
DS: Providers Provider Date of Service: 06/10/21 Date of admission: 06/08/21 11:21 Primary care physician: Fred Gonsales PA-C Consults: 06/08/21 11:45 Consult to Pulmonology Routine Consulting Provider: Rainer Ibarra Reason for consultation: sq. cell lung ca, now ? 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 productive cough (yellow sputum) and generalize weakness for about 2 weeks duration.? Patient endorses chills but denies any fevers. He denies any sick contacts at home. He reports that his SOB was primarily with exertion when his symptoms started but for the last several days, he reports significant RODRIGUEZ even with minimal exertion. He reports that he has a diagnosis of lung cancer. He reports that he has undergone radiation (which resulted in radiation pneumonitis, for which he is on prednisone). He reports that he is now on a new chemo regime which he gets about once monthly, next one due several weeks from now. In the ED, his work up which included a CTA of the chest showed worsening of his known cancer. There were also air space disease, consolidation, bronchiatasis. Based upon his clinical presentation, a diagnosis of pneumonia was made and he will be admitted for further treatment. Hospital Course: Patient was treated with broad-spectrum IV antibiotics and systemic steroids. Over the course of 48 hours patient has significant improvement in his respiratory status and was nearly at baseline. He was also evaluated by Pulmonary who likely felt that his symptoms were more secondary to progression of his known lung cancer. He will be discharged home on 5 more days of doxycycline and 4 more days of prednisone 40 mg after which she is supposed to taper down to 10 mg daily. He reports that he has a follow-up with his oncologist next week and he should keep that. Time Spent with Patient Time attestation: Total time spent providing and/or coordinating discharge services: Discharge coordination time: Greater than 30 minutes Quality: Stroke Does the patient have a stroke diagnosis?: No Physical Exam Vital Signs: Vital Signs: Last Vital Signs Temp 96.7 F L 06/10/21 08:00 Pulse 86 06/10/21 08:45 Resp 18 06/10/21 08:00 BP 112/82 06/10/21 08:45 Pulse Ox 98 06/10/21 08:00 Oxygen Flow Rate 2 06/08/21 07:25 Body Mass Index 32.7 Const: Other: General - no acute distress, appears comfortable Cardiovascular - regular rate and rhythm, S1-S2 Lungs - normal respiratory effort, clear to auscultation bilaterally, no wheezing Abdomen - soft, nontender, no rebound or guarding Extremities - no edema bilaterally Neuro - awake and alert, no focal deficits DS: Data Data Completed and Pending Labs on day of discharge: Laboratory Results - last 24 hr 06/09/21 06/09/21 06/09/21 11:16 16:20 20:09 POC Glucose 174 H 173 H 126 H 06/10/21 07:40 POC Glucose 200 H Preliminary micro results at discharge 06/08/21 08:11 Blood Culture - Preliminary Blood - Venous No growth after 48 hours. 06/08/21 07:56 Blood Culture - Preliminary Blood - Venous No growth after 48 hours. Discharge Plan Discharge Patient Disposition: Home, Self-Care Discharge Diagnosis: Lung cancer, possible pneumonia Referrals: Fred Gonsales PA-C [Primary Care Provider] - 1 Week Discharge Medications: New doxycycline hyclate 100 mg tablet 100 mg PO BID Qty: 10 RF: 0 prednisone 20 mg tablet 40 mg PO DAILY Qty: 8 RF: 0 Continued metformin 500 mg tablet extended release 24 hr 1,000 mg PO BID 30 Days Qty: 120 RF: 3 benzonatate 200 mg capsule 200 mg PO BID PRN (Reason: cough) 30 Days Qty: 60 RF: 3 oxycodone 5 mg Capsule 5 mg PO BID PRN (Reason: Pain) Qty: 60 RF: 0 loperamide [Imodium A-D] 2 mg Capsule 2 mg PO Q4H PRN (Reason: Diarrhea) Qty: 30 RF: 0 prednisone 5 mg tablet 10 cap PO DAILY RF: 0 (DME) blood sugar diagnostic Strip See Rx Instructions strip .ROUTE .MEDSUPPLY Qty: 10 RF: 0 triamcinolone acetonide 0.1 % cream 1 appl topical BID Qty: 453.6 RF: 0 losartan 100 mg tablet 100 mg PO DAILY 30 Days Qty: 30 RF: 3 Jardiance 10 mg tablet 10 mg PO QAM Qty: 30 RF: 6 budesonide 0.5 mg/2 mL suspension for nebulization 0.5 mg inhalation BID 30 Days Qty: 120 RF: 11 azithromycin 250 mg tablet 250 mg PO MOWEFR RF: 0 Discharge Orders: Discharge Order (Routine); Ordered 06/10/21 Ordered By: David Salinas Diet: advance to usual diet Activity on Discharge: As tolerated Stand Alone Forms: Patient Portal Discharge page Care Plan Goals: Follow up with oncologist. Health Concerns: Lung cancer, Possible pneumonia Plan of Treatment: Take 40mg prednisone daily for 4 more days, then go back to your usual dosing Finish 5 more days of doxycycline. Follow up with Dr. Jack Assessment: 56 yo with a history of Sq. Cell lung ca. Admitted for possible super imposed pneumonia. Will be d/c on a short course of antibiotics.
[2021-06-10 10:59] LABS: Glucose, Whole Blood 176 mg/dL (60-115)
--- NOTE | 2021-06-10 11:06 | MHC.CM.PN ---
PT CLEARED TO DC HOME TODAY WITH NO SERVICES. PT TO SELF ARRANGE TRANSPORTATION
[2021-06-10 12:11] VITALS: BP 125/83; PULSE 93; RESP 18; TEMP 36.7; O2SAT 99
== END 2021-06-10 12:50 | disposition home or self-care (01) | DRG 139 ==
LOC: HO.ED 09:59 → HO.EDOVER 11:39 → HO.IMC 18:52
PROVIDERS: Nurse Practitioner Acute Care; Admitting Provider Family Medicine; Emergency Provider Emergency Medicine; PCP Physician Assistant; Visit Provider Physician Assistant Medical
DX: J18.9 Pneumonia, unspecified organism (principal); J96.11 Chronic respiratory failure with hypoxia; C77.1 Secondary and unspecified malignant neoplasm of intrathoracic lymph nodes; I10 Essential (primary) hypertension; C34.11 Malignant neoplasm of upper lobe, right bronchus or lung; Z20.822 Contact with and (suspected) exposure to COVID-19; Z23 Encounter for immunization; Z79.84 Long term (current) use of oral hypoglycemic drugs; Z87.891 Personal history of nicotine dependence; Z79.899 Other long term (current) drug therapy
CPT/HCPCS: 36415; 71275; 80048; 80076; 82947; 83605; 83735; 84484; 85025; 87040; 87635; 90686; 93005; 99219; 99285; J0692; J1650; J2543; J2920; J3370; Q9967

== ENCOUNTER → 2021-06-16 12:17 | Day surgery (SDC) | payer OTHER, SELFPAY | PROVIDERS: PCP Physician Assistant; Visit Provider Radiology Diagnostic Radiology | DX: C34.11 Malignant neoplasm of upper lobe, right bronchus or lung (principal); Z53.9 Procedure and treatment not carried out, unspecified reason ==

== ENCOUNTER → 2021-06-23 12:41 | Outpatient (BNVA) | payer OTHER, SELFPAY | PROVIDERS: PCP Physician Assistant; Visit Provider Dietitian, Registered | DX: E11.9 Type 2 diabetes mellitus without complications (principal) | CPT/HCPCS: 97803 ==

== ENCOUNTER 2021-06-24 09:40 | Day surgery (SDC) | payer OTHER, SELFPAY ==
[2021-06-24 10:17] LABS: Hematocrit 35.9 % (42-52); Hemoglobin 11.5 g/dl (14.0-18.0); Mean Corpuscular Hemoglobin 29.2 pg (27.0-33.0); Mean Corpuscular Volume 91.1 fL (80-98); Mean Platelet Volume 10.8 fL (9.4-12.4); NRBC Pct Auto 0.8 /100WBC (0.0-0.2); Platelet Count 154 X10*3/uL (160-400); Red Blood Count 3.94 X10*6/uL (4.60-5.80); White Blood Count 26.1 X10*3/uL (4.8-10.8)
[2021-06-24 10:24] LABS: INTERNATIONAL NORM RATIO 1.2 (0.9-1.1); Prothrombin Time 13.3 SEC (9.9-13.0)
[2021-06-24 10:27] LABS: Partial Thromboplastin Time 32.5 SEC (24.1-38.0)
[2021-06-24 10:41] LABS: Glucose, Whole Blood 130 mg/dL (60-115)
[2021-06-24 10:42] LABS: Band Neutrophils Percent 24 % (3-5); Basophils Abs Manual 0.3 X10*3/uL (0.0-0.3); Basophils Percent Manual 1 % (0-1); Lymphocytes Percent Manual 4 % (20-40); Metamyelocytes Absolute 0.8 X10*3/uL; Metamyelocytes Percent 3 %; Monocytes Percent Manual 4 % (2-11); Neutrophils Percent Manual 64 % (45-73); Nucleated Red Blood Cells 1 /100WBC (0-0)
[2021-06-24 10:46] LABS: RBC Morphology NOTED
[2021-06-24 10:47] LABS: Hypochromasia 1+ (5-14) /OIF; Ovalocytes 1+ (5-14) /OIF; Polychromasia 1+ (0-2) /OIF; Stomatocytes 1+ (5-14) /OIF
[2021-06-24 10:48] LABS: Macrocytosis 1+ (5-14) /OIF; Microcytosis 1+ (5-14) /OIF; Platelet Estimate SLIGHTLY DECREASED (NORMAL); Platelet Morphology Comment NORM
[2021-06-24 11:34] VITALS: BMI 32.2
--- NOTE | 2021-06-24 11:35 | PC.NURSE ---
md andrade aware of patients heart rate.
--- NOTE | 2021-06-24 12:24 | HO.RADPN ---
RADIOLOGY Narrative Narrative: Port was not placed today. He had neck swelling and collateral vessels evident suggesting possible SVC syndrome. CTA performed 06/08/21 was then reviewed which demonstrated right innominate vein occlusion and severe narrowing of left innominate vein with filling defect consistent with thrombus, The distal left innominate appears to end centrally in a small collateral vessel. 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
== END 2021-06-24 12:37 | disposition home or self-care (01) ==
PROVIDERS: Radiology Diagnostic Radiology; PCP Physician Assistant; Visit Provider Internal Medicine
DX: C34.11 Malignant neoplasm of upper lobe, right bronchus or lung (principal); Z53.09 Procedure and treatment not carried out because of other contraindication; R22.1 Localized swelling, mass and lump, neck; J70.0 Acute pulmonary manifestations due to radiation; Y84.2 Radiological procedure and radiotherapy as the cause of abnormal reaction of the patient, or of later complication, without mention of misadventure at the time of the procedure; E11.9 Type 2 diabetes mellitus without complications; I10 Essential (primary) hypertension; Z87.891 Personal history of nicotine dependence; Z79.4 Long term (current) use of insulin; Z79.899 Other long term (current) drug therapy; Z79.52 Long term (current) use of systemic steroids
CPT/HCPCS: 36415; 82947; 85007; 85027; 85610; 85730; C1769; C1788; J0690

== ENCOUNTER 2021-06-28 14:37 | Inpatient (IN) | payer OTHER, SELFPAY ==
--- NOTE | ~2021-06-28 | CT_ITS ---
EXAMINATION: CT ANGIOGRAM OF THE CHEST WITH AND WITHOUT CONTRAST (CT PULMONARY ANGIOGRAM FOR PE) CLINICAL INFORMATION: Shortness of breath. Evaluate for pulmonary emboli. COMPARISON: CT of the chest dated from 06/08/2021 and 03/22/2021. TECHNIQUE: Prior to contrast administration, noncontrast localization images were obtained. Subsequently, multidetector volumetric imaging was performed from the thoracic inlet to below the diaphragms following the administration of 65 mL Omnipaque 350 intravenous contrast. No contrast reaction reported Sagittal, coronal, and MIP oblique sagittal reformatted images were obtained on the CT workstation, uploaded to PACS, and reviewed. This CT examination was performed using dose optimization techniques as appropriate, variously including the following: *Automated exposure control *Adjustment of mA and/or kV according to patient size (this includes techniques or standardized protocols for targeted exams where dose is matched to indication/reason for exam; i.e. extremities or head) *Use of iterative reconstruction technique Total exam dose-length product 188 mGy-cm FINDINGS: QUALITY OF STUDY/CONTRAST BOLUS: Suboptimal. PULMONARY ARTERIES: Evaluation of segmental and subsegmental branches is nondiagnostic due to motion, streak artifacts, overlying airspace opacities and suboptimal timing of the intravenous contrast. No definite central pulmonary emboli. THORACIC AORTA: Atherosclerotic disease. No aneurysm or dissection. LUNG: There is redemonstration of an ill-defined soft tissue mass centered in the medial aspect of the right apex, invading into the mediastinum and encasing and significantly narrowing the superior vena cava. Venous collaterals are noted throughout the mediastinum and chest wall. This soft tissue mass is overall unchanged since May but significantly increased in size since February. There is unchanged associated atelectasis/consolidation of the right upper lobe and a similar moderate size right pleural effusion with loculated components in the right upper lobe. A peripheral rounded low-attenuation area in the right upper lobe continues to increase in size now measuring up to 4.4 cm on image 5 of series 8 from 3.8 cm on the most recent prior and 3.2 cm on 03/22/2021. There is stable compression atelectasis/consolidation in the right lung base. There is a small left pleural effusion which is increased since prior. A calcified granuloma is identified in the left upper lobe on image 47 of series 15. There are subsegmental atelectasis in the left lung base. PLEURA: As above, moderate size right pleural effusion with loculated pockets of fluid in the right upper lobe. Small left pleural effusion, increased since prior. No pneumothorax. MEDIASTINUM: Cardiomegaly with small amount of pericardial fluid, similar to prior. No evidence of septal bowing or right heart strain. As above, there is a right upper lobe soft tissue mass with mediastinal extension. No other mediastinal or hilar lymphadenopathy or masses. CHEST WALL/AXILLA: Venous collaterals. No axillary lymphadenopathy. OSSEOUS STRUCTURES: There is increased sclerosis within the left posterior aspect of the T9 vertebral body on image 32 of series 8. No acute osseous fractures. UPPER ABDOMEN: Unremarkable. No reflux of contrast into the hepatic veins to suggest elevated right heart pressures. CT/CT angio chest PE protocol IMPRESSION: As above, evaluation for segmental and subsegmental emboli is extremely limited and essentially nondiagnostic. No definite central pulmonary emboli. There is redemonstration of a right upper lobe mass invading into the mediastinum and causing significant superior vena cava obstruction, similar to the study from May but increase in size since February. A peripheral rounded area in the right upper lobe is also increase in size since February. These findings are worrisome for progression of malignancy. A partially loculated moderate size right pleural effusion is stable in size. Increased focal sclerotic appearance of the posterior left T9 vertebral body, which is worrisome for a metastatic osseous lesion. VTE: indeterminate
--- NOTE | ~2021-06-28 | CT_ITS ---
EXAMINATION: CT HEAD WITHOUT CONTRAST CLINICAL INFORMATION: Rule out edema COMPARISON: Previous brain MRI June 2020 TECHNIQUE: Contiguous axial imaging was performed from the skull base to vertex without intravenous administration of contrast. This CT examination was performed using dose optimization techniques as appropriate, variously including the following: *Automated exposure control *Adjustment of mA and/or kV according to patient size (this includes techniques or standardized protocols for targeted exams where dose is matched to indication/reason for exam; i.e. extremities or head) *Use of iterative reconstruction technique DLP: 877 mGy-cm FINDINGS: There is no evidence of an extra-axial collection. There is no evidence of intra-axial or extra-axial hemorrhage. The ventricles and extra-axial CSF spaces are appropriate. There is a round area of decreased attenuation seen in the periventricular white matter adjacent to the frontal horn of the right lateral ventricle for example axial image 49 series 6, sagittal reconstructed image 212 and coronal reconstructed image 122. It is uncertain whether this represents a new small infarct. Given history of lung cancer, possible metastatic disease and infection patient is immunocompromise should also be considered. This could be better characterized with MRI if clinically indicated. There is increased sclerosis of the bilateral mastoid air cells. CT/CT head/brain wo con IMPRESSION: New 1 cm low-attenuation lesion in the periventricular white matter of the right frontal lobe adjacent to the frontal horn. Differential would include a small infarct, neoplastic process and infection. This could be better characterized with MRI.
--- NOTE | 2021-06-28 15:18 | P.HPHOSP_ITS ---
History of Present Illness Date of Service: 06/28/21 Chief Complaint: tachycardia 56M sent in from outpatient oncology for tachycardia and fatigue and sob. patient has stage IIIB squamous cell lung cancer of the right upper lobe. carboplatin/taxol course was complicated by pneumonitis. now on keytruda. 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 he has been progressively fatigued, short of breath. denies fever, chills, chest pain. Review of Systems Review of Systems: Constitutional: Denies fever, denies Chills Eyes: denies blurry vision ENT: denies sore throat CVS: denies chest pain Respiratory: dyspnea GI: no abdominal pain : denies dysuria MSK: denies neck pain Skin: denies rash Neuro: denies specific motor weakness Psych: denies suicidal ideation Endocrine: denies heat/cold intolerance Hematologic: denies easy bleeding Allergy: denies hives [facility] Medical History DMII (diabetes mellitus, type 2) Exercise hypoxemia Hypertension Hypoxia Kidney stones Mediastinal lymphadenopathy Personal history of nicotine dependence Pleural effusion Pneumonia Pneumonitis Radiation pneumonitis Sciatica Squamous cell carcinoma of bronchus in right upper lobe Squamous cell lung cancer Family History Father Heart attack Maternal Aunt Diabetes Paternal Uncle Diabetes Mother No problems noted. Father No problems noted. Mother No problems noted. Pertinent family history: . Surgical History History of arthroscopy of left knee (~1993) History of bronchoscopy (~2019) History of cholecystectomy (~1994) History of cholecystectomy Social History Household Members: Spouse Housing: Apartment Are you a primary pediatric acute care unit nurse to a significant other at home: No Do you presently have visiting nurse or other home services: No Alcohol intake: never Patient Tobacco Use Status: Former Tobacco user Tobacco use type: Cigarette Years Smoked: 38 Second Hand Smoke Exposure: No Advance Directives: No Advance Directives Information Provided: No Advance Directives Date on File: 12/07/20 service: No Current occupational status: employed Meds Allergies Allergy/AdvReac Type Severity Reaction Status Date / Time No Known Allergies Allergy Verified 06/28/21 09:57 Active Medications: Current Medications Pharmacy Consult (Consult Rx Perform Med Rec) 1 each MISCELLANE ONCE PRN PRN Reason: Consult order Home Medications Medication Instructions Recorded Confirmed Last Taken Type blood sugar diagnostic #10 ea 06/23/20 06/28/21 Unknown History atorvastatin 20 mg tablet 1 tab PO BEDTIME 06/28/21 06/28/21 Unknown History azithromycin 250 mg tablet 1 tab PO 3XW 06/28/21 Unknown History empagliflozin 10 mg tablet 10 mg PO DAILY 06/28/21 06/28/21 06/28/21 History (Jardiance) ipratropium 0.5 mg-albuterol 3 mg ml INHALATION 06/28/21 Unknown History (2.5 mg base)/3 mL nebulization soln losartan 100 mg tablet 1 tab PO DAILY 06/28/21 Unknown History prednisone 20 mg tablet 5 mg PO DAILY 06/28/21 06/28/21 06/28/21 History Physical Exam Vital Signs and Narrative: General: no acute distress HEENT: atraumatic Neck: normal to visual inspection CVS: S1, S2, RRR Resp: CTA bilateral Chest: non tender GI: soft, non tender, non distended : no CVA tenderness Skin: no rashes Extremities: no edema Neuro: Oriented X3, grossly intact Psych: cooperative Assessment and Plan (1) Lung mass: Status: Acute (2) Pneumonitis: Status: Acute 56M presened with fatigue, tachycardia fatigue and tachycardia observe on tele iv fluids innominate thrombus therapeutic lovenox lung ca oncology eval DM insulin chornic hypoxic repsiraotry failure due to pneumonitis/copd, prednisone continue inhalers Quality Stroke Does the patient have a stroke diagnosis?: No VTE Prior VTE?: Yes VTE Risk Level:: Medical - moderate - high VTE Device Contraindication: Treatment Not Indicated VTE Drug Contraindication: N/A - Med Ordered
[2021-06-28 15:55] VITALS: BMI 32.7
[2021-06-28 16:00] VITALS: BP 128/70; PULSE 80; RESP 20; TEMP 36.7; O2SAT 98
[2021-06-28 16:07] LABS: Hematocrit 34.2 % (42.0-52.0); Hemoglobin 10.8 g/dl (14.0-18.0); Mean Corpuscular HGB Conc 31.6 g/dl (31.0-36.0); Mean Corpuscular Hemoglobin 29.4 pg (27.0-33.0); Mean Corpuscular Volume 93.2 fL (80.0-98.0); Mean Platelet Volume 11.2 fL (9.4-12.4); NRBC Pct Auto 0.3 /100WBC (0.0-0.2); Platelet Count 115 X10*3/uL (160-400); Red Blood Count 3.67 X10*6/uL (4.60-5.80); Red Cell Distribution Width 17.2 % (11.0-16.0); White Blood Count 13.3 X10*3/uL (4.8-10.8)
[2021-06-28 16:16] LABS: INTERNATIONAL NORM RATIO 1.2 (0.9-1.1); Prothrombin Time 13.6 SEC (9.9-13.0)
[2021-06-28 16:18] LABS: Partial Thromboplastin Time 42.2 SEC (24.1-38.0)
[2021-06-28 17:10] LABS: COVID-19 Test Negative (Negative); IDNOW Serial# 08D9AD1C
[2021-06-28 19:01] VITALS: BP 108/69; PULSE 110; RESP 20; TEMP 36.4; O2SAT 91
[2021-06-28 19:34] LABS: Glucose, Whole Blood 123 mg/dL (60-115)
[2021-06-28 20:20] LABS: Glucose, Whole Blood 123 mg/dL (60-115)
[2021-06-28] MEDS: Atorvastatin Calcium 20 MG TABLET PO (20:24)
[2021-06-28] MEDS: metFORMIN HCl ER 500 MG TAB.ER.24H 1000 MG PO (20:24)
[2021-06-28] MEDS: Triamcinolone Acet 0.1 % Cream 15 GM TUBE 1 APPL TOPICAL (20:25)
[2021-06-28 23:15] VITALS: BP 117/73; PULSE 115; RESP 21; TEMP 36.3; O2SAT 92
[2021-06-28] MEDS: Enoxaparin Sodium 100 MG/ML SYRINGE 90 MG SUBCUT (23:16)
[2021-06-29] VITALS (7 sets, daily range): BP systolic 94–113; BP diastolic 56–73; PULSE 110–120; RESP 16–18; TEMP 36.1–37.4; O2SAT 92–96
[2021-06-29 05:55] LABS: MANUAL DIFF FLAG NO
[2021-06-29 06:12] LABS: Basophils Percent Auto 0.2 % (0-2); Hematocrit 34.7 % (42.0-52.0); Hemoglobin 10.7 g/dl (14.0-18.0); Imm Gran Pct Auto 1.7 % (0.0-0.4); Lymphocytes Absolute Auto 1.2 X10*3/uL (1.2-4.9); Lymphocytes Percent Auto 9.9 % (20-40); Mean Corpuscular HGB Conc 30.8 g/dl (31.0-36.0); Mean Corpuscular Hemoglobin 28.8 pg (27.0-33.0); Mean Corpuscular Volume 93.5 fL (80.0-98.0); Mean Platelet Volume 10.4 fL (9.4-12.4); Monocytes Absolute Auto 0.8 X10*3/uL (0.1-1.2); NRBC Pct Auto 0.3 /100WBC (0.0-0.2); Neutrophils Absolute Auto 9.45 x10*3/uL (2.0-8.3); Neutrophils Percent Auto 81.2 % (45-73); Platelet Count 109 X10*3/uL (160-400); Red Blood Count 3.71 X10*6/uL (4.60-5.80); Red Cell Distribution Width 17.3 % (11.0-16.0); White Blood Count 11.6 X10*3/uL (4.8-10.8)
[2021-06-29 06:14] LABS: Anion Gap 12 (12-20); Blood Urea Nitrogen 10 mg/dL (9-16); Calcium 8.5 mg/dL (8.4-10.2); Carbon Dioxide 26 mmol/L (22-29); Chloride 106 mmol/L (96-108); Creatinine Clr Calc Pharmacy 144.7; Estimated Glomerular Filt Rate > 60; Glucose Random 133 mg/dL (60-115); Potassium 3.6 mmol/L (3.3-5.1); Sodium 140 mmol/L (135-145)
[2021-06-29 07:19] LABS: Glucose, Whole Blood 114 mg/dL (60-115)
[2021-06-29] MEDS: Losartan Potassium 50 MG TABLET 100 MG PO (09:35)
[2021-06-29] MEDS: predniSONE 5 MG TABLET PO (09:35)
[2021-06-29] MEDS: metFORMIN HCl ER 500 MG TAB.ER.24H 1000 MG PO (09:35)
[2021-06-29] MEDS: oxyCODONE HCl Immed Release 5 MG TABLET PO ×2 (09:37→21:55)
--- NOTE | 2021-06-29 09:39 | P.CNHO_ITS ---
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 Father No problems noted. Mother No problems noted. Surgical History: Surgical History (Last Reviewed 06/28/21 @ 15:22 by Cristobal Robbins MD) History of arthroscopy of left knee Onset Date: ~1993 History of bronchoscopy Onset Date: ~2019 History of cholecystectomy Onset Date: ~1994 History of cholecystectomy Social History: Social History (Last Reviewed 06/28/21 @ 15:22 by Cristobal Robbins MD) Living Situation History: Household Members: Spouse Housing: House Are you a primary day care assistant to a significant other at home: No Do you presently have visiting nurse or other home services: No Alcohol History: Alcohol intake: never Alcohol History Details: Alcohol intake frequency: does not drink Tobacco History: Patient Tobacco Use Status: Former Tobacco user Tobacco use type: Cigarette Years Smoked: 38 Second Hand Smoke Exposure: No Substance Use History: Use of substances other than those prescribed or required for medical reasons : No Currently Displaying Signs/Symptoms of Drug Intoxication Withdrawal: No Domestic Abuse History: Have you been hit, kicked, punched, or otherwise hurt by someone within the past year? If so, by whom?: No Do you feel safe in your current relationship?: Yes Is there a partner from a previous relationship who is making you feel unsafe now?: No Are you made to feel afraid or neglected: No Advance Directives: Advance Directives: No Advance Directives Information Provided: No Advance Directives Date on File: 12/07/20 Homicidal Assessment: Do you have thoughts of harming others: None Do you have a plan to hurt others: No Plan Nutrition Assessment: Recently lost weight without trying: Yes How much weight loss: 2-13 pounds Eating poorly because of decreased appetite: Yes Nutrition screen score: 4 Occupation Assessmet: service: No Current occupational status: employed Home Medications and Allergies Current Medications: Current Medications Albuterol/Ipratropium (Albuterol/Iprat 2.5/0.5mg 3 Ml Ampul.Neb) 3 ml INHALE Q6H PRN PRN Reason: Shortness Of Breath Atorvastatin Calcium (Atorvastatin Calcium 20 Mg Tablet) 20 mg PO BEDTIME [facility] Last Admin: 06/28/21 20:24 Dose: 20 mg Documented by: Azithromycin (Azithromycin 250 Mg Tablet) 250 mg PO MOWEFR@0900 [facility] Benzonatate (Benzonatate 100 Mg Capsule) 200 mg PO BID PRN PRN Reason: cough Dextrose (Dextrose 50 % 25 Gm/50 Ml Vial) 25 gm IVPUSH Q15M PRN; Protocol PRN Reason: per Hypoglycemia Standing Ord. Enoxaparin Sodium (Enoxaparin Sodium 100 Mg/Ml Syringe) 90 mg SUBCUT Q12H [facility] Last Admin: 06/28/21 23:16 Dose: 90 mg Documented by: Glucose (Glucose Gel 15 Gm Gel..Gram.) 15 gm PO Q15M PRN; Protocol PRN Reason: per Hypoglycemia Standing Ord. Insulin Human Lispro (Insulin Lispro 100 Unit/Ml 3 Ml Vial) 0 unit SUBCUT QIDACHS [facility]; Protocol Last Admin: 06/29/21 07:51 Dose: Not Given Documented by: Loperamide HCl (Loperamide Hcl 2 Mg Capsule) 2 mg PO Q4H PRN PRN Reason: Diarrhea Losartan Potassium (Losartan Potassium 50 Mg Tablet) 100 mg PO DAILY [facility]; Protocol Last Admin: 06/29/21 09:35 Dose: 100 mg Documented by: Metformin HCl (Metformin Hcl Er 500 Mg Tab.Er.24h) 1,000 mg PO BID [facility] Last Admin: 06/29/21 09:35 Dose: 1,000 mg Documented by: Non-Formulary Medication (Empagliflozin [Jardiance]) 10 mg PO DAILY [facility] Oxycodone HCl (Oxycodone Hcl Immed Release 5 Mg Tablet) 5 mg PO BID PRN PRN Reason: Pain Last Admin: 06/29/21 09:37 Dose: 5 mg Documented by: Pharmacy Consult (Consult Rx Perform Med Rec) 1 each MISCELLANE ONCE PRN PRN Reason: Consult order Prednisone (Prednisone 5 Mg Tablet) 5 mg PO DAILY [facility] Last Admin: 06/29/21 09:35 Dose: 5 mg Documented by: Triamcinolone Acetonide (Triamcinolone Acet 0.1 % Cream 15 Gm Tube) 1 appl TOPICAL BID [facility]; Protocol Last Admin: 06/28/21 20:25 Dose: 1 appl Documented by: Home Medications Medication Instructions Recorded Confirmed Type blood sugar diagnostic #10 ea 06/23/20 06/28/21 History atorvastatin 20 mg tablet 1 tab PO BEDTIME 06/28/21 06/28/21 History azithromycin 250 mg tablet 1 tab PO MOWEFR@0900 06/28/21 06/28/21 History empagliflozin 10 mg tablet 10 mg PO DAILY 06/28/21 06/28/21 History (Jardiance) ipratropium 0.5 mg-albuterol 3 mg 3 ml INHALATION Q6H PRN 06/28/21 06/28/21 History (2.5 mg base)/3 mL nebulization soln losartan 100 mg tablet 1 tab PO DAILY 06/28/21 06/28/21 History prednisone 20 mg tablet 5 mg PO DAILY 06/28/21 06/28/21 History Allergies Allergy/AdvReac Type Severity Reaction Status Date / Time No Known Allergies Allergy Verified 06/28/21 09:57 Physical Exam Vital signs: Vital Signs Temp 97 F 06/29/21 07:14 Pulse 110 H 06/29/21 07:14 Resp 18 06/29/21 07:14 BP 104/58 L 06/29/21 07:14 Pulse Ox 92 06/29/21 07:14 Intake & Output 06/28/21 06/29/21 06/29/21 18:59 06:59 18:59 Intake Total 240 / 240 Balance 240 / 240 Intake: Intake, Oral Amount 240 / 240 Other: Meal Refused No NPO No Dinner % Eaten 100% Urine Bathroom Weight 94.7 kg Weight in Grams 15074 Weight 94.7 kg Hem/Onc Consult Result - Labs CBC & Chem 7: 06/29/21 05:46 06/29/21 05:46 Labs: Short CBC 06/28/21 06/29/21 Range/Units 15:49 05:46 WBC 13.3 H 11.6 H (4.8-10.8) X10*3/uL Hgb 10.8 L 10.7 L (14.0-18.0) g/dl Hct 34.2 L 34.7 L (42.0-52.0) % Plt Count 115 L 109 L (160-400) X10*3/uL [facility] 06/29/21 05:46 Sodium 140 Potassium 3.6 Chloride 106 Carbon Dioxide 26 BUN 10 Creatinine 0.61 Calcium 8.5
--- NOTE | 2021-06-29 09:51 | HO.PM.IMPN ---
Subjective Subjective Date of Service: 06/29/21 Interval History: cc: head swelling, fatigue interval history: unchanged Cardiovascular Cardiovascular: Reports no additional cardiovascular complaints Respiratory Respiratory: Reports no additional respiratory complaints Physical Exam Vital Signs: Vital Signs: Last Vital Signs Temp 97 F 06/29/21 07:14 Pulse 110 H 06/29/21 07:14 Resp 18 06/29/21 07:14 BP 104/58 L 06/29/21 07:14 Pulse Ox 92 06/29/21 07:14 Body Mass Index 32.7 General: AO X 3, no acute distress Resp: CTA bilateral, no accessory muscles used CVS: S1,S2,RRR GI: soft, non tender, non distended Neuro: motor grossly intact, alert Psych: appropriate affect, appropriate insight Objective Data Active Medications Albuterol/Ipratropium (Albuterol/Iprat 2.5/0.5mg 3 Ml Ampul.Neb) 3 ml INHALE Q6H PRN PRN Reason: Shortness Of Breath Atorvastatin Calcium (Atorvastatin Calcium 20 Mg Tablet) 20 mg PO BEDTIME [facility] Last Admin: 06/28/21 20:24 Dose: 20 mg Documented by: PADILLA Azithromycin (Azithromycin 250 Mg Tablet) 250 mg PO MOWEFR@0900 [facility] Benzonatate (Benzonatate 100 Mg Capsule) 200 mg PO BID PRN PRN Reason: cough Dextrose (Dextrose 50 % 25 Gm/50 Ml Vial) 25 gm IVPUSH Q15M PRN; Protocol PRN Reason: per Hypoglycemia Standing Ord. Enoxaparin Sodium (Enoxaparin Sodium 100 Mg/Ml Syringe) 90 mg SUBCUT Q12H [facility] Last Admin: 06/28/21 23:16 Dose: 90 mg Documented by: ROXANA Glucose (Glucose Gel 15 Gm Gel..Gram.) 15 gm PO Q15M PRN; Protocol PRN Reason: per Hypoglycemia Standing Ord. Insulin Human Lispro (Insulin Lispro 100 Unit/Ml 3 Ml Vial) 0 unit SUBCUT QIDACHS [facility]; Protocol Last Admin: 06/29/21 07:51 Dose: Not Given Documented by: ALEXA Non-Admin Reason: No Insulin Coverage Loperamide HCl (Loperamide Hcl 2 Mg Capsule) 2 mg PO Q4H PRN PRN Reason: Diarrhea Losartan Potassium (Losartan Potassium 50 Mg Tablet) 100 mg PO DAILY [facility]; Protocol Last Admin: 06/29/21 09:35 Dose: 100 mg Documented by: ALEXA Metformin HCl (Metformin Hcl Er 500 Mg Tab.Er.24h) 1,000 mg PO BID [facility] Last Admin: 06/29/21 09:35 Dose: 1,000 mg Documented by: ALEXA Non-Formulary Medication (Empagliflozin [Jardiance]) 10 mg PO DAILY [facility] Oxycodone HCl (Oxycodone Hcl Immed Release 5 Mg Tablet) 5 mg PO BID PRN PRN Reason: Pain Last Admin: 06/29/21 09:37 Dose: 5 mg Documented by: ALEXA Pharmacy Consult (Consult Rx Perform Med Rec) 1 each MISCELLANE ONCE PRN PRN Reason: Consult order Prednisone (Prednisone 5 Mg Tablet) 5 mg PO DAILY [facility] Last Admin: 06/29/21 09:35 Dose: 5 mg Documented by: ALEXA Triamcinolone Acetonide (Triamcinolone Acet 0.1 % Cream 15 Gm Tube) 1 appl TOPICAL BID [facility]; Protocol Last Admin: 06/28/21 20:25 Dose: 1 appl Documented by: PADILLA Labs CBC & Chem 7: 06/29/21 05:46 06/29/21 05:46 Labs: Laboratory Results - last 24 hr 06/28/21 06/28/21 06/28/21 15:49 15:49 16:49 MCV 93.2 MCH 29.4 MCHC 31.6 RDW 17.2 H Plt Count 115 L MPV 11.2 Immature Gran % (Auto) Neut % (Auto) Lymph % (Auto) Irwin % (Auto) Eos % (Auto) Baso % (Auto) Lymph # (Auto) Irwin # (Auto) Eos # (Auto) Baso # (Auto) Abs Immat Gran (auto) Absolute Neuts (auto) Absolute Nucleated RBC 0.040 H Nucleated RBC % (auto) 0.3 H PT 13.6 H INR 1.2 H APTT 42.2 H D Anion Gap Estim Creat Clear Calc Estimated GFR POC Glucose Random Glucose Calcium COVID-19 (CINDY) Negative COVID-19 Clin Com See Note 06/28/21 06/28/21 06/29/21 19:26 20:16 05:46 MCV 93.5 MCH 28.8 MCHC 30.8 L RDW 17.3 H Plt Count 109 L MPV 10.4 Immature Gran % (Auto) 1.7 H Neut % (Auto) 81.2 H Lymph % (Auto) 9.9 L Irwin % (Auto) 7.0 Eos % (Auto) 0.0 Baso % (Auto) 0.2 Lymph # (Auto) 1.2 Irwin # (Auto) 0.8 Eos # (Auto) 0.0 Baso # (Auto) 0.0 Abs Immat Gran (auto) 0.20 H Absolute Neuts (auto) 9.45 H Absolute Nucleated RBC 0.040 H Nucleated RBC % (auto) 0.3 H PT INR APTT Anion Gap Estim Creat Clear Calc Estimated GFR POC Glucose 123 H 123 H Random Glucose Calcium COVID-19 (CINDY) COVID-19 Clin Com 06/29/21 06/29/21 05:46 07:14 MCV MCH MCHC RDW Plt Count MPV Immature Gran % (Auto) Neut % (Auto) Lymph % (Auto) Irwin % (Auto) Eos % (Auto) Baso % (Auto) Lymph # (Auto) Irwin # (Auto) Eos # (Auto) Baso # (Auto) Abs Immat Gran (auto) Absolute Neuts (auto) Absolute Nucleated RBC Nucleated RBC % (auto) PT INR APTT Anion Gap 12 Estim Creat Clear Calc 144.7 Estimated GFR > 60 POC Glucose 114 Random Glucose 133 H Calcium 8.5 COVID-19 (CINDY) COVID-19 Clin Com Assessment and Plan (1) DMII (diabetes mellitus, type 2): Status: Acute (2) Radiation pneumonitis: Status: Acute Assessment and Plan: ?56M presened with fatigue, tachycardia fatigue and tachycardia observe on tele iv fluids innominate thrombus, SVC syndrom therapeutic lovenox check echo lung ca on keytruda DM insulin chornic hypoxic repsiraotry failure due to pneumonitis/copd, prednisone continue inhalers Quality Stroke Does the patient have a stroke diagnosis?: No VTE Prior VTE?: Yes VTE Risk Level:: Medical - moderate - high VTE Device Contraindication: Treatment Not Indicated VTE Drug Contraindication: N/A - Med Ordered
--- NOTE | 2021-06-29 09:59 | P.CNHO_ITS ---
Subjective - Subjective Chief complaint: Left arm swelling and head swelling Patient: known to practice within the last 3 years Consult date: 06/29/21 Requesting Physician: Dr. Robbins Primary Care Provider: Unknown Physician Medical Summary: Diagnosis: Right upper lobe lung cancer, squamous cell carcinoma June 2020 CT chest with contrast on 06/20/2020 revealed heterogenous irregular 4.1 x 3.3 x 3.1 cm peripheral mass in the apical right upper lobe. Suspicious mediastinal and right hilar adenopathy. Pelvis with contrast revealed slight irregularity of liver with some nonspecific upper abdominal lymph nodes measuring up to 1.1 cm. Could be related to chronic liver disease. Brain MRI with contrast was negative for metastatic disease. Chronic microvascular ischemic changes. Underwent bronchoscopy and biopsy of 2 right paratracheal, 1 subcarinal and 1 L4 lymph node, all positive for metastatic poorly differentiated squamous cell carcinoma. PET-CT performed 07/28/2020 showed intensely FDG avid right upper lobe lung mass, SUV 16.6, multiple FDG avid right lower paratracheal, right peribronchial and small right subcentimeter supraclavicular lymph nodes, consistent with metastatic lesions. He received concurrent definitive chemo radiotherapy with weekly carboplati n/Taxol. He finished treatment in September 2020. Unfortunately he developed fairly severe pneumonitis and was hospitalized in October 2020. Unable to give further treatment with Taxol or immunotherapy. CT chest with contrast performed 03/22/2021 revealed airspace disease/consolidation in right upper lobe likely representing post radiation changes. Peripheral rounded area in right upper lobe measuring 3.4 x 3.9 cm which is increased in size from previous, mass versus necrotic airspace disease, stable mediastinal lymphadenopathy. PET-CT in January 2021 showed some persistent activity in the right upper lobe nodule and mediastinal node which is probably related to pneumonitis and post radiation pneumonitis changes. Patient underwent bronchoscopy and biopsies on 04/08/2021. Right upper lobe tra nsbronchial biopsy showed fibrosis, reactive changes and rare atypical cells. Lymph node, R4 biopsy positive for malignancy consistent with poorly differentiated squamous cell carcinomaHe received concurrent definitive chemo radiotherapy with weekly carboplatin/Taxol. He finished treatment in September 2020. Unfortunately he developed fairly severe pneumonitis and was hospitalized in October 2020. Patient underwent bronchoscopy and biopsies on 04/08/2021. Right upper lobe transbronchial biopsy showed fibrosis, reactive changes and rare atypical cells. Lymph node, R4 biopsy positive for malignancy consistent with poorly differentiated squamous cell carcinoma. He started treatment with Taxotere 75 mg/meter square in April 2021. HPI - Consult Narrative Reason for consult: Lung cancer, SVC syndrome Narrative: This is a 56-year-old male with metastatic squamous cell lung cancer who was admitted on 06/28/21 with complaints of fatigue as well as left arm swelling and facial swelling. 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 This was noted by radiologist on 06/24/2021 when patient was scheduled for MediPort placement with intervention Radiology. MediPort could not be placed because of thrombus in the innominate vein and SVC syndrome. Patient has been receiving palliative chemotherapy with Taxotere, he had received 3 cycles. He has had disease progression. He was given 1st dose of Keytruda on 06/28/2021. He was admitted for further evaluation and management of SVC syndrome. Patient reports s and slight pain in his left upper extremity. He denies headache or blurry vision. No nausea or emesis. No difficulty breathing but he has chronic shortness of breath. His cough has gotten better overall. Review of Systems - Constitutional Reports as per HPI, Reports no additional constitutional complaints - Cardiovascular Reports no additional cardiovascular complaints - Respiratory Reports no additional respiratory complaints Oncology Screenings - ECOG Performance Status ECOG Performance Status: 3 [facility] Medical History: Medical History (Last Reviewed 06/28/21 @ 15:22 by Cristobal Robbins MD) DMII (diabetes mellitus, type 2) Exercise hypoxemia Hypertension Hypoxia Kidney stones Mediastinal lymphadenopathy Personal history of nicotine dependence Pleural effusion Pneumonia Pneumonitis Radiation pneumonitis Sciatica Squamous cell carcinoma of bronchus in right upper lobe Squamous cell lung cancer Family History: Family History (Last Reviewed 06/28/21 @ 15:22 by Cristobal Robbins MD) Father Heart attack Maternal Aunt Diabetes Paternal Uncle Diabetes Mother No problems noted. Father No problems noted. Mother No problems noted. Surgical History: Surgical History (Last Reviewed 06/28/21 @ 15:22 by Cristobal Robbins MD) History of arthroscopy of left knee Onset Date: ~1993 History of bronchoscopy Onset Date: ~2019 History of cholecystectomy Onset Date: ~1994 History of cholecystectomy Social History: Social History (Last Reviewed 06/28/21 @ 15:22 by Cristobal Robbins MD) Living Situation History: Household Members: Spouse Housing: House Are you a primary hemodialysis patient care specialist to a significant other at home: No Do you presently have visiting nurse or other home services: No Alcohol History: Alcohol intake: never Alcohol History Details: Alcohol intake frequency: does not drink Tobacco History: Patient Tobacco Use Status: Former Tobacco user Tobacco use type: Cigarette Years Smoked: 38 Second Hand Smoke Exposure: No Substance Use History: Use of substances other than those prescribed or required for medical reasons : No Currently Displaying Signs/Symptoms of Drug Intoxication Withdrawal: No Domestic Abuse History: Have you been hit, kicked, punched, or otherwise hurt by someone within the past year? If so, by whom?: No Do you feel safe in your current relationship?: Yes Is there a partner from a previous relationship who is making you feel unsafe now?: No Are you made to feel afraid or neglected: No Advance Directives: Advance Directives: No Advance Directives Information Provided: No Advance Directives Date on File: 12/07/20 Homicidal Assessment: Do you have thoughts of harming others: None Do you have a plan to hurt others: No Plan Nutrition Assessment: Recently lost weight without trying: Yes How much weight loss: 2-13 pounds Eating poorly because of decreased appetite: Yes Nutrition screen score: 4 Occupation Assessmet: service: No Current occupational status: employed Home Medications and Allergies Current Medications: Current Medications Albuterol/Ipratropium (Albuterol/Iprat 2.5/0.5mg 3 Ml Ampul.Neb) 3 ml INHALE Q6H PRN PRN Reason: Shortness Of Breath Atorvastatin Calcium (Atorvastatin Calcium 20 Mg Tablet) 20 mg PO BEDTIME [facility] Last Admin: 06/28/21 20:24 Dose: 20 mg Documented by: Azithromycin (Azithromycin 250 Mg Tablet) 250 mg PO MOWEFR@0900 [facility] Benzonatate (Benzonatate 100 Mg Capsule) 200 mg PO BID PRN PRN Reason: cough Dextrose (Dextrose 50 % 25 Gm/50 Ml Vial) 25 gm IVPUSH Q15M PRN; Protocol PRN Reason: per Hypoglycemia Standing Ord. Enoxaparin Sodium (Enoxaparin Sodium 100 Mg/Ml Syringe) 90 mg SUBCUT Q12H [facility] Last Admin: 06/28/21 23:16 Dose: 90 mg Documented by: Glucose (Glucose Gel 15 Gm Gel..Gram.) 15 gm PO Q15M PRN; Protocol PRN Reason: per Hypoglycemia Standing Ord. Insulin Human Lispro (Insulin Lispro 100 Unit/Ml 3 Ml Vial) 0 unit SUBCUT QIDACHS [facility]; Protocol Last Admin: 06/29/21 07:51 Dose: Not Given Documented by: Loperamide HCl (Loperamide Hcl 2 Mg Capsule) 2 mg PO Q4H PRN PRN Reason: Diarrhea Losartan Potassium (Losartan Potassium 50 Mg Tablet) 100 mg PO DAILY [facility]; Protocol Last Admin: 06/29/21 09:35 Dose: 100 mg Documented by: Metformin HCl (Metformin Hcl Er 500 Mg Tab.Er.24h) 1,000 mg PO BID [facility] Last Admin: 06/29/21 09:35 Dose: 1,000 mg Documented by: Non-Formulary Medication (Empagliflozin [Jardiance]) 10 mg PO DAILY [facility] Oxycodone HCl (Oxycodone Hcl Immed Release 5 Mg Tablet) 5 mg PO BID PRN PRN Reason: Pain Last Admin: 06/29/21 09:37 Dose: 5 mg Documented by: Pharmacy Consult (Consult Rx Perform Med Rec) 1 each MISCELLANE ONCE PRN PRN Reason: Consult order Prednisone (Prednisone 5 Mg Tablet) 5 mg PO DAILY [facility] Last Admin: 06/29/21 09:35 Dose: 5 mg Documented by: Triamcinolone Acetonide (Triamcinolone Acet 0.1 % Cream 15 Gm Tube) 1 appl TOPICAL BID [facility]; Protocol Last Admin: 06/28/21 20:25 Dose: 1 appl Documented by: Home Medications Medication Instructions Recorded Confirmed Type blood sugar diagnostic #10 ea 06/23/20 06/28/21 History atorvastatin 20 mg tablet 1 tab PO BEDTIME 06/28/21 06/28/21 History azithromycin 250 mg tablet 1 tab PO MOWEFR@0900 06/28/21 06/28/21 History empagliflozin 10 mg tablet 10 mg PO DAILY 06/28/21 06/28/21 History (Jardiance) ipratropium 0.5 mg-albuterol 3 mg 3 ml INHALATION Q6H PRN 06/28/21 06/28/21 History (2.5 mg base)/3 mL nebulization soln losartan 100 mg tablet 1 tab PO DAILY 06/28/21 06/28/21 History prednisone 20 mg tablet 5 mg PO DAILY 06/28/21 06/28/21 History Allergies Allergy/AdvReac Type Severity Reaction Status Date / Time No Known Allergies Allergy Verified 06/28/21 09:57 Physical Exam Vital signs: Vital Signs Temp 97 F 06/29/21 07:14 Pulse 110 H 06/29/21 07:14 Resp 18 06/29/21 07:14 BP 104/58 L 06/29/21 07:14 Pulse Ox 92 06/29/21 07:14 Intake & Output 06/28/21 06/29/21 06/29/21 18:59 06:59 18:59 Intake Total 240 / 240 Balance 240 / 240 Intake: Intake, Oral Amount 240 / 240 Other: Meal Refused No NPO No Dinner % Eaten 100% Urine Bathroom Weight 94.7 kg Weight in Grams 00858 Weight 94.7 kg - Constitutional Present: mild distress, chronically ill appearing - Routine HEENT Exam Head: Present: facial swelling Eye: Present: PERRL - Routine Neck Exam Present: swelling. Absent: lymphadenopathy - Detailed Chest Wall Exam Comments: Dilated veins noted in upper chest. - Routine Respiratory Exam Present: decreased breath sounds. Absent: respiratory distress, rhonchi, stridor - Routine Cardiovascular Exam Cardiovascular: Present: S1, S2, tachycardia - Routine Abdominal Exam Present: soft - Routine Extremities Exam Comments: Left arm swelling - Routine Skin Exam Present: intact. Absent: cyanosis - Routine Neurological Exam Present: alert, oriented X3 - Routine Psychiatric Exam Present: cooperative Hem/Onc Consult Result - Labs CBC & Chem 7: 06/29/21 05:46 06/29/21 05:46 Labs: Short CBC 06/28/21 06/29/21 Range/Units 15:49 05:46 WBC 13.3 H 11.6 H (4.8-10.8) X10*3/uL Hgb 10.8 L 10.7 L (14.0-18.0) g/dl Hct 34.2 L 34.7 L (42.0-52.0) % Plt Count 115 L 109 L (160-400) X10*3/uL BMP 06/29/21 05:46 Sodium 140 Potassium 3.6 Chloride 106 Carbon Dioxide 26 BUN 10 Creatinine 0.61 Calcium 8.5 Assessment and Plan Patient Active problem list reviewed?: Yes (1) SVC (superior vena cava obstruction) Status: Acute Assessment and plan: 1. This is a 56-year-old male with metastatic squamous cell carcinoma originating in the right upper lung. He received concurrent chemo radiotherapy in early 2020. Unfortunately he developed pneumonitis and could not receive definitive/consolidative immunotherapy. He has had progressive cancer and was being treated with single agent Taxotere in the palliative setting for the last 3 months. 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 He has been started on anticoagulation with Lovenox 1 mg/kg b.i.d.. I recommend a dose of Lasix IV as he received immunotherapy yesterday. Repeat CT angiogram to assess for further interventions such as stent placement. Patient cannot receive any more radiotherapy. He is receiving systemic treatment for his lung cancer. I spoke to Dr. Martinez, she recommends reaching out to intervention radiologist at [facility] to see if stent placement is possible. I have reached out to [facility] intervention radiologist. 2. Left innominate vein thrombus. Patient has been started on Lovenox 90 mg subQ b.i.d.. Thank you for the consultation, I will follow with you. - Time Spent With Patient Time Spent with Patient (in minutes): 25
[2021-06-29] MEDS: Furosemide 20 MG/2 ML VIAL IVPUSH (10:46)
[2021-06-29] MEDS: Triamcinolone Acet 0.1 % Cream 15 GM TUBE 1 APPL TOPICAL ×2 (10:48→21:59)
[2021-06-29] MEDS: Enoxaparin Sodium 100 MG/ML SYRINGE 90 MG SUBCUT ×2 (10:48→23:15)
[2021-06-29 11:26] LABS: Glucose, Whole Blood 142 mg/dL (60-115)
[2021-06-29] MEDS: iohexoL 350 MG/ML 100 ML INFUS..BTL 65 ML IV (13:34)
--- NOTE | 2021-06-29 14:00 | CA_ITS ---
Transthoracic Echocardiogram Patient (Last, First, Middle): Garrison Vu, Gender: Male Date of : 1965 Age: 56 Procedure Date: 06/29/2021 Procedure Type: Transthoracic Echocardiogram Location: [facility] [place] Height: 170.18 cm Weight: 94.35 kg BSA: 2.06 m2 Heart Rate: bpm BP: 104 / 58 mmHg Manager Client Support: Referring MD: Cristobal Robbins MD Welding Teacher: Robert Whitfield MD Symptoms: svc syndrome Study Quality: Technically Difficult ECG Rhythm: Sinus tachycardia Conclusions: - 1. Technically difficult study despite use of contrast 2. Low normal LV ejection fraction with LVEF of 50-55% with grade 1 diastolic dysfunction 3. Limited evaluation of cardiac valves with cardiac valvular Doppler within normal limits Findings Left Ventricle Normal left ventricular cavity size. There is normal left ventricular wall thickness. The left ventricular systolic function is low normal. The visually estimated ejection fraction is between 50-55%. Spectral Doppler is indicative of an impaired relaxation filling pattern. E/E prime ratio is <8, consistent with normal filling pressures. Evidence suggests grade I (mild) diastolic dysfunction. Right Ventricle The right ventricle was not well visualized. Atria The left atrium is normal in size. Interatrial shunt cannot be excluded. The right atrium was not well visualized. Aortic Valve The aortic valve was not well visualized. There is no aortic valve stenosis. There is no aortic valve regurgitation. Mitral Valve The mitral valve was not well visualized. There is trace mitral valve regurgitation. There is no mitral valve stenosis. Pulmonic Valve The pulmonic valve was not well visualized. Tricuspid Valve The tricuspid valve was not well visualized. Great Vessels The aorta was not well visualized. The pulmonary artery was not well visualized. Venous The inferior vena cava is normal in size. Pericardium/Pleural The pericardium was not well visualized. Prior Study Comparison No prior study available for comparison. Measurements 2D Linear Measurements IVSd: 1.27 0.6-0.9/0.6-1.0 cm LVIDd: 4.03 3.9-5.3/4.2-5.9 cm LVIDd Index: 1.96 2.4-3.2/2.2-3.1 cm/m2 LVIDs: 2.92 2.0-3.6 cm LVPWd: 1.21 0.7-1.1 cm Ao Root: 3.60 2.1-3.5 cm LA Diam: 3.20 2.7-3.8/3.0-4.0 cm LAIDs Index: 1.55 1.5-2.3 cm/m2 LV Mass: 218.86 67-162/88-224 g LV Mass Index: 106.24 43-95/49-115 g/m2 LVOT Diam: 2.20 3.0+(-)1.3 cm Mitral Valve MV Pk E: 0.63 MV PK A: 0.75 MV Decel Time: 86.00 E/A: 0.80 E'Lateral: 10.80 E'Medial: 8.16 E/E' Med: 7.70 E/E' Lat: 5.80 PHT: 25.00 MVA PHT: 8.80 Decel [place]: 7.35 Aortic Valve AoV Pk Jason: 1.30 AoV Mn Jason: 0.89 AoV VTI: 0.18 AoV Pk Grad: 7.00 Aov Mn Grad: 4.00 MOLLY Cont.VTI: 3.03 LVOT LVOT Pk Jason: 0.88 LVOT Mn Jason: 0.54 LVOT VTI: 0.14 LVOT Pk Grad: 3.00 LVOT Mn Grad: 1.00 LVOT Diam: 2.20 LVOT Area: 3.80 Diastolic Function MV Pk E: 0.63 MV Pk A: 0.75 E/A: 0.80 E'Medial: 8.16 E/E' Med: 7.70 E' Laterial: 10.80 E/E' Lat: 5.80 Tricuspid Valve TR Pk Jason: 2.23 TR Pk Grad: 20.00 Great Vessels Aorta Ao Root-2D: 3.60 2.0-3.7 cm Ao Asc: 3.40 2.1-3.4 cm Pulmonary Valve PV Pk Jason: 1.03 Peak PV Grad: 4.00 Updated in Other Vendor System with Status of Final Robert Whitfield MD electronically signed on 06/29/2021 4:07:28 PM with status of Final
--- NOTE | 2021-06-29 14:59 | MHC.CM.PN ---
met with pt who lives with his pt explains he had no services prior to admisison pts will transport home home no servceis is the plan
[2021-06-29 15:57] LABS: INTERNATIONAL NORM RATIO 1.3 (0.9-1.1); Prothrombin Time 14.3 SEC (9.9-13.0)
[2021-06-29 16:33] LABS: Glucose, Whole Blood 113 mg/dL (60-115)
[2021-06-29 21:11] LABS: Glucose, Whole Blood 98 mg/dL (60-115)
[2021-06-29] MEDS: Atorvastatin Calcium 20 MG TABLET PO (21:55)
[2021-06-30] VITALS (7 sets, daily range): BP systolic 90–129; BP diastolic 55–79; PULSE 110–119; RESP 16–20; TEMP 36–37.1; O2SAT 92–97
--- NOTE | 2021-06-30 | ECG_ITS ---
Test Reason : CHEST PAIN Blood Pressure : / mmHG Vent. Rate : 112 BPM Atrial Rate : 112 BPM P-R Int : 144 ms QRS Dur : 082 ms QT Int : 320 ms P-R-T Axes : 047 020 013 degrees QTc Int : 436 ms Sinus tachycardia Nonspecific T wave abnormality Abnormal ECG When compared with ECG of 28-JUN-2021 10:34, T wave amplitude has increased in Lateral leads Referred By: Siva Machuca Electronically Signed By:CHERRY HERNANDEZ MD
[2021-06-30 07:01] LABS: Hematocrit 34.9 % (42.0-52.0); Hemoglobin 11.3 g/dl (14.0-18.0); Mean Corpuscular HGB Conc 32.4 g/dl (31.0-36.0); Mean Corpuscular Hemoglobin 29.5 pg (27.0-33.0); Mean Corpuscular Volume 91.1 fL (80.0-98.0); Mean Platelet Volume 10.4 fL (9.4-12.4); NRBC Pct Auto 0.3 /100WBC (0.0-0.2); Platelet Count 132 X10*3/uL (160-400); Red Blood Count 3.83 X10*6/uL (4.60-5.80); Red Cell Distribution Width 17.2 % (11.0-16.0); White Blood Count 10.7 X10*3/uL (4.8-10.8)
[2021-06-30 07:24] LABS: Glucose, Whole Blood 122 mg/dL (60-115)
[2021-06-30 07:26] LABS: Anion Gap 15 (12-20); Blood Urea Nitrogen 12 mg/dL (9-16); Calcium 8.6 mg/dL (8.4-10.2); Carbon Dioxide 26 mmol/L (22-29); Chloride 102 mmol/L (96-108); Creatinine Clr Calc Pharmacy 163.5; Estimated Glomerular Filt Rate > 60; Glucose Fasting 112 mg/dL (60-99); Potassium 3.6 mmol/L (3.3-5.1); Sodium 139 mmol/L (135-145)
--- NOTE | 2021-06-30 08:49 | P.PNHO_ITS ---
Medical Summary - Medical Summary Date of Service: 06/30/21 Chief complaint: Fatigue in facial swelling Medical Summary: Diagnosis: Right upper lobe lung cancer, squamous cell carcinoma June 2020 CT chest with contrast on 06/20/2020 revealed heterogenous irregular 4.1 x 3.3 x 3.1 cm peripheral mass in the apical right upper lobe. Suspicious mediastinal and right hilar adenopathy. Pelvis with contrast revealed slight irregularity of liver with some nonspecific upper abdominal lymph nodes measuring up to 1.1 cm. Could be related to chronic liver disease. Brain MRI with contrast was negative for metastatic disease. Chronic microvascular ischemic changes. Underwent bronchoscopy and biopsy of 2 right paratracheal, 1 subcarinal and 1 L4 lymph node, all positive for metastatic poorly differentiated squamous cell carcinoma. PET-CT performed 07/28/2020 showed intensely FDG avid right upper lobe lung mass, SUV 16.6, multiple FDG avid right lower paratracheal, right peribronchial and small right subcentimeter supraclavicular lymph nodes, consistent with metastatic lesions. He received concurrent definitive chemo radiotherapy with weekly carboplatin /Taxol. He finished treatment in September 2020. Unfortunately he developed fairly severe pneumonitis and was hospitalized in October 2020. Unable to give further treatment with Taxol or immunotherapy. CT chest with contrast performed 03/22/2021 revealed airspace disease/consolidation in right upper lobe likely representing post radiation changes. Peripheral rounded area in right upper lobe measuring 3.4 x 3.9 cm which is increased in size from previous, mass versus necrotic airspace disease, stable mediastinal lymphadenopathy. PET-CT in January 2021 showed some persistent activity in the right upper lobe nodule and mediastinal node which is probably related to pneumonitis and post radiation pneumonitis changes. Patient underwent bronchoscopy and biopsies on 04/08/2021. Right upper lobe bashir sbronchial biopsy showed fibrosis, reactive changes and rare atypical cells. Lymph node, R4 biopsy positive for malignancy consistent with poorly differentiated squamous cell carcinomaHe received concurrent definitive chemo radiotherapy with weekly carboplatin/Taxol. He finished treatment in September 2020. Unfortunately he developed fairly severe pneumonitis and was hospitalized in October 2020. Patient underwent bronchoscopy and biopsies on 04/08/2021. Right upper lobe transbronchial biopsy showed fibrosis, reactive changes and rare atypical cells. Lymph node, R4 biopsy positive for malignancy consistent with poorly differentiated squamous cell carcinoma. He started treatment with Taxotere 75 mg/meter square in April 2021. Interval History Interval history: Patient is feeling better today. He reports less facial swelling and left arm pain. He denies chest pain or worsening cough/shortness of breath. No fever or chills. Review of Systems - Constitutional Reports as per HPI, Reports no additional constitutional complaints [facility] Medical History: Medical History (Last Reviewed 06/28/21 @ 15:22 by Cristobal Robbins MD) DMII (diabetes mellitus, type 2) Exercise hypoxemia Hypertension Hypoxia Kidney stones Mediastinal lymphadenopathy Personal history of nicotine dependence Pleural effusion Pneumonia Pneumonitis Radiation pneumonitis Sciatica Squamous cell carcinoma of bronchus in right upper lobe Squamous cell lung cancer Family History: Family History (Last Reviewed 06/28/21 @ 15:22 by Cristobal Robbins MD) Father Heart attack Maternal Aunt Diabetes Paternal Uncle Diabetes Mother No problems noted. Father No problems noted. Mother No problems noted. Surgical History: Surgical History (Last Reviewed 06/28/21 @ 15:22 by Cristobal Robbins MD) History of arthroscopy of left knee Onset Date: ~1993 History of bronchoscopy Onset Date: ~2019 History of cholecystectomy Onset Date: ~1994 History of cholecystectomy Social History: Social History (Last Reviewed 06/28/21 @ 15:22 by Cristobal Robbins MD) Living Situation History: Household Members: Spouse Housing: House Are you a primary childcare aide to a significant other at home: No Do you presently have visiting nurse or other home services: No Alcohol History: Alcohol intake: never Alcohol History Details: Alcohol intake frequency: does not drink Tobacco History: Patient Tobacco Use Status: Former Tobacco user Tobacco use type: Cigarette Years Smoked: 38 Second Hand Smoke Exposure: No Substance Use History: Use of substances other than those prescribed or required for medical reasons : No Currently Displaying Signs/Symptoms of Drug Intoxication Withdrawal: No Domestic Abuse History: Have you been hit, kicked, punched, or otherwise hurt by someone within the past year? If so, by whom?: No Do you feel safe in your current relationship?: Yes Is there a partner from a previous relationship who is making you feel unsafe now?: No Are you made to feel afraid or neglected: No Advance Directives: Advance Directives: No Advance Directives Information Provided: No Advance Directives Date on File: 12/07/20 Homicidal Assessment: Do you have thoughts of harming others: None Do you have a plan to hurt others: No Plan Nutrition Assessment: Recently lost weight without trying: Yes How much weight loss: 2-13 pounds Eating poorly because of decreased appetite: Yes Nutrition screen score: 4 Occupation Assessmet: service: No Current occupational status: employed Home Medications and Allergies Current Medications: Current Medications Albuterol/Ipratropium (Albuterol/Iprat 2.5/0.5mg 3 Ml Ampul.Neb) 3 ml INHALE Q6H PRN PRN Reason: Shortness Of Breath Atorvastatin Calcium (Atorvastatin Calcium 20 Mg Tablet) 20 mg PO BEDTIME REPLACED BY [facility] Last Admin: 06/29/21 21:55 Dose: 20 mg Documented by: Azithromycin (Azithromycin 250 Mg Tablet) 250 mg PO MOWEFR@0900 REPLACED BY [facility] Benzonatate (Benzonatate 100 Mg Capsule) 200 mg PO BID PRN PRN Reason: cough Dextrose (Dextrose 50 % 25 Gm/50 Ml Vial) 25 gm IVPUSH Q15M PRN; Protocol PRN Reason: per Hypoglycemia Standing Ord. Enoxaparin Sodium (Enoxaparin Sodium 100 Mg/Ml Syringe) 90 mg SUBCUT Q12H REPLACED BY [facility] Last Admin: 06/29/21 23:15 Dose: 90 mg Documented by: Glucose (Glucose Gel 15 Gm Gel..Gram.) 15 gm PO Q15M PRN; Protocol PRN Reason: per Hypoglycemia Standing Ord. Insulin Human Lispro (Insulin Lispro 100 Unit/Ml 3 Ml Vial) 0 unit SUBCUT QIDACHS REPLACED BY [facility]; Protocol Last Admin: 06/29/21 21:55 Dose: Not Given Documented by: Loperamide HCl (Loperamide Hcl 2 Mg Capsule) 2 mg PO Q4H PRN PRN Reason: Diarrhea Losartan Potassium (Losartan Potassium 50 Mg Tablet) 100 mg PO DAILY REPLACED BY [facility]; Protocol Last Admin: 06/29/21 09:35 Dose: 100 mg Documented by: Metformin HCl (Metformin Hcl Er 500 Mg Tab.Er.24h) 1,000 mg PO BID REPLACED BY [facility] Non-Formulary Medication (Empagliflozin [Jardiance]) 10 mg PO DAILY REPLACED BY [facility] Oxycodone HCl (Oxycodone Hcl Immed Release 5 Mg Tablet) 5 mg PO BID PRN PRN Reason: Pain Last Admin: 06/29/21 21:55 Dose: 5 mg Documented by: Pharmacy Consult (Consult Rx Perform Med Rec) 1 each MISCELLANE ONCE PRN PRN Reason: Consult order Prednisone (Prednisone 5 Mg Tablet) 5 mg PO DAILY REPLACED BY [facility] Last Admin: 06/29/21 09:35 Dose: 5 mg Documented by: Triamcinolone Acetonide (Triamcinolone Acet 0.1 % Cream 15 Gm Tube) 1 appl TOPICAL BID REPLACED BY [facility]; Protocol Last Admin: 06/29/21 21:59 Dose: 1 appl Documented by: Home Medications Medication Instructions Recorded Confirmed Type blood sugar diagnostic #10 ea 06/23/20 06/28/21 History atorvastatin 20 mg tablet 1 tab PO BEDTIME 06/28/21 06/28/21 History azithromycin 250 mg tablet 1 tab PO MOWEFR@0900 06/28/21 06/28/21 History empagliflozin 10 mg tablet 10 mg PO DAILY 06/28/21 06/28/21 History (Jardiance) ipratropium 0.5 mg-albuterol 3 mg 3 ml INHALATION Q6H PRN 06/28/21 06/28/21 History (2.5 mg base)/3 mL nebulization soln losartan 100 mg tablet 1 tab PO DAILY 06/28/21 06/28/21 History prednisone 20 mg tablet 5 mg PO DAILY 06/28/21 06/28/21 History Allergies Allergy/AdvReac Type Severity Reaction Status Date / Time No Known Allergies Allergy Verified 06/28/21 09:57 Exam Vital signs: Vital Signs Temp 96.8 F 06/30/21 07:19 Pulse 110 H 06/30/21 07:19 Resp 19 06/30/21 07:19 BP 107/65 06/30/21 07:19 Pulse Ox 94 06/30/21 07:19 Intake & Output 06/29/21 06/30/21 06/30/21 18:59 06:59 18:59 Intake Total 740 / 740 Output Total 500 / 500 Balance 240 / 240 Urine Output (Average ml/kg/hr) 0.44 Intake: Intake, Oral Amount 740 / 740 Output: Output, Urine Amount 500 / 500 Other: NPO Yes Dinner % Eaten 100% Number of Unmeasured Voids 1 2 Urine Bathroom Urine Color Leonarda Weight 94.7 kg Body Mass Index 32.7 - Constitutional Present: mild distress, chronically ill appearing - Routine HEENT Exam Head: Present: facial swelling - Routine Respiratory Exam Present: decreased breath sounds. Absent: respiratory distress, rhonchi, stridor - Routine Cardiovascular Exam Cardiovascular: Present: S1, S2, tachycardia - Routine Abdominal Exam Present: soft - Routine Skin Exam Present: intact. Absent: cyanosis - Routine Neurological Exam Present: alert, oriented X3 Data - Labs CBC & Chem 7: 06/30/21 06:08 06/30/21 06:08 Labs: 06/28/21 14:39 Regular Diet 06/28/21 15:49 Complete Blood Count no Diff Stat Partial Thromboplastin Time Stat Prothrombin Time INR Stat 06/28/21 16:49 COVID-19 ID NOW ([facility]) Stat 06/28/21 19:26 Glucose, Whole Blood Routine 06/28/21 20:16 Glucose, Whole Blood Routine 06/28/21 21:00 budesonide 0.5 mg INHALE BID metFORMIN HCl ER [Glucophage XR] 1,000 mg PO BID 06/29/21 CT angio chest PE protocol Stat CT head/brain wo con Routine 06/29/21 05:46 Basic Metabolic Panel DAILY@0600 Complete Blood Count Auto Diff DAILY@0600 06/29/21 07:14 Glucose, Whole Blood Routine 06/29/21 10:02 Furosemide [Lasix] 20 mg IVPUSH ONCE ONE 06/29/21 11:22 Glucose, Whole Blood Routine 06/29/21 11:30 NPO Diet 06/29/21 13:25 Perflutren Lipid Microspheres [Definity] 2.2 mg IVPUSH .STK-MED ONE 06/29/21 13:34 iohexoL 350 MG/ML [Omnipaque 350 MG/ML] 65 ml IV ONCE ONE 06/29/21 14:00 CA echo transthorac w con Routine 06/29/21 15:40 Regular Diet 06/29/21 15:42 Prothrombin Time INR Routine 06/29/21 16:30 Glucose, Whole Blood Routine 06/29/21 21:08 Glucose, Whole Blood Routine 06/30/21 06:08 BMP [Basic Metabolic Panel Fasting] Routine Complete Blood Count no Diff AM 06/30/21 07:19 Glucose, Whole Blood Routine Laboratory Last Values WBC 10.7 X10*3/uL (4.8-10.8) 06/30/21 06:08 RBC 3.83 X10*6/uL (4.60-5.80) L 06/30/21 06:08 Hgb 11.3 g/dl (14.0-18.0) L 06/30/21 06:08 Hct 34.9 % (42.0-52.0) L 06/30/21 06:08 MCV 91.1 fL (80.0-98.0) 06/30/21 06:08 MCH 29.5 pg (27.0-33.0) 06/30/21 06:08 MCHC 32.4 g/dl (31.0-36.0) 06/30/21 06:08 RDW 17.2 % (11.0-16.0) H 06/30/21 06:08 Plt Count 132 X10*3/uL (160-400) L 06/30/21 06:08 MPV 10.4 fL (9.4-12.4) 06/30/21 06:08 Immature Gran % (Auto) 1.7 % (0.0-0.4) H 06/29/21 05:46 Neut % (Auto) 81.2 % (45-73) H 06/29/21 05:46 Lymph % (Auto) 9.9 % (20-40) L 06/29/21 05:46 [place] % (Auto) 7.0 % (2-11) 06/29/21 05:46 Eos % (Auto) 0.0 % (0-4) 06/29/21 05:46 Baso % (Auto) 0.2 % (0-2) 06/29/21 05:46 Lymph # (Auto) 1.2 X10*3/uL (1.2-4.9) 06/29/21 05:46 [place] # (Auto) 0.8 X10*3/uL (0.1-1.2) 06/29/21 05:46 Eos # (Auto) 0.0 X10*3/uL (0.0-0.4) 06/29/21 05:46 Baso # (Auto) 0.0 X10*3/uL (0.0-0.2) 06/29/21 05:46 Abs Immat Gran (auto) 0.20 X10*3/uL (0.00-0.03) H 06/29/21 05:46 Absolute Neuts (auto) 9.45 x10*3/uL (2.0-8.3) H 06/29/21 05:46 Absolute Nucleated RBC 0.030 X10*3/uL (0.0-0.012) H 06/30/21 06:08 Nucleated RBC % (auto) 0.3 /100WBC (0.0-0.2) H 06/30/21 06:08 PT 14.3 SEC (9.9-13.0) H 06/29/21 15:42 INR 1.3 (0.9-1.1) H 06/29/21 15:42 APTT 42.2 SEC (24.1-38.0) H D 06/28/21 15:49 Sodium 139 mmol/L (135-145) 06/30/21 06:08 Potassium 3.6 mmol/L (3.3-5.1) 06/30/21 06:08 Chloride 102 mmol/L (96-108) 06/30/21 06:08 Carbon Dioxide 26 mmol/L (22-29) 06/30/21 06:08 Anion Gap 15 (12-20) 06/30/21 06:08 BUN 12 mg/dL (9-16) 06/30/21 06:08 Creatinine 0.54 mg/dL (0.5-1.4) 06/30/21 06:08 Estim Creat Clear Calc 163.5 06/30/21 06:08 Estimated GFR > 60 06/30/21 06:08 POC Glucose 122 mg/dL (60-115) H 06/30/21 07:19 Random Glucose 133 mg/dL (60-115) H 06/29/21 05:46 Fasting Glucose 112 mg/dL (60-99) H D 06/30/21 06:08 Calcium 8.6 mg/dL (8.4-10.2) 06/30/21 06:08 COVID-19 (CINDY) Negative (Negative) 06/28/21 16:49 COVID-19 Clin Com See Note 06/28/21 16:49 - Imaging Radiologist's impression: ITS Impressions Chest CTA 06/29/21 13:30 IMPRESSION: As above, evaluation for segmental and subsegmental emboli is extremely limited and essentially nondiagnostic. No definite central pulmonary emboli. There is redemonstration of a right upper lobe mass invading into the mediastinum and causing significant superior vena cava obstruction, similar to the study from May but increase in size since February. A peripheral rounded area in the right upper lobe is also increase in size since February. These findings are worrisome for progression of malignancy. A partially loculated moderate size right pleural effusion is stable in size. Increased focal sclerotic appearance of the posterior left T9 vertebral body, which is worrisome for a metastatic osseous lesion. VTE: indeterminate Head CT 06/29/21 13:35 IMPRESSION: New 1 cm low-attenuation lesion in the periventricular white matter of the right frontal lobe adjacent to the frontal horn. Differential would include a small infarct, neoplastic process and infection. This could be better characterized with MRI. Assessment and Plan Patient Active problem list reviewed?: Yes (1) SVC (superior vena cava obstruction) Status: Acute Assessment and plan: 1. This is a 56-year-old male with metastatic squamous cell carcinoma originating in the right upper lung. He received concurrent chemo radiotherapy in early 2020. Unfortunately he developed pneumonitis and could not receive definitive/consolidative immunotherapy. He has had progressive cancer and was being treated with single agent Taxotere in the palliative setting for the last 3 months. 2. 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 He has been started on anticoagulation with Lovenox 1 mg/kg b.i.d.. He is doing better, he reports less facial swelling and arm pain today. I spoke to intervention radiologist at [facility] who said outpatient stenting can be performed if necessary. Patient can be discharged today, he will follow-up in oncology clinic early next week. Thank you. - Time Spent With Patient Time Spent with Patient (in minutes): 10
[2021-06-30] MEDS: Losartan Potassium 50 MG TABLET 100 MG PO (09:33)
[2021-06-30] MEDS: predniSONE 5 MG TABLET PO (09:33)
[2021-06-30] MEDS: Azithromycin 250 MG TABLET PO (09:33)
[2021-06-30] MEDS: Triamcinolone Acet 0.1 % Cream 15 GM TUBE 1 APPL TOPICAL ×2 (09:34→22:21)
[2021-06-30 11:15] LABS: Glucose, Whole Blood 163 mg/dL (60-115)
[2021-06-30] MEDS: Insulin Lispro 100 UNIT/ML 3 ML VIAL SUBCUT ×2 (11:22→16:53)
[2021-06-30] MEDS: Enoxaparin Sodium 100 MG/ML SYRINGE 90 MG SUBCUT ×2 (11:23→22:16)
--- NOTE | 2021-06-30 12:33 | MHC.CM.PN ---
per rounds no dc date att this time plan remanins home no servceis
--- NOTE | 2021-06-30 14:15 | P.PNIM_ITS ---
Subjective Subjective Date of Service: 06/30/21 Interval History: Being followed for superior vena cava syndrome, patient complaining of left-sided chest pressure, telemetry showed tachycardia, denies shortness of breath, no nausea, no vomiting no other acute issues overnight. Review of Systems General no headache ,no dizziness, no fever chills. CVS chest pressure localized left anterior chest, no jaw pain, no palpitation. Respiratory no cough ,no sob, no respiratory distress. Gastrointestinal no nausea, no vomiting, no abdominal pain Review of Systems: Yes all other systems are reviewed and are negative Physical Exam Vital Signs: Vital Signs: Last Vital Signs Temp 97.9 F 06/30/21 11:10 Pulse 113 H 06/30/21 11:10 Resp 18 06/30/21 11:10 BP 90/76 06/30/21 11:10 Pulse Ox 95 06/30/21 11:10 Body Mass Index 32.7 eneral: AXO X 3, appears uncomfortable, anxious no acute distress Neck no JVD Anterior chest wall no crepitus, superficial broken capillaries Resp:? CTA bilateral, no accessory muscles used CVS: S1,S2,RRR GI: soft, non tender, non distended, bowel sounds audible Extremities no edema Neuro:? motor grossly intact, alert Psych: appropriate affect, appropriate insight? Objective Data Active Medications Albuterol/Ipratropium (Albuterol/Iprat 2.5/0.5mg 3 Ml Ampul.Neb) 3 ml INHALE Q6H PRN PRN Reason: Shortness Of Breath Atorvastatin Calcium (Atorvastatin Calcium 20 Mg Tablet) 20 mg PO BEDTIME [facility] Last Admin: 06/29/21 21:55 Dose: 20 mg Documented by: PADILLA Azithromycin (Azithromycin 250 Mg Tablet) 250 mg PO MOWEFR@0900 [facility] Last Admin: 06/30/21 09:33 Dose: 250 mg Documented by: KANU Benzonatate (Benzonatate 100 Mg Capsule) 200 mg PO BID PRN PRN Reason: cough Dextrose (Dextrose 50 % 25 Gm/50 Ml Vial) 25 gm IVPUSH Q15M PRN; Protocol PRN Reason: per Hypoglycemia Standing Ord. Enoxaparin Sodium (Enoxaparin Sodium 100 Mg/Ml Syringe) 90 mg SUBCUT Q12H [facility] Last Admin: 06/30/21 11:23 Dose: 90 mg Documented by: KANU Glucose (Glucose Gel 15 Gm Gel..Gram.) 15 gm PO Q15M PRN; Protocol PRN Reason: per Hypoglycemia Standing Ord. Insulin Human Lispro (Insulin Lispro 100 Unit/Ml 3 Ml Vial) 0 unit SUBCUT QIDACHS [facility]; Protocol Last Admin: 06/30/21 11:22 Dose: 2 unit Documented by: KANU Loperamide HCl (Loperamide Hcl 2 Mg Capsule) 2 mg PO Q4H PRN PRN Reason: Diarrhea Losartan Potassium (Losartan Potassium 50 Mg Tablet) 100 mg PO DAILY [facility]; Protocol Last Admin: 06/30/21 09:33 Dose: 100 mg Documented by: KANU Metformin HCl (Metformin Hcl Er 500 Mg Tab.Er.24h) 1,000 mg PO BID [facility] Non-Formulary Medication (Empagliflozin [Jardiance]) 10 mg PO DAILY [facility] Oxycodone HCl (Oxycodone Hcl Immed Release 5 Mg Tablet) 5 mg PO BID PRN PRN Reason: Pain Last Admin: 06/29/21 21:55 Dose: 5 mg Documented by: PADILLA Pharmacy Consult (Consult Rx Perform Med Rec) 1 each MISCELLANE ONCE PRN PRN Reason: Consult order Prednisone (Prednisone 5 Mg Tablet) 5 mg PO DAILY [facility] Last Admin: 06/30/21 09:33 Dose: 5 mg Documented by: KANU Triamcinolone Acetonide (Triamcinolone Acet 0.1 % Cream 15 Gm Tube) 1 appl TOPICAL BID [facility]; Protocol Last Admin: 06/30/21 09:34 Dose: 1 appl Documented by: KANU Labs CBC & Chem 7: 06/30/21 06:08 06/30/21 06:08 Labs: Laboratory Results - last 24 hr 06/29/21 06/29/21 06/29/21 15:42 16:30 21:08 MCV MCH MCHC RDW Plt Count MPV Absolute Nucleated RBC Nucleated RBC % (auto) PT 14.3 H INR 1.3 H Anion Gap Estim Creat Clear Calc Estimated GFR POC Glucose 113 98 Fasting Glucose Calcium 06/30/21 06/30/21 06/30/21 06:08 06:08 07:19 MCV 91.1 MCH 29.5 MCHC 32.4 RDW 17.2 H Plt Count 132 L MPV 10.4 Absolute Nucleated RBC 0.030 H Nucleated RBC % (auto) 0.3 H PT INR Anion Gap 15 Estim Creat Clear Calc 163.5 Estimated GFR > 60 POC Glucose 122 H Fasting Glucose 112 H D Calcium 8.6 06/30/21 11:10 MCV MCH MCHC RDW Plt Count MPV Absolute Nucleated RBC Nucleated RBC % (auto) PT INR Anion Gap Estim Creat Clear Calc Estimated GFR POC Glucose 163 H Fasting Glucose Calcium Assessment and Plan (1) SVC (superior vena cava obstruction): Status: Acute (2) Pneumonitis: Status: Acute (3) Hypertension: Status: Acute (4) Lung mass: Status: Acute Assessment and Plan: 56M presened with fatigue, tachycardia innominate thrombus, with SVC syndrome and persistent tachycardia and chest pressure Persistent tachycardia on tele monitor, EKG show sinus tachycardia Localized left anterior chest pain On therapeutic lovenox 90mg bid Echo showed EF 50-55% and grade 1 diastolic dysfunction, limited evaluation of cardiac valves. CT head showed a 1 cm low attenuation lesion in the periventricular white matter of right frontal lobe, question small infarction, neoplastic process and infection MRI is recommended In regard to chest pain will obtain troponin and EKG Tachycardia could be related to dehydration, pain and anemia Will give IV fluids, analgesic Will discuss further treatment plan including an MRI with Dr. Jack and follow clinical course closely Stage III squamous cell carcinoma lung CT chest showed no definite central pulmonary emboli but showed right upper lobe mass invading the mediastinum with significant superior vena cava obstruction increased in size since February. on keytruda DM type 2 Blood sugars stable, On Glucophage 1000 mg b.i.d. and Jardiance Continue diabetic diet and insulin sliding scale chornic hypoxic repsiraotry failure due to radiation pneumonitis/copd, No acute COPD exacerbation, oxygen stable 95% on room air, Continue prednisone 5 mg daily continue inhalers Hypertension soft blood pressure will hold losartan DVT prophylaxis on Lovenox Quality Stroke Does the patient have a stroke diagnosis?: No VTE Prior VTE?: Yes VTE Risk Level:: Medical - moderate - high VTE Device Contraindication: Treatment Not Indicated VTE Drug Contraindication: N/A - Med Ordered
[2021-06-30 16:03] LABS: Troponin-I High Sensitivity 13.7 ng/L (<3.5-35.0)
[2021-06-30] MEDS: 0.9 % Sodium Chloride 1,000 ML 80 ML IVCONT (16:11)
[2021-06-30 16:12] LABS: Glucose, Whole Blood 156 mg/dL (60-115)
[2021-06-30 20:43] LABS: Glucose, Whole Blood 116 mg/dL (60-115)
[2021-06-30] MEDS: Atorvastatin Calcium 20 MG TABLET PO (22:16)
[2021-06-30] MEDS: Benzonatate 100 MG CAPSULE 200 MG PO (22:20)
[2021-06-30] MEDS: oxyCODONE HCl Immed Release 5 MG TABLET PO (22:20)
[2021-07-01 03:58] VITALS: BP 117/75; PULSE 103; RESP 20; TEMP 37; O2SAT 95
[2021-07-01 07:06] VITALS: BP 102/65; PULSE 113; RESP 18; TEMP 36.7; O2SAT 94
[2021-07-01 07:10] LABS: Glucose, Whole Blood 122 mg/dL (60-115)
[2021-07-01] MEDS: metFORMIN HCl ER 500 MG TAB.ER.24H 1000 MG PO (08:30)
[2021-07-01] MEDS: predniSONE 5 MG TABLET PO (08:31)
[2021-07-01] MEDS: oxyCODONE HCl Immed Release 5 MG TABLET PO (08:31)
[2021-07-01] MEDS: Triamcinolone Acet 0.1 % Cream 15 GM TUBE 1 APPL TOPICAL (08:31)
[2021-07-01 11:03] VITALS: BP 101/58; PULSE 113; RESP 19; TEMP 36.9; O2SAT 95
[2021-07-01 11:09] LABS: Glucose, Whole Blood 234 mg/dL (60-115)
[2021-07-01] MEDS: Enoxaparin Sodium 100 MG/ML SYRINGE 90 MG SUBCUT (12:03)
[2021-07-01] MEDS: Insulin Lispro 100 UNIT/ML 3 ML VIAL SUBCUT (12:04)
[2021-07-01 12:31] VITALS: BP 106/68; PULSE 114; RESP 22; TEMP 36.9; O2SAT 93
--- NOTE | 2021-07-01 14:02 | PC.NURSE ---
[facility] CALLED AND RN TO RN REPORT GIVEN ([phone]). TELE PACK REMOVED. IV IN PLACE FOR TRANSFER.
--- NOTE | 2021-07-01 14:32 | P.DS_ITS ---
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 Unfortunately he developed pneumonitis and could not receive definitive/consolidative immunotherapy.? He has had progressive cancer and was being treated with single agent Taxotere in the palliative setting for the last 3 months, patient sent in from outpatient oncology for tachycardia and fatigue and sob, ct chest 05/29/21 showed encasement and narrowing of the SVC by the right apical mass,there is also significant narrowing and encasement of the right brachiocephalic vein.?since he has been progressively fatigued, short of breath,tachycardic, he is being admitted to intermediate care unit and will be p laced on subcu Lovenox twice daily patient denied any associated fever or chills lightheadedness dizziness. Hospital course 56-year-old gentleman admitted to medical floor with a diagnosis of innominate thrombus, with SVC syndrome patient treated with subcu Lovenox 90 mg b.i.d., he continued to have persistent tachycardia and right-sided chest pressure, EKG show sinus tachycardia, no ischemic changes, showed EF 50-55% and grade 1 diastolic dysfunction, limited evaluation of cardiac valves.CT head showed a 1 cm low attenuation lesion in the periventricular white matter of right frontal lobe, question small infarction, neoplastic process and infection, troponin remained flat, since patient continued to have persistent right-sided chest pain tachycardia and noted to have worsening right upper extremity swelling therefore case discussed with [facility] interventional radiologists and patient is now being discharged to [facility] for possible stent placement tomorrow will continue Lovenox twice daily, Case discussed with Dr. Jack she does not recommend brain MRI study. Stage III squamous cell carcinoma lung CT chest showed no definite central pulmonary emboli but showed right upper lobe mass invading the mediastinum with significant superior vena cava obstruction increased in size since February. 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/copd, oxyge nation remained stable no acute COPD exacerbation patient has been continued on chronic prednisone 5mg daily and on inhalers Hypertension soft blood pressure hold losartan Time Spent with Patient Time attestation: Total time spent providing and/or coordinating discharge services: Discharge coordination time: Greater than 30 minutes Quality: Stroke Does the patient have a stroke diagnosis?: No Physical Exam Vital Signs: Vital Signs: Last Vital Signs Temp 98.5 F 07/01/21 12:31 Pulse 114 H 07/01/21 12:31 Resp 22 H 07/01/21 12:31 BP 106/68 07/01/21 12:31 Pulse Ox 93 07/01/21 12:31 Body Mass Index 32.7 General: AXO X 3, appears uncomforta ble, anxious no ac grace distress Neck no JVD Anterior ch est wall no crepit us, superficial br oken capillaries R donny:? CTA bilatera l, no accessory mu scles used CVS: S1 ,S2,RRR GI: soft, non tender, non di stended, bowel debbi nds audible Extrem ities swollen rt u pper extremity Demetrio ro:? motor grossly intact, alert Psy ch: appropriate af fect, appropriate insight? DS: Data Data Completed and Pending Labs on day of discharge: Laboratory Results - last 24 hr 06/30/21 06/30/21 06/30/21 14:59 16:08 20:37 POC Glucose 156 H 116 H Troponin I High Sens 13.7 D 07/01/21 07/01/21 07:04 11:02 POC Glucose 122 H 234 H Troponin I High Sens Discharge Plan Discharge Patient Disposition: Xfer Acute Care Hospital Discharge Diagnosis: SVC syndrome Left innominate thrombosed Persistent tachycardia stage III squamous cell carcinoma of lung Referrals: Physician,Unknown J [Primary Care Provider] - 1 Week Discharge Medications: New oxycodone 5 mg Tablet 5 mg PO Q6H PRN (Reason: Pain, Severe (Pain Scale 7-10)) Qty: 12 RF: 0 enoxaparin 100 mg/mL Syringe 90 mg subcut Q12H Qty: 1 RF: 0 famotidine [Pepcid] 20 mg tablet 20 mg PO DAILY Qty: 30 RF: 0 Continued benzonatate 200 mg capsule 200 mg PO BID PRN (Reason: cough) 30 Days Qty: 60 RF: 3 loperamide [Imodium A-D] 2 mg Capsule 2 mg PO Q4H PRN (Reason: Diarrhea) Qty: 30 RF: 0 atorvastatin 20 mg tablet 1 tab PO BEDTIME RF: 0 ipratropium-albuterol 0.5 mg-3 mg(2.5 mg base)/3 mL solution for nebulization 3 ml inhalation Q6H PRN (Reason: Shortness Of Breath) RF: 0 azithromycin 250 mg tablet 1 tab PO MOWEFR@0900 RF: 0 prednisone 20 mg tablet 5 mg PO DAILY RF: 0 Jardiance 10 mg tablet 10 mg PO DAILY RF: 0 triamcinolone acetonide 0.1 % cream 1 appl topical BID Qty: 453.6 RF: 0 Discontinued metformin 500 mg tablet extended release 24 hr 1,000 mg PO BID 30 Days Qty: 120 RF: 3 (DME) blood-glucose meter [FreeStyle Basom Lite] Kit See Rx Instructions .ROUTE .MEDSUPPLY Qty: 1 RF: 0 (DME) FreeStyle Lite Strips Strip See Rx Instructions .ROUTE .MEDSUPPLY Qty: 100 RF: 11 (DME) lancets [FreeStyle Lancets] 28 gauge misc See Rx Instructions .ROUTE .MEDSUPPLY Qty: 100 RF: 11 oxycodone 5 mg Capsule 5 mg PO BID PRN (Reason: Pain) Qty: 60 RF: 0 Xarelto DVT-PE Treat 30d Start 15 mg (42)- 20 mg (9) Tablets,Dose Pack See Rx Instructions .ROUTE .COMPLEX Qty: 1 RF: 0 losartan 100 mg tablet 1 tab PO DAILY RF: 0 (DME) blood sugar diagnostic Strip See Rx Instructions strip .ROUTE .MEDSUPPLY Qty: 10 RF: 0 Discharge Orders: Discharge Order (Routine); Ordered 07/01/21 Ordered By: Siva Machuca Diet: diabetic diet Activity on Discharge: As tolerated Stand Alone Forms: Patient Portal Discharge page Care Plan Goals: Superior vena caval syndrome with persistent tachycardia right-sided chest pain and right upper extremity swelling continue Lovenox 90 mg twice daily and evaluation by interventional radiology for stent placement. Health Concerns: Continue on medications as above, in regard to diabetes follow blood sugars and continue insulin sliding scale and diabetic diet, metformin held with concern for further imaging studies and intervention, losartan held due to soft blood pressures. Plan of Treatment: Follow-up with oncologist Dr. Jack and primary care physician in 1-2 weeks off the being discharge from hospital. Assessment: as above
[2021-07-01 15:44] VITALS: BP 107/71; PULSE 112; RESP 17; TEMP 36.9; O2SAT 96
[2021-07-01 15:48] VITALS: BP 108/63; PULSE 109; RESP 20; TEMP 36.8; O2SAT 98
[2021-07-01 16:11] LABS: Glucose, Whole Blood 143 mg/dL (60-115)
--- NOTE | 2021-07-01 16:53 | PC.NURSE ---
Report received from DUANE Guerra. Pt is currently awaiting EMS transportation to [facility]. He offers no complaints at this time.
== END 2021-07-01 17:33 | disposition short-term general hospital (02) | DRG 143 ==
PROVIDERS: Absent Provider Internal Medicine; Admitting Provider Internal Medicine; PCP Physician Assistant; Visit Provider Hospitalist
DX: J70.0 Acute pulmonary manifestations due to radiation (principal); J96.11 Chronic respiratory failure with hypoxia; I82.290 Acute embolism and thrombosis of other thoracic veins; C34.11 Malignant neoplasm of upper lobe, right bronchus or lung; I87.1 Compression of vein; I10 Essential (primary) hypertension; J44.9 Chronic obstructive pulmonary disease, unspecified; E11.9 Type 2 diabetes mellitus without complications; Z20.822 Contact with and (suspected) exposure to COVID-19; Z79.52 Long term (current) use of systemic steroids; Z87.891 Personal history of nicotine dependence; Z79.899 Other long term (current) drug therapy
CPT/HCPCS: 36415; 70450; 71275; 80048; 82947; 84484; 85025; 85027; 85610; 85730; 87635; 93005; 93306; 99225; J1650; J1940; Q9957; Q9967

== ENCOUNTER → 2021-07-27 15:44 | Outpatient (BNVA) | payer OTHER, SELFPAY | PROVIDERS: PCP Physician Assistant; Visit Provider Internal Medicine | DX: R05.9 Cough, unspecified (principal); R09.02 Hypoxemia; I87.1 Compression of vein; C34.90 Malignant neoplasm of unspecified part of unspecified bronchus or lung | CPT/HCPCS: 99212 ==

== ENCOUNTER 2021-08-18 13:14 | Emergency (ER) | payer OTHER, SELFPAY ==
--- NOTE | 2021-08-18 | ECG_ITS ---
Test Reason : CHEST PAIN Blood Pressure : / mmHG Vent. Rate : 122 BPM Atrial Rate : 122 BPM P-R Int : 154 ms QRS Dur : 084 ms QT Int : 312 ms P-R-T Axes : 032 022 034 degrees QTc Int : 444 ms Sinus tachycardia Nonspecific T wave abnormality Borderline ECG When compared with ECG of 30-JUN-2021 14:46, No significant change was found Referred By: Generic ED Physician Electronically Signed By:SONY MCALLISTER
--- NOTE | ~2021-08-18 | XR_ITS ---
EXAMINATION: XR CHEST CLINICAL INFORMATION: Cough COMPARISON: Baseline 04/08/2021 TECHNIQUE: Portable 2:07 PM semiupright view of the chest was obtained. FINDINGS: Continued right upper lobe near complete collapse and consolidation. Elevation of hemidiaphragm. Left lung clear. No new findings. XR/XR chest 1V IMPRESSION: Persistent consolidation/partial atelectasis right upper lobe. This is presumably on a postobstructive basis. Central mass lesion favoring bronchogenic carcinoma is again suspected. Bronchoscopy correlation recommended. No new findings.
[2021-08-18 13:40] VITALS: BP 117/75; PULSE 122; RESP 20; TEMP 36.8; O2SAT 98; BMI 29.7
[2021-08-18 18:30] LABS: MANUAL DIFF FLAG NO
[2021-08-18 18:32] LABS: Basophils Percent Auto 0.2 % (0-2); Eosinophils Percent Auto 0.5 % (0-4); Hematocrit 36.7 % (42.0-52.0); Hemoglobin 11.4 g/dl (14.0-18.0); Imm Gran Abs Auto 0.03 X10*3/uL (0.00-0.03); Imm Gran Pct Auto 0.4 % (0.0-0.4); Lymphocytes Absolute Auto 0.8 X10*3/uL (1.2-4.9); Lymphocytes Percent Auto 9.6 % (20-40); Mean Corpuscular HGB Conc 31.1 g/dl (31.0-36.0); Mean Corpuscular Hemoglobin 27.7 pg (27.0-33.0); Mean Corpuscular Volume 89.3 fL (80.0-98.0); Mean Platelet Volume 9.8 fL (9.4-12.4); Monocytes Absolute Auto 0.6 X10*3/uL (0.1-1.2); Neutrophils Percent Auto 82.3 % (45-73); Platelet Count 273 X10*3/uL (160-400); Red Blood Count 4.11 X10*6/uL (4.60-5.80); Red Cell Distribution Width 14.4 % (11.0-16.0); White Blood Count 8.5 X10*3/uL (4.8-10.8)
[2021-08-18 18:43] LABS: COVID-19 Test Negative (Negative)
[2021-08-18 18:58] LABS: Alanine Aminotransferase 16 U/L (0-40); Albumin Level 3.8 g/dL (3.5-5.0); Alkaline Phosphatase 167 U/L (39-117); Anion Gap 16 (12-20); Aspartate Amino Transferase 20 U/L (5-37); Bilirubin Total 0.6 mg/dL (0.0-1.0); Blood Urea Nitrogen 8 mg/dL (9-16); Calcium 10.3 mg/dL (8.4-10.2); Carbon Dioxide 26 mmol/L (22-29); Chloride 103 mmol/L (96-108); Estimated Glomerular Filt Rate > 60; Glucose Random 151 mg/dL (60-115); Potassium 3.9 mmol/L (3.3-5.1); Sodium 141 mmol/L (135-145); Total Protein 6.8 g/dL (6.5-8.0)
--- NOTE | 2021-08-18 19:08 | ED.GENADULT ---
HPI - General Adult General Chief complaint: General Medical Stated complaint: Cough (lung cancer) Source: patient Mode of arrival: ambulatory Limitations: no limitations History of Present Illness HPI narrative: 56-year-old male with lung cancer on chemo presents with 3 weeks of cough and nasal congestion. Onset (ago): week(s) (3) Location: chest Radiation: non-radiation Severity: moderate Severity scale (1-10): 6 Relieving factors: none Associated symptoms: denies other symptoms Related Data Home Medications Medication Instructions Recorded Confirmed azithromycin 250 mg tablet 1 tab PO MOWEFR@0900 06/28/21 07/21/21 ipratropium 0.5 mg-albuterol 3 mg 3 ml INHALATION Q6H PRN 06/28/21 07/21/21 (2.5 mg base)/3 mL nebulization soln prednisone 20 mg tablet 5 mg PO DAILY 06/28/21 07/21/21 metformin 500 mg tablet,extended 2 tab PO BID 07/16/21 07/21/21 release 24 hr budesonide 0.5 mg/2 mL suspension mg INHALATION 07/27/21 for nebulization guaifenesin 100 mg/5 mL oral mg PO 07/27/21 liquid (Robafen) Previous Rx's Medication Instructions Recorded triamcinolone acetonide 0.1 % 1 appl TOPICAL BID #453.6 g 02/05/21 topical cream loperamide 2 mg capsule (Imodium 2 mg PO Q4H PRN #30 cap 05/14/21 A-D) famotidine 20 mg tablet (Pepcid) 20 mg PO DAILY #30 tab 07/01/21 albuterol sulfate 90 mcg/actuation 2 inh INHALATION Q6H PRN #8.5 g 07/16/21 aerosol inhaler oxycodone 5 mg capsule 5 mg PO Q4H PRN #60 cap 07/26/21 empagliflozin 10 mg tablet 10 mg PO DAILY #30 tab 07/28/21 (Jardiance) apixaban 5 mg tablet (Eliquis) 5 mg PO BID #60 tab 08/11/21 benzonatate 200 mg capsule 200 mg PO BID PRN 30 Days #60 cap 08/11/21 Allergies Allergy/AdvReac Type Severity Reaction Status Date / Time No Known Allergies Allergy Verified 08/18/21 13:40 Review of Systems Review of Systems: Constitutional: No Fever, No Chills ENT/Mouth: No Ear Pain, No Hoarseness, No sore throat Eyes: No Eye Pain, No Swelling, No Redness, No Foreign Body Cardiovascular: No Chest Pain, No SOB Respiratory: Positive Cough, No Dyspnea Gastrointestinal: No Nausea, No Vomiting, No Diarrhea, positive abdominal Pain Genitourinary: No Dysuria, No Hematuria Musculoskeletal: positive joint pain, No Myalgias, No Joint Swelling Skin: No Skin lacerations, No rash Neuro: No Weakness, No Numbness, No Paresthesias, No Loss of Consciousness, No Dizziness, No Headache Psych: No Anxiety/Panic, No Depression Heme/Lymph: no easy bruising, no Lymphadenopathy Endocrine: No Polyuria, No Polydipsia Yes all other systems are reviewed and are negative [facility] Past Medical History Attestation statement: The following information was validated with the patient. Source: old records reviewed Medical History DMII (diabetes mellitus, type 2) Exercise hypoxemia Hypertension Hypoxemia Hypoxia Kidney stones Lung mass Mediastinal lymphadenopathy Personal history of nicotine dependence Pleural effusion Pneumonia Pneumonitis Radiation pneumonitis Sciatica Squamous cell carcinoma lung Squamous cell carcinoma of bronchus in right upper lobe Squamous cell lung cancer Surgical History History of arthroscopy of left knee (~1993) History of bronchoscopy (~2019) History of cholecystectomy (~1994) History of cholecystectomy Family History Family History Father Heart attack Maternal Aunt Diabetes Paternal Uncle Diabetes Mother No problems noted. Father No problems noted. Mother No problems noted. Social History Social History Household Members: Spouse Housing: House Are you a primary home visit field care manager to a significant other at home: No Do you presently have visiting nurse or other home services: No Alcohol intake: never Patient Tobacco Use Status: Former Tobacco user Tobacco use type: Cigarette Years Smoked: 38 Second Hand Smoke Exposure: No Advance Directives: Yes Advance Directives on File: Yes Advance Directives Date on File: 12/07/20 service: No Current occupational status: employed Physical Exam Vital Signs: Vital Signs: Last Vital Signs Temp 98.3 F 08/18/21 13:40 Pulse 122 H 08/18/21 13:40 Resp 20 08/18/21 13:40 BP 117/75 08/18/21 13:40 Pulse Ox 98 08/18/21 13:40 Oxygen Flow Rate 2 08/18/21 13:40 BMI result Body Mass Index 29.7 Appearance: Alert. Oriented X3. No acute distress. Pale. Consistent with chemotherapeutics. Eyes: Pupils equal, round and reactive to light. Sclera nonicteric. ENT: Pharynx normal. Moist mucous membranes. Neck: Normal inspection. Neck supple. CVS: Normal heart rate and rhythm. Pulses normal. Respiratory: No respiratory distress. Breath sounds normal. Abdomen: Soft and obese. Nontender. Skin: Skin warm and dry. Normal skin color. Normal skin turgor. Extremities: No lower extremity edema. Gait well-balanced well coordinated. Neuro: No motor deficit. No sensory deficit. Cranial nerves 2-12 intact. Course Course Course Narrative: 56-year-old male being treated for lung cancer on chemotherapy presents for cough. Has been in the waiting room for approximately 5 hours 30 minutes. Labs drawn x-rays completed while patient was in the emergency department waiting room. Labs unremarkable, similar to his baseline, no changes in his EKG he is tachycardic but in no acute distress. Patient is afebrile, appears nontoxic, even unlabored respirations. COVID test is negative. X-rays do not indicate any further disease progression. I did discuss labs in detail with patient, he would like to be discharged home this time. I agree with plan. Patient will follow-up with oncology and primary if symptoms persist. Patient verbalized understanding of and agrees plan care discharge home. Medical Decision Making Differential Diagnosis Differential Diagnosis: Lung cancer, pneumonia, bronchitis, COVID-19, viral syndrome Medical Records Medical records reviewed: Yes I reviewed the patient's medical records. Lab Data Lab results reviewed: Yes I reviewed the patient's lab results. Result diagrams: 08/18/21 18:22 08/18/21 18:22 Labs: Lab Results 08/18/21 08/18/21 08/18/21 Range/Units 18:22 18:22 18:22 WBC 8.5 (4.8-10.8) X10*3/uL RBC 4.11 L (4.60-5.80) X10*6/uL Hgb 11.4 L (14.0-18.0) g/dl Hct 36.7 L (42.0-52.0) % MCV 89.3 (80.0-98.0) fL MCH 27.7 (27.0-33.0) pg MCHC 31.1 (31.0-36.0) g/dl RDW 14.4 (11.0-16.0) % Plt Count 273 (160-400) X10*3/uL MPV 9.8 (9.4-12.4) fL Immature Gran % (Auto) 0.4 (0.0-0.4) % Neut % (Auto) 82.3 H (45-73) % Lymph % (Auto) 9.6 L (20-40) % [place] % (Auto) 7.0 (2-11) % Eos % (Auto) 0.5 (0-4) % Baso % (Auto) 0.2 (0-2) % Lymph # (Auto) 0.8 L (1.2-4.9) X10*3/uL [place] # (Auto) 0.6 (0.1-1.2) X10*3/uL Eos # (Auto) 0.0 (0.0-0.4) X10*3/uL Baso # (Auto) 0.0 (0.0-0.2) X10*3/uL Abs Immat Gran (auto) 0.03 (0.00-0.03) X10*3/uL Absolute Neuts (auto) 7.0 (2.0-8.3) x10*3/uL Absolute Nucleated RBC 0.000 (0.0-0.012) X10*3/uL Nucleated RBC % (auto) 0.0 (0.0-0.2) /100WBC Sodium 141 (135-145) mmol/L Potassium 3.9 (3.3-5.1) mmol/L Chloride 103 (96-108) mmol/L Carbon Dioxide 26 (22-29) mmol/L Anion Gap 16 (12-20) BUN 8 L (9-16) mg/dL Creatinine 0.63 (0.5-1.4) mg/dL Estim Creat Clear Calc 134.0 Estimated GFR > 60 Random Glucose 151 H (60-115) mg/dL Calcium 10.3 H D (8.4-10.2) mg/dL Total Bilirubin 0.6 (0.0-1.0) mg/dL AST 20 (5-37) U/L ALT 16 (0-40) U/L Alkaline Phosphatase 167 H (39-117) U/L Total Protein 6.8 (6.5-8.0) g/dL Albumin 3.8 (3.5-5.0) g/dL COVID-19 (CINDY) Negative (Negative) COVID-19 Clin Com See Note Imaging Data Chest x-ray: Attestation: I personally reviewed and interpreted this imaging study as follows: Radiologist's impression: EXAMINATION: XR CHEST CLINICAL INFORMATION: Cough COMPARISON: Baseline 04/08/2021 TECHNIQUE: Portable 2:07 PM semiupright view of the chest was obtained. FINDINGS: Continued right upper lobe near complete collapse and consolidation. Elevation of hemidiaphragm. Left lung clear. No new findings. XR/XR chest 1V IMPRESSION: Persistent consolidation/partial atelectasis right upper lobe. This is presumably on a postobstructive basis. Central mass lesion favoring bronchogenic carcinoma is again suspected. Bronchoscopy correlation recommended. No new findings. ? ECG Data Attestation: I personally reviewed and interpreted this ECG as follows: Prior ECG tracings: available for review Interpretation: Vent. rate 122 BPM SC interval 154 ms QRS duration 84 ms QT/QTc 312/444 ms P-R-T axes 32 22 34 Sinus tachycardia Nonspecific T wave abnormality Abnormal ECG When compared with ECG of 30-JUN-2021 14:46, No significant change was found 18-AUG-2021 14:05:34 Discharge Plan Discharge Clinical Impression: Cough Lung cancer Qualifiers: Laterality: right Lung location: unspecified part of lung Qualified Code(s): C34.91 - Malignant neoplasm of unspecified part of right bronchus or lung Patient Disposition: Home, Self-Care Instructions: Lung Cancer (DC), Chronic Cough (ED), Cold Symptoms (ED) Additional Instructions: Your evaluated for upper respiratory symptoms. X-rays do not indicate further progression of cancer or disease. Please continue supportive measures for chronic cough. Continue all medications as prescribed by Oncology. Follow-up with primary care physician and Oncology as needed. Your COVID test was negative today. Thank you for choosing this emergency department for evaluation. Please follow-up with primary care physician as needed. Return to the emergency department for any new, concerning, or worsening symptoms. Prescriptions: No Action Jardiance 10 mg tablet 10 mg PO DAILY Qty: 30 RF: 6 loperamide [Imodium A-D] 2 mg Capsule 2 mg PO Q4H PRN (Reason: Diarrhea) Qty: 30 RF: 0 metformin 500 mg tablet extended release 24 hr 2 tab PO BID RF: 0 oxycodone 5 mg Capsule 5 mg PO Q4H PRN (Reason: Pain) Qty: 60 RF: 0 Eliquis 5 mg Tablet 5 mg PO BID Qty: 60 RF: 3 benzonatate 200 mg capsule 200 mg PO BID PRN (Reason: cough) 30 Days Qty: 60 RF: 3 ipratropium-albuterol 0.5 mg-3 mg(2.5 mg base)/3 mL solution for nebulization 3 ml inhalation Q6H PRN (Reason: Shortness Of Breath) RF: 0 azithromycin 250 mg tablet 1 tab PO MOWEFR@0900 RF: 0 prednisone 20 mg tablet 5 mg PO DAILY RF: 0 famotidine [Pepcid] 20 mg tablet 20 mg PO DAILY Qty: 30 RF: 0 triamcinolone acetonide 0.1 % cream 1 appl topical BID Qty: 453.6 RF: 0 albuterol sulfate 90 mcg/actuation HFA aerosol inhaler 2 inh inhalation Q6H PRN (Reason: shortness of breath or wheezing) Qty: 8.5 RF: 0 guaifenesin [Robafen] 100 mg/5 mL liquid PO RF: 0 budesonide 0.5 mg/2 mL suspension for nebulization inhalation RF: 0 Referrals: Chaitanya Mora MD [Physician] - 2 days (Cough) Interventions: ED Discharge Assessment Last Done: 08/18/21 19:25 Discharge Date/Time: 08/18/21 19:27
== END 2021-08-18 19:27 | disposition home or self-care (01) ==
PROVIDERS: Emergency Provider Internal Medicine; PCP Physician Assistant
DX: C34.91 Malignant neoplasm of unspecified part of right bronchus or lung (principal); R05.9 Cough, unspecified; R07.9 Chest pain, unspecified; F17.210 Nicotine dependence, cigarettes, uncomplicated; Z71.6 Tobacco abuse counseling; Z20.822 Contact with and (suspected) exposure to COVID-19; Z79.899 Other long term (current) drug therapy
CPT/HCPCS: 36415; 71045; 80053; 85025; 87635; 93005; 99283

== ENCOUNTER 2021-09-06 08:58 | Outpatient (REF) | payer OTHER, SELFPAY ==
--- NOTE | ~2021-09-06 | CT_ITS ---
EXAMINATION: CT CHEST WITH CONTRAST CLINICAL INFORMATION: Worsening cough COMPARISON: Previous chest x-ray #20 10/17/2020 and CTA of the chest June 2021 TECHNIQUE: Multidetector volumetric CT imaging of the chest was obtained after the administration of 65 mL of Omnipaque 350 intravenous contrast without immediate adverse reactions. Axial MIP volume rendering provided. Sagittal and coronal reformatted images were obtained. This CT examination was performed using dose optimization techniques as appropriate, variously including the following: *Automated exposure control *Adjustment of mA and/or kV according to patient size (this includes techniques or standardized protocols for targeted exams where dose is matched to indication/reason for exam; i.e. extremities or head) *Use of iterative reconstruction technique DLP: 205 mGy-cm FINDINGS: LUNGS: There is dense consolidation in the right upper lobe. This contains air bronchograms. This is heterogeneous in attenuation with low-attenuation areas. This is similar to previous exam. There is compressive atelectasis of the right middle and right lower lobes from the increasing right pleural effusion. There is a new 8 mm left upper lobe nodule axial image 17 series 4. There is a small 4 mm calcified left upper lobe nodule axial image 16 series 4 that is stable. There is a new left lower lobe 7 mm peripheral nodule axial image 39 series 4. MEDIASTINUM: There is a small pericardial effusion. There is a new stent in the SVC. There is low-attenuation/no opacified blood seen in the stent questionable for occlusion. There is heterogeneous enhancement of the right internal jugular vein questionable for thrombus as well. There is extensive abnormal low attenuation seen surrounding the SVC stent and in the superior mediastinum surrounding the aortic arch and great vessels in the pretracheal and precarinal and subcarinal regions. This appears increased from previous exam. There is narrowing of the right upper lobe pulmonary arteries. A definite pulmonary embolism is not appreciated on 9 CTA exam. PLEURA: There is an increasing now large right pleural effusion. There is no left pleural effusion. AXILLA: No chest wall mass or enlarged axillary lymph nodes are seen. There are collateral vessels seen in the left chest wall and upper back. UPPER ABDOMEN: The gallbladder has been removed. There is question of mild cirrhotic changes of the liver. OSSEOUS STRUCTURES: There are degenerative changes of the spine. There is an increasing sclerotic lesion in the left posterior T9 vertebral body and pedicle axial image [address]/CT chest w con IMPRESSION: Increasing right pleural effusion. Stable appearance to the right upper lobe. Increasing abnormal soft tissue seen in the mediastinum. New small pericardial effusion. New SVC stent. There is no opacified blood seen in the stent and heterogeneous enhancement of the right internal jugular vein questionable for thrombus. This could be better evaluated with ultrasound if clinically indicated. New left pulmonary nodules. Increasing sclerotic lesion in the T9 vertebral body. Fleischner guidelines were followed.
[2021-09-06] MEDS: iohexoL 350 MG/ML 100 ML INFUS..BTL IV (10:02)
== END 2021-09-06 08:59 | disposition home or self-care (01) ==
LOC: HO.CT 08:58
PROVIDERS: PCP Physician Assistant; Visit Provider Internal Medicine
DX: C34.90 Malignant neoplasm of unspecified part of unspecified bronchus or lung (principal); R05.9 Cough, unspecified
CPT/HCPCS: 71260; Q9967

== ENCOUNTER → 2021-09-07 15:40 | Outpatient (BNVA) | payer OTHER, SELFPAY | PROVIDERS: PCP Physician Assistant; Visit Provider Internal Medicine | DX: C34.90 Malignant neoplasm of unspecified part of unspecified bronchus or lung (principal); I87.1 Compression of vein; R09.02 Hypoxemia; R05.9 Cough, unspecified; J91.0 Malignant pleural effusion | CPT/HCPCS: 99212 ==

== ENCOUNTER → 2021-09-09 14:35 | Outpatient (REF) | payer OTHER, SELFPAY ==
--- NOTE | 2021-09-09 14:40 | HM_ITS ---
Conclusion: 1. Patient was monitored for total period of 3 days and 11 hours 2. Baseline numbers sinus tachycardia with average heart rate of 110 beats per minute, 86% of time heart rate above 100 beats per minute 3. Very rare PACs noted 4. No patient reported events. MTDD
== END ==
LOC: HO.CARD 14:35
PROVIDERS: Visit Provider Nurse Practitioner Family
DX: R00.0 Tachycardia, unspecified (principal)
CPT/HCPCS: 93242

== ENCOUNTER 2021-09-13 08:35 | Day surgery (SDC) | payer OTHER, SELFPAY ==
[2021-09-13] VITALS (10 sets, daily range): BP systolic 112–133; BP diastolic 52–94; PULSE 108–115; RESP 20–28; TEMP 36.1–36.8; O2SAT 95–98; BMI 29.4
--- NOTE | ~2021-09-13 | US_ITS ---
EXAMINATION: ULTRASOUND-GUIDED RIGHT THORACENTESIS CLINICAL INFORMATION: Right upper lobe neoplasm with moderate right pleural effusion. COMPARISON: None TECHNIQUE: Following explaining ultrasound-guided right thoracentesis procedure, benefits and risks, a written consent was obtained. Patient was placed upright sitting on ultrasound stretcher and preliminary ultrasound imaging was obtained through the right lower chest. An optimal site was selected along the right posterior chest/scapular line and marked on the skin. The marked area was cleaned and draped in the usual sterile manner. 1% lidocaine was injected at the puncture site. Through a small skin incision, a 4 [place] Yueh catheter was advanced into the peritoneal space. After observing fluid return, stylet was withdrawn and syringe attached to the catheter and approximately 40 mL of fluid was collected. Subsequently, cannula attached to a vacuum bottle was connected to the catheter and right pleural space was drained. After observing no fluid return, the Yueh catheter was removed making sure no air leaked in. Sterile dressing was applied postprocedure. Patient tolerated procedure very well. FINDINGS: On preliminary ultrasound imaging, there is moderate right pleural effusion. Approximately 475 mL of clear yellowish fluid was drained from the right pleural space. Part of this fluid was sent to lab as per referring physician's orders. US/US thoracentesis IMPRESSION: Successful ultrasound-guided right thoracentesis performed without immediate complications.
--- NOTE | ~2021-09-13 | XR_ITS ---
EXAMINATION: XR CHEST CLINICAL INFORMATION: Post right thoracentesis COMPARISON: Previous chest x-ray most recent 08/18/[address] August 2021 TECHNIQUE: 2 views of the chest were obtained. FINDINGS: The cardiac and mediastinal contours are stable. There is a right SVC stent. There is a right upper lobe mass/consolidation that appears unchanged. Lungs are otherwise clear. There is elevation of the right hemidiaphragm that appears unchanged. There is no pleural effusion or pneumothorax. There are degenerative changes of the spine. XR/XR chest 2V IMPRESSION: No pneumothorax post right thoracentesis. Mass/consolidation in the right upper lobe and elevated right hemidiaphragm similar to previous exams.
[2021-09-13 09:08] LABS: Glucose, Whole Blood 109 mg/dL (60-115)
[2021-09-13 09:31] LABS: MANUAL DIFF FLAG NO
[2021-09-13 09:34] LABS: Basophils Percent Auto 0.1 % (0-2); Eosinophils Percent Auto 0.3 % (0-4); Hematocrit 38.6 % (42.0-52.0); Hemoglobin 12.2 g/dl (14.0-18.0); Imm Gran Abs Auto 0.21 X10*3/uL (0.00-0.03); Imm Gran Pct Auto 1.8 % (0.0-0.4); Lymphocytes Absolute Auto 0.9 X10*3/uL (1.2-4.9); Lymphocytes Percent Auto 7.4 % (20-40); Mean Corpuscular HGB Conc 31.6 g/dl (31.0-36.0); Mean Corpuscular Hemoglobin 27.4 pg (27.0-33.0); Mean Corpuscular Volume 86.7 fL (80.0-98.0); Mean Platelet Volume 9.9 fL (9.4-12.4); Monocytes Percent Auto 8.2 % (2-11); Neutrophils Absolute Auto 9.5 x10*3/uL (2.0-8.3); Neutrophils Percent Auto 82.2 % (45-73); Platelet Count 214 X10*3/uL (160-400); Red Blood Count 4.45 X10*6/uL (4.60-5.80); Red Cell Distribution Width 15.1 % (11.0-16.0); White Blood Count 11.6 X10*3/uL (4.8-10.8)
[2021-09-13 09:42] LABS: INTERNATIONAL NORM RATIO 1.1 (0.9-1.1); Prothrombin Time 12.9 SEC (9.9-13.0)
[2021-09-13 09:45] LABS: Partial Thromboplastin Time 32.4 SEC (24.1-38.0)
[2021-09-13] MEDS: Lidocaine HCl 1 % MPF 5 ML VIAL 4 ML SUBCUT (11:19)
[2021-09-13 12:22] LABS: MN% 42.9 %; PMN% 57.1 %; RBC Pleural Fluid < 0.002 X10*3/uL
[2021-09-13 12:54] LABS: BF Shift QC OK YES; Lymphocytes Pleural Fluid 11 %; Monocytes Pleural Fluid 1 %; Neutrophils Pleural Fluid 68 %; Other Cells Plerual Fl 20 %
== END 2021-09-13 15:37 | disposition home or self-care (01) ==
PROVIDERS: Radiology Diagnostic Radiology; PCP Physician Assistant; Visit Provider Internal Medicine
DX: J91.0 Malignant pleural effusion (principal); C34.11 Malignant neoplasm of upper lobe, right bronchus or lung; R09.02 Hypoxemia; I87.1 Compression of vein; E11.9 Type 2 diabetes mellitus without complications; Z79.84 Long term (current) use of oral hypoglycemic drugs; Z79.52 Long term (current) use of systemic steroids; Z79.01 Long term (current) use of anticoagulants; Z79.82 Long term (current) use of aspirin; Z79.899 Other long term (current) drug therapy; Z87.891 Personal history of nicotine dependence; I10 Essential (primary) hypertension
CPT/HCPCS: 32555; 36415; 71046; 82947; 85025; 85610; 85730; 87070; 87073; 87205; 88112; 89051

== ENCOUNTER 2021-09-22 10:16 | Outpatient (REF) | payer OTHER, SELFPAY ==
--- NOTE | ~2021-09-22 | XR_ITS ---
EXAMINATION: XR CHEST CLINICAL INFORMATION: Chest wall pain COMPARISON: Chest x-ray 09/13/2021 TECHNIQUE: Frontal view of the chest was obtained. FINDINGS: Stable cardiac silhouette. Similar appearance of right upper lobe masslike consolidation with associated volume loss. SVC stent appears similar in orientation. There remains good aeration of the left lung. Subtle blunting of the right costophrenic angle possibly represents a tiny amount of reaccumulated pleural fluid. There is no pneumothorax.. Degenerative changes of the spine. XR/XR chest 1V IMPRESSION: -Similar masslike consolidation with associated volume loss involving the right hemithorax. -There is likely reaccumulation of a tiny amount of right-sided pleural fluid.
== END 2021-09-22 10:17 | disposition home or self-care (01) ==
LOC: HO.XRAY 10:16
PROVIDERS: Visit Provider Internal Medicine
DX: C34.90 Malignant neoplasm of unspecified part of unspecified bronchus or lung (principal); J91.0 Malignant pleural effusion
CPT/HCPCS: 71045